=== PATIENT | male | born 1950 | race Caucasian/White ===

== ENCOUNTER → 2017-06-09 | Outpatient (CLI) | payer OTHER ==
[~2017-06-09] MED LIST: AMT50 PO; ASCA500 PO; ASPI-232 PO; DICL1GEL12 TOP; MINO100C22 PO; TYLOTC500 PO; WARF3TAB PO
--- NOTE | 2017-06-16 10:26 | CODING QUERY MEDICAL NECESSITY ---
CQSUPPORTING DIAGNOSIS NEEDED A supporting diagnosis is required for the test/procedure performed on this patient in order for us to be reimbursed by the patient's insurance. Please provide a supporting diagnosis for the following test/procedure listed below next to the test name along with your signature. *If there is no additional diagnosis for this patient that would support the following test/procedure please document that below next to the test/procedure. Test(s)/Procedure(s) that require a supporting diagnosis: DOS 06/09/17 PROSTATE SPECIFIC TEST Provider Signature: Date: Thank you Camille Castaneda [employer] Once completed, please kindly fax back to [phone] For questions please call [phone]
== END | disposition home or self-care (01) ==
LOC: C.LAB 10:05
PROVIDERS: ATTEND Urology
DX: C67.9 Malignant neoplasm of bladder, unspecified (principal); N40.1 Benign prostatic hyperplasia with lower urinary tract symptoms

== ENCOUNTER → 2017-12-16 | Outpatient (CLI) | payer OTHER ==
[2017-12-01 14:47] LABS: BLOOD UREA NITROGEN 21 mg/dl (7-18); CREATININE 1.08 mg/dl (0.60-1.40)
[~2017-12-16] MED LIST changes: -DICL1GEL12 TOP; +GADAVIST IV PRN; -MINO100C22 PO; +NALT1TAB14
--- NOTE | 2017-12-16 12:37 | DIAGNOSTIC IMAGING REPORT ---
MRI OF THE PELVIS COMBO CLINICAL HISTORY: Bladder cancer. COMPARISON STUDY: Pelvic MRI dated 10/07/2016. TECHNIQUE: MRI of the pelvis is performed utilizing various T1 and T2-weighted sequences in the axial, sagittal, coronal planes. Contrast-enhanced sequences are acquired following the IV administration of 14 cc of Gadavist. FINDINGS: The prostate gland is mildly enlarged and heterogeneous, measuring up to 4.9 cm in transverse outer. A central defect the prostate gland is consistent with previous TURP. The bladder is largely decompressed. The bladder wall is thickened and trabeculated consistent with chronic outlet obstruction. A small diverticulum is noted posteriorly to the right. No focal mass lesion is identified. There is no evidence of pericystic disease. The seminal vesicles are normal as visualized. The distal ureters are normal as visualized. There is no pelvic sidewall or inguinal lymphadenopathy. No free fluid is identified in the pelvis. The regional bowel is grossly unremarkable noting rectosigmoid fecal retention. The bony pelvis appears intact. No destructive bony lesion is identified. A fat and bowel containing ventral hernia is incidentally noted. IMPRESSION: 1. Prostatomegaly with evidence of previous TURP. 2. The bladder wall is thickened and trabeculated, and a small bladder diverticulum is identified. The appearance is consistent with the sequelae of chronic bladder outlet obstruction. 3. There is no clear MRI evidence of mucosal lesion involving the bladder or extracapsular extension. 4. There is no evidence of metastatic disease in the pelvis. Electronically signed by: Philip Malhotra M.D. 12/16/2017 12:36 PM Dictated Date/Time: 12/16/2017 12:29 PM
== END | disposition home or self-care (01) ==
LOC: C.MRIBC 10:39
PROVIDERS: ATTEND Urology
DX: C67.9 Malignant neoplasm of bladder, unspecified (principal)

== ENCOUNTER → 2018-01-27 | Outpatient (CLI) | payer OTHER ==
[~2018-01-27] MED LIST changes: -GADAVIST IV PRN
--- NOTE | 2018-01-27 14:55 | DIAGNOSTIC IMAGING REPORT ---
RIGHT ANKLE 3 VIEWS CLINICAL HISTORY: Right ankle pain. FINDINGS: 3 views of the right ankle are obtained. No prior studies are available for comparison at the time of dictation. The skeletal structures appear osteopenic. No fracture is seen. The ankle mortise is intact. Soft tissue swelling is present around the ankle. A small joint effusion is identified. IMPRESSION: Soft tissue swelling and joint effusion. No right ankle fracture is seen. Electronically signed by: Philip Malhotra M.D. 01/27/2018 2:54 PM Dictated Date/Time: 01/27/2018 2:52 PM
== END | disposition home or self-care (01) ==
LOC: C.RAD1850 14:45
PROVIDERS: ATTEND Family Medicine
DX: S91.001A Unspecified open wound, right ankle, initial encounter (principal); X58.XXXA Exposure to other specified factors, initial encounter; M25.471 Effusion, right ankle

== ENCOUNTER → 2018-07-05 | Outpatient (CLI) | payer OTHER ==
[~2018-07-05] MED LIST changes: +CHOL2000 PO; +GABA-113 PO
== END | disposition home or self-care (01) ==
LOC: C.LAB 13:14
PROVIDERS: ATTEND Urology
DX: N40.1 Benign prostatic hyperplasia with lower urinary tract symptoms (principal); C67.9 Malignant neoplasm of bladder, unspecified

== ENCOUNTER → 2018-07-11 | Outpatient (CLI) | payer OTHER | END | disposition home or self-care (01) | LOC: C.PATHSPEC 17:12 | PROVIDERS: ATTEND Urology | DX: C67.9 Malignant neoplasm of bladder, unspecified (principal) ==

== ENCOUNTER 2019-06-20 08:34 | Inpatient (IN) ==
[2019-06-20] MEDS ORDERED: ACETAMINOPHEN 1,000 MG/100 ML VIAL IV STA (09:39)
[2019-06-20] MEDS ORDERED: DEXAMETHASONE **PF** INJ 10 MG/ML VIAL IV ONE (09:39)
[2019-06-20] MEDS ORDERED: MoRPHine SULFATE 10 MG/ML CARP/VIAL IV STA ×2 (09:39→11:04)
[2019-06-20] MEDS ORDERED: SODIUM CHLORIDE 0.9% 500 ML IV SCH (09:45)
[2019-06-20 10:08] LABS: Basophils # (auto) 0.02 K/uL (0-0.2); Basophils % (auto) 0.2 %; Eosinophils # (auto) 0.04 K/uL (0-0.5); Eosinophils % (auto) 0.4 %; Hematocrit (blood only) 43.1 % (42-52); Hemoglobin 15.5 g/dL (14.0-18.0); Immature Granulocytes # (auto) 0.02 K/uL (0.00-0.02); Immature Granulocytes % (auto) 0.2 %; Lymphocytes # (auto) 0.92 K/uL (1.2-3.4); Lymphocytes % (auto) 9.3 %; Mean Corpuscular Volume 91.9 fL (80-100); Mean Platelet Volume 9.6 fL (7.4-10.4); Monocytes # (auto) 0.67 K/uL (0.11-0.59); Monocytes % (auto) 6.7 %; Neutrophils # (auto) 8.27 K/uL (1.4-6.5); Neutrophils % (auto) 83.2 %; Platelet Count 188 K/uL (130-400); RDW Coefficient of Variation 13.9 % (11.5-14.5); RDW Standard Deviation 46.8 fL (36.4-46.3); Red Blood Count 4.69 M/uL (4.7-6.1); White Blood Count 9.94 K/uL (4.8-10.8)
[2019-06-20 10:15] LABS: iSTAT Creatinine 0.9 mg/dl (0.6-1.3); iSTAT Hemoglobin 15.6 g/dl (14.0-18.0); iSTAT Ionized Calcium 1.21 mmol/l (1.12-1.32)
[2019-06-20 10:19] LABS: INR 2.8 (0.9-1.1); Prothrombin Time 26.7 Seconds (9.0-12.0)
[2019-06-20 10:27] LABS: Albumin Level 4.1 gm/dl (3.4-5.0); BUN Creatinine Ratio 15.2 (10-20); Calcium 9.4 mg/dl (8.5-10.1); Creatinine Clr Calc Pharmacy 105.9 ml/min; Est GFR (African American) 92.6; Est GFR (Non-African American) 79.9; Magnesium 1.8 mg/dl (1.8-2.4); Potassium 3.9 mmol/L (3.5-5.1)
[2019-06-20 10:30] LABS: Albumin Globulin Ratio 1.1 (0.9-2); Bilirubin Direct 0.3 mg/dl (0-0.2); Globulin 3.6 gm/dl (2.5-4.0); Phosphorus 2.1 mg/dl (2.5-4.9); Total Protein 7.7 gm/dl (6.4-8.2)
[2019-06-20] MEDS ORDERED: MAGNESIUM SULFATE / D5W 1 GM/100 ML BAG IV STA (11:33)
[2019-06-20] MEDS ORDERED: POT PHOSPHATE MONOBASIC W/ SOD TAB PO STA (11:34)
[2019-06-20] MEDS ORDERED: IOVERSOL 100ml IV PRN (13:18)
[2019-06-20] MEDS ORDERED: HYDROmorphone INJ 1 MG/ML SYRINGE IV STA ×2 (14:05→16:12)
--- NOTE | 2019-06-20 15:38 | History & Physical Report ---
Date of Service June 20, 2019 Assessment & Plan (1) Lumbar radiculopathy: Radiating to left leg. Administer IV steroids. Parenteral narcotics as needed for pain control measures. Obtain lumbar CT or MRI scan when he improves and is able to lie flat Present on Admission?: Yes (2) Intractable back pain: Parenteral narcotics as needed for pain control Present on Admission?: Yes (3) Warfarin anticoagulation: Chronic warfarin anticoagulation due to history of DVT and saddle pulmonary embolism. Daily INR Present on Admission?: Yes (4) Hepatitis C: Necessary precautions Present on Admission?: Yes (5) Hypertension: Treated with lisinopril Present on Admission?: Yes History of Present Illness Chief Complaint: Low back pain radiating to the left leg, inability to ambulate Primary Care Provider: Andre Patel MD 68-year-old male with lumbar radiculopathy symptoms on the left side for weeks with worsening over the past several weeks. He has been getting outpatient physical therapy and recently took a course of prednisone which did not help and cause peripheral edema. His symptoms have progressed where he is unable to ambulate and cannot lie flat for any radiological evaluation at this time. He will be placed on observation with IV steroid therapy and lumbar CT scan or MRI can be obtained when he improves. We will hold off on orthopedic spine consultation until imaging has been completed. He does take Coumadin chronically due to a history of DVT and previous saddle pulmonary embolus. INR is 2.8. This will be watched to daily while on IV steroids. Allergies Allergy/AdvReac Type Severity Reaction Status Date / Time gabapentin AdvReac Intermediate body Verified 06/20/19 09:19 aches, feels like he's in a fog propoxyphene AdvReac Intermediate Nausea Verified 06/20/19 09:19 amoxicillin AdvReac Mild n&v Verified 06/20/19 09:19 clavulanic acid AdvReac Mild N/V Verified 06/20/19 09:19 Home Medications Home Medications Medication Instructions Recorded Confirmed Type acetaminophen [Tylenol Extra 1,000 - 1,500 mg PO HS 08/15/18 06/20/19 History Strength] amitriptyline 50 mg PO HS 08/15/18 06/20/19 History warfarin 3 mg tablet 3 mg PO QAM 08/16/18 06/20/19 History lisinopril 5 mg tablet 5 mg PO QAM 10/17/18 06/20/19 History lorazepam 1 mg PO TID PRN 03/08/19 06/20/19 History hydrocodone 7.5 mg-acetaminophen 1 tab PO TID PRN tab 05/16/19 06/20/19 History 325 mg tablet ranitidine 150 mg tablet 150 mg PO BID 05/16/19 06/20/19 History prednisone 10 mg PO DIRECTED 06/20/19 06/20/19 History Past Med/Surg History Medical History Bladder cancer 2011--chemo/radiation Deep vein thrombosis Fibromyalgia Hemorrhoids Hepatitis C tx no longer has Hypertension Liver lesion Medical marijuana use On anticoagulant therapy warfarin daily Peripheral neuropathy bilt arms, legs and feet Saddle embolus 11/2015 Sleep apnea cpap Surgical History History of bilateral cataract extraction x2 History of biopsy of bladder multiple--malignant History of bowel resection 3-4 inches History of cardiac cath 2008--no stents History of colonoscopy History of cystoscopy multiple History of esophagogastroduodenoscopy (EGD) History of prostate biopsy benign History of repair of hiatal hernia History of right knee surgery acl repair History of tonsillectomy and adenoidectomy History of tooth extraction History of total right knee replacement (TKR) x2 History of umbilical hernia repair x3 S/P IVC filter x2--removed currently no longer has Status post uvulopalatopharyngoplasty Family History Grandmother (Paternal) Family history of diabetes mellitus Mother Family hx of colon cancer Other No family history of adverse response to anesthesia Social History Preferred Language: Chinese Communication Ability: Effective Beliefs That Will Affect Care: None Current Living Situation: Spouse Feels Safe at Home: Yes Smoking Status: Former smoker Second Hand Exposure: Yes Hx Alcohol Use: Yes Alcohol type: beer, wine and hard liquor Hx Substance Use: Yes (medical marijuana) substance use type: marijuana Review of Systems Review of Systems: Constitutional-no fever or chills ENT-no blurred vision, no double vision, no epistaxis, no sore throat Respiratory-no cough, no wheezing, no shortness of breath Cardiac-no palpitations, no chest pain, no syncope GI-no nausea, vomiting, diarrhea, melena, hematochezia -no urinary retention, no urinary incontinence, no dysuria, no hematuria Musculoskeletal-lumbar pain radiating down the left leg Skin-no bruising, no rashes, no pruritus Neuro-left leg weakness Psych-no depression, no anxiety Physical Exam Physical Exam: General-alert and oriented x3, no fevers, no chills. Morbidly obese HEENT-head atraumatic and normocephalic, TMs intact bilaterally, pupils equal and reactive to light, extraocular muscles intact Neck-no lymphadenopathy or thyromegaly, trachea midline Chest-clear to auscultation percussion. No rales wheezing or rhonchi Cardiac-regular rate and rhythm, normal S1 and S2, no murmurs Abdomen-normal bowel sounds, nontender, no hepatosplenomegaly Extremities-no cyanosis, clubbing. Chronic venous stasis changes bilateral lower extremities with edema Neuro-cranial nerves II through XII intact. No focal deficits. Back pain is exacerbated by weightbearing Psych-normal affect, normal mood Results & Data Vital Signs (Past 12 Hours) Vital Signs Temp Pulse Pulse Resp BP BP Pulse Ox 06/20/19 13:28 93 H 20 141/115 H 95 06/20/19 11:13 86 22 150/96 H 93 06/20/19 08:40 36.6 C 98 H 20 166/109 H 93 Laboratory Results 06/20/19 09:55 06/20/19 09:55 PG Care Time/CCT Total # of Minutes Spent Total Time Spent with Patient: Total time spent is greater than 50% in coordination of care (as documented) at patient's floor/unit and/or counseling patient:
--- NOTE | 2019-06-20 15:48 | Emergency Department Note ---
Entered by Martine Ferreira acting as a scribe for History of Present Illness General Chief complaint: Leg Injury/Pain Stated complaint: SCIATICA, BACK LEFT LEG PAIN Time Seen by Provider: 06/20/19 08:49 Source: patient History of Present Illness Location: lower extremity (left leg) Radiation: back (lower back) Pain Consistency: + other (persistent) Maximum Pain Intensity: 10 Quality: + other (sciatic-like pain) Relieved By: not by medication (Prednisone, muscle relaxants) Exacerbated By: + movement and + other (sitting, lying flat, standing, walking) Associated symptoms: + denies other symptoms (fever, chills, cough, congestion, nausea, vomiting, abdominal pain) and + other (diarrhea) The patient is a 68 year old male with a history of sciatica and blood clots that is presenting to the Emergency Room with complaints of persistent left- sided sciatic-like leg and back pain that started 2 months ago and worsened yesterday. The patient reports that the pain worsens with any movement and states that he is unable to walk, sit, or lay flat without significant pain. He states that he has not slept in several days secondary to the pain. The patient reports that he was seen by his PCP 2 months ago for the same pain and was started on a course of Prednisone and muscle relaxants. The patient notes that he fell down 12-13 steps shortly after his symptoms began 2 months ago, which worsened his symptoms at that time. He reports that he completed a 6 day course of physical therapy 2 days ago and was scheduled for a final evaluation and x- ray today. He states that the pain had started to improve with the medication and therapy, but he reports that it worsened acutely last night. He denies any fever, chills, cough, congestion, nausea, vomiting, or abdominal pain. He states that he has had some associated diarrhea that started around the same time as his symptoms. The patient notes that he has a history of sciatica intermittently over the past 20 years but denies any chronic symptoms. He states that he has a history of blood clots and takes Coumadin chronically. He notes that he was taken off Coumadin for a few days 3 months ago for a colonoscopy, and he states that he is still working to bring his INR levels back into a therapeutic range. He notes that his last INR was 3.2 2 weeks ago. The patient notes that his legs are swollen at baseline. Home Medications Home Medications Medication Instructions Recorded Confirmed Type acetaminophen [Tylenol Extra 1,000 - 1,500 mg PO HS 08/15/18 06/20/19 History Strength] amitriptyline 50 mg PO HS 08/15/18 06/20/19 History warfarin 3 mg tablet 3 mg PO QAM 08/16/18 06/20/19 History lisinopril 5 mg tablet 5 mg PO QAM 10/17/18 06/20/19 History lorazepam 1 mg PO TID PRN 03/08/19 06/20/19 History hydrocodone 7.5 mg-acetaminophen 1 tab PO TID PRN tab 05/16/19 06/20/19 History 325 mg tablet ranitidine 150 mg tablet 150 mg PO BID 05/16/19 06/20/19 History prednisone 10 mg PO DIRECTED 06/20/19 06/20/19 History Allergies Allergy/AdvReac Type Severity Reaction Status Date / Time gabapentin AdvReac Intermediate body Verified 06/20/19 09:19 aches, feels like he's in a fog propoxyphene AdvReac Intermediate Nausea Verified 06/20/19 09:19 amoxicillin AdvReac Mild n&v Verified 06/20/19 09:19 clavulanic acid AdvReac Mild N/V Verified 06/20/19 09:19 Past Med/Surg History Medical History Hypertension (Chronic) Hepatitis C (Chronic) Warfarin anticoagulation (Chronic) Lumbar radiculopathy (Acute) Intractable back pain (Acute) Bladder cancer 2011--chemo/radiation Deep vein thrombosis Fibromyalgia Hemorrhoids Hepatitis C tx no longer has Hypertension Liver lesion Medical marijuana use On anticoagulant therapy warfarin daily Peripheral neuropathy bilt arms, legs and feet Saddle embolus 11/2015 Sleep apnea cpap Surgical History History of bilateral cataract extraction x2 History of biopsy of bladder multiple--malignant History of bowel resection 3-4 inches History of cardiac cath 2008--no stents History of colonoscopy History of cystoscopy multiple History of esophagogastroduodenoscopy (EGD) History of prostate biopsy benign History of repair of hiatal hernia History of right knee surgery acl repair History of tonsillectomy and adenoidectomy History of tooth extraction History of total right knee replacement (TKR) x2 History of umbilical hernia repair x3 S/P IVC filter x2--removed currently no longer has Status post uvulopalatopharyngoplasty Family History Grandmother (Paternal) Family history of diabetes mellitus Mother Family hx of colon cancer Other No family history of adverse response to anesthesia Social History Preferred Language: [place] Communication Ability: Effective Ui Ux Web Developer Required: No Beliefs That Will Affect Care: None Current Living Situation: Spouse Other Information That Helps Us Care for You: No Feels Safe at Home: Yes Safety Concerns: Feels Safe At This Time Smoking Status: Former smoker Tobacco Type: pipe Do You Dip or Chew Tobacco: No Smoking End Date: 10 years ago Second Hand Exposure: No Tobacco Cessation Education Requested by Patient: No Hx Alcohol Use: Yes Alcohol type: beer Hx Substance Use: No Review of Systems See HPI for pertinent positives & negatives. and A total of 10 systems reviewed and were otherwise negative Physical Exam Vital Signs Vital Signs - 24 hr 06/20/19 08:40 06/20/19 11:13 06/20/19 13:28 Temperature 36.6 C Temperature Source Oral Sepsis Recent Fever Within 48 Hours No Sepsis New/Unexplained Change in Mental Status No Sepsis Action Taken by Nursing No Action Required Pulse Rate 98 H 84 Pulse Rate [Right Finger] 86 93 H Pulse Rate from SpO2 Sensor 83 Respiratory Rate 20 22 17 Respiratory Effort / Characteristics Non-Labored Spontaneous Non-Labored Spontaneous Non-Labored Spontaneous Respiratory Depth Normal Respiratory Pattern Regular Regular Blood Pressure 166/109 H 141/115 H Blood Pressure [Right Arm] 150/96 H 141/115 H Blood Pressure Mean 128 123 Blood Pressure Mean [Right Arm] 114 123 Blood Pressure Position Sitting Blood Pressure Position [Right Arm] Sitting Pulse Oximetry 93 93 95 Oxygen Delivery Method Room Air Room Air Room Air 06/20/19 15:50 06/20/19 15:51 06/20/19 16:00 Temperature Temperature Source Sepsis Recent Fever Within 48 Hours Sepsis New/Unexplained Change in Mental Status Sepsis Action Taken by Nursing Pulse Rate 85 85 86 Pulse Rate [Right Finger] Pulse Rate from SpO2 Sensor 87 86 85 Respiratory Rate 9 L 13 13 Respiratory Effort / Characteristics Respiratory Depth Respiratory Pattern Blood Pressure 159/94 H Blood Pressure [Right Arm] Blood Pressure Mean 115 Blood Pressure Mean [Right Arm] Blood Pressure Position Blood Pressure Position [Right Arm] Pulse Oximetry 94 92 89 L Oxygen Delivery Method 06/20/19 16:02 Temperature Temperature Source Sepsis Recent Fever Within 48 Hours Sepsis New/Unexplained Change in Mental Status Sepsis Action Taken by Nursing Pulse Rate 99 H Pulse Rate [Right Finger] Pulse Rate from SpO2 Sensor 97 H Respiratory Rate 15 Respiratory Effort / Characteristics Respiratory Depth Respiratory Pattern Blood Pressure 136/108 H Blood Pressure [Right Arm] Blood Pressure Mean 117 Blood Pressure Mean [Right Arm] Blood Pressure Position Blood Pressure Position [Right Arm] Pulse Oximetry 97 Oxygen Delivery Method GENERAL: Awake, alert, uncomfortable-appearing, in no distress. BMI 35.8 kg/m2 HENT: Normocephalic, atraumatic. Oropharynx with dry mucous membranes and otherwise unremarkable. EYES: Normal conjunctiva. Sclera non-icteric. NECK: Supple. No nuchal rigidity. FROM. No JVD. RESPIRATORY: Clear to auscultation bilaterally. CARDIAC: Regular rate, normal rhythm. Extremities warm and well perfused. Pulses equal. ABDOMEN: Soft, non-distended. No tenderness to palpation. No rebound or guarding. No masses. RECTAL: Deferred. MUSCULOSKELETAL: Chest examination reveals no tenderness. The back is symmetrical on inspection without obvious abnormality. There is no CVA tenderness to palpation. No joint edema. Mild tenderness of the left lower lumbar region extending distally in the sciatic distribution. LOWER EXTREMITIES: Calves are equal size bilaterally and non-tender. No d iscoloration. 1+ bilateral lower extremity edema.. NEURO: Normal sensorium. No sensory or motor deficits noted. DTR within normal limits. 5/5 strength and SILT x4 extremities. L5 intact bilaterally. SKIN: No rash or jaundice noted. Course 0928:The patient was evaluated in room A03. A complete history and physical examination was performed. 1100: The patient was unable to lie down for his CT scan at this time. Additional pain medication was ordered. 1334: I reevaluated the patient at this time. He stated that his pain decreased to a 3/10 after the second dose of Morphine, but he reports that he was still unable to lie down for a CT scan. 1405: Upon reevaluation, the patient is resting comfortably. I discussed laboratory and radiographic results with the patient. He verbalized agreement of the treatment plan. The patient will be evaluated for further management and care. 1441: I discussed the patient's case with DOMINGO Zhou, who will evaluate the patient for further management and care. Consultations Consultation #1: I discussed the patient's case with DOMINGO Zhou, who will evaluate the patient for further management and care. Time: 14:41 Administered Medications Amitriptyline HCl (Elavil) 50 mg PO HS [facility] Stop: 07/20/19 20:59 Last Admin: 06/20/19 21:01 Dose: 50 mg Documented by: [id number] Methylprednisolone 40 mg/ (Syringe) 0.64 mls @ 1.5 mls/min IV Q8H [facility] Stop: 07/20/19 17:59 Last Admin: 06/20/19 17:56 Dose: 1.5 mls/min Documented by: [id number] Lisinopril (Zestril) 5 mg PO QAM [facility] Stop: 07/21/19 08:59 Last Admin: 06/20/19 17:54 Dose: 5 mg Documented by: [id number] Morphine Sulfate (Morphine Sulfate) 4 mg IV Q3H PRN PRN Reason: Pain Stop: 07/04/19 17:03 Last Admin: 06/20/19 19:58 Dose: 4 mg Documented by: [id number] Ranitidine HCl (Zantac) 150 mg PO BID [facility] Stop: 07/20/19 20:59 Last Admin: 06/20/19 21:01 Dose: 150 mg Documented by: [id number] Warfarin Sodium (Coumadin) 3 mg PO DAILY@1600 [facility] Stop: 07/20/19 15:59 Last Admin: 06/20/19 17:54 Dose: 3 mg Documented by: [id number] Discontinued Medications Dexamethasone Sodium Phosphate (Decadron Pf) 10 mg IV NOW ONE Stop: 06/20/19 09:40 Last Admin: 06/20/19 09:56 Dose: 10 mg Documented by: [id number] Hydromorphone HCl (Dilaudid) 1 mg IV NOW STA Stop: 06/20/19 14:06 Last Admin: 06/20/19 14:16 Dose: 1 mg Documented by: [id number] Hydromorphone HCl (Dilaudid) 1 mg IV NOW STA Stop: 06/20/19 16:13 Last Admin: 06/20/19 16:18 Dose: 1 mg Documented by: [id number] Acetaminophen (Ofirmev) 1,000 mg in 100 mls @ 400 mls/hr IV NOW STA Stop: 06/20/19 09:53 Last Infusion: 06/20/19 10:11 Dose: 0 mls/hr Documented by: [id number] Admin: 06/20/19 09:56 Dose: 400 mls/hr Documented by: [id number] Sodium Chloride (Nss) 500 mls @ 999 mls/hr IV .Q31M HENRRY Stop: 06/20/19 10:15 Last Infusion: 06/20/19 10:27 Dose: 0 mls/hr Documented by: [id number] Admin: 06/20/19 09:55 Dose: 999 mls/hr Documented by: [id number] Magnesium Sulfate/Dextrose (Magnesium Sulfate / D5w) 1 gm in 100 mls @ 100 mls/hr IV NOW STA Stop: 06/20/19 12:32 Last Infusion: 06/20/19 12:44 Dose: 0 mls/hr Documented by: [id number] Admin: 06/20/19 11:43 Dose: 100 mls/hr Documented by: [id number] Morphine Sulfate (Morphine Sulfate) 8 mg IV NOW STA Stop: 06/20/19 09:40 Last Admin: 06/20/19 09:55 Dose: 8 mg Documented by: [id number] Morphine Sulfate (Morphine Sulfate) 10 mg IV NOW STA Stop: 06/20/19 11:05 Last Admin: 06/20/19 11:07 Dose: 10 mg Documented by: [id number] Potassium Phosphate (Phospha 250 Neutral 155-852-130 Mg) 2 tab PO NOW STA Stop: 06/20/19 11:35 Last Admin: 06/20/19 11:56 Dose: 2 tab Documented by: [id number] Medical Decision Making Differential Diagnosis Differential diagnosis: Etiologies such as musculoskeletal, disc herniation, fracture, aortic disease, metastatic disease, cord compression, discitis, infection, renal colic, gastrointestinal, acute exacerbation of chronic back pain, sciatica, cauda equina, as well as others were entertained. Medical Records Attestation: I reviewed the patient's medical records. Home Medications Current Medication List: was personally reviewed by me Laboratory Data Attestation: I reviewed the patient's lab results. Result diagrams: 06/20/19 09:55 06/20/19 09:55 Lab Results 06/20/19 06/20/19 06/20/19 Range/Units 09:55 09:55 09:55 WBC 9.94 (4.8-10.8) K/uL RBC 4.69 L (4.7-6.1) M/uL Hgb 15.5 (14.0-18.0) g/dL POC Hgb (14.0-18.0) g/dl Hct 43.1 (42-52) % POC Hct (42-52) % MCV 91.9 (80-100) fL MCH 33.0 (25-34) pg MCHC 36.0 (32-36) g/dL RDW Std Deviation 46.8 H (36.4-46.3) fL RDW Coeff of Jazz 13.9 (11.5-14.5) % Plt Count 188 (130-400) K/uL MPV 9.6 (7.4-10.4) fL Immature Gran % (Auto) 0.2 % Neut % (Auto) 83.2 % Lymph % (Auto) 9.3 % [place] % (Auto) 6.7 % Eos % (Auto) 0.4 % Baso % (Auto) 0.2 % Immature Gran # (Auto) 0.02 (0.00-0.02) K/uL Neut # (Auto) 8.27 H (1.4-6.5) K/uL Lymph # (Auto) 0.92 L (1.2-3.4) K/uL [place] # (Auto) 0.67 H (0.11-0.59) K/uL Eos # (Auto) 0.04 (0-0.5) K/uL Baso # (Auto) 0.02 (0-0.2) K/uL PT 26.7 H (9.0-12.0) Seconds INR 2.8 H (0.9-1.1) POC Sodium (135-144) mEq/L Sodium 136 (136-145) mmol/L POC Potassium (3.3-5.0) mEq/L Potassium 3.9 (3.5-5.1) mmol/L POC Chloride (101-112) mEq/L Chloride 106 (98-107) mmol/L Carbon Dioxide 22 (21-32) mmol/L POC Total CO2 (24-31) mEq/l Anion Gap 8.0 (3-11) POC Anion Gap (16-25) mmol/L POC BUN (7-18) mg/dl BUN 15 (7-18) mg/dl Creatinine 0.97 (0.6-1.4) mg/dl POC Creatinine (0.6-1.3) mg/dl Est Cr Clr Drug Dosing 105.9 ml/min Est GFR ( Amer) 92.6 Est GFR (Non-Af Amer) 79.9 BUN/Creatinine Ratio 15.2 (10-20) Glucose 110 H (70-99) mg/dl POC Glucose (other) (70-99) mg/dl Calcium 9.4 (8.5-10.1) mg/dl POC Ioniz Calcium Stephanie (1.12-1.32) mmol/l Phosphorus 2.1 L (2.5-4.9) mg/dl Magnesium 1.8 (1.8-2.4) mg/dl Total Bilirubin 1.0 (0.2-1) mg/dl Direct Bilirubin 0.3 H (0-0.2) mg/dl AST 15 (15-37) U/L ALT 17 (12-78) U/L Alkaline Phosphatase 57 (45-117) U/L Total Protein 7.7 (6.4-8.2) gm/dl Albumin 4.1 (3.4-5.0) gm/dl Globulin 3.6 (2.5-4.0) gm/dl Albumin/Globulin Ratio 1.1 (0.9-2) Lipase 51 L (73-393) U/L Urine Color Urine Appearance (Clear) Urine pH (4.5-7.5) Ur Specific Enterprise (1.000-1.030) Urine Protein (Negative) Urine Glucose (UA) (Negative) Urine Ketones (Negative) Urine Blood (Negative) Urine Nitrite (Negative) Urine Bilirubin (Negative) Urine Urobilinogen (Negative) Ur Leukocyte Esterase (Negative) Urine WBC (Auto) (0-5) /hpf Urine RBC (Auto) (0-4) /hpf U Hyaline Cast (Auto) (0-5) /lpf U Epithel Cells (Auto) (0-5) /lpf Urine Bacteria (Auto) (Negative) 06/20/19 06/20/19 Range/Units 10:03 15:50 WBC (4.8-10.8) K/uL RBC (4.7-6.1) M/uL Hgb (14.0-18.0) g/dL POC Hgb 15.6 (14.0-18.0) g/dl Hct (42-52) % POC Hct 46 (42-52) % MCV (80-100) fL MCH (25-34) pg MCHC (32-36) g/dL RDW Std Deviation (36.4-46.3) fL RDW Coeff of Jazz (11.5-14.5) % Plt Count (130-400) K/uL MPV (7.4-10.4) fL Immature Gran % (Auto) % Neut % (Auto) % Lymph % (Auto) % [place] % (Auto) % Eos % (Auto) % Baso % (Auto) % Immature Gran # (Auto) (0.00-0.02) K/uL Neut # (Auto) (1.4-6.5) K/uL Lymph # (Auto) (1.2-3.4) K/uL [place] # (Auto) (0.11-0.59) K/uL Eos # (Auto) (0-0.5) K/uL Baso # (Auto) (0-0.2) K/uL PT (9.0-12.0) Seconds INR (0.9-1.1) POC Sodium 137 (135-144) mEq/L Sodium (136-145) mmol/L POC Potassium 4.0 (3.3-5.0) mEq/L Potassium (3.5-5.1) mmol/L POC Chloride 103 (101-112) mEq/L Chloride (98-107) mmol/L Carbon Dioxide (21-32) mmol/L POC Total CO2 20 L (24-31) mEq/l Anion Gap (3-11) POC Anion Gap 19.0 (16-25) mmol/L POC BUN 15 (7-18) mg/dl BUN (7-18) mg/dl Creatinine (0.6-1.4) mg/dl POC Creatinine 0.9 (0.6-1.3) mg/dl Est Cr Clr Drug Dosing ml/min Est GFR ( Amer) Est GFR (Non-Af Amer) BUN/Creatinine Ratio (10-20) Glucose (70-99) mg/dl POC Glucose (other) 117 H (70-99) mg/dl Calcium (8.5-10.1) mg/dl POC Ioniz Calcium Stephanie 1.21 (1.12-1.32) mmol/l Phosphorus (2.5-4.9) mg/dl Magnesium (1.8-2.4) mg/dl Total Bilirubin (0.2-1) mg/dl Direct Bilirubin (0-0.2) mg/dl AST (15-37) U/L ALT (12-78) U/L Alkaline Phosphatase (45-117) U/L Total Protein (6.4-8.2) gm/dl Albumin (3.4-5.0) gm/dl Globulin (2.5-4.0) gm/dl Albumin/Globulin Ratio (0.9-2) Lipase (73-393) U/L Urine Color Dark Yellow Urine Appearance Clear (Clear) Urine pH 5.0 (4.5-7.5) Ur Specific [place] 1.025 (1.000-1.030) Urine Protein 1+ H (Negative) Urine Glucose (UA) Negative (Negative) Urine Ketones 1+ H (Negative) Urine Blood Negative (Negative) Urine Nitrite Negative (Negative) Urine Bilirubin Negative (Negative) Urine Urobilinogen Negative (Negative) Ur Leukocyte Esterase Negative (Negative) Urine WBC (Auto) 1-5 (0-5) /hpf Urine RBC (Auto) 0-4 (0-4) /hpf U Hyaline Cast (Auto) 1-5 (0-5) /lpf U Epithel Cells (Auto) 0-5 (0-5) /lpf Urine Bacteria (Auto) Negative (Negative) Blood Pressure Blood Pressure Findings: Elevated blood pressure Blood Pressure Disposition: elevated BP felt to be situational MDM Narrative The patient is a pleasant 68-year-old gentleman with a past medical history of DVT and PE status post IVC filter on Coumadin who presents to emergency department with worsening of left lower back/radicular symptoms that is been ongoing for the past 2 months being managed by his PCP with recent physical therapy per hpi. Patient reports he had initial onset of his symptoms 2 months ago and after the onset of his symptoms he did have a fall down steps but was able to improve over the course of his outpatient treatment but 2 days ago began to experience worsening without any clear provocation. The patient denies any urinary retention or bowel incontinence. He does however report diarrhea which seems to have began around the same time his back pain started. On arrival the patient is uncomfortable but no acute distress, afebrile stable vital signs. Patient has mild tenderness of the left lower lumbar region without bony crepi tus and extension distally in the sciatic distribution. 5/5 strength and SILT x 4 extremities. DTRs normal. No clonus. L5 intact bilaterally. Given the patient's medical history and additional GI symptoms CT of abdomen pelvis was appropriate to exclude any alternate causes to his pain, though certainly consistent with radiculopathy. WBC, H/H, platelets wnl. Chemistry without acidosis. LFTs and electrolytes unremarkable. Phosphorus 2.1 and magnesium 1.8 with repletion provided. Patient was treated with initial 8 mg of IV morphine with improvement in his symptoms however when he went to CT he was unable to lay flat secondary to pain. A second attempt was done with another 10 mg of IV mor phine however was still unable to lie flat secondary to pain. Thus, given the patient's intractable pain and need for further clarification with higher level imaging reasonable to admit the patient for further management. Case was discussed with Dr. Kurtz, [facility] hospitalist, who will evaluate the patient for admission. Impression & Plan Intractable back pain, Hypomagnesemia, Hypophosphatemia, Lumbosacral radiculopathy Discharge Plan Visit Data *Final* Discharge Date/Time: 06/20/19 16:49 Chief Complaint: Leg Injury/Pain Stated Complaint: SCIATICA, BACK LEFT LEG PAIN ED Provider: Devon Howard Discharge Problem: Intractable back pain, Hypomagnesemia, Hypophosphatemia, Lumbosacral radiculopathy Patient Disposition: Admitted As Inpatient Discharge Instructions Interventions: ED Discharge Assessment Last Done: 06/20/19 16:49 The scribe's documentation has been prepared under my direction and personally reviewed by me in its entirety. I confirm that the note above accurately reflects all work, treatment, procedures, and medical decision making performed by me.
[2019-06-20 16:04] LABS: Appearance Urine Clear (Clear); Bacteria Urine Automated Negative (Negative); Bilirubin Urine Negative (Negative); Blood Urine Negative (Negative); Color Urine Dark Yellow; Epithelial Cell Urine Auto 0-5 /lpf (0-5); Glucose Urine UA Negative (Negative); Ketones Urine 1+ (Negative); Leukocyte Esterase Urine Negative (Negative); Nitrite Urine Negative (Negative); Protein Urine 1+ (Negative); RBC Urine Automated 0-4 /hpf (0-4); Specific Gravity Urine 1.025 (1.000-1.030); Urobilinogen Urine Negative (Negative)
[2019-06-20] MEDS ORDERED: ALUMINUM/MAGNESIUM SUSP 30 ML UDC PO PRN (17:04)
[2019-06-20] MEDS ORDERED: ONDANSETRON INJ 2 MG/ML 2 ML VIAL IV PRN (17:04)
[2019-06-20] MEDS: WARFARIN SOD 3 MG TAB PO SCH (17:54)
[2019-06-20] MEDS: LISINOPRIL 5 MG TAB PO SCH (17:54)
[2019-06-20] MEDS: methylPREDNISolone 40 MG in SYRINGE 0 ML IV SCH (17:56)
[2019-06-20] MEDS: MoRPHine SULFATE 4 MG/ML 1 ML CARP\\VIAL IV PRN ×2 (19:58→22:46)
[2019-06-20] MEDS: AMITRIPTYLINE HCL 50 MG TAB PO SCH (21:01)
[2019-06-21] MEDS: MoRPHine SULFATE 4 MG/ML 1 ML CARP\\VIAL IV PRN ×4 (02:08→13:20)
[2019-06-21] MEDS: methylPREDNISolone 40 MG in SYRINGE 0 ML IV SCH ×3 (02:08→18:11)
[2019-06-21] MEDS ORDERED: HYDROmorphone INJ 0.5 MG/0.5 ML SYR IV STA (06:59)
[2019-06-21] MEDS ORDERED: ACETAMINOPHEN 1,000 MG/100 ML VIAL IV STA (06:59)
[2019-06-21] MEDS: LIDOCAINE 5% 1 PATCH TD SCH (07:35)
[2019-06-21 07:57] LABS: INR 3.2 (0.9-1.1); Prothrombin Time 29.8 Seconds (9.0-12.0)
[2019-06-21] MEDS: LORazepam 1 MG TAB PO PRN ×2 (09:05→15:11)
[2019-06-21] MEDS: LISINOPRIL 5 MG TAB PO SCH (09:44)
[2019-06-21] MEDS: WARFARIN SOD 3 MG TAB PO SCH (16:09)
[2019-06-21] MEDS ORDERED: HYDROmorphone INJ 1 MG/ML SYRINGE IV ONE (16:38)
[2019-06-21] MEDS: MoRPHine SULFATE PCA 50 MG/50ML IV PRN ×2 (17:16→23:13)
[2019-06-21] MEDS: SODIUM CHLORIDE 0.9% 1000ML 1,000 ML IV SCH (17:27)
[2019-06-21] MEDS: AMITRIPTYLINE HCL 50 MG TAB PO SCH (20:28)
--- NOTE | 2019-06-21 23:14 | Hospitalist Progress Note ---
Date of Service June 21, 2019 Assessment & Plan (1) Lumbar radiculopathy: Lumbar back pain vs possible SI joint pain. His radicular symptoms point towards more of a lumbar issue. Would benefit from an MRI however unable to tolerate lying in bed for more than 3 seconds. Will at least try to obtain a CT scan. Will continue to monitor. Will place on [employer] drip of morphine and will order dilaudid 30minutes before CT scan. (2) Intractable back pain: Parenteral narcotics as needed for pain control (3) Warfarin anticoagulation: Chronic warfarin anticoagulation due to history of DVT and saddle pulmonary embolism. Daily INR (4) Hepatitis C: Necessary precautions (5) Hypertension: Treated with lisinopril Spent 35 minutes in management of patient. Subjective Patient is still having significant pain in his back. He is unable to lie down in a bed. He states he cannot tolerate being in a cat scan machine. Pain is severe radiates from the lumbar back to his left anterior thigh. Review of Systems Review of Systems: Constitutional-no fever or chills ENT-no blurred vision, no double vision, no epistaxis, no sore throat Respiratory-no cough, no wheezing, no shortness of breath Cardiac-no palpitations, no chest pain, no syncope GI-no nausea, vomiting, diarrhea, melena, hematochezia -no urinary retention, no urinary incontinence, no dysuria, no hematuria Musculoskeletal-lumbar pain radiating down the left leg Skin-no bruising, no rashes, no pruritus Neuro-left leg weakness Psych-no depression, no anxiety Physical Exam Physical Exam: General-alert and oriented x3, no fevers, no chills. Morbidly obese HEENT-head atraumatic and normocephalic, TMs intact bilaterally, pupils equal and reactive to light, extraocular muscles intact Neck-no lymphadenopathy or thyromegaly, trachea midline Chest-clear to auscultation percussion. No rales wheezing or rhonchi Cardiac-regular rate and rhythm, normal S1 and S2, no murmurs Abdomen-normal bowel sounds, nontender, no hepatosplenomegaly Extremities-no cyanosis, clubbing. Chronic venous stasis changes bilateral lower extremities with edema Neuro-cranial nerves II through XII intact. No focal deficits. Back pain is exacerbated by weightbearing, TTP lumbar spine and SI joint. Unable to assess ROM due to severe pain. Psych-normal affect, normal mood Results & Data Vital Signs (Past 12 Hours) Vital Signs Temp Pulse Resp BP Pulse Ox 06/21/19 22:24 37 C 95 H 20 133/88 91 06/21/19 21:30 36.9 C 97 H 20 147/91 H 91 06/21/19 20:26 37 C 89 19 129/86 90 06/21/19 19:23 36.7 C 98 H 20 129/82 92 06/21/19 18:22 36.7 C 94 H 20 145/107 H 92 06/21/19 15:15 36.4 C L 83 16 133/86 92 PG Care Time/CCT Total # of Minutes Spent Total Time Spent with Patient: Total time spent is greater than 50% in coordination of care (as documented) at patient's floor/unit and/or counseling patient:
[2019-06-22] MEDS: methylPREDNISolone 40 MG in SYRINGE 0 ML IV SCH ×3 (02:32→17:33)
[2019-06-22 07:44] LABS: Prothrombin Time 33.3 Seconds (9.0-12.0)
[2019-06-22 07:45] LABS: INR 3.6 (0.9-1.1)
[2019-06-22] MEDS: LISINOPRIL 5 MG TAB PO SCH (09:15)
[2019-06-22] MEDS: LIDOCAINE 5% 1 PATCH TD SCH (09:15)
[2019-06-22] MEDS: MoRPHine SULFATE PCA 50 MG/50ML IV PRN ×3 (09:39→23:03)
--- NOTE | 2019-06-22 12:55 | Orthopedic Consultation ---
Date of Consultation June 22, 2019 Assessment & Plan (1) Lumbosacral radiculopathy: Discussion with this patient regarding his clinical presentation. I strongly suspect in L4-L5 radiculopathy on the left. He understands we very much need further imaging. He struggled lying supine for his studies. We will reattempt once his pain is better controlled. Ideally we would have an MRI of the lumbar spine. This would be preferable over a CAT scan for for accurate diagnosis. Present on Admission?: Yes History of Present Illness Reason for Consultation: Back and left leg pain Attending Physician: Stewart Briseno History of Present Illness This is a 68-year-old male that states he has had left leg symptoms progressed over the past several months. He denies any specific trauma fall or event. Is not involved right lower extremity. He states he essentially awoke with significant pain involving left buttock posterior thigh down below the knee. Is markedly limiting in nature. He is unable to ambulate. Lying supine is very uncomfortable. 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 Allergies Allergy/AdvReac Type Severity Reaction Status Date / Time gabapentin AdvReac Intermediate body Verified 06/20/19 09:19 aches, feels like he's in a fog propoxyphene AdvReac Intermediate Nausea Verified 06/20/19 09:19 amoxicillin AdvReac Mild n&v Verified 06/20/19 09:19 clavulanic acid AdvReac Mild N/V Verified 06/20/19 09:19 Home Medications Home Medications Medication Instructions Recorded Confirmed Type acetaminophen [Tylenol Extra 1,000 - 1,500 mg PO HS 08/15/18 06/20/19 History Strength] amitriptyline 50 mg PO HS 08/15/18 06/20/19 History warfarin 3 mg tablet 3 mg PO QAM 08/16/18 06/20/19 History lisinopril 5 mg tablet 5 mg PO QAM 10/17/18 06/20/19 History lorazepam 1 mg PO TID PRN 03/08/19 06/20/19 History hydrocodone 7.5 mg-acetaminophen 1 tab PO TID PRN tab 05/16/19 06/20/19 History 325 mg tablet ranitidine 150 mg tablet 150 mg PO BID 05/16/19 06/20/19 History prednisone 10 mg PO DIRECTED 06/20/19 06/20/19 History Patient History Medical History Hypertension (Chronic) Hepatitis C (Chronic) Warfarin anticoagulation (Chronic) Lumbar radiculopathy (Acute) Intractable back pain (Acute) Bladder cancer 2011--chemo/radiation Deep vein thrombosis Fibromyalgia Hemorrhoids Hepatitis C tx no longer has Hypertension Liver lesion Medical marijuana use On anticoagulant therapy warfarin daily Peripheral neuropathy bilt arms, legs and feet Saddle embolus 11/2015 Sleep apnea cpap Surgical History History of bilateral cataract extraction x2 History of biopsy of bladder multiple--malignant History of bowel resection 3-4 inches History of cardiac cath 2008--no stents History of colonoscopy History of cystoscopy multiple History of esophagogastroduodenoscopy (EGD) History of prostate biopsy benign History of repair of hiatal hernia History of right knee surgery acl repair History of tonsillectomy and adenoidectomy History of tooth extraction History of total right knee replacement (TKR) x2 History of umbilical hernia repair x3 S/P IVC filter x2--removed currently no longer has Status post uvulopalatopharyngoplasty Family History Grandmother (Paternal) Family history of diabetes mellitus Mother Family hx of colon cancer Other No family history of adverse response to anesthesia Social History Preferred Language: Egyptian Communication Ability: Effective Linoleum Tile Floor Layer Required: No Beliefs That Will Affect Care: None marital status: Current Living Situation: Spouse Other Information That Helps Us Care for You: No Feels Safe at Home: Yes Safety Concerns: Feels Safe At This Time Smoking Status: Former smoker Tobacco Type: pipe ; Do You Dip or Chew Tobacco: No ; Smoking End Date: 10 years ago ; Second Hand Exposure: No ; Tobacco Cessation Education Requested by Patient: No Hx Alcohol Use: Yes Alcohol type: beer Hx Substance Use: No Physical Exam Physical Exam: Patient is in the chair at the bedside. He has reasonable plantar flexion dorsiflexion quadriceps bilaterally. Sensory symmetric and intact to light touch and cold sensation. Results & Data Vital Signs (Past 12 Hours) Vital Signs Temp Pulse Pulse Resp BP BP Pulse Ox 06/22/19 07:52 36.9 C 94 H 15 160/94 H 92 06/22/19 06:01 36.3 C L 101 H 17 156/104 H 92 06/22/19 02:11 36.7 C 89 20 147/90 H 94
[2019-06-22] MEDS ORDERED: HYDROmorphone INJ 1 MG/ML SYRINGE IV STA (16:14)
--- NOTE | 2019-06-22 17:15 | CT Scan Report ---
LUMBAR SPINE CT CT DOSE: 1034.66 mGy.cm HISTORY: lumbar back pain/ radiation to anterior thigh TECHNIQUE: Multiaxial CT images of the lumbar spine were performed and reformatted in the sagittal an d coronal plane without the use of contrast. A dose lowering technique was utilized adhering to the principles of ALARA. COMPARISON: Abdomen and pelvis CT 07/18/2018. FINDINGS: No fracture or subluxation within the lumbar spine. The visualized sacrum appears intact. B ilateral renal hypodense lesions are partially visualized. These are incompletely characterized on th is noncontrast study but favor cysts. Severe facet osteoarthritis from L3 through S1. Mild facet oste oarthritis within the upper lumbar spine. Mild disc space narrowing throughout the lumbar spine with small endplate osteophytes. Alignment is intact. Mild levoscoliosis of the lower lumbar spine. L1-L2: Small broad-based posterior disc bulge with ligamentum and facet hypertrophy resulting in mild central canal and mild bilateral neural foraminal narrowing. L2-L3: Small broad-based posterior disc bulge with ligamentum and facet hypertrophy resulting in mild central canal and mild bilateral neural foraminal narrowing. L3-L4: Broad-based posterior disc bulge asymmetric to the left. There is suggestion of a left foramin al disc protrusion. This results in severe left-sided neural foraminal narrowing with likely compress ion of the exiting left L3 nerve root at this level. There is also moderate to severe central canal a nd right neural foraminal narrowing. L4-L5: Broad-based posterior disc bulge with ligamentum and facet hypertrophy resulting in severe helio tral canal narrowing. There is moderate to severe right and mild left neural foraminal narrowing. L5-S1: Small broad-based posterior disc bulge with ligamentum and facet hypertrophy resulting in mild central canal and mild to moderate bilateral neural foraminal narrowing. IMPRESSION: 1. No fracture or subluxation within the lumbar spine. 2. Multilevel lumbar spondylosis as described above. This is most pronounced at the L3-L4 level where there appears to be a left foraminal disc protrusion resulting in severe left-sided neural foraminal narrowing. This likely compresses the exiting left L3 nerve root. 3. Severe central canal narrowing at L4-L5 and moderate to severe central canal narrowing at L3-L4. Electronically signed by: Frankie Cantrell M.D. 06/22/2019 5:13 PM
[2019-06-22] MEDS: AMITRIPTYLINE HCL 50 MG TAB PO SCH (20:48)
--- NOTE | 2019-06-22 20:51 | Hospitalist Progress Note ---
Date of Service June 22, 2019 Assessment & Plan (1) Lumbar radiculopathy: Lumbar back pain vs possible SI joint pain. CT scan shows evidence of dietary server joint space narrowing of L4-L5. His radicular symptoms point towards more of a lumbar issue. Will discuss case with Dr. Austin in AM to see how will proceed likely with the procedure. Patient may be transferred to Dr. Newby's service. Patient is aware. continue NURSE DISCHARGE morphine and added dilaudid as a PRN if needed q8h. (2) Intractable back pain: Parenteral narcotics as needed for pain control (3) Warfarin anticoagulation: Chronic warfarin anticoagulation due to history of DVT and saddle pulmonary embolism. Daily INR; will hold warfarin over weekend. (4) Hepatitis C: Necessary precautions (5) Hypertension: Treated with lisinopril Spent 45 minutes in management of patient. Subjective Had extensive conversation with patient. He reports pain is controlled with NURSE DISCHARGE morphine, and reaches a 3-4 out of 10. Patient states the additional dialudid helped control his pain for him to lie down for his ct scan. Review of Systems Review of Systems: Constitutional-no fever or chills ENT-no blurred vision, no double vision, no epistaxis, no sore throat Respiratory-no cough, no wheezing, no shortness of breath Cardiac-no palpitations, no chest pain, no syncope GI-no nausea, vomiting, diarrhea, melena, hematochezia -no urinary retention, no urinary incontinence, no dysuria, no hematuria Musculoskeletal-lumbar pain radiating down the left leg Skin-no bruising, no rashes, no pruritus Neuro-left leg weakness Psych-no depression, no anxiety Physical Exam Physical Exam: General-alert and oriented x3, no fevers, no chills. Morbidly obese HEENT-head atraumatic and normocephalic, TMs intact bilaterally, pupils equal and reactive to light, extraocular muscles intact Neck-no lymphadenopathy or thyromegaly, trachea midline Chest-clear to auscultation percussion. No rales wheezing or rhonchi Cardiac-regular rate and rhythm, normal S1 and S2, no murmurs Abdomen-normal bowel sounds, nontender, no hepatosplenomegaly Extremities-no cyanosis, clubbing. Chronic venous stasis changes bilateral lower extremities with edema Neuro-cranial nerves II through XII intact. No focal deficits. Back pain is exacerbated by weightbearing, TTP lumbar spine and SI joint. Unable to assess ROM due to severe pain. Psych-normal affect, normal mood Results & Data Vital Signs (Past 12 Hours) Vital Signs Temp Pulse Resp BP Pulse Ox 06/22/19 19:58 89 143/94 H 06/22/19 19:45 36.3 C L 94 H 18 161/106 H 92 06/22/19 14:51 36.8 C 86 19 144/89 H 90 PG Care Time/CCT Total # of Minutes Spent Total Time Spent with Patient: Total time spent is greater than 50% in coordination of care (as documented) at patient's floor/unit and/or counseling patient:
[2019-06-22] MEDS ORDERED: HYDROmorphone INJ 1 MG/ML SYRINGE ONE (20:59)
[2019-06-22] MEDS: SODIUM CHLORIDE 0.9% 1000ML 1,000 ML IV SCH (23:12)
[2019-06-23] MEDS: HYDROmorphone INJ 1 MG/ML SYRINGE IV PRN (02:11)
[2019-06-23] MEDS: methylPREDNISolone 40 MG in SYRINGE 0 ML IV SCH ×3 (02:11→18:07)
[2019-06-23 06:59] LABS: INR 3.2 (0.9-1.1)
[2019-06-23] MEDS: LISINOPRIL 5 MG TAB PO SCH (08:35)
--- NOTE | 2019-06-23 10:18 | Orthopedic Progress Note ---
Date of Service June 23, 2019 Assessment & Plan (1) Lumbosacral radiculopathy: Had a lengthy discussion with the patient this morning reviewing his CAT scan findings. I am convinced he has an L3 radiculopathy secondary to severe L3-4 neuroforaminal stenosis with possible far lateral disc herniation. This is in conjunction with severe spinal stenosis at the 3 4 L4-5 level. I doubt he be able to tolerate an MRI secondary to the severe radiculopathy. We discussed possible diagnostic therapeutic nerve root block involving the left L3 nerve. The most likely not occur to Tuesday or Tuesday of next week once instructed interventional pain management has an opportunity to assess the patient. If he fails to respond for any length of time we may need to consider significant surgery requiring a lumbar decompression fusion at the L3-4 L4-5 level. Present on Admission?: Yes Subjective Patient still has significant left leg pain involving anterior thigh to just below the knee. The right lower extremity symptomatic. Is unremitting in nature. He was able to undergo a CAT scan of the lumbar spine yesterday. He still does not believe he would be able to tolerate an MRI. Physical Exam Physical Exam: Patient is in the chair at the bedside. Is in obvious distress. Results & Data Vital Signs (Past 12 Hours) Vital Signs Temp Pulse Resp BP Pulse Ox 06/23/19 07:51 36.4 C L 76 17 166/93 H 92 06/23/19 03:10 36.9 C 98 H 18 138/90 92 06/22/19 22:55 36.9 C 89 18 169/99 H 92
[2019-06-23] MEDS: LIDOCAINE 5% 1 PATCH TD SCH (10:31)
[2019-06-23] MEDS ORDERED: HYDROmorphone INJ 1 MG/ML SYRINGE IV STA (12:14)
[2019-06-23] MEDS: HYDROmorphone HCL 0.5MG/ML 50 ML CASSETTE IV PRN ×2 (13:46→18:47)
--- NOTE | 2019-06-23 16:19 | Hospitalist Progress Note ---
Date of Service June 23, 2019 Assessment & Plan (1) Lumbar radiculopathy: CT lumbar spine shows multilevel lumbar spondylosis as described above. This is most pronounced at the L3-L4 level where there appears to be a left foraminal disc protrusion resulting in severe left-sided neural foraminal narrowing. This likely compresses the exiting left L3 nerve root. Severe central canal narrowing at L4-L5 and moderate to severe central canal narrowing at L3-L4. discussed with Dr. Austin, plan for diagnostic and therapeutic L3 nerve nerve injection with pain management this won't occur until Tuesday or Tuesday continue with Solu Medrol change FAMILY SERVICE ASSISTANT to Dilaudid 0.5mg/hr continuous and 0.3mg every 15 minutes likely will need decompression of L3-L5 could try to get MRI after nerve block for better imaging (2) Intractable back pain: see above, using Dilaudid FAMILY SERVICE ASSISTANT (3) Warfarin anticoagulation: Chronic warfarin anticoagulation due to history of DVT and saddle pulmonary embolism. INR is 3.2 may need to reverse prior to procedure could consider heparin drip which could be stopped and started as needed has history of getting IVC filters but have been removed (4) Hepatitis C: Necessary precautions (5) Hypertension: Treated with lisinopril 5mg daily Subjective patient sitting in chair, in obvious discomfort, moving around a lot, cannot find position of comfort reports that he is pushing FAMILY SERVICE ASSISTANT every 15 minutes says he gets significant relief with the Dilaudid every 8 hours, works better than anything else says that his pain is 8 out of 10 during my visit discussed using Dilaudid FAMILY SERVICE ASSISTANT instead, he was in agreement with this plan discussed case with Dr. Austin, he would like to attempt diagnostic / therapeutic injection at L3 nerve level with pain management this would not occur until Tuesday/Tuesday in all likelihood the patient will need decompression in planning for this, will need to discuss anticoagulation INR is 3.2 patient with history of two separate DVT and PE had IVC filters in the past, both were removed will plan for heparin drip once INR < 2.0 that could be stopped prior to procedures may consider IVC filter but can discuss with vascular surgery on Tuesday Review of Systems Review of Systems: All systems reviewed & are unremarkable except as noted in HPI & below Musculoskeletal: + back pain (severe) and + radicular pain (severe, left leg) Physical Exam Constitutional: WD/WN, vitals as above + in distress (uncomfortable) Eyes: PERRL, conjunctivae normal, anicteric sclerae ENMT: external ear and nose normal, oropharynx normal Neck: trachea midline, no thyromegaly Respiratory: normal respiratory effort, lungs clear to auscultation Cardiovascular: RRR, no murmur, no edema Gastrointestinal (Abdomen): normal bowel sounds, soft, nontender, no hepatosplenomegaly Musculoskeletal: no cyanosis or clubbing, extremities motor strength 5/5 Spine: + limited thoraco-lumbar ROM, + pain with thoraco-lumbar ROM and + buttock tenderness Skin: no rashes, warm and dry Neurologic: patellar DTR's 2+ bilat, sensation intact and PERRL, EOMI, accommodation nl, no face palsy, no dysarthria Psychiatric: A+Ox3, euthymic affect Lymphatic: no cervical or axillary lymphadenopathy Results & Data Vital Signs (Past 12 Hours) Vital Signs Temp Pulse Pulse Resp BP Pulse Ox 06/23/19 15:11 36.9 C 99 H 18 139/93 90 06/23/19 07:51 36.4 C L 76 17 166/93 H 92 Laboratory Results Laboratory Results - last 24 hr 06/23/19 06:20 PT 30.0 H INR 3.2 H Medications Administered Current Inpatient Medications Acetaminophen (Tylenol) 650 mg PO Q4H PRN PRN Reason: pain/fever Stop: 07/20/19 17:03 Al Hydrox/Mg Hydrox/Simethicone (Maalox) 30 ml PO Q6H PRN PRN Reason: Dyspepsia Stop: 07/20/19 17:03 Amitriptyline HCl (Elavil) 50 mg PO HS HENRRY Stop: 07/20/19 20:59 Last Admin: 06/22/19 20:48 Dose: 50 mg Documented by: Hydromorphone HCl (Dilaudid) 1 mg IV Q8H PRN PRN Reason: severe breakthrough pain Stop: 07/07/19 02:00 Last Admin: 06/23/19 02:11 Dose: 1 mg Documented by: Hydromorphone HCl (Dilaudid Foundry Metallurgist) 25 mg IV PRN PRN; Protocol PRN Reason: Pain Stop: 07/07/19 12:13 Last Admin: 06/23/19 13:46 Dose: 25 mg Documented by: Methylprednisolone 40 mg/ (Syringe) 0.64 mls @ 1.5 mls/min IV Q8H [facility] Stop: 07/20/19 17:59 Last Admin: 06/23/19 09:44 Dose: 1.5 mls/min Documented by: Sodium Chloride (Nss 1000ml) 1,000 mls @ 15 mls/hr IV .Q24H [facility] Stop: 07/21/19 17:29 Last Admin: 06/22/19 23:12 Dose: Not Given Documented by: Ioversol (Optiray 320 100ml) 94 ml IV ONCE PRN PRN Reason: Interaction Checking Stop: 06/24/19 13:17 Lidocaine (Lidoderm 5%) 2 patch TD QAM [facility] Stop: 07/23/19 08:59 Last Admin: 06/23/19 10:31 Dose: 2 patch Documented by: Lisinopril (Zestril) 5 mg PO QAM [facility] Stop: 07/21/19 08:59 Last Admin: 06/23/19 08:35 Dose: 5 mg Documented by: Lorazepam (Ativan) 1 mg PO TID PRN PRN Reason: Anxiety Stop: 07/20/19 17:03 Last Admin: 06/21/19 15:11 Dose: 1 mg Documented by: Miscellaneous (Remove Lidoderm Patch) 2 ea N/A DAILY@2100 [facility] Stop: 07/23/19 20:59 Ondansetron HCl (Zofran) 4 mg IV Q6H PRN PRN Reason: Nausea Stop: 07/20/19 17:03 Ranitidine HCl (Zantac) 150 mg PO BID [facility] Stop: 07/20/19 20:59 Last Admin: 06/23/19 08:35 Dose: 150 mg Documented by: Warfarin Sodium (Coumadin) 3 mg PO DAILY@1600 [facility] Stop: 07/20/19 15:59 Last Admin: 06/21/19 16:09 Dose: 3 mg Documented by: PG Care Time/CCT Total # of Minutes Spent Total Time Spent with Patient: Total time spent is greater than 50% in coordination of care (as documented) at patient's floor/unit and/or counseling patient:
[2019-06-23] MEDS: AMITRIPTYLINE HCL 50 MG TAB PO SCH (20:37)
[2019-06-23] MEDS: SODIUM CHLORIDE 0.9% 1000ML 1,000 ML IV SCH (23:22)
[2019-06-24] MEDS: methylPREDNISolone 40 MG in SYRINGE 0 ML IV SCH ×3 (02:15→18:42)
[2019-06-24 06:55] LABS: INR 3.1 (0.9-1.1); Prothrombin Time 29.3 Seconds (9.0-12.0)
[2019-06-24] MEDS ORDERED: HydrALAZINE HCL 20 MG/ML VIAL IV PRN ×2 (08:43→09:53)
[2019-06-24] MEDS: LISINOPRIL 5 MG TAB PO SCH (08:47)
[2019-06-24] MEDS: SODIUM CHLORIDE 0.9% 1000ML 1,000 ML IV SCH (10:46)
[2019-06-24] MEDS: LIDOCAINE 5% 1 PATCH TD SCH (10:57)
[2019-06-24] MEDS: HYDROmorphone HCL 0.5MG/ML 50 ML CASSETTE IV PRN (11:28)
[2019-06-24] MEDS: PHYTONADIONE 5 MG TAB PO STA ×2 (11:56→12:16)
--- NOTE | 2019-06-24 12:19 | Hospitalist Progress Note ---
Date of Service June 24, 2019 Assessment & Plan (1) Lumbar radiculopathy: CT lumbar spine shows multilevel lumbar spondylosis as described above. This is most pronounced at the L3-L4 level where there appears to be a left foraminal disc protrusion resulting in severe left-sided neural foraminal narrowing. This likely compresses the exiting left L3 nerve root. Severe central canal narrowing at L4-L5 and moderate to severe central canal narrowing at L3-L4. discussed with Dr. Austin, will ask pain management to eval for diagnostic and therapeutic L3 nerve nerve injection this won't occur until Tuesday or Tuesday continue with Solu Medrol continue RETOUCHER to Dilaudid 0.5mg/hr continuous and 0.3mg every 15 minutes explained to the patient that we want pain control but not sedation he is comfortable with dosing right now will start on Gabapentin 100mg BID for neuropathic component of pain likely will need decompression of L3-L5 tentatively plan for later in the week, perhaps patient is agreeable to surgery (2) Intractable back pain: see above, using Dilaudid RETOUCHER continue Solu medrol and add Gabapentin today (3) Warfarin anticoagulation: Chronic warfarin anticoagulation due to history of DVT and saddle pulmonary embolism. INR is 3.1 will reverse today with Vitamin K start heparin drip this evening, low dose no bolus ask vascular to evaluate for opinion on IVC filter of note, the patient said that the last time he had one placed there was some difficulty in retrieval, had to go to [place] (4) Hepatitis C: Necessary precautions (5) Hypertension: Treated with lisinopril 5mg daily Hydralazine PRN BP up due to pain Subjective overall the pain is better controlled today some issues this morning with maybe not getting the bolus every 15 minutes he did sleep better last night, slept about 50% of the time discussed plans with Dr. Austin today, he feels the patient will likely require surgery later this week we discussed anticoagulation given the patient's history of DVT and PE twice Dr. Austin unsure of how soon he would be comfortable with resuming anticoagulation after surgery he would like opinion from vascular surgery about IVC filter discussed with patient, he is hesitant about the idea because the last filter that was placed was difficult to remove, had to go to [place] INR is 3.1, will reverse with Vitamin K and start on heparin drip this evening if INR is below 2.0 discussed with patient that pain management will see tomorrow, unsure if they will be able to do injection here in hospital modest expectations would be that it would not occur until Tuesday if done at all updated patient's significant other in the room Review of Systems Review of Systems: All systems reviewed & are unremarkable except as noted in HPI & below Musculoskeletal: + back pain, + radicular pain (left side) and + limited range of motion Physical Exam Constitutional: WD/WN, vitals as above + in distress (uncomfortable) Eyes: PERRL, conjunctivae normal, anicteric sclerae ENMT: external ear and nose normal, oropharynx normal Neck: trachea midline, no thyromegaly Respiratory: normal respiratory effort, lungs clear to auscultation Cardiovascular: RRR, no murmur, no edema Gastrointestinal (Abdomen): normal bowel sounds, soft, nontender, no hepatosplenomegaly Musculoskeletal: no cyanosis or clubbing, extremities motor strength 5/5 Spine: + limited thoraco-lumbar ROM, + pain with thoraco-lumbar ROM and + buttock tenderness Skin: no rashes, warm and dry Neurologic: patellar DTR's 2+ bilat, sensation intact and PERRL, EOMI, accommodation nl, no face palsy, no dysarthria Psychiatric: A+Ox3, euthymic affect Lymphatic: no cervical or axillary lymphadenopathy Results & Data Vital Signs (Past 12 Hours) Vital Signs Temp Pulse Resp BP BP Pulse Ox 06/24/19 09:38 100 H 178/126 H 06/24/19 07:33 36.8 C 92 H 18 174/110 H 95 06/24/19 03:46 37.2 C 98 H 18 167/111 H 90 Laboratory Results Laboratory Results - last 24 hr 06/24/19 06:14 PT 29.3 H INR 3.1 H Medications Administered Current Inpatient Medications Acetaminophen (Tylenol) 650 mg PO Q4H PRN PRN Reason: pain/fever Stop: 07/20/19 17:03 Al Hydrox/Mg Hydrox/Simethicone (Maalox) 30 ml PO Q6H PRN PRN Reason: Dyspepsia Stop: 07/20/19 17:03 Amitriptyline HCl (Elavil) 50 mg PO HS HENRRY Stop: 07/20/19 20:59 Last Admin: 06/23/19 20:37 Dose: 50 mg Documented by: Gabapentin (Neurontin) 100 mg PO BID [facility] Stop: 07/24/19 12:29 Hydralazine HCl (Hydralazine Hcl) 10 mg IV Q6 PRN PRN Reason: Blood Pressure - High Stop: 07/24/19 08:42 Last Admin: 06/24/19 10:22 Dose: 10 mg Documented by: Hydromorphone HCl (Dilaudid) 1 mg IV Q8H PRN PRN Reason: severe breakthrough pain Stop: 07/07/19 02:00 Last Admin: 06/23/19 02:11 Dose: 1 mg Documented by: Hydromorphone HCl (Dilaudid Equipment Operator/Laborer) 25 mg IV PRN PRN; Protocol PRN Reason: Pain Stop: 07/07/19 12:13 Last Admin: 06/24/19 11:28 Dose: 25 mg Documented by: Methylprednisolone 40 mg/ (Syringe) 0.64 mls @ 1.5 mls/min IV Q8H [facility] Stop: 07/20/19 17:59 Last Admin: 06/24/19 10:51 Dose: 1.5 mls/min Documented by: Sodium Chloride (Nss 1000ml) 1,000 mls @ 15 mls/hr IV .Q24H [facility] Stop: 07/21/19 17:29 Last Admin: 06/24/19 10:46 Dose: 15 mls/hr Documented by: Ioversol (Optiray 320 100ml) 94 ml IV ONCE PRN PRN Reason: Interaction Checking Stop: 06/24/19 13:17 Lidocaine (Lidoderm 5%) 2 patch TD QAM [facility] Stop: 07/23/19 08:59 Last Admin: 06/24/19 10:57 Dose: Not Given Documented by: Lisinopril (Zestril) 5 mg PO QAM [facility] Stop: 07/21/19 08:59 Last Admin: 06/24/19 08:47 Dose: 5 mg Documented by: Lorazepam (Ativan) 1 mg PO TID PRN PRN Reason: Anxiety Stop: 07/20/19 17:03 Last Admin: 06/21/19 15:11 Dose: 1 mg Documented by: Miscellaneous (Remove Lidoderm Patch) 2 ea N/A DAILY@2100 [facility] Stop: 07/23/19 20:59 Last Admin: 06/23/19 20:38 Dose: 2 ea Documented by: Ondansetron HCl (Zofran) 4 mg IV Q6H PRN PRN Reason: Nausea Stop: 07/20/19 17:03 Ranitidine HCl (Zantac) 150 mg PO BID HENRRY Stop: 07/20/19 20:59 Last Admin: 06/24/19 08:47 Dose: 150 mg Documented by: PG Care Time/CCT Total # of Minutes Spent Total Time Spent: 40 Total Time Spent with Patient: Total time spent is greater than 50% in coordination of care (as documented) at patient's floor/unit and/or counseling patient: Critical Care Time: No
[2019-06-24] MEDS: GABAPENTIN 100 MG CAP PO SCH ×2 (12:40→19:53)
[2019-06-24] MEDS: HYDROmorphone INJ 1 MG/ML SYRINGE IV PRN (19:45)
[2019-06-24] MEDS: AMITRIPTYLINE HCL 50 MG TAB PO SCH (19:53)
[2019-06-24 22:51] LABS: Prothrombin Time 19.2 Seconds (9.0-12.0)
[2019-06-25] MEDS: methylPREDNISolone 40 MG in SYRINGE 0 ML IV SCH ×3 (01:57→17:50)
[2019-06-25 06:27] LABS: INR 1.5 (0.9-1.1); Prothrombin Time 15.4 Seconds (9.0-12.0)
[2019-06-25] MEDS: HYDROmorphone INJ 1 MG/ML SYRINGE IV PRN ×4 (06:43→23:44)
[2019-06-25] MEDS ORDERED: Heparin IV Low Dose *NO* Bolus IV SCH (07:31)
[2019-06-25] MEDS: LIDOCAINE 5% 1 PATCH TD SCH (07:36)
[2019-06-25] MEDS ORDERED: HEPARIN SODIUM/DEXTROSE 25,000 UNITS/500 ML BAG IV SCH (07:45)
[2019-06-25] MEDS: LISINOPRIL 5 MG TAB PO SCH (08:40)
[2019-06-25] MEDS: GABAPENTIN 100 MG CAP PO SCH ×2 (08:40→20:49)
[2019-06-25] MEDS: HYDROmorphone HCL 0.5MG/ML 50 ML CASSETTE IV PRN (09:08)
[2019-06-25 09:51] LABS: Hematocrit (blood only) 49.1 % (42-52); Hemoglobin 17.6 g/dL (14.0-18.0); Mean Corpuscular Volume 94.1 fL (80-100); Mean Platelet Volume 9.6 fL (7.4-10.4); Platelet Count 211 K/uL (130-400); RDW Coefficient of Variation 14.2 % (11.5-14.5); RDW Standard Deviation 48.6 fL (36.4-46.3); Red Blood Count 5.22 M/uL (4.7-6.1); White Blood Count 23.03 K/uL (4.8-10.8)
[2019-06-25 09:57] LABS: Mean Corpuscular Hgb Conc 35.8 g/dL (32-36)
[2019-06-25 10:04] LABS: INR 1.4 (0.9-1.1); Partial Thromboplastin Ratio 1.2; Partial Thromboplastin Time 32.7 Seconds (21.0-31.0); Prothrombin Time 14.3 Seconds (9.0-12.0)
[2019-06-25 10:24] LABS: Basophils # (auto) 0.01 K/uL (0-0.2); Immature Granulocytes # (auto) 0.09 K/uL (0.00-0.02); Immature Granulocytes % (auto) 0.4 %; Lymphocytes # (auto) 1.69 K/uL (1.2-3.4); Lymphocytes % (auto) 7.3 %; Monocytes # (auto) 0.61 K/uL (0.11-0.59); Monocytes % (auto) 2.6 %; Neutrophils # (auto) 20.63 K/uL (1.4-6.5); Neutrophils % (auto) 89.7 %
--- NOTE | 2019-06-25 10:36 | Consultation ---
Date of Consultation June 25, 2019 Assessment & Plan (1) History of pulmonary embolism: Pt with significant DVT/PE hx, including large saddle embolus in 2016. Pt tested positive for lupus anticoagulant in 2016, after testing negative for same test in 2013. Pt will not require IVC filter for lumbar spine injection tomorrow as long as AC can be restarted the same day. If pt requires lumbar spine surgery and will need to interrupt his AC for longer period of time, recommend pt undergo IVC filter insertion d/t elevated risk of DVT/PE. Discussed with pt, he is agreeable to IVC filter if needed. Please call if needed. Patient was seen, examined, and chart reviewed. Agree with exam and treatment plan of the Vascular PA. Present on Admission?: Yes (2) History of deep venous thrombosis: See above Present on Admission?: Yes History of Present Illness Reason for Consultation: possible need for IVC filter insertion perioperatively Attending Physician: Pedro Campbell, DO History of Present Illness 68 yo m with multiple medical problems, including lupus anticoagulant positive, hx bladder ca, HTN, Hep C, hx multiple DVT/PE, admitted with intractable back pain and lumbosacral radiculopathy, seen in consultation today for possible IVC filter insertion prior to spinal surgery. Per pt, he has had 2 IVC filters placed in past, but cannot articulate exactly why. One he believes was prior to a bowel surgery in 2013. Has had at least 2 DVT/PE events in past, one in 2013 and most recently in 2016 which involved a large saddle embolus as well as scattered PE's. Both IVC filters have been removed, although, according to pt, one was very difficult to remove and took a second attempt by Dr Geo Espinosa at [facility] to remove it. Pt is hesitant to undergo another IVC filter insertion, but states he will do it if he needs to. Pt was found to be positive for lupus anticoagulant in 2016, but was negative in 2013. In 2016, pt was transferred to tertiary center for tx of his large saddle embolus. Pt has remained on AC with Coumadin since 2016. Currently, pt's low back pain is controlled with medications, but is scheduled for lumbar spine injection in OR tomorrow by Pain Management. Pt wishes to attempt this prior to undergoing any spinal surgery. Pt denies AQUINO, fever, chills, chest pain, SOB, abd pain, N/V, rest pain, claudication, new edema or leg pain, other complaints. No recent venous imaging noted. Allergies Allergy/AdvReac Type Severity Reaction Status Date / Time gabapentin AdvReac Intermediate body Verified 06/26/19 12:43 aches, feels like he's in a fog propoxyphene AdvReac Intermediate Nausea Verified 06/26/19 12:43 amoxicillin AdvReac Mild n&v Verified 06/26/19 12:43 clavulanic acid AdvReac Mild N/V Verified 06/26/19 12:43 Home Medications Home Medications Medication Instructions Recorded Confirmed Type acetaminophen [Tylenol Extra 1,000 - 1,500 mg PO HS 08/15/18 06/20/19 History Strength] amitriptyline 50 mg PO HS 08/15/18 06/20/19 History warfarin 3 mg tablet 3 mg PO QAM 08/16/18 06/20/19 History lisinopril 5 mg tablet 5 mg PO QAM 10/17/18 06/20/19 History lorazepam 1 mg PO TID PRN 03/08/19 06/20/19 History hydrocodone 7.5 mg-acetaminophen 1 tab PO TID PRN tab 05/16/19 06/20/19 History 325 mg tablet ranitidine 150 mg tablet 150 mg PO BID 05/16/19 06/20/19 History prednisone 10 mg PO DIRECTED 06/20/19 06/20/19 History Patient History Medical History Hypertension (Chronic) Hepatitis C (Chronic) Warfarin anticoagulation (Chronic) Intractable back pain (Acute) Bladder cancer 2011--chemo/radiation Deep vein thrombosis Fibromyalgia Hemorrhoids Hepatitis C tx no longer has Hypertension Liver lesion Medical marijuana use On anticoagulant therapy warfarin daily Peripheral neuropathy bilt arms, legs and feet Saddle embolus 11/2015 Sleep apnea cpap Surgical History History of bilateral cataract extraction x2 History of biopsy of bladder multiple--malignant History of bowel resection 3-4 inches History of cardiac cath 2008--no stents History of colonoscopy History of cystoscopy multiple History of esophagogastroduodenoscopy (EGD) History of prostate biopsy benign History of repair of hiatal hernia History of right knee surgery acl repair History of tonsillectomy and adenoidectomy History of tooth extraction History of total right knee replacement (TKR) x2 History of umbilical hernia repair x3 S/P IVC filter x2--removed currently no longer has Status post uvulopalatopharyngoplasty Family History Grandmother (Paternal) Family history of diabetes mellitus Mother Family hx of colon cancer Other No family history of adverse response to anesthesia Social History Preferred Language: Portuguese Communication Ability: Effective 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: No Beliefs That Will Affect Care: None marital status: Current Living Situation: Spouse Feels Safe at Home: Yes Smoking Status: Former smoker Tobacco Type: pipe ; Second Hand Exposure: No ; Hx Alcohol Use: Yes Alcohol type: beer Hx Substance Use: No Review of Systems Review of Systems: All systems reviewed & are unremarkable except as noted in HPI & below (low back pain with radiation) Physical Exam Constitutional: WD/WN, vitals as above well developed, well nourished, + obese, healthy appearing, well groomed, cooperative and comfortable; not in distress and not combative Eyes: PERRL, conjunctivae normal, anicteric sclerae EOM intact bilaterally ENMT: external ear and nose normal, oropharynx normal Ears: no hearing impairment Nose: no nasal discharge Throat: no posterior oropharynx abnormality Neck: trachea midline, no thyromegaly no tracheal deviation, no neck crepitus and neck nontender Respiratory: normal respiratory effort, lungs clear to auscultation able to speak in complete sentences; does not use accessory muscles and no cough Auscultation: lungs clear to auscultation bilaterally and + diminished lung sounds; no rhonchi and no wheezes Cardiovascular: Rate/Rhythm: regular rate and regular rhythm Heart Sounds: no gallop and no murmur Vessels: femoral pulses present, posterior tibial pulses present, dorsalis pedis pulses present, brachial pulses present and radial pulses present; no carotid bruit, no femoral bruit and + abnormal peripheral pulses Extremities: normal capillary refill and + edema (+1 BLE) Gastrointestinal (Abdomen): normal bowel sounds, soft, nontender, no hepatosplenomegaly Inspection/Auscultation: abdomen normal to inspection and normal bowel sounds; abdomen not distended Percussion/Palpation: abdomen soft; abdomen nontender, no guarding and abdomen not rigid Musculoskeletal: no cyanosis or clubbing, extremities motor strength 5/5 Head/Neck/Chest: normocephalic, head atraumatic and neck supple Extremities: extremities normal to inspection and + chronic stasis changes; full ROM of extremities and + abnormal strength Skin: no rashes, warm and dry no rashes, no lesions, no ulcers, no induration, no erythema, no eschar, no mottling and no pallor Trauma: no hematoma and no puncture Neurologic: moves all extremities and awake; no focal motor deficits and not confused Speech / Cognition: no expressive aphasia and no receptive aphasia Motor/Sensory: no tremor and no sensory deficit Cranial Nerves: EOM intact bilaterally and normal facial strength Psychiatric: Orientation: alert, oriented x 3 and cooperative Apperance: appropriately dressed, appropriately groomed and appeared stated age Affect: + anxious affect Thought Process: goal directed thought process, linear/logical thought process and clear/coherent thought process Cognition: recent memory grossly intact, remote memory grossly intact, attention grossly intact and language grossly intact Estimated Intelligence: average estimated intelligence Results & Data Vital Signs (Past 12 Hours) Vital Signs Temp Pulse Resp BP BP Pulse Ox 06/25/19 07:48 37.3 C 112 H 18 149/97 H 91 06/25/19 04:03 36.8 C 116 H 20 166/94 H 92 06/24/19 22:55 36.5 C 103 H 20 160/113 H 91
--- NOTE | 2019-06-25 11:08 | Hospitalist Progress Note ---
Date of Service June 25, 2019 Assessment & Plan (1) Lumbar radiculopathy: CT lumbar spine shows multilevel lumbar spondylosis as described above. This is most pronounced at the L3-L4 level where there appears to be a left foraminal disc protrusion resulting in severe left-sided neural foraminal narrowing. This likely compresses the exiting left L3 nerve root. Severe central canal narrowing at L4-L5 and moderate to severe central canal narrowing at L3-L4. plan for L3 left foraminal injection tomorrow at 1130am, Dr. Morfin to perform will stop heparin drip tonight at midnight check coags in the morning continue with Solu Medrol continue COMMUNITY LEADER to Dilaudid 0.5mg/hr continuous and 0.3mg every 15 minutes explained to the patient that we want pain control but not sedation he is comfortable with dosing right now will increase Gabapentin to 200mg BID for neuropathic component of pain likely will need decompression of L3-L5 tentatively plan for later in the week, perhaps if nerve block works well then may delay surgery until next week (2) Intractable back pain: see above, using Dilaudid COMMUNITY LEADER continue Solu medrol and Gabapentin plan for nerve block with Pain Management tomorrow (3) Warfarin anticoagulation: Chronic warfarin anticoagulation due to history of DVT and saddle pulmonary embolism. h/o two separate DVT in 2012 and 2015 h/o Lupus anticoagulant INR is 1.4 this morning after reversing with vitamin K heparin drip low dose no bolus this morning plan to stop midnight for injection tomorrow d/w Dr. Lima, can likely resume a few hours after injection ask vascular to evaluate for opinion on IVC filter he is high risk in perioperative period likely needs filter prior to spine surgery (4) Hepatitis C: Necessary precautions (5) Hypertension: Treated with lisinopril 5mg daily Hydralazine PRN BP up due to pain Subjective patient sitting up in chair, slept okay last night some issues with his IV but it was corrected and COMMUNITY LEADER working better discussed plan with Dr. Lima, they can perform L3 foraminal injection on the left tomorrow at 1130am will stop heparin drip at midnight, check coags in the morning patient on board with that plan discussed case with vascular surgery, he is high risk for perioperative DVT and PE and would need a filter still determining whether he will have surgery this week, depends on how effective the nerve block is patient is eating okay reviewed labs, WBC up to 23k, likely from Solu Medrol long discussion with patient about the heparin drip, plans to stop for injection, can resume after injection still not sure if he will have surgery this week he asked about getting MRI lumbar spine, I told him I would check with Dr. Austin Review of Systems Review of Systems: All systems reviewed & are unremarkable except as noted in HPI & below Constitutional: no fever Respiratory: no cough and no dyspnea Cardiovascular: no chest pain and no edema Gastrointestinal: no abdominal pain, no nausea, no vomiting, no constipation and no diarrhea/loose stools Musculoskeletal: + back pain and + radicular pain (left) Physical Exam Constitutional: WD/WN, vitals as above Eyes: PERRL, conjunctivae normal, anicteric sclerae ENMT: external ear and nose normal, oropharynx normal Neck: trachea midline, no thyromegaly Respiratory: normal respiratory effort, lungs clear to auscultation Cardiovascular: RRR, no murmur, no edema Gastrointestinal (Abdomen): normal bowel sounds, soft, nontender, no hepatosplenomegaly Musculoskeletal: no cyanosis or clubbing, extremities motor strength 5/5 Spine: + limited thoraco-lumbar ROM, + pain with thoraco-lumbar ROM and + buttock tenderness Skin: no rashes, warm and dry Neurologic: patellar DTR's 2+ bilat, sensation intact and PERRL, EOMI, accommodation nl, no face palsy, no dysarthria Psychiatric: A+Ox3, euthymic affect Lymphatic: no cervical or axillary lymphadenopathy Results & Data Vital Signs (Past 12 Hours) Vital Signs Temp Pulse Resp BP BP Pulse Ox 06/25/19 07:48 37.3 C 112 H 18 149/97 H 91 06/25/19 04:03 36.8 C 116 H 20 166/94 H 92 Laboratory Results Laboratory Results - last 24 hr 06/24/19 06/25/19 06/25/19 22:25 05:58 09:42 WBC 23.03 H RBC 5.22 Hgb 17.6 Hct 49.1 MCV 94.1 MCH 33.7 MCHC 35.8 RDW Std Deviation 48.6 H RDW Coeff of Jazz 14.2 Plt Count 211 MPV 9.6 Immature Gran % (Auto) 0.4 Neut % (Auto) 89.7 Lymph % (Auto) 7.3 [place] % (Auto) 2.6 Eos % (Auto) 0.0 Baso % (Auto) 0.0 Immature Gran # (Auto) 0.09 H Neut # (Auto) 20.63 H Lymph # (Auto) 1.69 [place] # (Auto) 0.61 H Eos # (Auto) 0.00 Baso # (Auto) 0.01 Hypersegmented Neuts 1+ PT 19.2 H 15.4 H INR 2.0 H 1.5 H APTT PTT Ratio 06/25/19 09:42 WBC RBC Hgb Hct MCV MCH MCHC RDW Std Deviation RDW Coeff of Jazz Plt Count MPV Immature Gran % (Auto) Neut % (Auto) Lymph % (Auto) [place] % (Auto) Eos % (Auto) Baso % (Auto) Immature Gran # (Auto) Neut # (Auto) Lymph # (Auto) [place] # (Auto) Eos # (Auto) Baso # (Auto) Hypersegmented Neuts PT 14.3 H INR 1.4 H APTT 32.7 H PTT Ratio 1.2 Medications Administered Current Inpatient Medications Acetaminophen (Tylenol) 650 mg PO Q4H PRN PRN Reason: pain/fever Stop: 07/20/19 17:03 Al Hydrox/Mg Hydrox/Simethicone (Maalox) 30 ml PO Q6H PRN PRN Reason: Dyspepsia Stop: 07/20/19 17:03 Amitriptyline HCl (Elavil) 50 mg PO HS [facility] Stop: 07/20/19 20:59 Last Admin: 06/24/19 19:53 Dose: 50 mg Documented by: Gabapentin (Neurontin) 200 mg PO BID [facility] Stop: 07/25/19 08:59 Last Admin: 06/25/19 08:40 Dose: Not Given Documented by: Hydralazine HCl (Hydralazine Hcl) 10 mg IV Q6 PRN PRN Reason: Blood Pressure - High Stop: 07/24/19 08:42 Last Admin: 06/24/19 10:22 Dose: 10 mg Documented by: Hydromorphone HCl (Dilaudid) 1 mg IV Q8H PRN PRN Reason: severe breakthrough pain Stop: 07/07/19 02:00 Last Admin: 06/25/19 06:43 Dose: 1 mg Documented by: Hydromorphone HCl (Dilaudid Palliative Medicine Physician) 25 mg IV PRN PRN; Protocol PRN Reason: Pain Stop: 07/07/19 12:13 Last Admin: 06/25/19 09:08 Dose: 25 mg Documented by: Methylprednisolone 40 mg/ (Syringe) 0.64 mls @ 1.5 mls/min IV Q8H [facility] Stop: 07/20/19 17:59 Last Admin: 06/25/19 10:24 Dose: 1.5 mls/min Documented by: Sodium Chloride (Nss 1000ml) 1,000 mls @ 15 mls/hr IV .Q24H [facility] Stop: 07/21/19 17:29 Last Admin: 06/24/19 10:46 Dose: 15 mls/hr Documented by: Heparin Sodium/Dextrose (Heparin Sodium/Dextrose) 25,000 units in 500 mls @ 20 mls/hr IV .Q24H [facility]; Protocol Stop: 06/25/19 23:59 Last Admin: 06/25/19 10:29 Dose: 1,000 units/hr, 20 mls/hr Documented by: Lidocaine (Lidoderm 5%) 2 patch TD QAM [facility] Stop: 07/23/19 08:59 Last Admin: 06/25/19 07:36 Dose: Not Given Documented by: Lisinopril (Zestril) 5 mg PO QAM [facility] Stop: 07/21/19 08:59 Last Admin: 06/25/19 08:40 Dose: 5 mg Documented by: Lorazepam (Ativan) 1 mg PO TID PRN PRN Reason: Anxiety Stop: 07/20/19 17:03 Last Admin: 06/21/19 15:11 Dose: 1 mg Documented by: Miscellaneous (Remove Lidoderm Patch) 2 ea N/A DAILY@2100 [facility] Stop: 07/23/19 20:59 Last Admin: 06/24/19 23:55 Dose: Not Given Documented by: Ondansetron HCl (Zofran) 4 mg IV Q6H PRN PRN Reason: Nausea Stop: 07/20/19 17:03 Ranitidine HCl (Zantac) 150 mg PO BID [facility] Stop: 07/20/19 20:59 Last Admin: 06/25/19 08:40 Dose: 150 mg Documented by: PG Care Time/CCT Total # of Minutes Spent Total Time Spent: 40 Total Time Spent with Patient: Total time spent is greater than 50% in coordination of care (as documented) at patient's floor/unit and/or counseling patient:
--- NOTE | 2019-06-25 11:25 | Pain Management Consultation ---
Date of Consultation June 25, 2019 Assessment & Plan (1) Lumbosacral radiculopathy: * Diagnostic/therapeutic L3/L4 transforaminal epidural steroid injection discussed the patient detail. Potential risks, benefits, alternatives discussed. His questions answered. * Patient tentative scheduled for 11:30 AM in the operating room under IV sedation by anesthesia department staff. * Patient n.p.o. after midnight. * Coumadin has been reversed with vitamin K and current INR is 1.5. Patient was started on heparin infusion intravenously which will be stopped at midnight tonight. Repeat correlation studies ordered for the morning. * Patient can resume IV heparin 4 to 6 hours after the procedure. * Consent obtained. * [place] PDMP reviewed. Patient has been suffering hydrocodone 4 to 6 tablets/month from PCP since April 23, 2019 for his current symptoms. Present on Admission?: Yes (2) Warfarin anticoagulation: (3) History of pulmonary embolism: (4) History of deep venous thrombosis: (5) Hepatitis C: (6) Hypertension: History of Present Illness Reason for Consultation: Consider left L3/L4 transforaminal epidural steroid injection. Requesting Physician: Pedro Campbell Attending Physician: Pedro Campbell, DO History of Present Illness Peggy Beauchamp is a 68-year-old male admitted to [facility] with acute onset of left lower extremity radicular pain. Patient reports pain started past 2 months ago without any injury or trauma and has been persistent since then. Pain is predominantly in the left low back pain that radiates into the quadriceps and intermittently in the hamstring regions up to suprapatellar area. Pain is rated as 8/10 when severe and 5/10 when minimal. Pain interferes ability to perform activities required for limb including able to stand up and ambulate or even roll in bed. Symptoms occur spontaneously and are exacerbated by any minimal movement. Patient has pre-existing peripheral neuropathy due to previous chemotherapy for bladder cancer but does not recall any additional numbness, weakness, bowel or bladder incontinence or saddle anesthesia as result of the pain. Previous treatments included use of OTC analgesics with minimal efficacy. Hydrocodone also has been used with minimal efficacy. He has also been tried on oral prednisone prior to the admission. He is currently receiving gabapentin and IV hydromorphone for analgesia. He is also receiving intravenous methy lprednisolone. He has been seen by orthospine surgery and surgery has been considered but prior to proceeding, he would require a vena cava filter which patient is reluctant to undergo as he has had previous complications from it. A diagnostic/therapeutic L3/L4 left-sided transforaminal epidural steroid injection was recommended prior to considering surgery. He has also undergone a CT scan of the lumbar spine. Patient has significant comorbid conditions including history of previous DVT and pulmonary emboli for which she is currently anticoagulated with warfarin. Warfarin has been discontinued and anticoagulation reversed with vitamin K with a current INR of 1.5. Intravenous heparin drip has been ordered. Other comorbid conditions include hypertension, hepatitis C, history of bladder cancer for which he has undergone chemotherapy and is currently in remission. Pain Assessment Full Body Front + Back: 1. 2. 3. [facility] Combined Pain Scale: 5-Moderate - Cannot perform normal tasks without increase in pain Pain scale - at its best (0-10): 5 Pain scale - at its worst (0-10): 8 Allergies Allergy/AdvReac Type Severity Reaction Status Date / Time gabapentin AdvReac Intermediate body Verified 06/20/19 09:19 aches, feels like he's in a fog propoxyphene AdvReac Intermediate Nausea Verified 06/20/19 09:19 amoxicillin AdvReac Mild n&v Verified 06/20/19 09:19 clavulanic acid AdvReac Mild N/V Verified 06/20/19 09:19 Home Medications Home Medications Medication Instructions Recorded Confirmed Type acetaminophen [Tylenol Extra 1,000 - 1,500 mg PO HS 08/15/18 06/20/19 History Strength] amitriptyline 50 mg PO HS 08/15/18 06/20/19 History warfarin 3 mg tablet 3 mg PO QAM 08/16/18 06/20/19 History lisinopril 5 mg tablet 5 mg PO QAM 10/17/18 06/20/19 History lorazepam 1 mg PO TID PRN 03/08/19 06/20/19 History hydrocodone 7.5 mg-acetaminophen 1 tab PO TID PRN tab 05/16/19 06/20/19 History 325 mg tablet ranitidine 150 mg tablet 150 mg PO BID 05/16/19 06/20/19 History prednisone 10 mg PO DIRECTED 06/20/19 06/20/19 History Pain History Pain Intensity Pain scale - at its best (0-10): 5 Pain scale - at its worst (0-10): 8 Patient History Medical History Hypertension (Chronic) Hepatitis C (Chronic) Warfarin anticoagulation (Chronic) Intractable back pain (Acute) Bladder cancer 2011--chemo/radiation Deep vein thrombosis Fibromyalgia Hemorrhoids Hepatitis C tx no longer has Hypertension Liver lesion Medical marijuana use On anticoagulant therapy warfarin daily Peripheral neuropathy bilt arms, legs and feet Saddle embolus 11/2015 Sleep apnea cpap Surgical History History of bilateral cataract extraction x2 History of biopsy of bladder multiple--malignant History of bowel resection 3-4 inches History of cardiac cath 2008--no stents History of colonoscopy History of cystoscopy multiple History of esophagogastroduodenoscopy (EGD) History of prostate biopsy benign History of repair of hiatal hernia History of right knee surgery acl repair History of tonsillectomy and adenoidectomy History of tooth extraction History of total right knee replacement (TKR) x2 History of umbilical hernia repair x3 S/P IVC filter x2--removed currently no longer has Status post uvulopalatopharyngoplasty Family History Grandmother (Paternal) Family history of diabetes mellitus Mother Family hx of colon cancer Other No family history of adverse response to anesthesia Social History Preferred Language: Bruneian Communication Ability: Effective Autism Tutor Required: No Beliefs That Will Affect Care: None marital status: Current Living Situation: Spouse Other Information That Helps Us Care for You: No Feels Safe at Home: Yes Safety Concerns: Feels Safe At This Time Smoking Status: Former smoker Tobacco Type: pipe ; Do You Dip or Chew Tobacco: No ; Smoking End Date: 10 years ago ; Second Hand Exposure: No ; Tobacco Cessation Education Requested by Patient: No Hx Alcohol Use: Yes Alcohol type: beer Hx Substance Use: No Physical Exam Constitutional: well developed, well nourished, + acute distress and cooperative Musculoskeletal: Spine: + limited thoraco-lumbar ROM, thoracic spine normal to inspection, lumbar spine normal to inspection, + pain with thoraco-lumbar ROM, + paraspinal tenderness (Left distal lumbar spine) and + straight leg raise positive (Left-sided 35 degrees.); no step off deformity, no lumbar spinal tenderness, no sciatic notch tenderness and no sacral tenderness Extremities: strength 5/5 throughout (Significant guarding on the left side due to quadriceps pain and back pain); no cyanosis Ankle: + ecchymosis Skin: + ecchymosis (Multiple ecchymotic areas in the upper and lower extremities) Neurologic: normal touch/pain/proprioception, deep tendon reflexes 2+ bilaterally and plantar reflexes intact bilaterally Psychiatric: A+Ox3, euthymic affect Results Diagnostic Review CT: non enhanced and reports reviewed CT Findings: [place], [place] [phone] CT Scan Report Patient: PEGGY BEAUCHAMP Date: 06/22/19 MR#: [id number] [address] Acct ID:[id number]: Date: 1950[facility] Zip: [place] [address] Age: 68Location: 3W Sex: M Room/Bed: [address] Phy: Stewart Briseno M.D.Diagnosis: LEFT LUMBAR RADICULOPATHY INABILITY TO AMBULATE Malia Phy: Andre Patel MDService Date: 06/21/19 Fam Phy: Andre Patel MDInterpreting Phy: Frankie Cantrell MD Admit Phy: Lalo Kurtz MD Ordering Phy: Stewart Briseno M.D. cc: ~ LUMBAR SPINE CT CT DOSE: 1034.66 mGy.cm HISTORY: lumbar back pain/ radiation to anterior thigh TECHNIQUE: Multiaxial CT images of the lumbar spine were performed and reformatted in the sagittal and coronal plane without the use of contrast. A dose lowering technique was utilized adhering to the principles of ALARA. COMPARISON: Abdomen and pelvis CT 07/18/2018. FINDINGS: No fracture or subluxation within the lumbar spine. The visualized sacrum appears intact. Bilateral renal hypodense lesions are partially visualized. These are incompletely characterized on this noncontrast study but favor cysts. Severe facet osteoarthritis from L3 through S1. Mild facet osteoarthritis within the upper lumbar spine. Mild disc space narrowing throughout the lumbar spine with small endplate osteophytes. Alignment is intact. Mild levoscoliosis of the lower lumbar spine. L1-L2: Small broad-based posterior disc bulge with ligamentum and facet hypertrophy resulting in mild central canal and mild bilateral neural foraminal narrowing. L2-L3: Small broad-based posterior disc bulge with ligamentum and facet hypertrophy resulting in mild central canal and mild bilateral neural foraminal narrowing. L3-L4: Broad-based posterior disc bulge asymmetric to the left. There is suggestion of a left foraminal disc protrusion. This results in severe left- sided neural foraminal narrowing with likely compression of the exiting left L3 nerve root at this level. There is also moderate to severe central canal and right neural foraminal narrowing. L4-L5: Broad-based posterior disc bulge with ligamentum and facet hypertrophy resulting in severe central canal narrowing. There is moderate to severe right and mild left neural foraminal narrowing. L5-S1: Small broad-based posterior disc bulge with ligamentum and facet hypertrophy resulting in mild central canal and mild to moderate bilateral neural foraminal narrowing. IMPRESSION: 1. No fracture or subluxation within the lumbar spine. 2. Multilevel lumbar spondylosis as described above. This is most pronounced at the L3-L4 level where there appears to be a left foraminal disc protrusion resulting in severe left-sided neural foraminal narrowing. This likely compresses the exiting left L3 nerve root. 3. Severe central canal narrowing at L4-L5 and moderate to severe central canal narrowing at L3-L4. Electronically signed by: Frankie Cantrell M.D. 06/22/2019 5:13 PM Dictated: 06/22/19 1706 Transcribed: 06/22/19 1706 PG Care Time/CCT Total # of Minutes Spent Total Time Spent with Patient: Total time spent is greater than 50% in coordination of care (as documented) at patient's floor/unit and/or counseling patient:
--- NOTE | 2019-06-25 11:42 | Anesthesiology Consultation ---
Date of Service June 25, 2019 Assessment & Plan (1) Encounter for pre-operative examination: Chart Review Chart Review: Acceptable Risk for Surgery and Patient NOT seen in Pre Admission Testing Consults Requested none Proposed Anesthesia Risk / Benefits Reviewed With: PT / POA / Parent / Guardian, Accepts Plan and Informed Consent Obtained History Surgery Operation Date: 06/26/19 11:30 Proposed Procedures p L3 Epidural Steroid Injection - Janiya Morfin, Height/Weight Height: 6 ft 3 in Weight: 130 kg Allergies Allergy/AdvReac Type Severity Reaction Status Date / Time gabapentin AdvReac Intermediate body Verified 06/20/19 09:19 aches, feels like he's in a fog propoxyphene AdvReac Intermediate Nausea Verified 06/20/19 09:19 amoxicillin AdvReac Mild n&v Verified 06/20/19 09:19 clavulanic acid AdvReac Mild N/V Verified 06/20/19 09:19 Medications Home Medications Medication Instructions Recorded Confirmed Last Taken acetaminophen [Tylenol Extra 1,000 - 1,500 mg PO HS 08/15/18 06/20/19 03/20/19 20:30 Strength] amitriptyline 50 mg PO HS 08/15/18 06/20/19 03/20/19 warfarin 3 mg tablet 3 mg PO QAM 08/16/18 06/20/19 03/15/19 09:00 lisinopril 5 mg tablet 5 mg PO QAM 10/17/18 06/20/19 03/21/19 07:30 lorazepam 1 mg PO TID PRN 03/08/19 06/20/19 Unknown hydrocodone 7.5 mg-acetaminophen 1 tab PO TID PRN tab 05/16/19 06/20/19 Unknown 325 mg tablet ranitidine 150 mg tablet 150 mg PO BID 05/16/19 06/20/19 Unknown prednisone 10 mg PO DIRECTED 06/20/19 06/20/19 Unknown Active Medications Generic Name Dose Route Start Last Admin Trade Name Freq PRN Reason Stop Dose Admin Amitriptyline HCl 50 mg 06/20/19 21:00 06/24/19 19:53 Elavil PO 07/20/19 20:59 50 mg HS HENRRY Administration Gabapentin 200 mg 06/25/19 09:00 06/25/19 08:40 Neurontin PO 07/25/19 08:59 Not Given BID HENRRY Hydralazine HCl 10 mg 06/24/19 09:53 06/24/19 10:22 Hydralazine Hcl IV 07/24/19 08:42 10 mg Q6 PRN Administration Blood Pressure - High Hydromorphone HCl 1 mg 06/23/19 02:01 06/25/19 06:43 Dilaudid IV 07/07/19 02:00 1 mg Q8H PRN Administration severe breakthrough pain Hydromorphone HCl 25 mg 06/23/19 12:14 06/25/19 09:08 Dilaudid Ophthalmic Dispenser IV 07/07/19 12:13 25 mg PRN PRN Administration Pain Protocol Methylprednisolone 40 mg/ 0.64 mls @ 1.5 mls/min 06/20/19 18:00 06/25/19 10:24 Syringe IV 07/20/19 17:59 1.5 mls/min Q8H HENRRY Administration Sodium Chloride 1,000 mls @ 15 mls/hr 06/21/19 17:30 06/24/19 10:46 Nss 1000ml IV 07/21/19 17:29 15 mls/hr .Q24H HENRRY Administration Heparin Sodium/Dextrose 25,000 units in 500 mls @ 20 mls/hr 06/25/19 07:45 06/25/19 10:29 Heparin Sodium/Dextrose IV 06/25/19 23:59 1,000 units/hr .Q24H HENRRY 20 mls/hr Administration Protocol 1,000 UNITS/HR Lidocaine 2 patch 06/23/19 09:00 06/25/19 07:36 Lidoderm 5% TD 07/23/19 08:59 Not Given QAM HENRRY Lisinopril 5 mg 06/21/19 09:00 06/25/19 08:40 Zestril PO 07/21/19 08:59 5 mg QAM HENRRY Administration Lorazepam 1 mg 06/20/19 17:04 06/21/19 15:11 Ativan PO 07/20/19 17:03 1 mg TID PRN Administration Anxiety Miscellaneous 2 ea 06/23/19 21:00 06/24/19 23:55 Remove Lidoderm Patch N/A 07/23/19 20:59 Not Given DAILY@2100 [facility] Ranitidine HCl 150 mg 06/20/19 21:00 06/25/19 08:40 Zantac PO 07/20/19 20:59 150 mg BID HENRRY Administration Past Medical History Medical History Hypertension (Chronic) Hepatitis C (Chronic) Warfarin anticoagulation (Chronic) Intractable back pain (Acute) Bladder cancer 2011--chemo/radiation Deep vein thrombosis Fibromyalgia Hemorrhoids Hepatitis C tx no longer has Hypertension Liver lesion Medical marijuana use On anticoagulant therapy warfarin daily Peripheral neuropathy bilt arms, legs and feet Saddle embolus 11/2015 Sleep apnea cpap Exercise / Class Metabolic Activity III < 4 Walking/Shop/Light housework Negative for chest pain or shortness of breath. Past Family History Family History Grandmother (Paternal) Family history of diabetes mellitus Mother Family hx of colon cancer Other No family history of adverse response to anesthesia Past Surgical History Surgical History History of bilateral cataract extraction x2 History of biopsy of bladder multiple--malignant History of bowel resection 3-4 inches History of cardiac cath 2008--no stents History of colonoscopy History of cystoscopy multiple History of esophagogastroduodenoscopy (EGD) History of prostate biopsy benign History of repair of hiatal hernia History of right knee surgery acl repair History of tonsillectomy and adenoidectomy History of tooth extraction History of total right knee replacement (TKR) x2 History of umbilical hernia repair x3 S/P IVC filter x2--removed currently no longer has Status post uvulopalatopharyngoplasty Past Anesthesia History Other (Slow to wake after hernia sx, rigors) History of PONV No Hx of PONV and No Hx of Motion Sickness Social History Smoking Status: Former smoker tobacco type: pipe Do You Dip or Chew Tobacco: No Smoking End Date: 10 years ago Hx Alcohol Use: Yes Alcohol type: beer alcohol intake frequency: a few times a month Alcohol Intake Frequency Comment: 1 beer or glass of wine a week. Hx Substance Use: No substance use type: marijuana Review of Systems left spine and left leg pain down to knee cap left leg weakness Patient denies active symptoms of GERD Physical Exam Vital Signs Last Vital Signs Temp 37.3 C 06/25/19 07:48 Pulse 101 H 06/25/19 12:00 Resp 20 06/25/19 12:00 BP 130/77 06/25/19 12:00 Pulse Ox 91 06/25/19 12:00 Constitutional + obese ENMT Mouth: no TMJ abnormality and oral opening not small Thyromental Distance: > or= 3.5 Finger Breadths Mallampati Class: II Mouth / Teeth: 1. Chipped Neck normal visual inspection and + facial hair; neck extension not limited Respiratory normal respiratory effort Auscultation: lungs clear to auscultation bilaterally Cardiovascular Rate/Rhythm: regular rate and regular rhythm Heart Sounds: no murmur Neurologic moves all extremities Psychiatric Orientation: alert and oriented x 3 Testing Laboratory Results 06/25/19 09:42 06/20/19 09:55 PT 14.3 Seconds (9.0-12.0) H 06/25/19 09:42 INR 1.4 (0.9-1.1) H 06/25/19 09:42 APTT 32.7 Seconds (21.0-31.0) H 06/25/19 09:42 Urine Color Dark Yellow 06/20/19 15:50 Urine Appearance Clear (Clear) 06/20/19 15:50 Urine pH 5.0 (4.5-7.5) 06/20/19 15:50 Ur Specific [place] 1.025 (1.000-1.030) 06/20/19 15:50 Urine Protein 1+ (Negative) H 06/20/19 15:50 Urine Glucose (UA) Negative (Negative) 06/20/19 15:50 Urine Ketones 1+ (Negative) H 06/20/19 15:50 Urine Nitrite Negative (Negative) 06/20/19 15:50 Ur Leukocyte Esterase Negative (Negative) 06/20/19 15:50 Urine WBC (Auto) 1-5 /hpf (0-5) 06/20/19 15:50 Urine RBC (Auto) 0-4 /hpf (0-4) 06/20/19 15:50 U Hyaline Cast (Auto) 1-5 /lpf (0-5) 06/20/19 15:50 U Epithel Cells (Auto) 0-5 /lpf (0-5) 06/20/19 15:50 Urine Bacteria (Auto) Negative (Negative) 06/20/19 15:50
[2019-06-25 17:18] LABS: Partial Thromboplastin Ratio 1.4; Partial Thromboplastin Time 38.9 Seconds (21.0-31.0)
[2019-06-25] MEDS ORDERED: HEPARIN SOD (PORCINE) 1000 UNIT/ML 10 ML VIAL IV STA (17:21)
[2019-06-25] MEDS ORDERED: HEPARIN IV BOLUS 4,500 UNITS in SYRINGE 0 ML IV ONE (17:45)
[2019-06-25] MEDS: SODIUM CHLORIDE 0.9% 1000ML 1,000 ML IV SCH (17:50)
[2019-06-25] MEDS: AMITRIPTYLINE HCL 50 MG TAB PO SCH (20:47)
[2019-06-25] MEDS: ACETAMINOPHEN 325 MG TAB PO PRN (20:53)
[2019-06-26 00:32] LABS: Partial Thromboplastin Ratio 1.6; Partial Thromboplastin Time 42.7 Seconds (21.0-31.0)
[2019-06-26] MEDS: methylPREDNISolone 40 MG in SYRINGE 0 ML IV SCH ×3 (01:40→18:12)
[2019-06-26 06:20] LABS: INR 1.2 (0.9-1.1); Partial Thromboplastin Ratio 1.1; Partial Thromboplastin Time 30.6 Seconds (21.0-31.0); Prothrombin Time 12.2 Seconds (9.0-12.0)
[2019-06-26] MEDS: GABAPENTIN 100 MG CAP PO SCH (09:00)
[2019-06-26] MEDS: LIDOCAINE 5% 1 PATCH TD SCH (09:01)
[2019-06-26] MEDS: LISINOPRIL 5 MG TAB PO SCH (09:01)
[2019-06-26] MEDS: HYDROmorphone HCL 0.5MG/ML 50 ML CASSETTE IV PRN ×3 (09:38→23:13)
[2019-06-26] MEDS ORDERED: methylPREDNISolone acetate 40 MG/ML VIAL INJ ONE (10:00)
[2019-06-26] MEDS ORDERED: IOPAMIDOL INJ 61% 15 ML VIAL ONE (12:15)
[2019-06-26] MEDS ORDERED: EPINEPHrine INJ 1 MG/ML AMP ONE (12:16)
[2019-06-26] MEDS ORDERED: LIDOCAINE HCL 1% 20 ML VIAL ONE (12:16)
[2019-06-26] MEDS ORDERED: TRIAMCINOLONE ACET 40 MG/ML VIAL ONE (12:16)
[2019-06-26] MEDS ORDERED: DEXAMETHASONE **PF** INJ 10 MG/ML VIAL ONE (12:16)
[2019-06-26] MEDS ORDERED: methylPREDNISolone acetate 80 MG/ML VIAL ONE (12:17)
[2019-06-26] MEDS ORDERED: fentaNYL citrate 100 MCG/2 ML VIAL ONE ×2 (12:35→13:09)
[2019-06-26] MEDS ORDERED: MIDAZOLAM HCL 1 MG/ML 2ML VIAL ONE ×2 (12:35)
--- NOTE | 2019-06-26 12:37 | History & Physical Bridge Note ---
Date of Service June 26, 2019 History & Physical Bridge Note I have examined the patient, reviewed the History & Physical and in the interval since the performance of the History & Physical I have noted the following changes of clinical significance: no changes noted Potential risks including infection, bleeding, nerve injury, reaction to any one of the medications used for the procedure, persistent pain at the injection site and persistent symptoms discussed with the patient. Diagnostic nature of the p rocedure also discussed with the patient. Alternatives to the specific procedure was also discussed with the patient. Patient's questions were answered. Patient gives informed consent to proceed.
[2019-06-26] MEDS ORDERED: LIDOCAINE HCL 2% (LOCAL) INJ 50 ML VIAL ONE (12:42)
[2019-06-26] MEDS ORDERED: ONDANSETRON INJ 2 MG/ML 2 ML VIAL IV PRN (12:44)
[2019-06-26] MEDS ORDERED: ATROPINE SULFATE 0.1 MG/ML 10ML SYR IV PRN (12:44)
[2019-06-26] MEDS ORDERED: fentaNYL citrate 100 MCG/2 ML VIAL IV PRN (12:44)
[2019-06-26] MEDS ORDERED: ePHEDrine sulfate 50 MG/ML AMP IV PRN (12:44)
--- NOTE | 2019-06-26 12:44 | Anesthesiology Consultation ---
Date of Service June 26, 2019 Assessment & Plan (1) Encounter for pre-operative examination: Chart Review Chart Review: Acceptable Risk for Surgery and Patient NOT seen in Pre Admission Testing Consults Requested none ASA ASA3 Proposed Anesthesia Anesthesia Type: MAC Risk / Benefits Reviewed With: PT / POA / Parent / Guardian, Accepts Plan and Informed Consent Obtained History Surgery Operation Date: 06/26/19 11:30 Proposed Procedures p L3 Epidural Steroid Injection - Janiya Morfin, Height/Weight Height: 6 ft 3 in Weight: 130 kg Allergies Allergy/AdvReac Type Severity Reaction Status Date / Time gabapentin AdvReac Intermediate body Verified 06/26/19 12:43 aches, feels like he's in a fog propoxyphene AdvReac Intermediate Nausea Verified 06/26/19 12:43 amoxicillin AdvReac Mild n&v Verified 06/26/19 12:43 clavulanic acid AdvReac Mild N/V Verified 06/26/19 12:43 Medications Home Medications Medication Instructions Recorded Confirmed Last Taken acetaminophen [Tylenol Extra 1,000 - 1,500 mg PO HS 08/15/18 06/20/19 03/20/19 20:30 Strength] amitriptyline 50 mg PO HS 08/15/18 06/20/19 03/20/19 warfarin 3 mg tablet 3 mg PO QAM 08/16/18 06/20/19 03/15/19 09:00 lisinopril 5 mg tablet 5 mg PO QAM 10/17/18 06/20/19 03/21/19 07:30 lorazepam 1 mg PO TID PRN 03/08/19 06/20/19 Unknown hydrocodone 7.5 mg-acetaminophen 1 tab PO TID PRN tab 05/16/19 06/20/19 Unknown 325 mg tablet ranitidine 150 mg tablet 150 mg PO BID 05/16/19 06/20/19 Unknown prednisone 10 mg PO DIRECTED 06/20/19 06/20/19 Unknown Active Medications Generic Name Dose Route Start Last Admin Trade Name Freq PRN Reason Stop Dose Admin Acetaminophen 650 mg 06/20/19 17:04 06/25/19 20:53 Tylenol PO 07/20/19 17:03 650 mg Q4H PRN Administration pain/fever Amitriptyline HCl 50 mg 06/20/19 21:00 06/25/19 20:47 Elavil PO 07/20/19 20:59 50 mg HS HENRRY Administration Gabapentin 200 mg 06/25/19 09:00 06/26/19 09:00 Neurontin PO 07/25/19 08:59 Not Given BID HENRRY Hydralazine HCl 10 mg 06/24/19 09:53 06/24/19 10:22 Hydralazine Hcl IV 07/24/19 08:42 10 mg Q6 PRN Administration Blood Pressure - High Hydromorphone HCl 1 mg 06/23/19 02:01 06/25/19 23:44 Dilaudid IV 07/07/19 02:00 1 mg Q8H PRN Administration severe breakthrough pain Hydromorphone HCl 25 mg 06/23/19 12:14 06/26/19 09:38 Dilaudid Technical Testing Engineer IV 07/07/19 12:13 25 mg PRN PRN Administration Pain Protocol Methylprednisolone 40 mg/ 0.64 mls @ 1.5 mls/min 06/20/19 18:00 06/26/19 09:01 Syringe IV 07/20/19 17:59 1.5 mls/min Q8H HENRRY Administration Sodium Chloride 1,000 mls @ 15 mls/hr 06/21/19 17:30 06/25/19 17:50 Nss 1000ml IV 07/21/19 17:29 15 mls/hr .Q24H HENRRY Administration Lidocaine 2 patch 06/23/19 09:00 06/26/19 09:01 Lidoderm 5% TD 07/23/19 08:59 Not Given QAM HENRRY Lisinopril 5 mg 06/21/19 09:00 06/26/19 09:01 Zestril PO 07/21/19 08:59 5 mg QAM HENRRY Administration Lorazepam 1 mg 06/20/19 17:04 06/21/19 15:11 Ativan PO 07/20/19 17:03 1 mg TID PRN Administration Anxiety Miscellaneous 2 ea 06/23/19 21:00 06/25/19 20:48 Remove Lidoderm Patch N/A 07/23/19 20:59 Not Given DAILY@2100 HENRRY Ranitidine HCl 150 mg 06/20/19 21:00 06/26/19 09:01 Zantac PO 07/20/19 20:59 150 mg BID HENRRY Administration NPO Date Last Intake of Fluids: 06/26/19 Time Last Intake of Fluids: 07:00 Date Last Intake of Solids: 06/25/19 Time Last Intake of Solids: 20:00 Past Medical History Medical History Hypertension (Chronic) Hepatitis C (Chronic) Warfarin anticoagulation (Chronic) Intractable back pain (Acute) Bladder cancer 2011--chemo/radiation Deep vein thrombosis Fibromyalgia Hemorrhoids Hepatitis C tx no longer has Hypertension Liver lesion Medical marijuana use On anticoagulant therapy warfarin daily Peripheral neuropathy bilt arms, legs and feet Saddle embolus 11/2015 Sleep apnea cpap Exercise / Class Metabolic Activity II 4-5 Yardwork/Stairs/Walk up hill Past Family History Family History Grandmother (Paternal) Family history of diabetes mellitus Mother Family hx of colon cancer Other No family history of adverse response to anesthesia Past Surgical History Surgical History History of bilateral cataract extraction x2 History of biopsy of bladder multiple--malignant History of bowel resection 3-4 inches History of cardiac cath 2008--no stents History of colonoscopy History of cystoscopy multiple History of esophagogastroduodenoscopy (EGD) History of prostate biopsy benign History of repair of hiatal hernia History of right knee surgery acl repair History of tonsillectomy and adenoidectomy History of tooth extraction History of total right knee replacement (TKR) x2 History of umbilical hernia repair x3 S/P IVC filter x2--removed currently no longer has Status post uvulopalatopharyngoplasty Past Anesthesia History No Hx of Anesthesia Complications and No Family Hx of Anesthesia Complications History of PONV No Hx of PONV and No Hx of Motion Sickness Social History Smoking Status: Former smoker tobacco type: pipe Do You Dip or Chew Tobacco: No Smoking End Date: 10 years ago Hx Alcohol Use: Yes Alcohol type: beer alcohol intake frequency: a few times a month Alcohol Intake Frequency Comment: 1 beer or glass of wine a week. Hx Substance Use: No substance use type: marijuana Physical Exam Vital Signs Last Vital Signs Temp 37.1 C 06/26/19 12:40 Pulse 105 H 06/26/19 12:40 Resp 18 06/26/19 12:40 BP 173/111 H 06/26/19 12:40 Pulse Ox 92 06/26/19 12:40 ENMT Mouth: no dentition abnormality Thyromental Distance: > or= 3.5 Finger Breadths Mallampati Class: II Neck normal visual inspection Respiratory normal respiratory effort Auscultation: lungs clear to auscultation bilaterally Cardiovascular Rate/Rhythm: regular rate and regular rhythm Psychiatric Orientation: alert Testing Laboratory Results 06/25/19 09:42 06/20/19 09:55 PT 12.2 Seconds (9.0-12.0) H 06/26/19 05:56 INR 1.2 (0.9-1.1) H 06/26/19 05:56 APTT 30.6 Seconds (21.0-31.0) 06/26/19 05:56 Urine Color Dark Yellow 06/20/19 15:50 Urine Appearance Clear (Clear) 06/20/19 15:50 Urine pH 5.0 (4.5-7.5) 06/20/19 15:50 Ur Specific Webb 1.025 (1.000-1.030) 06/20/19 15:50 Urine Protein 1+ (Negative) H 06/20/19 15:50 Urine Glucose (UA) Negative (Negative) 06/20/19 15:50 Urine Ketones 1+ (Negative) H 06/20/19 15:50 Urine Nitrite Negative (Negative) 06/20/19 15:50 Ur Leukocyte Esterase Negative (Negative) 06/20/19 15:50 Urine WBC (Auto) 1-5 /hpf (0-5) 06/20/19 15:50 Urine RBC (Auto) 0-4 /hpf (0-4) 06/20/19 15:50 U Hyaline Cast (Auto) 1-5 /lpf (0-5) 06/20/19 15:50 U Epithel Cells (Auto) 0-5 /lpf (0-5) 06/20/19 15:50 Urine Bacteria (Auto) Negative (Negative) 06/20/19 15:50
[2019-06-26] MEDS ORDERED: LIDOCAINE HCL 2% MPF (LOCAL) 5 ML VIAL INFIL ONE (12:47)
[2019-06-26] MEDS: LIDOCAINE HCL 2% MPF (LOCAL) 5 ML VIAL INFIL ONE ×2 (13:20→14:22)
--- NOTE | 2019-06-26 13:37 | Operative Report ---
Post Operative Report Pre & Post Diagnosis Operation Date: 06/26/19 11:30 <No data on this case meets the specified criteria> Procedure TRANSFORAMINAL EPIDURAL STEROID INJECTION (DIAGNOSTIC) Diagnosis: Lumbar Radiculitis and Herniated Disc Level injected: Left L3-4 Surgeon: Dr. Janiya Morfin Anesthesia: local Material forwarded to lab: none Prior to starting, the Patients diagnosis and the procedure were reviewed with the patient in detail. Possible risks, complications and alternative therapies were also reviewed. Patients questions were answered. Informed consent was obtained. Allergies and medication list was reviewed. The patient was brought to the fluoroscopy room and placed in prone position on the table. Immediately prior to starting the procedure, a ``time out was conducted with the staff and the patient where the patient was identified, proposed procedure was verified, consent was reviewed and the proper site for the planned procedure was identified. Fluoroscopy was utilized in performing the procedure to assist the placement of the needle, to evaluate the final position of the needle prior to injection and to avoid intravascular injection. Monitors used included intermittent blood pressure with automated device, continuous pulse oximetry and level of consciousness. Patient was not given any intravenous sedation and constant verbal contact was maintained throughout the procedure. Lumbar-sacral area was prepped with duraprep and betadine solution. Sterile drapes were applied. The appropriate interspace and disk was identified in a true AP view. The fluoroscope was then rotated to obtain a decubitus view in such a manner so that the superior articular process of the inferior vertebra was bisecting the pars inter-articularis of the vertebra above in two or in the 6 oclock position. Next, 4 mL of 2% lidocaine preservative-free was injected for local skin anesthesia. Then, a 22 Gauge 3.5 inch curved (15 degrees) spinal needle was inserted through the skin and subcutaneous tissues and advanced in a co-axial technique. Needle tip was first placed on the infero-lateral margin of the pars inter-articularis. Once the bony margin was contacted, the C-arm was rotated to obtain a lateral view. The needle was slowly ``walked off the bone and advanced toward the anterior and superior aspect of the foramen. Patient did not experience any pain or paresthesia. A six inch micro bore tubing was attached to the needle and aspiration did not demonstrate CSF or blood. Isovue 300 contrast 1ml was injected via the needle under live fluoroscopy. Spread of the contrast along the nerve root. AP view was checked to ensure the needle tip was in the close proximity to the nerve root an in the proximal neural foramen lateral to the inferior articular process and in the 6 oclock position. Addit ional 1ml of the contrast was injected under live fluoroscopy. 2 attempts of placement were required for epidural positioning secondary to patient movement. Neither subdural or subarachnoid spread nor intravascular uptake was noted on plain fluoroscopy. Approximately 10 to 15 second digital subtraction angiogram at 3 f/s rate was done in an AP view with additional contrast. No vascular uptake was noted. Next 40mg depomedrol was injected at each site followed by 2% lidocaine-MPF 1ml to flush the needle. The patient did not experience pain during the injection. Adequate hemostasis was noted. A sterile Band-Aid was applied to the injection site. Patient was monitored for 30 minutes and discharged with an accompanying adult. Discharge instructions were reviewed with the patient/caregiver. Any specific questions were answered. Patient/caregiver voiced understanding of the instructions. Follow-up appointment has been scheduled. Operation Date: 06/26/19 11:30 <No data on this case meets the specified criteria> Surgeon Janiya Morfin, Senior Licensing Manager none Estimated Blood Loss 0 Findings Consistent with Post-Op Diagnosis Specimens none Drains none Anesthesia Type MAC Complications none Disposition Accompanied Patient To Recovery: No Disposition: Recovery Room Description of Procedure As above I attest to the content of the Intraoperative Record and any orders documented therein. Any exceptions are noted below.
--- NOTE | 2019-06-26 14:04 | Anesthesiology Progress Note ---
Date of Service June 26, 2019 Anesthesia Post Procedure Vital Signs Vital Signs: Temp Pulse Pulse Resp BP BP Pulse Ox 06/26/19 13:55 104 H 20 139/86 94 06/26/19 13:45 102 H 20 122/94 93 06/26/19 13:35 37.2 C 101 H 16 161/117 H 93 06/26/19 12:40 37.1 C 105 H 18 173/111 H 92 06/26/19 07:27 36.6 C 105 H 22 147/97 H 92 06/26/19 03:20 36.9 C 102 H 18 133/88 91 06/25/19 22:55 36.9 C 90 18 138/102 H 91 06/25/19 19:42 37.2 C 108 H 20 130/84 93 06/25/19 15:12 36.8 C 110 H 20 123/78 92 Pain Intensity Left Lower Back: Pain Intensity: 4 Transfer of Care Handoff Completed per policy Notes Mental Status: alert / awake / arousable Patient Amnestic to Procedure: Yes Nausea / Vomiting: adequately controlled Pain: adequately controlled Airway Patency, RR, SpO2: stable & adequate BP & HR: stable & adequate Hydration State: stable & adequate Anesthetic Complications: no major complications apparent
[2019-06-26] MEDS ORDERED: predniSONE 10 MG TABLET PO SCH (14:16)
--- NOTE | 2019-06-26 14:16 | Fluoroscopy Report ---
FL lumbar spine 2-3V CLINICAL HISTORY: 68 years-old Male presenting with L3 EPIDURAL INJECTION. TECHNIQUE: 34 fluoroscopic image(s) recorded as part of an intraoperative procedure. COMPARISON: None. FINDINGS/IMPRESSION: A needle projects over the left aspect of the lumbar spine for injection. Contrast was injected in th is region. Please see surgical report for further details. Fluoroscopy dosage (mGy): 55.75. Fluoroscopy time: 34.8 seconds. Number or time of high level fluoroscopy (HLF), digital spot, or digital subtraction images: 20.9 sec onds. Electronically signed by: Herbert Quinonez M.D. 06/26/2019 2:15 PM
[2019-06-26] MEDS ORDERED: HEPARIN SODIUM/DEXTROSE 25,000 UNITS/500 ML BAG IV SCH (14:30)
--- NOTE | 2019-06-26 14:32 | Hospitalist Progress Note ---
Date of Service June 26, 2019 Assessment & Plan (1) Lumbar radiculopathy: CT lumbar spine shows multilevel lumbar spondylosis as described above. This is most pronounced at the L3-L4 level where there appears to be a left foraminal disc protrusion resulting in severe left-sided neural foraminal narrowing. This likely compresses the exiting left L3 nerve root. Severe central canal narrowing at L4-L5 and moderate to severe central canal narrowing at L3-L4. successful L3 nerve root epidural injection on 06/26 pain about 50% improved, patient pleased with results continue with Solu Medrol continue BISTRO SERVER to Dilaudid 0.5mg/hr continuous and 0.3mg every 15 minutes explained to the patient that we want pain control but not sedation he is comfortable with dosing right now if he wants to try to go home will need to try Oxycodone tomorrow will continue Gabapentin 200mg BID for neuropathic component of pain may increase to TID tomorrow if still in a lot of pain likely will need decompression of L3-L5 tentatively plan for later in the week, perhaps if nerve block works well then may delay surgery until next week (2) Intractable back pain: see above, using Dilaudid BISTRO SERVER continue Solu medrol and Gabapentin nerve block performed on 06/26 (3) Warfarin anticoagulation: Chronic warfarin anticoagulation due to history of DVT and saddle pulmonary embolism. h/o two separate DVT in 2012 and 2015 h/o Lupus anticoagulant INR 1.2 this morning after reversing with vitamin K heparin drip low dose no bolus yesterday but stopped at midnight for injection d/w Dr. Morfin, can resume at 2am on 06/27, low dose, no bolus will place SCD in the meantime ask vascular to evaluate for opinion on IVC filter he is high risk in perioperative period needs filter prior to spine surgery, patient agrees to this plan timing of filter will need to be determined will discuss with vascular surgery tomorrow (4) Hepatitis C: Necessary precautions (5) Hypertension: Treated with lisinopril 5mg daily Hydralazine PRN BP up due to pain Subjective patient seen after L3 nerve block, said that his pain was 50% better will continue with BISTRO SERVER for now for pain control patient is still leaning toward getting surgery discussed with Dr. Janiya Morfin, she is okay with resuming heparin drip, no bolus, at 2am spoke with the RN about this plan, order placed for 2am instructed SCD to be placed in the meantime discussed with patient and his significant other at the bedside unsure about timing of surgery, depends on how he feels after nerve block and Dr. Austin's schedule chance that he could go home and come back for scheduled procedure would need to make sure pain controlled with oral narcotics prior to that if surgery planned for this week then will d/w vascular surgery and get IVC filter patient breathing well, no chest pain, no fever/chills eating well sleeping better with pain control Review of Systems Review of Systems: All systems reviewed & are unremarkable except as noted in HPI & below Musculoskeletal: + back pain and + radicular pain Physical Exam Constitutional: WD/WN, vitals as above Eyes: PERRL, conjunctivae normal, anicteric sclerae ENMT: external ear and nose normal, oropharynx normal Neck: trachea midline, no thyromegaly Respiratory: normal respiratory effort, lungs clear to auscultation Cardiovascular: RRR, no murmur, no edema Gastrointestinal (Abdomen): normal bowel sounds, soft, nontender, no hepatosplenomegaly Musculoskeletal: no cyanosis or clubbing, extremities motor strength 5/5 Spine: + limited thoraco-lumbar ROM, + pain with thoraco-lumbar ROM and + buttock tenderness Skin: no rashes, warm and dry Neurologic: patellar DTR's 2+ bilat, sensation intact and PERRL, EOMI, accommodation nl, no face palsy, no dysarthria Psychiatric: A+Ox3, euthymic affect Lymphatic: no cervical or axillary lymphadenopathy Results & Data Vital Signs (Past 12 Hours) Vital Signs Temp Pulse Pulse Resp BP Pulse Ox 06/26/19 14:20 36.9 C 109 H 20 133/97 91 06/26/19 13:55 104 H 20 139/86 94 06/26/19 13:45 102 H 20 122/94 93 06/26/19 13:35 37.2 C 101 H 16 161/117 H 93 06/26/19 12:40 37.1 C 105 H 18 173/111 H 92 06/26/19 07:27 36.6 C 105 H 22 147/97 H 92 06/26/19 03:20 36.9 C 102 H 18 133/88 91 Laboratory Results Laboratory Results - last 24 hr 06/25/19 06/25/19 06/26/19 16:39 23:49 05:56 PT 12.2 H INR 1.2 H APTT 38.9 H 42.7 H 30.6 PTT Ratio 1.4 1.6 1.1 Medications Administered Current Inpatient Medications Acetaminophen (Tylenol) 650 mg PO Q4H PRN PRN Reason: pain/fever Stop: 07/20/19 17:03 Last Admin: 06/25/19 20:53 Dose: 650 mg Documented by: Acetaminophen (Tylenol) 1,000 - 1,500 mg PO HS [facility] Stop: 07/26/19 20:59 Hydrocodone Bitart/Acetaminophen (Magness 7.5/325mg) 1 tab PO TID PRN PRN Reason: pain Stop: 07/10/19 14:15 Al Hydrox/Mg Hydrox/Simethicone (Maalox) 30 ml PO Q6H PRN PRN Reason: Dyspepsia Stop: 07/20/19 17:03 Amitriptyline HCl (Elavil) 50 mg PO [facility] Stop: 07/20/19 20:59 Last Admin: 06/25/19 20:47 Dose: 50 mg Documented by: Heparin Sodium/Dextrose () 1 ea IV ONE ONE; Protocol Stop: 06/27/19 02:01 Hydralazine HCl (Hydralazine Hcl) 10 mg IV Q6 PRN PRN Reason: Blood Pressure - High Stop: 07/24/19 08:42 Last Admin: 06/24/19 10:22 Dose: 10 mg Documented by: Hydromorphone HCl (Dilaudid) 1 mg IV Q8H PRN PRN Reason: severe breakthrough pain Stop: 07/07/19 02:00 Last Admin: 06/25/19 23:44 Dose: 1 mg Documented by: Hydromorphone HCl (Dilaudid Payroll Bookkeeper) 25 mg IV PRN PRN; Protocol PRN Reason: Pain Stop: 07/07/19 12:13 Last Admin: 06/26/19 09:38 Dose: 25 mg Documented by: Methylprednisolone 40 mg/ (Syringe) 0.64 mls @ 1.5 mls/min IV Q8H HENRRY Stop: 07/20/19 17:59 Last Admin: 06/26/19 09:01 Dose: 1.5 mls/min Documented by: Sodium Chloride (Nss 1000ml) 1,000 mls @ 15 mls/hr IV .Q24H [facility] Stop: 07/21/19 17:29 Last Admin: 06/25/19 17:50 Dose: 15 mls/hr Documented by: Heparin Sodium/Dextrose (Heparin Sodium/Dextrose) 25,000 units in 500 mls @ 0.0 2 mls/hr IV .Q24H [facility]; Protocol Stop: 07/26/19 14:29 Lidocaine (Lidoderm 5%) 2 patch TD QAM [facility] Stop: 07/23/19 08:59 Last Admin: 06/26/19 09:01 Dose: Not Given Documented by: Lisinopril (Zestril) 5 mg PO QAM [facility] Stop: 07/21/19 08:59 Last Admin: 06/26/19 09:01 Dose: 5 mg Documented by: Lorazepam (Ativan) 1 mg PO TID PRN PRN Reason: Anxiety Stop: 07/20/19 17:03 Last Admin: 06/21/19 15:11 Dose: 1 mg Documented by: Miscellaneous (Remove Lidoderm Patch) 2 ea N/A DAILY@2100 [facility] Stop: 07/23/19 20:59 Last Admin: 06/25/19 20:48 Dose: Not Given Documented by: Ondansetron HCl (Zofran) 4 mg IV Q6H PRN PRN Reason: Nausea Stop: 07/20/19 17:03 Prednisone (Prednisone) 10 mg PO DIRECTED [facility] Stop: 07/26/19 14:15 Ranitidine HCl (Zantac) 150 mg PO BID [facility] Stop: 07/20/19 20:59 Last Admin: 06/26/19 09:01 Dose: 150 mg Documented by: PG Care Time/CCT Total # of Minutes Spent Total Time Spent: 45 Total Time Spent with Patient: Total time spent is greater than 50% in coordination of care (as documented) at patient's floor/unit and/or counseling patient:
[2019-06-26] MEDS: ACETAMINOPHEN 500 MG TAB PO SCH (20:58)
[2019-06-26] MEDS: AMITRIPTYLINE HCL 50 MG TAB PO SCH (20:58)
[2019-06-26] MEDS: HYDROmorphone INJ 1 MG/ML SYRINGE IV PRN (21:02)
[2019-06-27] MEDS ORDERED: Heparin Adult LOW DOSE Wt-Based Dextrose 5% 25,000 units/500 mL IV SCH (02:00)
[2019-06-27] MEDS ORDERED: Heparin IV Low Dose *NO* Bolus IV SCH (02:00)
[2019-06-27] MEDS: methylPREDNISolone 40 MG in SYRINGE 0 ML IV SCH ×2 (02:20→08:46)
[2019-06-27 02:57] LABS: INR 1.1 (0.9-1.1); Partial Thromboplastin Time 27.9 Seconds (21.0-31.0); Prothrombin Time 11.6 Seconds (9.0-12.0)
[2019-06-27 03:48] LABS: Hematocrit (blood only) 46.6 % (42-52); Immature Granulocytes # (auto) 0.11 K/uL (0.00-0.02); Immature Granulocytes % (auto) 0.6 %; Lymphocytes # (auto) 0.53 K/uL (1.2-3.4); Lymphocytes % (auto) 3.1 %; Mean Corpuscular Volume 92.8 fL (80-100); Mean Platelet Volume 9.8 fL (7.4-10.4); Monocytes # (auto) 1.28 K/uL (0.11-0.59); Monocytes % (auto) 7.4 %; Neutrophils # (auto) 15.32 K/uL (1.4-6.5); Neutrophils % (auto) 88.9 %; Platelet Count 187 K/uL (130-400); RDW Coefficient of Variation 14.1 % (11.5-14.5); RDW Standard Deviation 48.4 fL (36.4-46.3); Red Blood Count 5.02 M/uL (4.7-6.1); White Blood Count 17.24 K/uL (4.8-10.8)
[2019-06-27 03:49] LABS: Mean Corpuscular Hgb Conc 34.3 g/dL (32-36)
[2019-06-27] MEDS: HYDROmorphone HCL 0.5MG/ML 50 ML CASSETTE IV PRN (06:59)
[2019-06-27] MEDS: LISINOPRIL 5 MG TAB PO SCH (08:41)
[2019-06-27 08:51] LABS: Partial Thromboplastin Ratio 1.4; Partial Thromboplastin Time 39.1 Seconds (21.0-31.0)
--- NOTE | 2019-06-27 08:55 | Pain Management Progress Note ---
Date of Service June 27, 2019 Assessment & Plan (1) Lumbosacral radiculopathy: Patient reports significant improvement from the left L3 epidural steroid injection that was performed yesterday. He is very pleased with the results. The Dilaudid MOVIE MACHINE OPERATOR will be discontinued. IV Hydromorphone 0.5mg IV x 2 hours PRN for breakthrough pain that is not controlled with Hydrocodone 7.5/325mg. Subjective Mr. Jones is a 68 year old white male that received a left L3 epidural steroid injection yesterday for intractable back pain. Patient reports 95% pain relief from the procedure. He states that there is some residual aching along the left leg. The low back pain has resolved since the injection. He is able to ambulate better around his room. Patient rates his pain 2/10 currently. He denies any constipation, confusion, dizziness, leg weakness, foot drop. Case discussed with Dr. Janiya Morfin Pain Assessment Pain Assessment Full Body Front + Back: 1. [facility] Combined Pain Scale: 2-Minimal - Able to engage in pleasures of life with some interference Physical Exam Physical Exam: GENERAL: Speech and cognition is intact. Mood and affect is appropriate. Does not appear in acute distress. BACK: There is no midline, SI joint, or facet joint tenderness. No lumbosacral tenderness. There is no paraspinal, quadratus lumborum, piriformis, or gluteal tenderness or spasm. NEURO: Awake, alert, and oriented x 3. SKIN: No erythema, edema, or drainage of the injection site.
[2019-06-27] MEDS: LIDOCAINE 5% 1 PATCH TD SCH (09:06)
[2019-06-27] MEDS ORDERED: HEPARIN IV BOLUS 4,500 UNITS in SYRINGE 0 ML IV STA (09:20)
--- NOTE | 2019-06-27 10:31 | Anesthesiology Progress Note ---
Date of Service June 27, 2019 Anesthesia Post Procedure Vital Signs Vital Signs: Temp Pulse Pulse Resp BP Pulse Ox 06/27/19 07:52 36.9 C 80 22 142/84 H 95 06/27/19 02:56 36.5 C 91 H 16 133/83 93 06/26/19 23:07 36.5 C 86 18 118/84 90 06/26/19 20:14 93 06/26/19 19:17 36.5 C 102 H 18 114/77 91 06/26/19 18:05 36.5 C 111 H 20 124/75 93 06/26/19 17:03 36.9 C 105 H 20 121/75 94 06/26/19 15:57 36.4 C L 106 H 20 119/86 95 06/26/19 15:00 36.6 C 107 H 20 132/83 94 06/26/19 14:20 36.9 C 109 H 20 133/97 91 06/26/19 13:55 104 H 20 139/86 94 06/26/19 13:45 102 H 20 122/94 93 06/26/19 13:35 37.2 C 101 H 16 161/117 H 93 06/26/19 12:40 37.1 C 105 H 18 173/111 H 92 Pain Intensity Left Groin: Pain Intensity: 4 Notes Mental Status: alert / awake / arousable and participated in evaluation Nausea / Vomiting: adequately controlled Pain: improving with treatment and see Notes below Airway Patency, RR, SpO2: stable & adequate BP & HR: stable & adequate Hydration State: stable & adequate Notes: complaints of left groin (inguinal crease) dull aching pain that is constant in nature. I discussed with the patient the need to describe the pain to Dr Morfin.
[2019-06-27] MEDS: HYDROCODONE/ACETAMINOPHEN 7.5/325MG TAB PO PRN ×2 (10:38→16:09)
[2019-06-27] MEDS ORDERED: WARFARIN SOD 5 MG TAB PO ONE (11:00)
--- NOTE | 2019-06-27 12:05 | Orthopedic Progress Note ---
Date of Service June 27, 2019 Assessment & Plan (1) Lumbosacral radiculopathy: Long discussion with this patient today regarding his situation. He has had significant results from his injection yesterday. Hopefully this will continue to be the case. If however he declines and symptoms return we may need to consider surgical intervention. He does understand it would require an IVC filter placed preoperatively. If he does discharge home in the next few days I would like to see him in the office next 1 to 2 weeks to assess his progress. He understands agrees. Present on Admission?: Yes Subjective Patient says noting marked improvement of his left leg pain after his block. Is much more comfortable. Physical Exam Physical Exam: He is in the chair at the bedside he does appear more comfortable strength somewhat improved with examination left lower extremity. Results & Data Vital Signs (Past 12 Hours) Vital Signs Temp Pulse Pulse Resp BP Pulse Ox 06/27/19 07:52 36.9 C 80 22 142/84 H 95 06/27/19 02:56 36.5 C 91 H 16 133/83 93
[2019-06-27] MEDS: HYDROmorphone INJ 0.5 MG/0.5 ML SYR IV PRN ×2 (12:26→20:21)
--- NOTE | 2019-06-27 14:42 | Hospitalist Progress Note ---
Date of Service June 27, 2019 Assessment & Plan (1) Lumbar radiculopathy: CT lumbar spine shows multilevel lumbar spondylosis as described above. This is most pronounced at the L3-L4 level where there appears to be a left foraminal disc protrusion resulting in severe left-sided neural foraminal narrowing. This likely compresses the exiting left L3 nerve root. Severe central canal narrowing at L4-L5 and moderate to severe central canal narrowing at L3-L4. 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 h/o two separate DVT in 2012 and 2015 h/o Lupus anticoagulant INR 1.1 continue heparin drip today, start on Lovenox q12 this evening Coumadin 5mg given today plan to d/c on Lovenox q12 until INR therapeutic ask vascular to evaluate for opinion on IVC filter he is high risk in perioperative period will definitely require filter prior to surgery (4) Hepatitis C: Necessary precautions (5) Hypertension: Treated with lisinopril 5mg daily Hydralazine PRN BP up due to pain Subjective patient doing much better after L3 injection yesterday pain down to 5 out of 10 utilizing Hydrocodone 7.5/325mg as needed, Dilaudid REFRIGERATION MANAGER stopped discussed with Dr. Austin today he is okay with patient going home with adequate pain control he will see him in the office in 1-2 weeks certainly if pain becomes severe again then will have decompression earlier patient on board with this plan for anticoagulation, will resume Coumadin and change to Lovenox labs today show WBC 17k from steroids Review of Systems Review of Systems: All systems reviewed & are unremarkable except as noted in HPI & below Musculoskeletal: + back pain Physical Exam Constitutional: WD/WN, vitals as above + in distress (uncomfortable) Eyes: PERRL, conjunctivae normal, anicteric sclerae ENMT: external ear and nose normal, oropharynx normal Neck: trachea midline, no thyromegaly Respiratory: normal respiratory effort, lungs clear to auscultation Cardiovascular: RRR, no murmur, no edema Gastrointestinal (Abdomen): normal bowel sounds, soft, nontender, no hepatosplenomegaly Musculoskeletal: no cyanosis or clubbing, extremities motor strength 5/5 Spine: + limited thoraco-lumbar ROM, + pain with thoraco-lumbar ROM and + buttock tenderness Skin: no rashes, warm and dry Neurologic: patellar DTR's 2+ bilat, sensation intact and PERRL, EOMI, accommodation nl, no face palsy, no dysarthria Psychiatric: A+Ox3, euthymic affect Lymphatic: no cervical or axillary lymphadenopathy Results & Data Vital Signs (Past 12 Hours) Vital Signs Temp Pulse Pulse Resp BP Pulse Ox 06/27/19 12:16 36.4 C L 86 20 148/84 H 93 06/27/19 07:52 36.9 C 80 22 142/84 H 95 06/27/19 02:56 36.5 C 91 H 16 133/83 93 Laboratory Results Laboratory Results - last 24 hr 06/27/19 06/27/19 06/27/19 01:30 01:30 08:17 WBC 17.24 H RBC 5.02 Hgb 16.0 Hct 46.6 MCV 92.8 MCH 31.9 MCHC 34.3 RDW Std Deviation 48.4 H RDW Coeff of Jazz 14.1 Plt Count 187 MPV 9.8 Immature Gran % (Auto) 0.6 Neut % (Auto) 88.9 Lymph % (Auto) 3.1 [place] % (Auto) 7.4 Eos % (Auto) 0.0 Baso % (Auto) 0.0 Immature Gran # (Auto) 0.11 H Neut # (Auto) 15.32 H Lymph # (Auto) 0.53 L [place] # (Auto) 1.28 H Eos # (Auto) 0.00 Baso # (Auto) 0.00 PT 11.6 INR 1.1 APTT 27.9 39.1 H PTT Ratio 1.0 1.4 Medications Administered Current Inpatient Medications Acetaminophen (Tylenol) 650 mg PO Q4H PRN PRN Reason: pain/fever Stop: 07/20/19 17:03 Last Admin: 06/25/19 20:53 Dose: 650 mg Documented by: Acetaminophen (Tylenol) 1,000 - 1,500 mg PO HS [facility] Stop: 07/26/19 20:59 Last Admin: 06/26/19 20:58 Dose: Not Given Documented by: Hydrocodone Bitart/Acetaminophen ([place] 7.5/325mg) 1 tab PO TID PRN PRN Reason: pain Stop: 07/10/19 14:15 Last Admin: 06/27/19 10:38 Dose: 1 tab Documented by: Al Hydrox/Mg Hydrox/Simethicone (Maalox) 30 ml PO Q6H PRN PRN Reason: Dyspepsia Stop: 07/20/19 17:03 Amitriptyline HCl (Elavil) 50 mg PO [facility] Stop: 07/20/19 20:59 Last Admin: 06/26/19 20:58 Dose: 50 mg Documented by: Enoxaparin Sodium (Lovenox) 129 mg SQ BID [facility] Stop: 07/27/19 20:59 Hydralazine HCl (Hydralazine Hcl) 10 mg IV Q6 PRN PRN Reason: Blood Pressure - High Stop: 07/24/19 08:42 Last Admin: 06/24/19 10:22 Dose: 10 mg Documented by: Hydromorphone HCl (Dilaudid) 0.5 mg IV Q2HWA PRN PRN Reason: Pain Stop: 07/11/19 08:48 Last Admin: 06/27/19 12:26 Dose: 0.5 mg Documented by: Heparin Sodium/Dextrose (Heparin Sodium/Dextrose) 25,000 units in 500 mls @ 24 mls/hr IV .[id number] [facility]; Protocol Stop: 06/27/19 21:00 Last Titration: 06/27/19 09:34 Dose: 1,200 units/hr, 24 mls/hr Documented by: Methylprednisolone 40 mg/ (Syringe) 0.64 mls @ 1.5 mls/min IV DAILY [facility] Stop: 07/28/19 08:59 Lidoc[facility] ([facility]oderm 5%) [facility] Stop: 07/23/19 08:59 Last Admin: 06/27/19 09:06 Dose: Not Given Documented by: Lisinopril (Zestril) 5 mg PO QAM [facility] Stop: 07/21/19 08:59 Last Admin: 06/27/19 08:41 Dose: 5 mg Documented by: Lorazepam (Ativan) 1 mg PO TID PRN PRN Reason: Anxiety Stop: 07/20/19 17:03 Last Admin: 06/21/19 15:11 Dose: 1 mg Documented by: Miscellaneous (Remove Lidoderm Patch) 2 ea N/A DAILY@2100 [facility] Stop: 07/23/19 20:59 Last Admin: 06/26/19 20:59 Dose: Not Given Documented by: Merrill (Stop Order) 1 ea N/A TODAY@2100 ONE Stop: 06/27/19 21:01 Ondansetron HCl (Zofran) 4 mg IV Q6H PRN PRN Reason: Nausea Stop: 07/20/19 17:03 Ranitidine HCl (Zantac) 150 mg PO BID [facility] Stop: 07/20/19 20:59 Last Admin: 06/27/19 08:40 Dose: 150 mg Documented by: PG Care Time/CCT Total # of Minutes Spent Total Time Spent with Patient: Total time spent is greater than 50% in coordination of care (as documented) at patient's floor/unit and/or counseling patient:
[2019-06-27 16:54] LABS: Partial Thromboplastin Time 54.3 Seconds (21.0-31.0)
[2019-06-27] MEDS: AMITRIPTYLINE HCL 50 MG TAB PO SCH (20:22)
[2019-06-27] MEDS: ENOXAPARIN 150 MG/ML SYR SQ SCH (20:23)
[2019-06-27] MEDS: ACETAMINOPHEN 500 MG TAB PO SCH (20:26)
[2019-06-27] MEDS: SODIUM CHLORIDE 0.9% 1000ML 1,000 ML IV SCH (21:17)
[2019-06-27] MEDS: ACETAMINOPHEN 325 MG TAB PO PRN (23:07)
[2019-06-28 06:58] LABS: INR 1.4 (0.9-1.1); Partial Thromboplastin Ratio 1.3; Partial Thromboplastin Time 36.1 Seconds (21.0-31.0)
[2019-06-28] MEDS: HYDROCODONE/ACETAMINOPHEN 7.5/325MG TAB PO PRN ×2 (08:17→13:30)
[2019-06-28] MEDS: ENOXAPARIN 150 MG/ML SYR SQ SCH (08:18)
[2019-06-28] MEDS: LIDOCAINE 5% 1 PATCH TD SCH (08:18)
[2019-06-28] MEDS: LISINOPRIL 5 MG TAB PO SCH (08:20)
[2019-06-28] MEDS ORDERED: methylPREDNISolone 40 MG in SYRINGE 0 ML IV SCH (09:00)
--- NOTE | 2019-06-28 13:18 | Discharge Summary ---
Date of Service June 28, 2019 Admission HPI Per Admitting Provider 68-year-old male with lumbar radiculopathy symptoms on the left side for weeks with worsening over the past several weeks. He has been getting outpatient physical therapy and recently took a course of prednisone which did not help and cause peripheral edema. His symptoms have progressed where he is unable to ambulate and cannot lie flat for any radiological evaluation at this time. He will be placed on observation with IV steroid therapy and lumbar CT scan or MRI can be obtained when he improves. We will hold off on orthopedic spine consultation until imaging has been completed. He does take Coumadin chroni fer due to a history of DVT and previous saddle pulmonary embolus. INR is 2.8. This will be watched to daily while on IV steroids. Admission Exam Per Admitting Provider General-alert and oriented x3, no fevers, no chills. Morbidly obese HEENT-head atraumatic and normocephalic, TMs intact bilaterally, pupils equal and reactive to light, extraocular muscles intact Neck-no lymphadenopathy or thyromegaly, trachea midline Chest-clear to auscultation percussion. No rales wheezing or rhonchi Cardiac-regular rate and rhythm, normal S1 and S2, no murmurs Abdomen-normal bowel sounds, nontender, no hepatosplenomegaly Extremities-no cyanosis, clubbing. Chronic venous stasis changes bilateral lower extremities with edema Neuro-cranial nerves II through XII intact. No focal deficits. Back pain is exacerbated by weightbearing Psych-normal affect, normal mood Principal Diagnosis L3 nerve root compression, disc herniation causing severe pain Discharge Exam Constitutional WD/WN, vitals as above + in distress (uncomfortable) Eyes PERRL, conjunctivae normal, anicteric sclerae ENMT external ear and nose normal, oropharynx normal Neck trachea midline, no thyromegaly Respiratory normal respiratory effort, lungs clear to auscultation Cardiovascular RRR, no murmur, no edema Gastrointestinal (Abdomen) normal bowel sounds, soft, nontender, no hepatosplenomegaly Musculoskeletal no cyanosis or clubbing, extremities motor strength 5/5 Spine: + limited thoraco-lumbar ROM (increased ROM at this time) and + pain with thoraco-lumbar ROM (much improved) Skin no rashes, warm and dry Neurologic patellar DTR's 2+ bilat, sensation intact and PERRL, EOMI, accommodation nl, no face palsy, no dysarthria Psychiatric A+Ox3, euthymic affect Lymphatic no cervical or axillary lymphadenopathy Discharge Data Allergies Allergy/AdvReac Type Severity Reaction Status Date / Time gabapentin AdvReac Intermediate body Verified 06/26/19 12:43 aches, feels like he's in a fog propoxyphene AdvReac Intermediate Nausea Verified 06/26/19 12:43 amoxicillin AdvReac Mild n&v Verified 06/26/19 12:43 clavulanic acid AdvReac Mild N/V Verified 06/26/19 12:43 Consultations 06/20/19 14:06 ED Decision to Admit Stat 06/21/19 15:24 Consult Orthopedic Surgery Routine 06/24/19 11:45 Consult Vascular Surgery Routine 06/24/19 12:19 Consult Pain Management Routine 06/25/19 10:48 Consult Anesthesiology Routine Procedures Performed Operation Date: 06/26/19 11:30 Actual Procedures p L3 Epidural Steroid Injection(Left) - Janiya Morfin DO Ordered Studies 06/21/19 15:56 CT lumbar spine wo con Routine 06/26/19 11:30 FL fluoroscopy <1hr Routine FL lumbar spine 2-3V Routine Hospital Course (1) Lumbar radiculopathy: CT lumbar spine shows multilevel lumbar spondylosis as described above. This is most pronounced at the L3-L4 level where there appears to be a left foraminal disc protrusion resulting in severe left-sided neural foraminal narrowing. This likely compresses the exiting left L3 nerve root. Severe central canal narrowing at L4-L5 and moderate to severe central canal narrowing at L3-L4. successful L3 nerve root epidural injection on 06/26 pain about 50% improved, patient pleased with results stopped Solu Medrol, stopped Gabapentin stopped Dilaudid MAT WORKER [place] 7.5/325mg TID PRN, adequately controlling pain likely will need decompression of L3-L5 eventually plan to follow up closely with Dr. Austin in 1-2 weeks to reassess how he is doing (2) Intractable back pain: see above, pain better after injection stop Solu Medrol and Gabapentin nerve block performed on 06/26 d/c home on [place] 7.5/325mg TID PRN (3) Warfarin anticoagulation: Chronic warfarin anticoagulation due to history of DVT and saddle pulmonary embolism. h/o two separate DVT in 2012 and 2015 h/o Lupus anticoagulant treated with heparin drip after INR reversed for spinal injection was off for 24 hours total, used SCD during that time heparin drip resumed, changed to Lovenox when it was determined that he would not get spine surgery this visit plan to d/c on Lovenox q12 for 5 days Coumadin 3mg daily, INR is 1.[address] Carvajal in coagulation clinic, she saw in hospital today she will help determine plan for anticoagulation at the time of surgery ask vascular to evaluate for opinion on IVC filter he is high risk in perioperative period will definitely require filter prior to surgery Dr Savage will assist with placing retrievable filter at that time (4) Hepatitis C: Necessary precautions (5) Hypertension: Treated with lisinopril 5mg daily Hydralazine PRN BP up due to pain Total Time Total Time Spent Total Time Spent (In Minutes): 35 minutes Total Time Includes: Examination of the Patient, Discharge Planning, Medication Reconciliation and Communication With Other Providers Discharge Plan Discharge Items Patient Disposition: Home - Self-Care Reason For Visit: LEFT LUMBAR RADICULOPATHY INABILITY TO AMBULATE Discharge Diagnosis: L3 Nerve root compression, disc herniation h/o DVT and PE on Coumadin Condition: Good Discharge Goals: Improve function and Increase independence Activity: Per 'Additional Instructions' section Lifting: No more than 5 pounds Bathing: No limitations Sexual Activity: Wait until after follow-up appointment Exercise/Sports: Gradually increase as tolerated Driving/Machine Use Comment: no driving while on [place] Non-emergency contact: Primary Care Provider and Surgeon Call non-emergency contact if: you have any medication questions, your symptoms worsen, your pain is not controlled, your pain is worsening and you have a fever Follow-up/Referrals: [facility] [place] [facility] [Provider Group] - 07/03/19 11:30 am (Please, follow up at [facility] on TuesdayJuly 03 at 11:30 am. *If you need to change this appointment, call the clinic at [phone].) Andre Patel MD [Primary Care Provider] - 07/05/19 9:10 am (Please, follow up at Dr. Patel's office on July 05 at 9:10 am. *If you need to change this appointment, call the office at [phone].) Diet: Regular Addtl Provider Instructions: Medications: - LOVENOX: 130 mg every 12 hours (morning and night) for the next 5 days to fully anticoagulate while Coumadin becomes therapeutic - NORCO: 7.5/325mg three times a day as needed for pain Severe low back pain, L3 nerve compression on the left diagnosed on CT lumbar spine diagnostic and therapeutic injection by Dr. Morfin, improved pain control will continue to control pain with [place] 7.5/325mg three times a day as needed you can take Tylenol as well, make sure total dose of Tylenol in 24 hours is less than 3000mg (there is 325mg in each [place]) you can use heat but only use three times a day, 20 minutes at a time, NEVER sleep with heating pad continue to stay active using cane for assistance follow up closely with Dr. Austin in 1-2 weeks, call his office to schedule appt [phone] As we discussed, if your pain suddenly becomes intense again or if the pain regimen is not working, if you fall and injure yourself and aggravate pain, return to the ED for admission. Hoping that your pain will remain controlled but not sure how long it will last H/o DVT and PE on Coumadin your INR is 1.4 today, received 5mg yesterday continue with 3mg daily, next dose this afternoon/evening will cover with Lovenox every 12 hours for the next 5 days please follow up with Dr. Carvajal early next week, she will coordinate anticoagulation plan when you need surgery as we discussed, Dr. Savage with vascular surgery is aware of your case, he will place retrievable IVC filter prior to surgery Possible constipation using narcotics regularly can slow down bowels, recommend that you stay well hydrated, get plenty of fiber FOLLOW UP - Dr. Austin in 1-2 weeks, [phone] - Dr. Rigo Patel, call for appt in one week - Dr. Carvajal in coagulation clinic, see next week Prescriptions: New warfarin [Coumadin] 3 mg Tablet 3 mg PO DAILY@1600 30 Days Qty: 30 RF: 0 enoxaparin 30 mg/0.3 mL syringe 30 mg SQ Q12H 10 Days Qty: 6 RF: 0 enoxaparin 100 mg/mL syringe 100 mg SQ Q12H 10 Days Qty: 20 RF: 0 Continued amitriptyline 50 mg Tablet 50 mg PO HS RF: 0 acetaminophen [Tylenol Extra Strength] 500 mg Tablet 1,000 - 1,500 mg PO HS RF: 0 warfarin 3 mg tablet 3 mg PO QAM RF: 0 lisinopril 5 mg tablet 5 mg PO QAM RF: 0 ranitidine HCl [Zantac] 150 mg tablet 150 mg PO BID RF: 0 lorazepam 1 mg Tablet 1 mg PO TID PRN (Reason: Anxiety) RF: 0 hydrocodone-acetaminophen 7.5-325 mg tablet 1 tab PO TID PRN (Reason: pain) 21 Days Qty: 63 RF: 0 Stand-Alone Forms: [employer] [facility]Other Patient Handouts: Enoxaparin Sodium Porcine Solution for injection, Coumadin Discharge Orders: Discharge Order (Routine); Ordered 06/28/19 Ordered By: Pedro Campbell Admission Data Admit Date/Time: 06/22/19 14:11 Attending Provider: Pedro Campbell Admit Provider: Lalo Kurtz Primary Care Provider: Andre Patel Other Providers: Lalo Kurtz ; Lalo Austin ; Jamel Savage ; Nico Lima ; Kalpesh Uriostegui Service: Medical
[2019-06-28] MEDS ORDERED: WARFARIN SOD 3 MG TAB PO SCH (16:00)
== END 2019-06-28 14:02 | disposition home or self-care (01) | DRG 552 ==
LOC: ED 08:34 → 3W 08:34 → SUATTDRO 16:03 → 3W 16:49 → SUATTDRO 06-22 14:11

== ENCOUNTER 2019-08-06 06:22 | Inpatient (IN) ==
--- NOTE | 2019-07-26 16:20 | PAT Medication Instructions ---
Medication Instructions Date of Service July 26, 2019 Home Medications acetaminophen [Tylenol Extra Strength] 2,000 mg PO BID PRN amitriptyline 50 mg PO HS lisinopril 5 mg tablet 5 mg PO QAM lorazepam 1 mg PO TID PRN ranitidine 150 mg tablet 150 mg PO BID Medical Marijuana 1 dose INHALATION UD PRN aspirin 81 mg PO DAILY calcium carbonate [Calcium 500] 500 mg PO DAILY cyclobenzaprine 5 mg PO BID enoxaparin 100 mg/mL subcutaneous syringe 40 mg SQ Q12H hydrocodone-acetaminophen 1 tab PO Q8H PRN warfarin [Coumadin] 3 mg PO UD Continue as directed Medical Marijuana 1 dose INHALATION UD PRN (if needed) ASK your prescriber and surgeon aspirin 81 mg PO DAILY enoxaparin 100 mg/mL subcutaneous syringe 40 mg SQ Q12H warfarin [Coumadin] 3 mg PO UD DO NOT take the morning of surgery lisinopril 5 mg tablet 5 mg PO QAM calcium carbonate [Calcium 500] 500 mg PO DAILY cyclobenzaprine 5 mg PO BID Take morning of surgery With a small sip of water, OTHERWISE NOTHING TO EAT OR DRINK AFTER MIDNIGHT: acetaminophen [Tylenol Extra Strength] 2,000 mg PO BID PRN (okay to take up to 4 hours prior to surgery if needed) lorazepam 1 mg PO TID PRN (if needed) ranitidine 150 mg tablet 150 mg PO BID hydrocodone-acetaminophen 1 tab PO Q8H PRN (okay to take up to 4 hours prior to surgery if needed) Take evening before surgery acetaminophen [Tylenol Extra Strength] 2,000 mg PO BID PRN (if needed) amitriptyline 50 mg PO HS lorazepam 1 mg PO TID PRN (if needed) ranitidine 150 mg tablet 150 mg PO BID cyclobenzaprine 5 mg PO BID hydrocodone-acetaminophen 1 tab PO Q8H PRN (if needed) Other Notes If you have any questions please call us at [phone] or [phone] or [phone] or [phone]
--- NOTE | 2019-07-27 08:48 | Anesthesiology Consultation ---
Date of Service July 27, 2019 Assessment & Plan (1) Encounter for pre-operative examination: - Hx IVC filter: Hx LLE DVT (2014) and saddle embolus (2016). Has had 2 IVC's filters (since removed)- per patient, these were removed as he was told they " should not be in for too long." Per patient, Dr. Austin would like IVC filter placed again prior to lumbar decompression/fusion. This is coordinated with Dr. Savage to be done AM DOS prior to lumbar surgery. - PCP: 07/25/19: Aware of venous stasis ulcer right ankle (patient following with wound clinic/surgeon aware). "He is cleared for surgery." - ASA/warfarin instructions per surgeon/prescriber (patient bridging with lovenox while coumadin on hold per anticoagulation clinic instructions) - Check coags AM DOS Chart Review Chart Review: Pending: Refer to Additional Notes / Consult section (pending preop testing (labs, EKG, CXR)) and Patient seen in Pre Admission Testing Teaching & Discussion Pre-Anesthesia Teaching/Discussion Notes: Instructed NPO after midnight before surgery,except medications with 15 cc of water. Medication instructions provided according to the PAT guidelines. History Surgery Operation Date: 08/06/19 08:00 Proposed Procedures p Inferior Vena Cava Filter Insertion - Jamel Savage MD Operation Date: 08/06/19 12:45 Proposed Procedures p L3-L5 Decompression and Fusion - Lalo Austin DO Height/Weight Height: 6 ft 3 in Weight: 131.6 kg Allergies Allergy/AdvReac Type Severity Reaction Status Date / Time gabapentin AdvReac Intermediate body Verified 07/27/19 08:45 aches, "foggy" feeling amoxicillin AdvReac Mild N/V Verified 07/27/19 08:45 clavulanic acid AdvReac Mild N/V Verified 07/26/19 12:06 propoxyphene AdvReac Mild Nausea Verified 07/26/19 12:06 Medications Home Medications Medication Instructions Recorded Confirmed Last Taken acetaminophen [Tylenol Extra 2,000 mg PO BID PRN 08/15/18 07/26/19 03/20/19 20:30 Strength] amitriptyline 50 mg PO HS 08/15/18 07/26/19 03/20/19 lisinopril 5 mg tablet 5 mg PO QAM 10/17/18 07/26/1903/21/19 07:30 lorazepam 1 mg PO TID PRN 03/08/19 07/26/19 Unknown ranitidine 150 mg tablet 150 mg PO BID 05/16/19 07/26/19 Unknown Medical Marijuana 1 dose INHALATION UD PRN 07/26/19 07/26/19 Unknown aspirin 81 mg PO DAILY 07/26/19 07/26/19 Unknown calcium carbonate [Calcium 500] 500 mg PO DAILY 07/26/19 07/26/19 Unknown cyclobenzaprine 5 mg PO BID 07/26/19 07/26/19 Unknown enoxaparin 100 mg/mL subcutaneous 40 mg SQ Q12H 07/26/19 07/26/19 Unknown syringe hydrocodone-acetaminophen 1 tab PO Q8H PRN 07/26/19 07/26/19 Unknown warfarin [Coumadin] 3 mg PO UD 07/26/19 07/26/19 Unknown Past Medical History Medical History Hypertension Intractable back pain LLE radiculopathy Bladder cancer 2011-- S/P chemo/radiation Chronic venous insufficiency Deep vein thrombosis LLE DVT (2013) Fibromyalgia Hemorrhoids Hepatitis C "resolved" s/p treatment Liver lesion Peripheral neuropathy B/L arms, legs and feet Saddle embolus 2015 Sleep apnea CPAP Venous stasis ulcer "improving" right ankle s/p abx/debridement (following with wound clinic (aware of upcoming surgery)/surgeon aware) Exercise / Class Metabolic Activity III < 4 Walking/Shop/Light housework (uses cane PRN) Past Family History Family History Grandmother (Paternal) Family history of diabetes mellitus Mother Family hx of colon cancer Other No family history of adverse response to anesthesia Past Surgical History Surgical History History of bilateral cataract extraction x2 History of biopsy of bladder multiple History of bowel resection History of cardiac cath 2008= no stents History of colonoscopy History of cystoscopy multiple History of esophagogastroduodenoscopy (EGD) History of prostate biopsy benign History of repair of hiatal hernia History of right knee surgery ACL repair History of tonsillectomy and adenoidectomy History of tooth extraction History of total right knee replacement (TKR) x2 History of umbilical hernia repair x3 S/P IVC filter x2-- removed (no longer has) Status post uvulopalatopharyngoplasty Past Anesthesia History No Hx of Anesthesia Complications and No Family Hx of Anesthesia Complications History of PONV No Hx of PONV and No Hx of Motion Sickness Social History Smoking Status: Former smoker tobacco type: pipe Do You Dip or Chew Tobacco: No Smoking End Date: Quit 2007 Hx Alcohol Use: Yes Alcohol type: beer and wine alcohol intake frequency: a few times a month Hx Substance Use: No substance use type: marijuana Substance Use Type Other:: Medical marijuana (advised [facility] protocol) Review of Systems Occasional reflux resolved with OTC antacid. Patient denies chest pain, shortness of breath, cough, wheezing, palpitations. Physical Exam Vital Signs VITALS BP 124/81 P 80 TEMP 97.9 SP02 93%RA RESP 18 PHYSICAL Full neck and c-spine range of motion. Full TMJ range of motion. TMD 4 finger breaths Mallampati Score 1 Dentition: several chipped, lower right side missing Lungs: clear throughout to auscultation Cardiac: regular rate and rhythm, no murmurs noted Spine: normal Carotid arteries: negative bruit Extremities: no edema Trimmed bhatt Short neck
--- NOTE | 2019-07-27 09:50 | XRay Report ---
XR chest Pre-admission PA/Lat HISTORY: 68 years-old Male PAT preoperative exam. No acute chest complaints COMPARISON: Chest radiograph 11/25/2015 TECHNIQUE: PA and lateral views of the chest FINDINGS: Cardiomediastinal and hilar silhouettes are unchanged. Chronic left hemidiaphragmatic elevation with subsegmental left basilar atelectasis/scarring. No pneumothorax, pleural effusion, overt pulmonary ed ham or new focal airspace consolidation. Degenerative changes of the shoulders and spine. IMPRESSION: No acute process. The above report was generated using voice recognition software. It may contain grammatical, syntax o r spelling errors. Electronically signed by: Kahlil Waller M.D. 07/27/2019 9:49 AM
[2019-07-27 11:05] LABS: Basophils # (auto) 0.02 K/uL (0-0.2); Basophils % (auto) 0.4 %; Eosinophils # (auto) 0.04 K/uL (0-0.5); Eosinophils % (auto) 0.7 %; Hematocrit (blood only) 40.5 % (42-52); Hemoglobin 13.8 g/dL (14.0-18.0); Immature Granulocytes # (auto) 0.01 K/uL (0.00-0.02); Immature Granulocytes % (auto) 0.2 %; Lymphocytes # (auto) 0.71 K/uL (1.2-3.4); Lymphocytes % (auto) 12.8 %; Mean Corpuscular Hemoglobin 32.4 pg (25-34); Mean Corpuscular Hgb Conc 34.1 g/dL (32-36); Mean Corpuscular Volume 95.1 fL (80-100); Mean Platelet Volume 9.7 fL (7.4-10.4); Monocytes # (auto) 0.55 K/uL (0.11-0.59); Monocytes % (auto) 9.9 %; Neutrophils # (auto) 4.22 K/uL (1.4-6.5); Platelet Count 173 K/uL (130-400); RDW Standard Deviation 51.5 fL (36.4-46.3); Red Blood Count 4.26 M/uL (4.7-6.1); White Blood Count 5.55 K/uL (4.8-10.8)
[2019-07-27 11:08] LABS: Appearance Urine Clear (Clear); Bilirubin Urine Negative (Negative); Blood Urine Negative (Negative); Color Urine Yellow; Glucose Urine UA Negative (Negative); Ketones Urine Negative (Negative); Leukocyte Esterase Urine Negative (Negative); Nitrite Urine Negative (Negative); Protein Urine Negative (Negative); Specific Gravity Urine 1.016 (1.000-1.030); Urobilinogen Urine Negative (Negative)
[2019-07-27 11:18] LABS: INR 2.6 (0.9-1.1); Partial Thromboplastin Ratio 1.6; Partial Thromboplastin Time 44.2 Seconds (21.0-31.0); Prothrombin Time 25.1 Seconds (9.0-12.0)
[2019-07-27 11:48] LABS: BUN Creatinine Ratio 15.9 (10-20); Calcium 8.8 mg/dl (8.5-10.1); Creatinine Clr Calc Pharmacy 91.5 ml/min; Est GFR (Non-African American) 66.4; Potassium 4.1 mmol/L (3.5-5.1)
[~2019-08-06 06:22] MED LIST changes: +ACETAMINOPHEN 500 MG TAB PO SCH; -AMT50 PO; -ASCA500 PO; -ASPI-232 PO; +CEFAZOLIN 3000MG 72.5 ML IV SCH; -CHOL2000 PO; +CLINDAMYCIN 600 MG/54 ML BAG IV SCH; +CeleBREX 200 MG CAP PO SCH; -GABA-113 PO; +GABAPENTIN 300 MG CAP PO SCH; +LR 15ML/HR IV SCH; -NALT1TAB14; +SODIUM CHLORIDE 0.9% 1000ML IV SCH; -TYLOTC500 PO; -WARF3TAB PO
[2019-08-06 07:06] LABS: INR 1.2 (0.9-1.1); Partial Thromboplastin Ratio 1.4; Partial Thromboplastin Time 38.3 Seconds (21.0-31.0); Prothrombin Time 12.1 Seconds (9.0-12.0)
--- NOTE | 2019-08-06 07:46 | Consultation ---
Date of Consultation August 06, 2019 Assessment & Plan (1) Lumbosacral radiculopathy: Patient for his back surgery today. He will have a filter placed prior to his surgery. I have discussed the risks options and benefits of the procedure with the patient. The patient understands the risks options and benefits and agrees to the procedure. History of Present Illness Attending Physician: Lalo Austin DO History of Present Illness 68 yo m with multiple medical problems, including lupus anticoagulant positive, hx bladder ca, HTN, Hep C, hx multiple DVT/PE, admitted with intractable back pain and lumbosacral radiculopathy, seen in the past for possible IVC filter insertion prior to spinal surgery. Per pt, he has had 2 IVC filters placed in past, but cannot articulate exactly why. One he believes was prior to a bowel surgery in 2013. Has had at least 2 DVT/PE events in past, one in 2013 and most recently in 2015 which involved a large saddle embolus as well as scattered PE's. Both IVC filters have been removed, although, according to pt, one was very difficult to remove and took a second attempt by Dr Geo Espinosa at [facility] to remove it. Pt is hesitant to undergo another IVC filter insertion, but states he will do it if he needs to. Pt was found to be positive for lupus anticoagulant in 2016, but was negative in 2013. In 2016, pt was transferred to tertiary center for tx of his large saddle embolus. Pt has remained on AC with Coumadin since 2016. Patient here for his surgery today for his back and will have his filter placed prior. Allergies Allergy/AdvReac Type Severity Reaction Status Date / Time gabapentin AdvReac Intermediate body Verified 08/06/19 06:43 aches, "foggy" feeling amoxicillin AdvReac Mild N/V Verified 08/06/19 06:43 clavulanic acid AdvReac Mild N/V Verified 08/06/19 06:43 propoxyphene AdvReac Mild Nausea Verified 08/06/19 06:43 Home Medications Home Medications Medication Instructions Recorded Confirmed Type acetaminophen [Tylenol Extra 1,500 mg PO BID PRN 08/15/18 08/06/19 History Strength] amitriptyline 50 mg PO HS 08/15/18 08/06/19 History lisinopril 5 mg tablet 5 mg PO QAM 10/17/18 08/06/19 History lorazepam 1 mg PO TID PRN 03/08/19 08/06/19 History ranitidine 150 mg tablet 150 mg PO BID 05/16/19 08/06/19 History Medical Marijuana 1 dose INHALATION UD PRN 07/26/19 08/06/19 History aspirin 81 mg PO DAILY 07/26/19 08/06/19 History calcium carbonate [Calcium 500] 500 mg PO DAILY 07/26/19 08/06/19 History cyclobenzaprine 5 mg PO BID 07/26/19 08/06/19 History enoxaparin 100 mg/mL subcutaneous 40 mg SQ Q12H 07/26/19 08/06/19 History syringe hydrocodone-acetaminophen 1 tab PO Q8H PRN 07/26/19 08/06/19 History warfarin [Coumadin] 3 mg PO UD 07/26/19 08/06/19 History Patient History Medical History Hypertension Intractable back pain LLE radiculopathy Bladder cancer 2011-- S/P chemo/radiation Chronic venous insufficiency Deep vein thrombosis LLE DVT (2013) Fibromyalgia Hemorrhoids Hepatitis C "resolved" s/p treatment Liver lesion Peripheral neuropathy B/L arms, legs and feet Saddle embolus 2016 Sleep apnea CPAP Venous stasis ulcer "improving" right ankle s/p abx/debridement (following with wound clinic (aware of upcoming surgery)/surgeon aware) Surgical History History of bilateral cataract extraction x2 History of biopsy of bladder multiple History of bowel resection History of cardiac cath 2008= no stents History of colonoscopy History of cystoscopy multiple History of esophagogastroduodenoscopy (EGD) History of prostate biopsy benign History of repair of hiatal hernia History of right knee surgery ACL repair History of tonsillectomy and adenoidectomy History of tooth extraction History of total right knee replacement (TKR) x2 History of umbilical hernia repair x3 S/P IVC filter x2-- removed (no longer has) Status post uvulopalatopharyngoplasty Family History Grandmother (Paternal) Family history of diabetes mellitus Mother Family hx of colon cancer Other No family history of adverse response to anesthesia Social History Preferred Language: Greek Communication Ability: Effective 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 Beliefs That Will Affect Care: None marital status: Current Living Situation: Spouse Other Information That Helps Us Care for You: No Feels Safe at Home: Yes Safety Concerns: Feels Safe At This Time Smoking Status: Former smoker Tobacco Type: pipe ; Do You Dip or Chew Tobacco: No ; Smoking End Date: Quit 2007 ; Second Hand Exposure: No ; Tobacco Cessation Education Requested by Patient: No Hx Alcohol Use: Yes Alcohol type: beer and wine Hx Substance Use: No Review of Systems Review of Systems: All systems reviewed & are unremarkable except as noted in HPI & below Physical Exam Physical Exam: Constitutional: WD/WN, vitals as above well developed, well nourished, + obese, healthy appearing, well groomed, cooperative and comfortable; not in distress and not combative Eyes: PERRL, conjunctivae normal, anicteric sclerae EOM intact bilaterally ENMT: external ear and nose normal, oropharynx normal Ears: no hearing impairment Nose: no nasal discharge Throat: no posterior oropharynx abnormality Neck: trachea midline, no thyromegaly no tracheal deviation, no neck crepitus and neck nontender Respiratory: normal respiratory effort, lungs clear to auscultation able to speak in complete sentences; does not use accessory muscles and no cough Auscultation: lungs clear to auscultation bilaterally and + diminished lung sounds; no rhonchi and no wheezes Cardiovascular: Rate/Rhythm: regular rate and regular rhythm Heart Sounds: no gallop and no murmur Vessels: femoral pulses present, posterior tibial pulses present, dorsalis pedis pulses present, brachial pulses present and radial pulses present; no carotid bruit, no femoral bruit and + abnormal peripheral pulses Extremities: normal capillary refill and + edema (+1 BLE) Gastrointestinal (Abdomen): normal bowel sounds, soft, nontender, no hepatosplenomegaly Inspection/Auscultation: abdomen normal to inspection and normal bowel sounds; abdomen not distended Percussion/Palpation: abdomen soft; abdomen nontender, no guarding and abdomen not rigid Musculoskeletal: no cyanosis or clubbing, extremities motor strength 5/5 Head/Neck/Chest: normocephalic, head atraumatic and neck supple Extremities: extremities normal to inspection and + chronic stasis changes; full ROM of extremities and + abnormal strength Skin: no rashes, warm and dry no rashes, no lesions, no ulcers, no induration, no erythema, no eschar, no mottling and no pallor Trauma: no hematoma and no puncture Neurologic: moves all extremities and awake; no focal motor deficits and not confused Speech / Cognition: no expressive aphasia and no receptive aphasia Motor/Sensory: no tremor and no sensory deficit Cranial Nerves: EOM intact bilaterally and normal facial strength Psychiatric: Orientation: alert, oriented x 3 and cooperative Apperance: appropriately dressed, appropriately groomed and appeared stated age Affect: + anxious affect Thought Process: goal directed thought process, linear/logical thought process and clear/coherent thought process Cognition: recent memory grossly intact, remote memory grossly intact, attention grossly intact and language grossly intact Estimated Intelligence: average estimated intelligence Results & Data Vital Signs (Past 12 Hours) Vital Signs Temp Pulse Resp BP Pulse Ox 08/06/19 06:48 36.6 C 92 H 20 135/90 93
--- NOTE | 2019-08-06 07:49 | History & Physical Bridge Note ---
Date of Service August 06, 2019 History & Physical Bridge Note I have examined the patient, reviewed the History & Physical and in the interval since the performance of the History & Physical I have noted the following changes of clinical significance: no changes noted Patient complaining of abdominal discomfort today with bloating. Has not had regular bowel movements. Abd distended. Patient for a KUB prior to surgery. May need to cancel surgery and filter if patient with ileus from impaction.
[2019-08-06] MEDS ORDERED: LIDOCAINE HCL 1% 20 ML VIAL ONE (07:53)
--- NOTE | 2019-08-06 08:22 | XRay Report ---
KUB HISTORY: Constipation, abd pain x 3 weeks COMPARISON: KUB 10/25/2018. FINDINGS: Mildly dilated gas-filled transverse colon. There is also distended loop of bowel within th e midabdomen which appears to represent colon. This measures up to 19 cm in diameter could represent a cecal or sigmoid volvulus. No renal calculi. No ureteral calculi. No pneumoperitoneum or pneumatos is. IMPRESSION: A significantly distended gas-filled loop of bowel within the mid to upper abdomen which appears to r epresent the colon. This measures 19 cm in diameter could represent cecal or sigmoid volvulus. CT sca nning is recommended for further evaluation. This finding was discussed with at 8:30 AM on . Electronically signed by: Frankie Cantrell M.D. 08/06/2019 8:22 AM
[2019-08-06] MEDS ORDERED: HYDROmorphone INJ 0.5 MG/0.5 ML SYR IV STA (09:18)
[2019-08-06] MEDS ORDERED: IOVERSOL 100ml IV PRN (09:29)
[2019-08-06] MEDS ORDERED: ACETAMINOPHEN 500 MG TAB PO PRN (10:07)
[2019-08-06] MEDS ORDERED: LORazepam 1 MG TAB PO PRN (10:07)
[2019-08-06] MEDS ORDERED: CYCLOBENZAPRINE HCL 5 MG TAB PO PRN (10:07)
[2019-08-06] MEDS ORDERED: ONDANSETRON INJ 2 MG/ML 2 ML VIAL IV PRN (10:07)
--- NOTE | 2019-08-06 10:11 | CT Scan Report ---
CT abd pelvis IV con only CLINICAL HISTORY: 68 years-old Male presenting with generalized abdominal pain and distention, possib le volvulus. TECHNIQUE: Multidetector CT of the abdomen and pelvis was performed after the administration of intra venous contrast. IV contrast: 94 mL of Optiray 320. One or more dose lowering techniques were used co nsistent with the principles of ALARA (as low as reasonably achievable), including automatic exposure control, mA or kV adjustment to individual patient size, and/or use of iterative reconstruction. COMPARISON: 07/18/2018 and plain radiograph performed earlier today. CT DOSE (mGy.cm): The estimated cumulative dose is 1087.78 mGycm. FINDINGS: Quality Control Lab Tech topogram: Diffuse gaseous distention of bowel, likely large bowel. Lung bases: Normal heart size. Coronary artery calcification. No pericardial or pleural effusion. Min imal dependent changes likely atelectasis or scarring. Focal groundglass opacity in the lateral basal right lower lobe (series 3 image 12), possibly related to atelectasis. Emphysema. Liver: Congenital hypoplasia of the medial segments of the left hepatic lobe. Multiple well-defined h ypodense lesions likely hepatic cysts or hamartomas. Patent hepatic vasculature. Biliary: No intrahepatic or extrahepatic biliary ductal dilatation. Gallbladder mildly distended like ly on a physiologic basis. No gross gallbladder wall thickening or pericholecystic fluid. Pancreas: Severe parenchymal atrophy. Spleen: Normal. Adrenal glands: Normal. Kidneys and ureters: Multiple cysts noted bilaterally. No hydronephrosis or nephrolithiasis. Ureters nondistended. Bladder: Normal. Pelvic organs: Evidence of a TURP defect. Bowel: The rectum is mildly distended with fluid. There is a focal narrowing of the distal sigmoid ne ar the rectosigmoid junction with a mild twisting of the mesentery approximately 180 degrees. There i s no other site of narrowing more upstream in the sigmoid colon. There is marked colonic distention o f the sigmoid with trace pericolonic edema in the proximal sigmoid colon. The left and transverse col on are also distended. Moderate stool burden in the mildly distended right colon and cecum. Small bow el unremarkable and nondilated. Moderate hiatal hernia with postsurgical changes of the gastroesophag eal region suggesting possible Jax procedure. Peritoneal cavity: Trace free fluid in the left lower quadrant. No free intraperitoneal gas. No pneum atosis. Lymph nodes: No enlarged lymph nodes in the abdomen or pelvis. Vasculature: Atherosclerosis of the normal caliber abdominal aorta. IVC patent. Abdominal wall: Periumbilical hernia containing some unobstructed small bowel. Trace fluid in the her juan sac. A minimal portion of the mid sigmoid colon is also contained within the hernia along the ant imesenteric wall. Infraumbilical incision noted. There is also a suprapubic hernia containing a short segment of unobstructed small bowel. Musculoskeletal: Degenerative changes of the spine. IMPRESSION: 1. Abnormal twisting of the distal sigmoid mesentery approximately 180 degrees with a focal site of stenosis at the distal sigmoid. No upstream transition point in the proximal sigmoid colon to suggest a closed loop obstruction or classic appearance of volvulus. However, this current appearance is abn ormal and is concerning for early volvulus or the presence of an underlying internal hernia. Close fo llow-up is warranted with possible decompression. 2. Marked distention of the colon to the level of the transverse colon. The right colon is only mild ly distended with stool. 3. No small bowel obstruction. 4. Multiple abdominal wall hernias in the periumbilical and suprapubic regions likely incisional her nias. No resulting bowel obstruction. 5. Emphysema. The report will be called/faxed according to standard departmental protocol. Electronically signed by: Herbert Quinonez M.D. 08/06/2019 10:09 AM
[2019-08-06] MEDS ORDERED: SOD PHOSPHATE/SOD BIPHOSPHATE ENEMA 132 ML BTL PR ONE (10:30)
[2019-08-06] MEDS ORDERED: POLYETHYLENE (MIRALAX) 17 GM PACK PO SCH (10:30)
[2019-08-06] MEDS ORDERED: ENOXAPARIN INJ 40 MG/0.4 ML SYR SQ SCH ×2 (10:45)
[2019-08-06] MEDS ORDERED: ENOXAPARIN 100 MG/1ML SYR SQ SCH (10:45)
--- NOTE | 2019-08-06 11:04 | Surgery Consultation ---
Date of Consultation August 06, 2019 Assessment & Plan (1) Colon distention: This is a 68y M who presents to [facility] on 08/06 for a scheduled IVC filter placement and lumbar fusion who pre-op voiced complaints of abdominal discomfort and distention. A KUB and CT a/p were obtained revealing a markedly dilated colon with concerns for early volvulus vs internal hernia. The patient has multiple medical problems which complicates the picture. GI has been consulted for consideration of colonic decompression. Will discuss case with Dr. Mccrary in regards to keeping patient here vs. transfer to a tertiary center for potential surgical intervention. Dr Mccrary-patient has what appears to be sigmoid volvulus. 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 He has been on narcotics for intractable back pain was to have back surgery with IVC filter placement He has a history of lupus anticoagulant and is chronically on Coumadin. He has had prior major pulmonary emboli I have discussed the case with colorectal surgery at [place] and we are trying to plan decompression here at [facility] and then Transfer to [place] for continued care. History of Present Illness Attending Physician: Joe Lozano MD History of Present Illness This is a 68y M with a PMH of lupus anticoagulant positive with multiple pulmonary emboli and DVT's on coumadin, bladder ca, HTN, hepatitis C, and severe back pain requiring an epidural steroid injection 3 wks ago who presents to [facility] on 08/06/19 for a planned IVC filter placement with Dr. Savage and lumbar fusion with Dr. Austin. Upon pre-operative examination the patient was was found to have profound abdominal distention and he was complaining of discomfort. He underwent a KUB that revealed distended gas filled loop of bowel, likely colon measuring 19mm in diameter, with concern for cecal or sigmoid volvulus. A CT abd/pelvis was obtained thereafter for further evaluation that showed abnormal twisting of the distal sigmoid mesentery approximately 180 degrees with a focal site of stenosis at the distal sigmoid. Per report the appearance is abnormal and is concerning for early volvulus or the presence of an underlying internal hernia. General surgery was consulted after abdominal imaging for further evaluation. When taking history from the patient he states that his abdominal discomfort started on Chaz 9/13, generalized to the whole abdomen, but sligh tly worse on the left side. He describes it as a pressure feeling, pain ranking 4-5/10 in severity. He endorses nausea, but no vomiting. He has been tolerating a diet, but only eating small amounts. He states that his last normal bowel movement was 1 wk ago and since has only been passing small particulates with water. He denies passing flatus for the past 2 weeks. His past abdominal surgeries include a lap sigmoid resection after developing a stricture from radiation, hiatal hernia repair, and multiple abdominal hernia repairs. Patient last took his coumadin on 08/01 and last lovenox in the AM of 08/05 in prep for lumbar fusion. Allergies Allergy/AdvReac Type Severity Reaction Status Date / Time gabapentin AdvReac Intermediate body Verified 08/06/19 06:43 aches, "foggy" feeling amoxicillin AdvReac Mild N/V Verified 08/06/19 06:43 clavulanic acid AdvReac Mild N/V Verified 08/06/19 06:43 propoxyphene AdvReac Mild Nausea Verified 08/06/19 06:43 Home Medications Home Medications Medication Instructions Recorded Confirmed Type acetaminophen [Tylenol Extra 1,500 mg PO BID PRN 08/15/18 08/06/19 History Strength] amitriptyline 50 mg PO HS 08/15/18 08/06/19 History lisinopril 5 mg tablet 5 mg PO QAM 10/17/18 08/06/19 History lorazepam 1 mg PO TID PRN 03/08/19 08/06/19 History ranitidine 150 mg tablet 150 mg PO BID 05/16/19 08/06/19 History Medical Marijuana 1 dose INHALATION UD PRN 07/26/19 08/06/19 History aspirin 81 mg PO DAILY 07/26/19 08/06/19 History calcium carbonate [Calcium 500] 500 mg PO DAILY 07/26/19 08/06/19 History cyclobenzaprine 5 mg PO BID 07/26/19 08/06/19 History enoxaparin 100 mg/mL subcutaneous 40 mg SQ Q12H 07/26/19 08/06/19 History syringe hydrocodone-acetaminophen 1 tab PO Q8H PRN 07/26/19 08/06/19 History warfarin [Coumadin] 3 mg PO UD 07/26/19 08/06/19 History Patient History Medical History Hypertension Intractable back pain LLE radiculopathy Bladder cancer 2011-- S/P chemo/radiation Chronic venous insufficiency Deep vein thrombosis LLE DVT (2013) Fibromyalgia Hemorrhoids Hepatitis C "resolved" s/p treatment Liver lesion Peripheral neuropathy B/L arms, legs and feet Saddle embolus 2016 Sleep apnea CPAP Venous stasis ulcer "improving" right ankle s/p abx/debridement (following with wound clinic (aware of upcoming surgery)/surgeon aware) Surgical History History of bilateral cataract extraction x2 History of biopsy of bladder multiple History of bowel resection History of cardiac cath 2008= no stents History of colonoscopy History of cystoscopy multiple History of esophagogastroduodenoscopy (EGD) History of prostate biopsy benign History of repair of hiatal hernia History of right knee surgery ACL repair History of tonsillectomy and adenoidectomy History of tooth extraction History of total right knee replacement (TKR) x2 History of umbilical hernia repair x3 S/P IVC filter x2-- removed (no longer has) Status post uvulopalatopharyngoplasty Family History Grandmother (Paternal) Family history of diabetes mellitus Mother Family hx of colon cancer Other No family history of adverse response to anesthesia Social History Preferred Language: [place] Communication Ability: Effective 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 Beliefs That Will Affect Care: None marital status: Current Living Situation: Spouse Other Information That Helps Us Care for You: No Feels Safe at Home: Yes Safety Concerns: Feels Safe At This Time Smoking Status: Former smoker Tobacco Type: pipe ; Do You Dip or Chew Tobacco: No ; Smoking End Date: Quit 2007 ; Second Hand Exposure: No ; Tobacco Cessation Education Requested by Patient: No Hx Alcohol Use: Yes Alcohol type: beer and wine Hx Substance Use: No Review of Systems Constitutional: no fever and no chills Respiratory: no shortness of breath Cardiovascular: no chest pain Gastrointestinal: + abdominal pain (diffuse abdominal pain, worse on left side), + belching (some), + bloating, + nausea and + constipation; no vomiting Physical Exam Physical Exam: awake/alert/sitting up in bed Constitutional: + morbidly obese and cooperative; no acute distress Respiratory: normal respiratory effort; no respiratory distress Cardiovascular: Rate/Rhythm: + tachycardic Gastrointestinal (Abdomen): Inspection/Auscultation: + abdomen distended Percussion/Palpation: + abdomen tender (to deep palpation of left side) and + abdomen firm Results & Data Vital Signs (Past 12 Hours) Vital Signs Temp Pulse Pulse Resp BP BP Pulse Ox 08/06/19 10:14 95 08/06/19 10:12 36.7 C 113 H 18 148/87 H 83 L 08/06/19 06:48 36.6 C 92 H 20 135/90 93 ADDENDUM Findings were discussed with Dr. Savage at 8:30 AM on 08/06/2019. Electronically signed by: Frankie Cantrell M.D. 08/06/2019 8:33 AM ADDENDUM END KUB HISTORY: Constipation, abd pain x 3 weeks COMPARISON: KUB 10/25/2018. FINDINGS: Mildly dilated gas-filled transverse colon. There is also distended loop of bowel within the midabdomen which appears to represent colon. This measures up to 19 cm in diameter could represent a cecal or sigmoid volvulus. No renal calculi. No ureteral calculi. No pneumoperitoneum or pneumatosis. IMPRESSION: A significantly distended gas-filled loop of bowel within the mid to upper abdomen which appears to represent the colon. This measures 19 cm in diameter could represent cecal or sigmoid volvulus. CT scanning is recommended for further evaluation. This finding was discussed with at 8:30 AM on 08/06/2019. Electronically signed by: Frankie Cantrell M.D. 08/06/2019 8:[address] abd pelvis IV con only CLINICAL HISTORY: 68 years-old Male presenting with generalized abdominal pain and distention, possible volvulus. TECHNIQUE: Multidetector CT of the abdomen and pelvis was performed after the administration of intravenous contrast. IV contrast: 94 mL of Optiray 320. One or more dose lowering techniques were used consistent with the principles of ALARA (as low as reasonably achievable), including automatic exposure control, mA or kV adjustment to individual patient size, and/or use of iterative reconstruction. COMPARISON: 07/18/2018 and plain radiograph performed earlier today. CT DOSE (mGy.cm): The estimated cumulative dose is 1087.78 mGycm. FINDINGS: Box Spinner topogram: Diffuse gaseous distention of bowel, likely large bowel. Lung bases: Normal heart size. Coronary artery calcification. No pericardial or pleural effusion. Minimal dependent changes likely atelectasis or scarring. Focal groundglass opacity in the lateral basal right lower lobe (series 3 image 12), possibly related to atelectasis. Emphysema. Liver: Congenital hypoplasia of the medial segments of the left hepatic lobe. Multiple well-defined hypodense lesions likely hepatic cysts or hamartomas. Patent hepatic vasculature. Biliary: No intrahepatic or extrahepatic biliary ductal dilatation. Gallbladder mildly distended likely on a physiologic basis. No gross gallbladder wall thickening or pericholecystic fluid. Pancreas: Severe parenchymal atrophy. Spleen: Normal. Adrenal glands: Normal. Kidneys and ureters: Multiple cysts noted bilaterally. No hydronephrosis or nephrolithiasis. Ureters nondistended. Bladder: Normal. Pelvic organs: Evidence of a TURP defect. Bowel: The rectum is mildly distended with fluid. There is a focal narrowing of the distal sigmoid near the rectosigmoid junction with a mild twisting of the mesentery approximately 180 degrees. There is no other site of narrowing more upstream in the sigmoid colon. There is marked colonic distention of the sigmoid with trace pericolonic edema in the proximal sigmoid colon. The left and transverse colon are also distended. Moderate stool burden in the mildly distended right colon and cecum. Small bowel unremarkable and nondilated. Moderate hiatal hernia with postsurgical changes of the gastroesophageal region suggesting possible Jax procedure. Peritoneal cavity: Trace free fluid in the left lower quadrant. No free intraperitoneal gas. No pneumatosis. Lymph nodes: No enlarged lymph nodes in the abdomen or pelvis. Vasculature: Atherosclerosis of the normal caliber abdominal aorta. IVC patent. Abdominal wall: Periumbilical hernia containing some unobstructed small bowel. Trace fluid in the hernia sac. A minimal portion of the mid sigmoid colon is also contained within the hernia along the antimesenteric wall. Infraumbilical incision noted. There is also a suprapubic hernia containing a short segment of unobstructed small bowel. Musculoskeletal: Degenerative changes of the spine. IMPRESSION: 1. Abnormal twisting of the distal sigmoid mesentery approximately 180 degrees with a focal site of stenosis at the distal sigmoid. No upstream transition point in the proximal sigmoid colon to suggest a closed loop obstruction or classic appearance of volvulus. However, this current appearance is abnormal and is concerning for early volvulus or the presence of an underlying internal hernia. Close follow-up is warranted with possible decompression. 2. Marked distention of the colon to the level of the transverse colon. The right colon is only mildly distended with stool. 3. No small bowel obstruction. 4. Multiple abdominal wall hernias in the periumbilical and suprapubic regions likely incisional hernias. No resulting bowel obstruction. 5. Emphysema. The report will be called/faxed according to standard departmental protocol. Electronically signed by: Herbert Quinonez M.D. 08/06/2019 10:09 AM PG Care Time/CCT Total # of Minutes Spent Total Time Spent with Patient: Total time spent is greater than 50% in coordination of care (as documented) at patient's floor/unit and/or counseling patient:
--- NOTE | 2019-08-06 11:22 | Gastrointestinal Consultation ---
Date of Consultation August 06, 2019 History of Present Illness Attending Physician: Joe Lozano MD History of Present Illness Patient is a 68 yo male with a PMH of bladder cancer, chest pain, PE, SOB, hepatitis C, DVT, venous stasis ulcers, HTN, DVT, & back pain. Allergies Allergy/AdvReac Type Severity Reaction Status Date / Time gabapentin AdvReac Intermediate body Verified 08/06/19 06:43 aches, "foggy" feeling amoxicillin AdvReac Mild N/V Verified 08/06/19 06:43 clavulanic acid AdvReac Mild N/V Verified 08/06/19 06:43 propoxyphene AdvReac Mild Nausea Verified 08/06/19 06:43 Home Medications Home Medications Medication Instructions Recorded Confirmed Type acetaminophen [Tylenol Extra 1,500 mg PO BID PRN 08/15/18 08/06/19 History Strength] amitriptyline 50 mg PO HS 08/15/18 08/06/19 History lisinopril 5 mg tablet 5 mg PO QAM 10/17/18 08/06/19 History lorazepam 1 mg PO TID PRN 03/08/19 08/06/19 History ranitidine 150 mg tablet 150 mg PO BID 05/16/19 08/06/19 History Medical Marijuana 1 dose INHALATION UD PRN 07/26/19 08/06/19 History aspirin 81 mg PO DAILY 07/26/19 08/06/19 History calcium carbonate [Calcium 500] 500 mg PO DAILY 07/26/19 08/06/19 History cyclobenzaprine 5 mg PO BID 07/26/19 08/06/19 History enoxaparin 100 mg/mL subcutaneous 40 mg SQ Q12H 07/26/19 08/06/19 History syringe hydrocodone-acetaminophen 1 tab PO Q8H PRN 07/26/19 08/06/19 History warfarin [Coumadin] 3 mg PO UD 07/26/19 08/06/19 History Patient History Medical History Hypertension Intractable back pain LLE radiculopathy Bladder cancer 2011-- S/P chemo/radiation Chronic venous insufficiency Deep vein thrombosis LLE DVT (2013) Fibromyalgia Hemorrhoids Hepatitis C "resolved" s/p treatment Liver lesion Peripheral neuropathy B/L arms, legs and feet Saddle embolus 2016 Sleep apnea CPAP Venous stasis ulcer "improving" right ankle s/p abx/debridement (following with wound clinic (aware of upcoming surgery)/surgeon aware) Surgical History History of bilateral cataract extraction x2 History of biopsy of bladder multiple History of bowel resection History of cardiac cath 2009= no stents History of colonoscopy History of cystoscopy multiple History of esophagogastroduodenoscopy (EGD) History of prostate biopsy benign History of repair of hiatal hernia History of right knee surgery ACL repair History of tonsillectomy and adenoidectomy History of tooth extraction History of total right knee replacement (TKR) x2 History of umbilical hernia repair x3 S/P IVC filter x2-- removed (no longer has) Status post uvulopalatopharyngoplasty Family History Grandmother (Paternal) Family history of diabetes mellitus Mother Family hx of colon cancer Other No family history of adverse response to anesthesia Social History Preferred Language: Bulgarian Communication Ability: Effective 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 Beliefs That Will Affect Care: None marital status: Current Living Situation: Spouse Other Information That Helps Us Care for You: No Feels Safe at Home: Yes Safety Concerns: Feels Safe At This Time Smoking Status: Former smoker Tobacco Type: pipe ; Do You Dip or Chew Tobacco: No ; Smoking End Date: Quit 2007 ; Second Hand Exposure: No ; Tobacco Cessation Education Requested by Patient: No Hx Alcohol Use: Yes Alcohol type: beer and wine Hx Substance Use: No Results & Data Vital Signs (Past 12 Hours) Vital Signs Temp Pulse Pulse Resp BP BP Pulse Ox 08/06/19 10:14 95 08/06/19 10:12 36.7 C 113 H 18 148/87 H 83 L 08/06/19 06:48 36.6 C 92 H 20 135/90 93 PG Care Time/CCT Total # of Minutes Spent Total Time Spent with Patient: Total time spent is greater than 50% in coordination of care (as documented) at patient's floor/unit and/or counseling patient:
[2019-08-06] MEDS: MoRPHine SULFATE 4 MG/ML 1 ML CARP\\VIAL IV PRN ×3 (12:29→23:55)
[2019-08-06] MEDS ORDERED: SODIUM CHLORIDE 0.9% 1000ML 1,000 ML IV SCH (14:15)
--- NOTE | 2019-08-06 14:17 | History & Physical Report ---
Date of Service August 06, 2019 History of Present Illness Chief Complaint: sigmoid volvulus Primary Care Provider: NO PCP For flex sig decompression Allergies Allergy/AdvReac Type Severity Reaction Status Date / Time gabapentin AdvReac Intermediate body Verified 08/06/19 06:43 aches, "foggy" feeling amoxicillin AdvReac Mild N/V Verified 08/06/19 06:43 clavulanic acid AdvReac Mild N/V Verified 08/06/19 06:43 propoxyphene AdvReac Mild Nausea Verified 08/06/19 06:43 Home Medications Home Medications Medication Instructions Recorded Confirmed Type acetaminophen [Tylenol Extra 1,500 mg PO BID PRN 08/15/18 08/06/19 History Strength] amitriptyline 50 mg PO HS 08/15/18 08/06/19 History lisinopril 5 mg tablet 5 mg PO QAM 10/17/18 08/06/19 History lorazepam 1 mg PO TID PRN 03/08/19 08/06/19 History ranitidine 150 mg tablet 150 mg PO BID 05/16/19 08/06/19 History Medical Marijuana 1 dose INHALATION UD PRN 07/26/19 08/06/19 History aspirin 81 mg PO DAILY 07/26/19 08/06/19 History calcium carbonate [Calcium 500] 500 mg PO DAILY 07/26/19 08/06/19 History cyclobenzaprine 5 mg PO BID 07/26/19 08/06/19 History enoxaparin 100 mg/mL subcutaneous 40 mg SQ Q12H 07/26/19 08/06/19 History syringe hydrocodone-acetaminophen 1 tab PO Q8H PRN 07/26/19 08/06/19 History warfarin [Coumadin] 3 mg PO UD 07/26/19 08/06/19 History Past Med/Surg History Medical History Hypertension Intractable back pain LLE radiculopathy Bladder cancer 2011-- S/P chemo/radiation Chronic venous insufficiency Deep vein thrombosis LLE DVT (2013) Fibromyalgia Hemorrhoids Hepatitis C "resolved" s/p treatment Liver lesion Peripheral neuropathy B/L arms, legs and feet Saddle embolus 2016 Sleep apnea CPAP Venous stasis ulcer "improving" right ankle s/p abx/debridement (following with wound clinic (aware of upcoming surgery)/surgeon aware) Surgical History History of bilateral cataract extraction x2 History of biopsy of bladder multiple History of bowel resection History of cardiac cath 2009= no stents History of colonoscopy History of cystoscopy multiple History of esophagogastroduodenoscopy (EGD) History of prostate biopsy benign History of repair of hiatal hernia History of right knee surgery ACL repair History of tonsillectomy and adenoidectomy History of tooth extraction History of total right knee replacement (TKR) x2 History of umbilical hernia repair x3 S/P IVC filter x2-- removed (no longer has) Status post uvulopalatopharyngoplasty Family History Grandmother (Paternal) Family history of diabetes mellitus Mother Family hx of colon cancer Other No family history of adverse response to anesthesia Social History Preferred Language: Kazakh Communication Ability: Effective 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 Beliefs That Will Affect Care: None marital status: Current Living Situation: Spouse Other Information That Helps Us Care for You: No Feels Safe at Home: Yes Safety Concerns: Feels Safe At This Time Smoking Status: Former smoker Tobacco Type: pipe ; Do You Dip or Chew Tobacco: No ; Smoking End Date: Quit 2007 ; Second Hand Exposure: No ; Tobacco Cessation Education Requested by Patient: No Hx Alcohol Use: Yes Alcohol type: beer and wine Hx Substance Use: No Physical Exam Constitutional: well developed and well nourished Respiratory: normal respiratory effort Cardiovascular: Rate/Rhythm: regular rate and regular rhythm Gastrointestinal (Abdomen): Percussion/Palpation: + tympanic to percussion Results & Data Vital Signs (Past 12 Hours) Vital Signs Temp Pulse Pulse Resp BP BP Pulse Ox 08/06/19 13:55 36.7 C 90 16 152/107 H 96 08/06/19 13:37 93 08/06/19 10:14 95 08/06/19 10:12 36.7 C 113 H 18 148/87 H 83 L 08/06/19 06:48 36.6 C 92 H 20 135/90 93 Code Status & VTE Plan VTE Prophylaxis Plan VTE Prophylaxis will be ordered: Yes
--- NOTE | 2019-08-06 14:36 | History & Physical Report ---
Date of Service August 06, 2019 Assessment & Plan (1) Colonic volvulus: CT a/p on showed "Abnormal twisting of the distal sigmoid mesentery approximately 180 degrees with a focal site of stenosis at the distal sigmoid. No upstream transition point in the proximal sigmoid colon to suggest a closed loop obstruction or classic appearance of volvulus. However, this current appearance is abnormal and is concerning for early volvulus or the presence of an underlying internal hernia." - Seen by surgery; likely need for operative repair though ideally after decompression; likely need to be done at [place] - Being seen by GI today; Dr. Arndt will attempt decompression - Pain meds PRN - NPO (2) History of pulmonary embolism: Significant history of VTE: Saddle PE (11/21/15); RLE DVT and L art thromb (11/21/15) and LLE DVT (2013). Sees [facility]. Plan was to hold warfarin and use Lovenox 40mg SC BID until the day prior to surgery, then after surgery restart Lovenox and warfarin until he was therapeutic. Last L ovenox dose was on 08/05. - Plan for IVC filter with Dr. Jamel Savage when able - Holding all DVT prophylaxis at present for likely imminent surgery (3) Lumbosacral radiculopathy: Was admitted in 06/2019 for intractible back pain. Found to have lumbar spondylosis. This is most pronounced at the L3-L4 level where there appears to be a left foraminal disc protrusion resulting in severe left-sided neural foraminal narrowing. This likely compresses the exiting left L3 nerve root. Severe central canal narrowing at L4-L5 and moderate to severe central canal narrowing at L3-L4. - Plan had been to have lumbar decompression on 08/06/2019, but abdominal issues interrupted the procedure. - Follow up with Dr. Austin as able. (4) Hypertension: Only on lisinopril. BP mildly elevated here in the setting of acute illness. - Hold all oral meds - Hydralazine PRN (5) Venous stasis ulcer of right ankle: Follows with Wound Clinic. Initially due to SCDs causing wound during last admission. - Inpatient wound RN consult placed History of Present Illness Primary Care Provider: NO PCP 68yo M w/ hx of spinal stenosis, bladder cancer status post radiation, colon resection, hypertension who presents with abdominal distention, abdominal pain, and diarrhea. Patient was admitted proximally 1 month ago for back pain. He was started on opiate pain medications, and reports that since that time he has had only a few bowel movements, and approximate 3 weeks of watery diarrhea. Patient reports he will have a watery BM with feculent specks a few times per day. He has noted increasing abdominal distention in the last few weeks. However he has had relatively minimal abdominal pain. He reports constant back pain which is been ongoing since his prior admission. The plan had been to admit him today for spinal decompression as well as IVC placement; however, due to the abdominal pain above procedures were canceled, and he was admitted. On admission he had a CT abdomen pelvis which showed possible colonic volvulus. Surgery has been involved from the [facility], and is recommending a GI decompression of the volvulus. He will then likely be transferred to [place] tomorrow for more definitive operative course. Allergies Allergy/AdvReac Type Severity Reaction Status Date / Time gabapentin AdvReac Intermediate body Verified 08/06/19 06:43 aches, "foggy" feeling amoxicillin AdvReac Mild N/V Verified 08/06/19 06:43 clavulanic acid AdvReac Mild N/V Verified 08/06/19 06:43 propoxyphene AdvReac Mild Nausea Verified 08/06/19 06:43 Home Medications Home Medications Medication Instructions Recorded Confirmed Type acetaminophen [Tylenol Extra 1,500 mg PO BID PRN 08/15/18 08/06/19 History Strength] amitriptyline 50 mg PO HS 08/15/18 08/06/19 History lisinopril 5 mg tablet 5 mg PO QAM 10/17/18 08/06/19 History lorazepam 1 mg PO TID PRN 03/08/19 08/06/19 History ranitidine 150 mg tablet 150 mg PO BID 05/16/19 08/06/19 History Medical Marijuana 1 dose INHALATION UD PRN 07/26/19 08/06/19 History aspirin 81 mg PO DAILY 07/26/19 08/06/19 History calcium carbonate [Calcium 500] 500 mg PO DAILY 07/26/19 08/06/19 History cyclobenzaprine 5 mg PO BID 07/26/19 08/06/19 History enoxaparin 100 mg/mL subcutaneous 40 mg SQ Q12H 07/26/19 08/06/19 History syringe hydrocodone-acetaminophen 1 tab PO Q8H PRN 07/26/19 08/06/19 History warfarin [Coumadin] 3 mg PO UD 07/26/19 08/06/19 History Past Med/Surg History Medical History Hypertension Intractable back pain LLE radiculopathy Bladder cancer 2011-- S/P chemo/radiation Chronic venous insufficiency Deep vein thrombosis LLE DVT (2013) Fibromyalgia Hemorrhoids Hepatitis C "resolved" s/p treatment Liver lesion Peripheral neuropathy B/L arms, legs and feet Saddle embolus 2015 Sleep apnea CPAP Venous stasis ulcer "improving" right ankle s/p abx/debridement (following with wound clinic (aware of upcoming surgery)/surgeon aware) Surgical History History of bilateral cataract extraction x2 History of biopsy of bladder multiple History of bowel resection History of cardiac cath 2008= no stents History of colonoscopy History of cystoscopy multiple History of esophagogastroduodenoscopy (EGD) History of prostate biopsy benign History of repair of hiatal hernia History of right knee surgery ACL repair History of tonsillectomy and adenoidectomy History of tooth extraction History of total right knee replacement (TKR) x2 History of umbilical hernia repair x3 S/P IVC filter x2-- removed (no longer has) Status post uvulopalatopharyngoplasty Family History Grandmother (Paternal) Family history of diabetes mellitus Mother Family hx of colon cancer Other No family history of adverse response to anesthesia Social History Preferred Language: Malian Communication Ability: Effective Market Manager Required: No Beliefs That Will Affect Care: None marital status: Current Living Situation: Spouse Other Information That Helps Us Care for You: No Feels Safe at Home: Yes Safety Concerns: Feels Safe At This Time Smoking Status: Former smoker Tobacco Type: pipe ; Do You Dip or Chew Tobacco: No ; Smoking End Date: Quit 2007 ; Second Hand Exposure: No ; Tobacco Cessation Education Requested by Patient: No Hx Alcohol Use: Yes Alcohol type: beer and wine Hx Substance Use: No Review of Systems Review of Systems: All systems reviewed & are unremarkable except as noted in HPI & below Physical Exam Constitutional: WD/WN, vitals as above Eyes: EOM intact bilaterally; no conjunctival abnormality ENMT: external ear and nose normal, oropharynx normal Neck: trachea midline, no thyromegaly normal visual inspection Respiratory: normal respiratory effort, lungs clear to auscultation no respiratory distress Cardiovascular: RRR, no murmur, no edema Gastrointestinal (Abdomen): Inspection/Auscultation: abdomen normal to inspection and + hypoactive bowel sounds; abdomen not distended Percu ssion/Palpation: abdomen soft; abdomen nontender, no guarding and abdomen not rigid Musculoskeletal: no cyanosis or clubbing, extremities motor strength 5/5 Skin: no rashes, warm and dry Neurologic: moves all extremities and awake Psychiatric: Orientation: alert, oriented to person and cooperative Results & Data Vital Signs (Past 12 Hours) Vital Signs Temp Pulse Pulse Resp BP BP Pulse Ox 08/06/19 13:55 36.7 C 90 16 152/107 H 96 08/06/19 13:37 93 08/06/19 10:14 95 08/06/19 10:12 36.7 C 113 H 18 148/87 H 83 L 08/06/19 06:48 36.6 C 92 H 20 135/90 93 Code Status & VTE Plan VTE Prophylaxis Plan VTE Prophylaxis will be ordered: Yes PG Care Time/CCT Total # of Minutes Spent Total Time Spent with Patient: Total time spent is greater than 50% in coordination of care (as documented) at patient's floor/unit and/or counseling patient: (1) Venous stasis ulcer of right ankle Varicose vein presence: without varicose veins Non-pressure ulcer stage: limited to breakdown of skin Qualified Code(s): I87.2 - Venous insufficiency (chronic) (peripheral); L97.311 - Non-pressure chronic ulcer of right ankle limited to breakdown of skin
[2019-08-06] MEDS ORDERED: LIDOCAINE HCL 2% 2 ML VIAL/AMP(20MG/ML) INFIL ONE (14:48)
[2019-08-06] MEDS ORDERED: PROPOFOL IV EMULSION 10 MG/ML 20 ML VIAL IV ONE (14:48)
--- NOTE | 2019-08-06 14:55 | GI REPORT ---
Patient Name: Shailesh Jones Procedure Date: 08/06/2019 2:22 PM Date of : 1950 Admit Type: Inpatient Age: 68 Gender: Male Attending MD: Umberto Arndt MD Procedure: Colonoscopy Providers: Umberto Arndt MD Referring MD: Joe Lozano Md Indications: Suspected volvulus Medicines: Propofol total dose 170 mg IV, Lidocaine 40 mg IV Complications: No immediate complications. Estimated Blood Loss: Estimated blood loss: none. Procedure: Pre-Anesthesia Assessment: - Prior to the procedure, a History and Physical was performed, and patient medications, allergies and sensitivities were reviewed. The patient's tolerance of previous anesthesia was reviewed. - The risks and benefits of the procedure and the sedation options and risks were discussed with the patient. All questions were answered and informed consent was obtained. After I obtained informed consent, the scope was passed under direct vision. Throughout the procedure, the patient's blood pressure, pulse, and oxygen saturations were monitored continuously. The scope was introduced through the anus and advanced to the splenic flexure. The colonoscopy was performed without difficulty. The patient tolerated the procedure well. The quality of the bowel preparation was fair. Findings: There was evidence of a prior end-to-end colo-colonic anastomosis at 40 cm proximal to the anus. This was patent and was characterized by visible sutures. The anastomosis was traversed. The lumen of the descending colon was significantly dilated. A volvulus with viable appearing mucosa was found at 30 cm in the sigmoid colon distal to the prior anastomosis. Decompression of the volvulus was attempted, and partial decompression was achieved. Impression: - Preparation of the colon was fair. - Patent end-to-end colo-colonic anastomosis, characterized by visible sutures. - Dilated in the descending colon. - Volvulus. Partial decompression achieved. - No specimens collected. Recommendation: - Return patient to [facility] for ongoing care. Umberto Arndt M.D. Umberto Arndt MD 08/06/2019 2:54:57 PM This report has been signed electronically. Note Initiated On: 08/06/2019 2:22 PM Number of Addenda: 0 I attest to the content of the Intraoperative Record and orders documented therein, exceptions below {[id number]}
--- NOTE | 2019-08-06 15:16 | Consultation Report ---
DATE OF CONSULTATION: 08/06/2019 GASTROINTESTINAL CONSULTATION REASON FOR EVALUATION: Sigmoid volvulus. HISTORY OF PRESENT ILLNESS: The patient is a 68-year-old with multiple medical problems who had a prior sigmoid resection for sigmoid stricture from radiation in 2013. The patient was admitted for removal of an IVC filter. He has had 2 DVTs and pulmonary emboli in the past including a saddle embolus most recently in 2016. Both IVC filters were removed. He has had a history of bladder cancer as well and has intractable back pain and he is here for possible replacement of the IVC filter prior to spinal surgery. During hospitalization, patient was noted to have markedly distended bowel with a probable sigmoid volvulus and GI consultation has been requested. MEDICATIONS: Include acetaminophen, amitriptyline, lisinopril, lorazepam, ranitidine, medical marijuana, aspirin, calcium, cyclobenzaprine, enoxaparin, hydrocodone/acetaminophen, warfarin. ALLERGIES: AMOXICILLIN, GABAPENTIN, CLAVULANIC ACID AND PROPOXYPHENE. FAMILY HISTORY: Positive for diabetes, colon cancer. SOCIAL HISTORY: The patient is , former smoker. He consumes alcohol. REVIEW OF SYSTEMS: Positive for back pain and abdominal distention. PHYSICAL EXAMINATION: GENERAL: The patient has a markedly distended abdomen, which is tympanitic. LUNGS: Clear. HEART: Showed a normal S1 and S2. Regular rate and rhythm. The patient was brought to the endoscopy unit where he underwent sedation and sigmoidoscopy for probable sigmoid volvulus. The patient was found to have what appeared to be a volvulus at 30 cm, which I was able to pass the pediatric colonoscope through, at 40 cm was a surgical anastomosis, which was widely patent, and above this, the colon was markedly distended and the bowel prep deteriorated significantly above the anastomosis. I was able to decompress the bowel significantly at this point and advance the scope up to the splenic flexure where the stool prevented further insertion. Excess air was removed as the scope was withdrawn. The patient appears to have a sigmoid volvulus below his previous surgical resection in the sigmoid. The colon was decompressed as well as possible on the left side and his abdomen was markedly less distended at the end of the procedure. IMPRESSION: The patient has what appears to be a sigmoid volvulus distal to his surgical anastomosis at 40 cm, which I was able to advance through and decompress. Further care will be per surgery.
--- NOTE | 2019-08-06 15:20 | Anesthesiology Progress Note ---
Date of Service August 06, 2019 Anesthesia Post Procedure Vital Signs Vital Signs: Temp Pulse Pulse Resp BP BP Pulse Ox 08/06/19 15:17 80 20 158/99 H 95 08/06/19 15:02 85 18 156/99 H 95 08/06/19 14:47 36.7 C 94 H 16 158/85 H 95 08/06/19 13:55 36.7 C 90 16 152/107 H 96 08/06/19 13:37 93 08/06/19 10:14 95 08/06/19 10:12 36.7 C 113 H 18 148/87 H 83 L 08/06/19 06:48 36.6 C 92 H 20 135/90 93 Transfer of Care Handoff Completed per policy Notes Mental Status: alert / awake / arousable Patient Amnestic to Procedure: Yes Nausea / Vomiting: adequately controlled Pain: adequately controlled Airway Patency, RR, SpO2: stable & adequate BP & HR: stable & adequate Hydration State: stable & adequate Anesthetic Complications: no major complications apparent
--- NOTE | 2019-08-06 16:53 | Surgery Progress Note ---
Date of Service August 06, 2019 Assessment & Plan (1) Colonic volvulus: See prior note today Dr. Arndt was able to partially decompress the colon noting completely viable mucosa We discussed the case with doctors at [place] including colorectal surgery, gastroenterology, and medicine They feel we do not need to transfer the patient acutely and that we should try conservative management We will treat him for recurrence and then possibly decompression with colonic tube placement We will give him some clear liquids Results & Data Vital Signs (Past 12 Hours) Vital Signs Temp Pulse Pulse Resp BP BP Pulse Ox 08/06/19 15:40 36.9 C 81 20 165/100 H 99 08/06/19 15:17 80 20 158/99 H 95 08/06/19 15:02 85 18 156/99 H 95 08/06/19 14:47 36.7 C 94 H 16 158/85 H 95 08/06/19 13:55 36.7 C 90 16 152/107 H 96 08/06/19 13:37 93 08/06/19 10:14 95 08/06/19 10:12 36.7 C 113 H 18 148/87 H 83 L 08/06/19 06:48 36.6 C 92 H 20 135/90 93 PG Care Time/CCT Total # of Minutes Spent Total Time Spent with Patient: Total time spent is greater than 50% in coordination of care (as documented) at patient's floor/unit and/or counseling patient:
[2019-08-06] MEDS: AMITRIPTYLINE HCL 50 MG TAB PO SCH (19:54)
[2019-08-06] MEDS ORDERED: SOD PHOSPHATE/SOD BIPHOSPHATE ENEMA 132 ML BTL PR SCH (21:00)
[2019-08-06] MEDS: ENOXAPARIN INJ 40 MG/0.4 ML SYR SQ SCH (21:06)
[2019-08-06] MEDS ORDERED: HYDROmorphone INJ 1 MG/ML SYRINGE IV STA (21:11)
[2019-08-07] MEDS: MoRPHine SULFATE 4 MG/ML 1 ML CARP\\VIAL IV PRN ×3 (03:50→16:31)
[2019-08-07] MEDS ORDERED: ONDANSETRON INJ 2 MG/ML 2 ML VIAL IV PRN (05:06)
[2019-08-07 06:08] LABS: Hematocrit (blood only) 37.8 % (42-52); Hemoglobin 13.1 g/dL (14.0-18.0); Mean Corpuscular Hgb Conc 34.7 g/dL (32-36); Mean Corpuscular Volume 92.4 fL (80-100); Mean Platelet Volume 9.4 fL (7.4-10.4); Platelet Count 140 K/uL (130-400); RDW Coefficient of Variation 14.6 % (11.5-14.5); RDW Standard Deviation 49.3 fL (36.4-46.3); Red Blood Count 4.09 M/uL (4.7-6.1); White Blood Count 5.39 K/uL (4.8-10.8)
[2019-08-07 06:18] LABS: BUN Creatinine Ratio 8.9 (10-20); Calcium 8.4 mg/dl (8.5-10.1); Creatinine Clr Calc Pharmacy 116.4 ml/min; Est GFR (African American) 102.3; Est GFR (Non-African American) 88.3; Magnesium 1.7 mg/dl (1.8-2.4); Potassium 3.2 mmol/L (3.5-5.1)
[2019-08-07 06:19] LABS: Phosphorus 3.3 mg/dl (2.5-4.9)
--- NOTE | 2019-08-07 07:30 | Anesthesiology Progress Note ---
Date of Service August 07, 2019 Anesthesia Post Procedure Vital Signs Vital Signs: Temp Pulse Resp BP BP Pulse Ox 08/07/19 06:57 36.7 C 78 16 125/85 95 08/06/19 23:12 36.6 C 84 16 120/78 96 08/06/19 15:40 36.9 C 81 20 165/100 H 99 08/06/19 15:17 80 20 158/99 H 95 08/06/19 15:02 85 18 156/99 H 95 08/06/19 14:47 36.7 C 94 H 16 158/85 H 95 08/06/19 13:55 36.7 C 90 16 152/107 H 96 08/06/19 13:37 93 08/06/19 10:14 95 08/06/19 10:12 36.7 C 113 H 18 148/87 H 83 L Pain Intensity Left Leg: Pain Intensity: 3 Notes Mental Status: alert / awake / arousable and participated in evaluation Nausea / Vomiting: adequately controlled Pain: adequately controlled Airway Patency, RR, SpO2: stable & adequate BP & HR: stable & adequate Hydration State: stable & adequate
--- NOTE | 2019-08-07 07:55 | XRay Report ---
XR KUB/Abdomen 1 view CLINICAL HISTORY: 68 years-old Male presenting with colonic distention. TECHNIQUE: Single upright view of the abdomen was obtained. COMPARISON: CT and plain radiograph performed on 08/06/2019. FINDINGS: Moderate stool burden throughout the colon. There is decreased gaseous distention of the colon. No gr oss pneumoperitoneum. No pneumatosis. Limited evaluation for calcifications given portable technique and the degree of stool burden. Brianna us pelvic phleboliths. Degenerative changes of the spine. Lung bases clear. IMPRESSION: 1. Decreased gaseous distention of the colon. 2. Significant stool burden consistent with constipation. Electronically signed by: Herbert Quinonez M.D. 08/07/2019 7:54 AM
[2019-08-07] MEDS: ENOXAPARIN INJ 40 MG/0.4 ML SYR SQ SCH ×2 (08:07→21:09)
--- NOTE | 2019-08-07 08:13 | XRay Report ---
XR chest 1V portable CLINICAL HISTORY: COLONIC DISTENTION COMPARISON STUDY: Chest radiograph July 27, 2019. FINDINGS: Lung volumes are normal. Lungs are clear. There is no pneumothorax or pleural effusion. Car diac size is normal. Mediastinal contours are normal. There is no evidence for pulmonary edema. IMPRESSION: No acute cardiopulmonary findings. Electronically signed by: Franki Nelson M.D. 08/07/2019 8:12 AM
--- NOTE | 2019-08-07 08:21 | Surgery Progress Note ---
Date of Service August 07, 2019 Assessment & Plan (1) Colonic volvulus: no significant abd pain- mild distention KUB- less colonic distention - some present see prior note- monitor for recurrence, possible colonic tube decompression, consider transfer to [place] at that time. No plan for colon surgery here encourage ambulation, decrease narcotics Results & Data Vital Signs (Past 12 Hours) Vital Signs Temp Pulse Resp BP Pulse Ox 08/07/19 06:57 36.7 C 78 16 125/85 95 08/06/19 23:12 36.6 C 84 16 120/78 96 PG Care Time/CCT Total # of Minutes Spent Total Time Spent with Patient: Total time spent is greater than 50% in coordination of care (as documented) at patient's floor/unit and/or counseling patient:
[2019-08-07] MEDS ORDERED: lisinopriL 5 MG TAB PO SCH (09:00)
[2019-08-07] MEDS ORDERED: ACETAMINOPHEN 1000 MG/100 ML IV IV PRN (13:06)
--- NOTE | 2019-08-07 13:25 | Hospitalist Progress Note ---
Date of Service August 07, 2019 Assessment & Plan (1) Colonic volvulus: CT a/p on showed "Abnormal twisting of the distal sigmoid mesentery approximately 180 degrees with a focal site of stenosis at the distal sigmoid. No upstream transition point in the proximal sigmoid colon to suggest a closed loop obstruction or classic appearance of volvulus. However, this current appearance is abnormal and is concerning for early volvulus or the presence of an underlying internal hernia." - Seen by surgery & GI - Decompression done on 08/06 with improvement in symptoms; discussed transfer to [place] on 08/06, but the physicians there determined plan of care would be similar there and declined transfer. - Pain meds PRN - Clear liquid diet - Will discuss with Dr. Mccrary today. Is now having BMs, so possibly improved. (2) History of pulmonary embolism: Significant history of VTE: Saddle PE (11/21/15); RLE DVT and L art thromb (11/21/15) and LLE DVT (2013). Sees [facility]. Plan was to hold warfarin and use Lovenox 40mg SC BID until the day prior to surgery, then after surgery restart Lovenox and warfarin until he was therapeutic. Last Lovenox dose was on 08/05. - Plan for IVC filter with Dr. Jamel Savage when able - Continuing DVT prophylaxis with Lovenox 40mg SC BID - No plan for imminent surgery at this time and given his VTE history, I believe that benefits outweigh risks at this time. (3) Lumbosacral radiculopathy: Was admitted in 06/2019 for intractible back pain. Found to have lumbar spondylosis. This is most pronounced at the L3-L4 level where there appears to be a left foraminal disc protrusion resulting in severe left-sided neural foraminal narrowing. This likely compresses the exiting left L3 nerve root. Severe central canal narrowing at L4-L5 and moderate to severe central canal narrowing at L3-L4. - Plan had been to have lumbar decompression on 08/06/2019, but abdominal issues interrupted the procedure. - Follow up with Dr. Austin as able. (4) Hypertension: Only on lisinopril. BP mildly elevated here in the setting of acute illness. - Hold all oral meds - Hydralazine PRN (5) Venous stasis ulcer of right ankle: Follows with Wound Clinic. Initially due to SCDs causing wound during last admission. - Inpatient wound RN consult placed - Per notes, it is looking good. Subjective Feeling better today, though still with discomfort. Did have a BM. Review of Systems Review of Systems: All systems reviewed & are unremarkable except as noted in HPI & below Physical Exam Constitutional: WD/WN, vitals as above Eyes: EOM intact bilaterally; no conjunctival abnormality ENMT: external ear and nose normal, oropharynx normal Neck: trachea midline, no thyromegaly normal visual inspection Respiratory: normal respiratory effort, lungs clear to auscultation no respiratory distress Cardiovascular: RRR, no murmur, no edema Gastrointestinal (Abdomen): Inspection/Auscultation: abdomen normal to inspection and + hypoactive bowel sounds; abdomen not distended Percussion/Palpation: abdomen soft; abdomen nontender, no guarding and abdomen not rigid Musculoskeletal: no cyanosis or clubbing, extremities motor strength 5/5 Skin: no rashes, warm and dry Neurologic: moves all extremities and awake Psychiatric: Orientation: alert, oriented to person and cooperative Results & Data Vital Signs (Past 12 Hours) Vital Signs Temp Pulse Resp BP Pulse Ox 08/07/19 06:57 36.7 C 78 16 125/85 95 PG Care Time/CCT Total # of Minutes Spent Total Time Spent with Patient: Total time spent is greater than 50% in coordination of care (as documented) at patient's floor/unit and/or counseling patient: (1) Venous stasis ulcer of right ankle Varicose vein presence: without varicose veins Non-pressure ulcer stage: limited to breakdown of skin Qualified Code(s): I87.2 - Venous insufficiency (chronic) (peripheral); L97.311 - Non-pressure chronic ulcer of right ankle limited to breakdown of skin
[2019-08-07] MEDS: MAGNESIUM SULFATE / D5W 1 GM/100 ML BAG IV SCH ×2 (13:59→15:00)
[2019-08-07] MEDS: POTASSIUM CHLORIDE PWD 20 MEQ PACK PO SCH (14:03)
--- NOTE | 2019-08-07 16:09 | Progress Note ---
DATE: 08/07/2019 SUBJECTIVE: The patient had 2 bowel movements today. The second one about half an hour ago that was quite large in volume and he feels much better. His abdomen is less distended and his abdominal film today shows significant decompression of air in his colon. There was significant stool burden, but he has been ambulating and moving his bowels and it is much better. He is tolerating liquids today without any difficulty. He has decided not to intervene surgically at this point in time and Dr. Austin apparently has decided to postpone his back operation until at least next week. PHYSICAL EXAMINATION: GENERAL: The patient appears in no acute distress. VITAL SIGNS: Blood pressure is 120/76, pulse 75, temperature is 36.7. Room air saturation 93%. Electrolytes show sodium of 142, potassium of 3.2. CBC shows white count of 5.39, hemoglobin 13.1, platelets are 140,000. Abdomen is markedly less distended than it was previous to decompression yesterday. IMPRESSION: The patient's sigmoid volvulus has resolved and he is moving his bowels. I plan on advancing him to a low fiber diet and if he continues to do well, he hopefully can be discharged tomorrow. I advised him that if his symptoms recur, to immediately come to the Emergency Room to be evaluated and not try to treat it at home.
[2019-08-07] MEDS: POLYETHYLENE (MIRALAX) 17 GM PACK PO SCH ×2 (16:33→21:09)
[2019-08-07] MEDS: AMITRIPTYLINE HCL 50 MG TAB PO SCH (21:08)
[2019-08-07] MEDS: HYDROCODONE/ACETAMINOPHEN 7.5/325MG TAB PO PRN (22:21)
[2019-08-08] MEDS: HYDROCODONE/ACETAMINOPHEN 7.5/325MG TAB PO PRN ×2 (06:02→13:00)
[2019-08-08 06:38] LABS: Hematocrit (blood only) 38.1 % (42-52); Hemoglobin 13.2 g/dL (14.0-18.0); Mean Corpuscular Hemoglobin 31.8 pg (25-34); Mean Corpuscular Hgb Conc 34.6 g/dL (32-36); Mean Corpuscular Volume 91.8 fL (80-100); Mean Platelet Volume 9.3 fL (7.4-10.4); Platelet Count 141 K/uL (130-400); RDW Coefficient of Variation 14.4 % (11.5-14.5); RDW Standard Deviation 48.9 fL (36.4-46.3); Red Blood Count 4.15 M/uL (4.7-6.1); White Blood Count 6.17 K/uL (4.8-10.8)
--- NOTE | 2019-08-08 06:46 | Surgery Progress Note ---
Date of Service August 08, 2019 Assessment & Plan (1) Colon distention: see Dr Hope note diet advanced pt will need f/u- [facility]- w/n 1-2 weeks if possible Back surgery will likely make this problem worse will need to discuss options does not need urgent surgery Results & Data Vital Signs (Past 12 Hours) Vital Signs Temp Pulse Resp BP BP Pulse Ox 08/07/19 23:01 36.6 C 76 18 159/97 H 146/96 H 93 PG Care Time/CCT Total # of Minutes Spent Total Time Spent with Patient: Total time spent is greater than 50% in coordination of care (as documented) at patient's floor/unit and/or counseling patient:
[2019-08-08 07:13] LABS: BUN Creatinine Ratio 8.2 (10-20); Calcium 8.5 mg/dl (8.5-10.1); Creatinine Clr Calc Pharmacy 124.9 ml/min; Est GFR (African American) 105.3; Est GFR (Non-African American) 90.9; Magnesium 1.9 mg/dl (1.8-2.4); Potassium 3.1 mmol/L (3.5-5.1)
[2019-08-08] MEDS: POLYETHYLENE (MIRALAX) 17 GM PACK PO SCH ×2 (08:32→10:12)
[2019-08-08] MEDS: ENOXAPARIN INJ 40 MG/0.4 ML SYR SQ SCH (08:32)
[2019-08-08] MEDS: POTASSIUM CHLORIDE PWD 20 MEQ PACK PO SCH (08:32)
--- NOTE | 2019-08-08 08:45 | XRay Report ---
KUB HISTORY: Volvulus COMPARISON: KUB 08/07/2019. FINDINGS: Persistent gaseous distention of the sigmoid colon which is looped within the upper abdomen . This measures up to 11 cm in diameter. This is similar to the prior study. Gas-filled nondistended loops of large and small bowel are also seen throughout the abdomen. This is also similar to the prio r study. Moderate well-formed stool within the colon. Bibasilar linear densities favor subsegmental a telectasis. No renal calculi. No ureteral calculi. No pneumoperitoneum or pneumatosis. IMPRESSION: Persistent gaseous distention of the sigmoid colon which is looped within the upper abdomen. This is similar to the prior study and could represent a sigmoid volvulus. Electronically signed by: Frankie Cantrell M.D. 08/08/2019 8:44 AM
--- NOTE | 2019-08-08 14:23 | Gastroenterology Progress Note ---
Date of Service August 08, 2019 Assessment & Plan (1) Colonic volvulus: Clinically no longer has a volvulus as he is moving his bowels and tolerating po. Pt thinks his abd distension has improved versus admit. No abd pain. Recommend he be sent for colorectal surgery consult with Nicole Valdes who come to [place]. Discussed miralax daily and may increase dose as neeeded to keep bowels soft and also low fiber diet. Told him he is at risk for recurence so to be aware if he has recurrent symptoms. Subjective cc f/u sigmoid volvulus HPI Pt denies abd pain. Tolerating diet. Moved his bowels today. KUB today distended sigmoid r/o volvulus Physical Exam Constitutional: WD/WN, vitals as above Cardiovascular: RRR, no murmur, no edema Gastrointestinal (Abdomen): positive bs, soft, moderately distended and tympanitic. No guarding nor rebound Results & Data Vital Signs (Past 12 Hours) Vital Signs Temp Pulse Resp BP Pulse Ox 08/08/19 07:46 36.2 C L 75 16 141/95 H 92
--- NOTE | 2019-08-08 18:13 | Discharge Summary ---
Date of Service August 08, 2019 Admission HPI Per Admitting Provider 68yo M w/ hx of spinal stenosis, bladder cancer status post radiation, colon resection, hypertension who presents with abdominal distention, abdominal pain, and diarrhea. Patient was admitted proximally 1 month ago for back pain. He was started on opiate pain medications, and reports that since that time he has had only a few bowel movements, and approximate 3 weeks of watery diarrhea. Patient reports he will have a watery BM with feculent specks a few times per day. He has noted increasing abdominal distention in the last few weeks. However he has had relatively minimal abdominal pain. He reports constant back pain which is been ongoing since his prior admission. The plan had been to admit him today for spinal decompression as well as IVC placement; however, due to the abdominal pain above procedures were canceled, and he was admitted. On admission he had a CT abdomen pelvis which showed possible colonic volvulus. Surgery has been involved from the [facility], and is recommending a GI decompression of the volvulus. He will then likely be transferred to [place] tomorrow for more definitive operative course. Principal Diagnosis Colonic volvulus Discharge Exam Constitutional WD/WN, vitals as above Eyes EOM intact bilaterally; no conjunctival abnormality ENMT external ear and nose normal, oropharynx normal Neck trachea midline, no thyromegaly normal visual inspection Respiratory normal respiratory effort, lungs clear to auscultation no respiratory distress Cardiovascular RRR, no murmur, no edema Gastrointestinal (Abdomen) Inspection/Auscultation: abdomen normal to inspection and + hypoactive bowel sounds; abdomen not distended Percussion/Palpation: abdomen soft; abdomen nontender, no guarding and abdomen not rigid Musculoskeletal no cyanosis or clubbing, extremities motor strength 5/5 Skin no rashes, warm and dry Neurologic moves all extremities and awake Psychiatric Orientation: alert, oriented to person and cooperative Discharge Data Allergies Allergy/AdvReac Type Severity Reaction Status Date / Time gabapentin AdvReac Intermediate body Verified 08/06/19 06:43 aches, "foggy" feeling amoxicillin AdvReac Mild N/V Verified 08/06/19 06:43 clavulanic acid AdvReac Mild N/V Verified 08/06/19 06:43 propoxyphene AdvReac Mild Nausea Verified 08/06/19 06:43 Consultations 08/06/19 08:17 Consult Hospitalist Routine 08/06/19 10:38 Consult General Surgery Stat 08/06/19 10:45 Consult Gastroenterology Stat Procedures Performed Operation Date: 08/06/19 08:00 <No data on this case meets the specified criteria> Operation Date: 08/06/19 10:40 Actual Procedures p Flexible Sigmoidoscopy - Umberto Arndt Operation Date: 08/06/19 12:45 <No data on this case meets the specified criteria> Ordered Studies 08/06/19 07:25 EV IVC filter placement Routine US guide vascular access Routine 08/06/19 08:26 CT abd pelvis IV con only Stat Hospital Course (1) Colonic volvulus: CT a/p on showed "Abnormal twisting of the distal sigmoid mesentery approximately 180 degrees with a focal site of stenosis at the distal sigmoid. No upstream transition point in the proximal sigmoid colon to suggest a closed loop obstruction or classic appearance of volvulus. However, this current appearance is abnormal and is concerning for early volvulus or the presence of an underlying internal hernia." - Seen by surgery & GI - Decompression done on 08/06 with improvement in symptoms; discussed transfer to [place] on 08/06, but the physicians there determined plan of care would be [place] home there and declined transfer. - Throughout 08/07 & 08/08, he was having BMs with significant amounts of stool. He will trial Miralax for at least 2-3 BMs/day. He will minimize opiates as able. - Follow up with [place] colorectal surgery as soon as able. - Instructed to return to the hospital with any further pain, distension, or constipation. (2) History of pulmonary embolism: Significant history of VTE: Saddle PE (11/21/15); RLE DVT and L art thromb (11/21/15) and LLE DVT (2013). Sees [facility]. Plan was to hold warfarin and use Lovenox 40mg SC BID until the day prior to surgery, then after surgery restart Lovenox and warfarin until he was therapeutic. Last Lovenox dose was on 08/05. - Plan for IVC filter with Dr. Jamel Savage when able - Continuing DVT prophylaxis with Lovenox 40mg SC BID - No plan for imminent surgery at this time and given his VTE history, I believe that benefits outweigh risks at this time. - On discharge, we discussed that he will continue the Lovenox for now. If we don't have a surgical plan in place by the end of the week, he will go back on warfarin and follow up with the anticoagulation clinic for INR checks. (3) Lumbosacral radiculopathy: Was admitted in 06/2019 for intractible back pain. Found to have lumbar spondylosis. This is most pronounced at the L3-L4 level where there appears to be a left foraminal disc protrusion resulting in severe left-sided neural foraminal narrowing. This likely compresses the exiting left L3 nerve root. Severe central canal narrowing at L4-L5 and moderate to severe central canal narrowing at L3-L4. - Plan had been to have lumbar decompression on 08/06/2019, but abdominal issues interrupted the procedure. - Follow up with Dr. Austin -> Attempted to contact him via text and multiple phone calls, but was unable to reach him by the day of discharge. Will have our nurse navigator follow up with his office. (4) Hypertension: Only on lisinopril. BP mildly elevated here in the setting of acute illness. - Continue on discharge. - Hydralazine PRN (5) Venous stasis ulcer of right ankle: Follows with Wound Clinic. Initially due to SCDs causing wound during last admission. - Inpatient wound RN consult placed - Per notes, it is looking good. Total Time Total Time Spent Total Time Spent (In Minutes): 35 Discharge Plan Discharge Items Patient Disposition: Home - Self-Care Reason For Visit: SPINAL STENOSIS, DEEP VENOUS THROMBOSIS AND PULMON Discharge Diagnosis: Colonic volvulus Activity: Resume your previous activity Non-emergency contact: Primary Care Provider and Surgeon Call non-emergency contact if: your symptoms worsen and your pain is not controlled Follow-up/Referrals: [facility] [Other] (Please, follow up at [facility]. *Your records are being sent to their office. When they have reviewed your records, they will schedule an appointment for you with the appropriate surgeon, and call you with the details (date, time, location - [place] vs [place]). If you have any questions, you can call their office at [phone] option # 4. ) Lalo Austin DO [Surgeon] - 08/10/19 10:00 am (Please, follow up at Dr. Austin's office on TuesdayAugust 10 at 10:00 am If you have any questions, call the office at [phone].) Andre Patel MD [Primary Care Provider] - 08/15/19 1:50 pm (Please, follow up at Dr. Rigo Patel's office on TuesdayAugust 15 at 1:50 pm. *If you need to change this appointment, call the office at [phone].) Diet: Regular Addtl Attending Provider Instructions: You were admitted for abdominal pain that was caused by a twist in the bowel called a volvulus that was probably worsened by the constipation from the opioid medications for your back pain. Please continue to take Miralax 2 times per day to have 2-3 soft BMs per day. If you have more pain, more abdominal tightness, or any nausea, vomiting, or other concerning symptoms, please return to the hospital. Pending Studies at Discharge: No Stand-Alone Forms: [facility] Medications and DC Order Prescriptions: Continued amitriptyline 50 mg Tablet 50 mg PO HS RF: 0 acetaminophen [Tylenol Extra Strength] 500 mg Tablet 1,500 mg PO BID PRN (Reason: Pain) RF: 0 lisinopril 5 mg tablet 5 mg PO QAM RF: 0 ranitidine HCl [Zantac] 150 mg tablet 150 mg PO BID RF: 0 enoxaparin 100 mg/mL syringe 40 mg SQ Q12H RF: 0 lorazepam 1 mg Tablet 1 mg PO TID PRN (Reason: Anxiety) RF: 0 hydrocodone-acetaminophen 7.5-325 mg Tablet 1 tab PO Q8H PRN (Reason: Pain) RF: 0 warfarin [Coumadin] 3 mg tablet 3 mg PO UD RF: 0 aspirin 81 mg Tablet,Delayed Release (Dr/Ec) 81 mg PO DAILY RF: 0 calcium carbonate [Calcium 500] 500 mg calcium (1,250 mg) Tablet 500 mg PO DAILY RF: 0 cyclobenzaprine 5 mg Tablet 5 mg PO BID RF: 0 Medical Marijuana 1 dose inhalation UD PRN (Reason: Pain) RF: 0 Discharge Orders: Discharge Order (Routine); Ordered 08/08/19 Ordered By: Joe Jaffe/Other Patient Handouts: Diet Low Residue Admission Data Admit Date/Time: 08/06/19 09:15 Attending Provider: Joe Lozano Admit Provider: Joe Lozano Primary Care Provider: Andre Patel Other Providers: Mac Hoffmann ; Radha Portillo ; Mercy Byrnes ; Miguel A Lenz ; Lalo Kurtz ; Roseann Jett ; Adrian Moise ; Colin Ruiz ; Pedro Campbell ; Nicolasa Bonilla ; Betty Montague ; Sabrina Cedillo ; Juan Antonio Williamson ; Rochelle Lei ; Joe Lozano ; Joel Hood ; Radha De La Cruz ; Waylon Thomas ; Coral Daniels ; Lauren Chaves ; Beltran Lowe ; Miguel A Hernández ; Bassam Vela ; Jolly Mcfadden ; Stewart Briseno ; Braulio Almeida ; Uriel Johnson ; Lalo Mccrary ; Umberto Arndt Other Interventions: Discharge Summary Assessment (RN) Last Done: 08/08/19 16:54 DC Date/Time DO NOT enter until pt leaves facility: 08/08/19 17:20
== END 2019-08-08 17:20 | disposition home or self-care (01) | DRG 389 ==
LOC: ASU 06:22 → 3E 09:15

== ENCOUNTER 2019-10-12 06:27 | Inpatient (IN) ==
--- NOTE | 2019-09-27 19:33 | PAT Medication Instructions ---
Medication Instructions Date of Service September 27, 2019 Home Medications amitriptyline 50 mg PO HS 08/15/18 [History Confirmed 09/27/19] lorazepam 1 mg PO TID PRN 03/08/19 [History Confirmed 09/27/19] Medical Marijuana 1 dose INHALATION UD PRN 07/26/19 [History Confirmed 09/27/19] hydrocodone-acetaminophen 1 tab PO Q8H PRN 07/26/19 [History Confirmed 09/27/19] acetaminophen 500 mg tablet 1,000 mg PO Q8H PRN tab 09/13/19 [History Confirmed 09/27/19] warfarin 3 mg tablet See Rx Instructions PO UD tab 09/13/19 [History Confirmed 09/27/19] docusate sodium [Stool Softener] 100 mg PO DAILY PRN 09/27/19 [History Confirmed 09/27/19] furosemide 20 mg tablet 20 mg PO QAM 09/27/19 [History Confirmed 09/27/19] polyethylene glycol 3350 [Miralax] 17 g PO DAILY PRN 09/27/19 [History Confirmed 09/27/19] Continue as directed Medical Marijuana 1 dose INHALATION UD PRN 07/26/19 [History Confirmed 09/27/19] (if needed) ASK your prescriber and surgeon warfarin 3 mg tablet See Rx Instructions PO UD tab 09/13/19 [History Confirmed 09/27/19] DO NOT take the morning of surgery docusate sodium [Stool Softener] 100 mg PO DAILY PRN 09/27/19 [History Confirmed 09/27/19] furosemide 20 mg tablet 20 mg PO QAM 09/27/19 [History Confirmed 09/27/19] polyethylene glycol 3350 [Miralax] 17 g PO DAILY PRN 09/27/19 [History Confirmed 09/27/19] Take morning of surgery With a small sip of water, OTHERWISE NOTHING TO EAT OR DRINK AFTER MIDNIGHT: lorazepam 1 mg PO TID PRN 03/08/19 [History Confirmed 09/27/19] (if needed) hydrocodone-acetaminophen 1 tab PO Q8H PRN 07/26/19 [History Confirmed 09/27/19] (okay to take up to 4 hours prior to surgery if needed) acetaminophen 500 mg tablet 1,000 mg PO Q8H PRN tab 09/13/19 [History Confirmed 11/07/19] (okay to take up to 4 hours prior to surgery if needed) Other Notes If you have any questions please call us at [phone] or [phone] or [phone] or [phone]
--- NOTE | 2019-09-28 13:46 | Anesthesiology Consultation ---
Date of Service September 28, 2019 Assessment & Plan (1) Encounter for pre-operative examination: - Awaiting review preop testing (labs). - Awaiting most recent PCP office visit note. Per patient, he was recently seen by Dr. Patel ([place] [facility] [place] - Hx IVC filter: Hx LLE DVT (2013) and saddle embolus (2015). Has had 2 IVC's filters (since removed)- per patient, these were removed as he was told they "should not be in for too long." Per patient, Dr. Austin would like IVC filter placed again prior to lumbar decompression/fusion. This is coordinated with Dr. Savage to be done AM DOS prior to lumbar surgery. - Surgery rescheduled: IVC filter/lumbar fusion was originally scheduled for 07/2019 but patient presented to [facility] DOS noting to have increasing abdominal pain/bloating/decreased appetite. Patient found to have volvulus and had [place] [facility] Patient feeling well since bowel resection surgery and has had followup with PCP since discharge. - Warfarin instructions per surgeon/prescriber (patient bridging with lovenox while coumadin on hold per anticoagulation clinic instructions) - Check coags AM DOS Chart Review Chart Review: Patient seen in Pre Admission Testing Teaching & Discussion Pre-Anesthesia Teaching/Discussion Notes: Instructed NPO after midnight before surgery,except medications with 15 cc of water. Medication instructions provided according to the PAT guidelines. History Surgery Operation Date: 10/12/19 08:00 Proposed Procedures p IVC Filter Insertion - Jamel Savage MD Operation Date: 10/12/19 13:10 Proposed Procedures p L3-L5 Decompression Fusion, Spinal Cord Monitoring - Lalo Austin DO Height/Weight Height: 6 ft 3 in Weight: 128.4 kg Allergies Allergy/AdvReac Type Severity Reaction Status Date / Time gabapentin AdvReac Intermediate body Verified 09/27/19 16:12 aches, "foggy" feeling amoxicillin AdvReac Mild N/V Verified 09/27/19 16:12 clavulanic acid AdvReac Mild N/V Verified 09/27/19 16:12 propoxyphene AdvReac Mild Nausea Verified 09/27/19 16:12 Medications Home Medications Medication Instructions Recorded Confirmed Last Taken amitriptyline 50 mg PO HS 08/15/18 09/27/19 08/05/19 21:00 lorazepam 1 mg PO TID PRN 03/08/19 09/27/19 Unknown Medical Marijuana 1 dose INHALATION UD PRN 07/26/19 09/27/19 07/30/19 09:00 hydrocodone-acetaminophen 1 tab PO Q8H PRN 07/26/19 09/27/19 08/06/19 03:45 acetaminophen 500 mg tablet 1,000 mg PO Q8H PRN tab 09/13/19 09/27/19 Unknown warfarin 3 mg tablet See Rx Instructions PO UD tab 09/13/19 09/27/19 Unknown docusate sodium [Stool Softener] 100 mg PO DAILY PRN 09/27/19 09/27/19 Unknown furosemide 20 mg tablet 20 mg PO QAM 09/27/19 09/27/19 Unknown polyethylene glycol 3350 [Miralax] 17 g PO DAILY PRN 09/27/19 09/27/19 Unknown Past Medical History Medical History Hypertension Chronic back pain Chronic venous insufficiency hx venous ulcer Fibromyalgia Hemorrhoids 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 History of embolism vandana (2016) Hx of bladder cancer s/p XRT/chemo (8 years ago) Hx of deep venous thrombosis Hx of hepatitis C "25 years ago" Liver lesion Peripheral neuropathy B/L arms, legs and feet Sleep apnea CPAP Exercise / Class Metabolic Activity III < 4 Walking/Shop/Light housework (able to walk short distances without chest pain or sob) Past Family History Family History Grandmother (Paternal) Family history of diabetes mellitus Mother Family hx of colon cancer Other No family history of adverse response to anesthesia Past Surgical History Surgical History History of bilateral cataract extraction History of biopsy of bladder multiple History of bowel resection X2 History of cardiac cath 2008= no stents History of colonoscopy History of cystoscopy multiple History of esophagogastroduodenoscopy (EGD) History of prostate biopsy "benign" History of repair of hiatal hernia History of right knee surgery ACL repair History of tonsillectomy and adenoidectomy History of tooth extraction History of total right knee replacement (TKR) x2 History of umbilical hernia repair x3 History of uvulopalatopharyngoplasty S/P IVC filter x2-- subsequently removed (no longer has) Past Anesthesia History No Family Hx of Anesthesia Complications and Other Patient reports post-op combative. History of PONV No Hx of PONV and No Hx of Motion Sickness Social History Smoking Status: Former smoker tobacco type: pipe Do You Dip or Chew Tobacco: No Smoking End Date: Quit 11 YR AGO Hx Alcohol Use: Yes Alcohol type: beer and wine alcohol intake frequency: a few times a week Alcohol Intake Frequency Comment: LAST DRINK 5 MONTHS AGO Hx Substance Use: Yes substance use type: marijuana Substance Use Type Other:: Medical marijuana (advised [facility] protocol) Last Used Substance Other:: PRN Review of Systems Patient denies chest pain, shortness of breath, cough, wheezing, palpitations. Physical Exam Vital Signs VITALS BP 119/81 P 73 TEMP 97.7 SP02 98%RA RESP 16 PHYSICAL Full neck and c-spine range of motion. Full TMJ range of motion. TMD 4 finger breaths Mallampati Score 1 Dentition: several chipped, lower right side missing Lungs: clear throughout to auscultation Cardiac: regular rate and rhythm, no murmurs noted Spine: normal Carotid arteries: negative bruit Extremities: no edema Trimmed bhatt Testing Electrocardiogram Date: 07/27/19 NSR at 73bpm. Low voltage QRS. Chest X-Ray Date: 08/07/19 Findings: + NAD
[2019-09-28 14:53] LABS: Basophils # (auto) 0.01 K/uL (0-0.2); Basophils % (auto) 0.2 %; Eosinophils # (auto) 0.15 K/uL (0-0.5); Eosinophils % (auto) 2.6 %; Hematocrit (blood only) 39.9 % (42-52); Hemoglobin 13.5 g/dL (14.0-18.0); Immature Granulocytes # (auto) 0.01 K/uL (0.00-0.02); Immature Granulocytes % (auto) 0.2 %; Lymphocytes # (auto) 1.51 K/uL (1.2-3.4); Lymphocytes % (auto) 25.7 %; Mean Corpuscular Hemoglobin 32.1 pg (25-34); Mean Corpuscular Hgb Conc 33.8 g/dL (32-36); Mean Corpuscular Volume 94.8 fL (80-100); Mean Platelet Volume 10.2 fL (7.4-10.4); Monocytes # (auto) 0.43 K/uL (0.11-0.59); Monocytes % (auto) 7.3 %; Neutrophils # (auto) 3.76 K/uL (1.4-6.5); Platelet Count 167 K/uL (130-400); RDW Coefficient of Variation 14.1 % (11.5-14.5); Red Blood Count 4.21 M/uL (4.7-6.1); White Blood Count 5.87 K/uL (4.8-10.8)
[2019-09-28 15:02] LABS: Appearance Urine Clear (Clear); Bilirubin Urine Negative (Negative); Blood Urine Negative (Negative); Color Urine Yellow; Glucose Urine UA Negative (Negative); Ketones Urine Negative (Negative); Leukocyte Esterase Urine Negative (Negative); Nitrite Urine Negative (Negative); Protein Urine Negative (Negative); Specific Gravity Urine 1.009 (1.000-1.030); Urobilinogen Urine Negative (Negative); pH Urine 5.5 (4.5-7.5)
[2019-09-28 15:05] LABS: BUN Creatinine Ratio 17.2 (10-20); Calcium 9.4 mg/dl (8.5-10.1); Creatinine Clr Calc Pharmacy 103.1 ml/min; Est GFR (African American) 90.3; Est GFR (Non-African American) 77.9; Potassium 4.2 mmol/L (3.5-5.1)
[2019-09-28 15:09] LABS: INR 1.8 (0.9-1.1); Partial Thromboplastin Ratio 1.4; Partial Thromboplastin Time 38.7 Seconds (21.0-31.0); Prothrombin Time 18.1 Seconds (9.0-12.0)
[~2019-10-12 06:27] MED LIST changes: +ACETAMINOPHEN 500 MG TAB ONE; +CEFAZOLIN 2,000 MG/15 ML IV PUSH IV ONE; +CeleBREX 200 MG CAP ONE; +FAMOTIDINE 20 MG TAB ONE; +GABAPENTIN 300 MG CAP ONE; +METOCLOPRAMIDE HCL 10 MG TABLET ONE; +SODIUM CHLORIDE 0.9% 1,000 ML IV SCH; -SODIUM CHLORIDE 0.9% 1000ML IV SCH; +dexAMETHasone 4 MG TAB PO ONE
--- NOTE | 2019-10-12 06:41 | Consultation ---
Date of Consultation October 12, 2019 History of Present Illness Attending Physician: Lalo Austin DO History of Present Illness Assessment & Plan (1) Lumbosacral radiculopathy: Patient for his back surgery today. He will have a filter placed prior to his surgery. I have discussed the risks options and benefits of the procedure with the patient. The patient understands the risks options and benefits and agrees to the procedure. History of Present Illness Attending Physician: Lalo Austin DO History of Present Illness 68 yo m with multiple medical problems, including lupus anticoagulant positive, hx bladder ca, HTN, Hep C, hx multiple DVT/PE, admitted with intractable back pain and lumbosacral radiculopathy, seen in the past for possible IVC filter insertion prior to spinal surgery. Per pt, he has had 2 IVC filters placed in past, but cannot articulate exactly why. One he believes was prior to a bowel surgery in 2013. Has had at least 2 DVT/PE events in past, one in 2013 and most recently in 2015 which involved a large saddle embolus as well as scattered PE's. Both IVC filters have been removed, although, according to pt, one was very difficult to remove and took a second attempt by Dr Geo Espinosa [place] [facility] [place]. Pt is hesitant to undergo another IVC filter insertion, but states he will do it if he needs to. Pt was found to be positive for lupus anticoagulant in 2016, but was negative in 2013. In 2016, pt was transferred to tertiary center for tx of his large saddle embolus. Pt has remained on AC with Coumadin since 2016. Patient here for his surgery today for his back and will have his filter placed prior. Allergies Allergy/AdvReac Type Severity Reaction Status Date / Time gabapentin AdvReac Intermediate body Verified 08/06/19 06:43 aches, "foggy" feeling amoxicillin AdvReac Mild N/V Verified 08/06/19 06:43 clavulanic acid AdvReac Mild N/V Verified 08/06/19 06:43 propoxyphene AdvReac Mild Nausea Verified 08/06/19 06:43 Home Medications Home Medications Medication Instructions Recorded Confirmed Type acetaminophen [Tylenol Extra 1,500 mg PO BID PRN 08/15/18 08/06/19 History Strength] amitriptyline 50 mg PO HS 08/15/18 08/06/19 History lisinopril 5 mg tablet 5 mg PO QAM 10/17/18 08/06/19 History lorazepam 1 mg PO TID PRN 03/08/19 08/06/19 History ranitidine 150 mg tablet 150 mg PO BID 05/16/19 08/06/19 History Medical Marijuana 1 dose INHALATION UD PRN 07/26/19 08/06/19 History aspirin 81 mg PO DAILY 07/26/19 08/06/19 History calcium carbonate [Calcium 500] 500 mg PO DAILY 07/26/19 08/06/19 History cyclobenzaprine 5 mg PO BID 07/26/19 08/06/19 History enoxaparin 100 mg/mL subcutaneous 40 mg SQ Q12H 07/26/19 08/06/19 History syringe hydrocodone-acetaminophen 1 tab PO Q8H PRN 07/26/19 08/06/19 History warfarin [Coumadin] 3 mg PO UD 07/26/19 08/06/19 History Patient History Medical History Hypertension Intractable back pain LLE radiculopathy Bladder cancer 2011-- S/P chemo/radiation Chronic venous insufficiency Deep vein thrombosis LLE DVT (2013) Fibromyalgia Hemorrhoids Hepatitis C "resolved" s/p treatment Liver lesion Peripheral neuropathy B/L arms, legs and feet Saddle embolus 2015 Sleep apnea CPAP Venous stasis ulcer "improving" right ankle s/p abx/debridement (following with wound clinic (aware of upcoming surgery)/surgeon aware) Surgical History History of bilateral cataract extraction x2 History of biopsy of bladder multiple History of bowel resection History of cardiac cath 2008= no stents History of colonoscopy History of cystoscopy multiple History of esophagogastroduodenoscopy (EGD) History of prostate biopsy benign History of repair of hiatal hernia History of right knee surgery ACL repair History of tonsillectomy and adenoidectomy History of tooth extraction History of total right knee replacement (TKR) x2 History of umbilical hernia repair x3 S/P IVC filter x2-- removed (no longer has) Status post uvulopalatopharyngoplasty Family History Grandmother (Paternal) Family history of diabetes mellitus Mother Family hx of colon cancer Other No family history of adverse response to anesthesia Social History Preferred Language: Central African Communication 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: 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 Beliefs That Will Affect Care: None marital status: Current Living Situation: Spouse Other Information That Helps Us Care for You: No Feels Safe at Home: Yes Safety Concerns: Feels Safe At This Time Smoking Status: Former smoker Tobacco Type: pipe ; Do You Dip or Chew Tobacco: No ; Smoking End Date: Quit 2007 ; Second Hand Exposure: No ; Tobacco Cessation Education Requested by Patient: No Hx Alcohol Use: Yes Alcohol type: beer and wine Hx Substance Use: No Review of Systems Review of Systems: All systems reviewed & are unremarkable except as noted in HPI & below Physical Exam Physical Exam: Constitutional: WD/WN, vitals as above well developed, well nourished, + obese, healthy appearing, well groomed, cooperative and comfortable; not in distress and not combative Eyes: PERRL, conjunctivae normal, anicteric sclerae EOM intact bilaterally ENMT: external ear and nose normal, oropharynx normal Ears: no hearing impairment Nose: no nasal discharge Throat: no posterior oropharynx abnormality Neck: trachea midline, no thyromegaly no tracheal deviation, no neck crepitus and neck nontender Respiratory: normal respiratory effort, lungs clear to auscultation able to speak in complete sentences; does not use accessory muscles and no cough Auscultation: lungs clear to auscultation bilaterally and + diminished lung sounds; no rhonchi and no wheezes Cardiovascular: Rate/Rhythm: regular rate and regular rhythm Heart Sounds: no gallop and no murmur Vessels: femoral pulses present, posterior tibial pulses present, dorsalis pedis pulses present, brachial pulses present and radial pulses present; no carotid bruit, no femoral bruit and + abnormal peripheral pulses Extremities: normal capillary refill and + edema (+1 BLE) Gastrointestinal (Abdomen): normal bowel sounds, soft, nontender, no hepatosplenomegaly Inspection/Auscultation: abdomen normal to inspection and normal bowel sounds; abdomen not distended Percussion/Palpation: abdomen soft; abdomen nontender, no guarding and abdomen not rigid Musculoskeletal: no cyanosis or clubbing, extremities motor strength 5/5 Head/Neck/Chest: normocephalic, head atraumatic and neck supple Extremities: extremities normal to inspection and + chronic stasis changes; full ROM of extremities and + abnormal strength Skin: no rashes, warm and dry no rashes, no lesions, no ulcers, no induration, no erythema, no eschar, no mottling and no pallor Trauma: no hematoma and no puncture Neurologic: moves all extremities and awake; no focal motor deficits and not confused Speech / Cognition: no expressive aphasia and no receptive aphasia Motor/Se nsory: no tremor and no sensory deficit Cranial Nerves: EOM intact bilaterally and normal facial strength Psychiatric: Orientation: alert, oriented x 3 and cooperative Apperance: appropriately dr john, appropriately groomed and appeared stated age Affect: + anxious affect Thought Process: goal directed thought process, linear/logical thought process and clear/coherent thought process Cognition: recent memory grossly intact, remote memory grossly intact, attention grossly intact and language grossly intact Estimated Intelligence: average estimated intelligence Allergies Allergy/AdvReac Type Severity Reaction Status Date / Time gabapentin AdvReac Intermediate body Verified 09/27/19 16:12 aches, "foggy" feeling amoxicillin AdvReac Mild N/V Verified 09/27/19 16:12 clavulanic acid AdvReac Mild N/V Verified 09/27/19 16:12 propoxyphene AdvReac Mild Nausea Verified 09/27/19 16:12 Home Medications Home Medications Medication Instructions Recorded Confirmed Type amitriptyline 50 mg PO HS 08/15/18 10/11/19 History lorazepam 1 mg PO TID PRN 03/08/19 10/11/19 History Medical Marijuana 1 dose INHALATION UD PRN 07/26/19 10/11/19 History hydrocodone-acetaminophen 1 tab PO Q8H PRN 07/26/19 10/11/19 History acetaminophen 500 mg tablet 1,000 mg PO Q8H PRN tab 09/13/19 10/11/19 History warfarin 3 mg tablet See Rx Instructions PO UD tab 09/13/19 10/11/19 History docusate sodium [Stool Softener] 100 mg PO DAILY PRN 09/27/19 10/11/19 History furosemide 20 mg tablet 20 mg PO QAM 09/27/19 10/11/19 History polyethylene glycol 3350 [Miralax] 17 g PO DAILY PRN 09/27/19 10/11/19 History Patient History Medical History Hypertension Chronic back pain Chronic venous insufficiency hx venous ulcer Fibromyalgia Hemorrhoids 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 History of embolism vandana (2016) Hx of bladder cancer s/p XRT/chemo (8 years ago) Hx of deep venous thrombosis Hx of hepatitis C "25 years ago" Liver lesion Peripheral neuropathy B/L arms, legs and feet Sleep apnea CPAP Surgical History History of bilateral cataract extraction History of biopsy of bladder multiple History of bowel resection X2 History of cardiac cath 2008= no stents History of colonoscopy History of cystoscopy multiple History of esophagogastroduodenoscopy (EGD) History of prostate biopsy "benign" History of repair of hiatal hernia History of right knee surgery ACL repair History of tonsillectomy and adenoidectomy History of tooth extraction History of total right knee replacement (TKR) x2 History of umbilical hernia repair x3 History of uvulopalatopharyngoplasty S/P IVC filter x2-- subsequently removed (no longer has) Family History Grandmother (Paternal) Family history of diabetes mellitus Mother Family hx of colon cancer Other No family history of adverse response to anesthesia Social History Preferred Language: Central African Communication Ability: 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
[2019-10-12] MEDS ORDERED: LIDOCAINE HCL 1% 20 ML VIAL ONE (07:32)
--- NOTE | 2019-10-12 07:35 | History & Physical Bridge Note ---
Date of Service October 12, 2019 History & Physical Bridge Note I have examined the patient, reviewed the History & Physical and in the interval since the performance of the History & Physical I have noted the following changes of clinical significance: no changes noted
--- NOTE | 2019-10-12 07:36 | History & Physical Report ---
Date of Service October 12, 2019 Assessment & Plan (1) Neurogenic claudication due to lumbar spinal stenosis: L3-L5 decompression and fusion Present on Admission?: Yes History of Present Illness Chief Complaint: Back and leg pain Primary Care Provider: Andre Patel MD This is a 60-year-old male presents with chronic persistent back and leg pain after failing course of nonoperative care is here for surgical intervention. Allergies Allergy/AdvReac Type Severity Reaction Status Date / Time gabapentin AdvReac Intermediate body Verified 09/27/19 16:12 aches, "foggy" feeling amoxicillin AdvReac Mild N/V Verified 09/27/19 16:12 clavulanic acid AdvReac Mild N/V Verified 09/27/19 16:12 propoxyphene AdvReac Mild Nausea Verified 09/27/19 16:12 Home Medications Home Medications Medication Instructions Recorded Confirmed Type amitriptyline 50 mg PO HS 08/15/18 10/11/19 History lorazepam 1 mg PO TID PRN 03/08/19 10/11/19 History Medical Marijuana 1 dose INHALATION UD PRN 07/26/19 10/11/19 History hydrocodone-acetaminophen 1 tab PO Q8H PRN 07/26/19 10/11/19 History acetaminophen 500 mg tablet 1,000 mg PO Q8H PRN tab 09/13/19 10/11/19 History warfarin 3 mg tablet See Rx Instructions PO UD tab 09/13/19 10/11/19 History docusate sodium [Stool Softener] 100 mg PO DAILY PRN 09/27/19 10/11/19 History furosemide 20 mg tablet 20 mg PO QAM 09/27/19 10/11/19 History polyethylene glycol 3350 [Miralax] 17 g PO DAILY PRN 09/27/19 10/11/19 History Past Med/Surg History Medical History Hypertension Chronic back pain Chronic venous insufficiency hx venous ulcer Fibromyalgia Hemorrhoids 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 History of embolism vandana (2016) Hx of bladder cancer s/p XRT/chemo (8 years ago) Hx of deep venous thrombosis Hx of hepatitis C "25 years ago" Liver lesion Peripheral neuropathy B/L arms, legs and feet Sleep apnea CPAP Surgical History History of bilateral cataract extraction History of biopsy of bladder multiple History of bowel resection X2 History of cardiac cath 2009= no stents History of colonoscopy History of cystoscopy multiple History of esophagogastroduodenoscopy (EGD) History of prostate biopsy "benign" History of repair of hiatal hernia History of right knee surgery ACL repair History of tonsillectomy and adenoidectomy History of tooth extraction History of total right knee replacement (TKR) x2 History of umbilical hernia repair x3 History of uvulopalatopharyngoplasty S/P IVC filter x2-- subsequently removed (no longer has) Family History Grandmother (Paternal) Family history of diabetes mellitus Mother Family hx of colon cancer Other No family history of adverse response to anesthesia Social History Preferred Language: Burkinan Communication Ability: Effective Radarman Required: No Beliefs That Will Affect Care: None marital status: Current Living Situation: Spouse Feels Safe at Home: Yes Smoking Status: Former smoker Tobacco Type: pipe ; Do You Dip or Chew Tobacco: No ; Smoking End Date: Quit 11 YR AGO ; Second Hand Exposure: No ; Hx Alcohol Use: Yes Alcohol type: beer and wine Hx Substance Use: No Physical Exam Physical Exam: Patient is alert and oriented neurologically intact. Results & Data Vital Signs (Past 12 Hours) Vital Signs Temp Pulse Resp BP Pulse Ox 10/12/19 07:16 36.7 C 74 20 132/72 79 L
--- NOTE | 2019-10-12 07:48 | History & Physical Bridge Note ---
Date of Service October 12, 2019 History & Physical Bridge Note Patient for filter insertion today prior to back surgery. I have discussed the risks options and benefits of the procedure with the patient. The patient understands the risks options and benefits and agrees to the procedure. I have examined the patient, reviewed the History & Physical and in the interval since the performance of the History & Physical I have noted the following changes of clinical significance: no changes noted
[2019-10-12 07:58] LABS: INR 1.1 (0.9-1.1); Partial Thromboplastin Ratio 1.2; Partial Thromboplastin Time 31.9 Seconds (21.0-31.0); Prothrombin Time 11.1 Seconds (9.0-12.0)
--- NOTE | 2019-10-12 07:58 | Pre Anesthesia Assessment ---
Date of Service October 12, 2019 Pre Sedation Assessment Vital Signs Temp Pulse Resp BP Pulse Ox 10/12/19 07:16 36.7 C 74 20 132/72 79 L Cardiovascular RRR, no murmur, no edema Respiratory normal respiratory effort, lungs clear to auscultation Pre-Sedation Airway Assessment Smoking Status: Former smoker Hx Sleep Apnea: Yes (cpap at night) Short, Thick Neck: No Thyromental Distance: > or= 3.5 Finger Breadths Oral Cavity: + WNL Mallampati Class: I ASA: ASA3 NPO Status Date of Last Intake of Fluids: 10/12/19 Time of Last Intake of Fluids: 06:00 Date of Last Intake of Solid Food: 10/11/19 Time of Last Intake of Solid Foods: 21:00 Procedure Planning Contraindications for Sedation: none Current Medications Reviewed: Yes Notes The planned sedation has been discussed with the patient. Informed Consent was obtained. I have identified the patient, determined the appropriateness of sedation and have assessed the patient immediately prior to the procedure. All medicine(s) and interventions are by my order.
[2019-10-12] MEDS ORDERED: fentaNYL citrate 100 MCG/2 ML VIAL ONE ×10 (08:25→14:02)
[2019-10-12] MEDS ORDERED: MIDAZOLAM HCL 1 MG/ML 2ML VIAL ONE (08:25)
--- NOTE | 2019-10-12 08:58 | Operative Report ---
Post Operative Report Pre & Post Diagnosis Operation Date: 10/12/19 08:00 Pre-Op Diagnosis: contraindication to anticoagulation for surgery Post-Op Diagnosis: contraindication to anticoagulation for surgery Operation Date: 10/12/19 10:25 <No data on this case meets the specified criteria> I identified the patient and participated in the time-out.: Yes Procedure Operation Date: 10/12/19 08:00 Actual Procedures p Insertion Of Inferior Vena Cava Filter, Right Jugular Approach, Ultrasound Localization Of Right Internal Jugular Vein, Fluoroscopy For Positioning, Moderate Concious Sedation 0841 to 0857(Right) - Jamel Savage MD Operation Date: 10/12/19 10:25 <No data on this case meets the specified criteria> Surgeon Jamel Savage MD Emr Trainer Betty Noriega MD Estimated Blood Loss 0 Findings Consistent with Post-Op Diagnosis Specimens none Anesthesia Type RN Sedation Complications none Disposition Accompanied Patient To Recovery: No Disposition: Recovery Room Indications 68 yo m with multiple medical problems, including lupus anticoagulant positive, hx bladder ca, HTN, Hep C, hx multiple DVT/PE, admitted with intractable back pain and lumbosacral radiculopathy, seen in the past for possible IVC filter insertion prior to spinal surgery. Per pt, he has had 2 IVC filters placed in past. Both have been removed and pt has been on Coumadin. He will undergo spinal surgery and therefore must be off his anticoagulation. IVC filter was recommended. I have discussed the risks options and benefits of the procedure with the patient. The patient understands the risks options and benefits and agrees to the procedure. Description of Procedure The patient was brought to the angio suite and placed in the supine position. The right side of the neck was prepped and draped in the usual fashion. The patient was identified and a timeout was performed. The right internal jugular vein was located with ultrasound. It was patent, compressed easily, and had no filling defects. The vein was then punctured under ultrasound visualization. A guidewire was then passed centrally into the inferior vena cava under fluoroscopic guidance. The puncture site was then dilated and the filter sheath inserted. It was passed to the infra renal vena cava. A venacavagram was done which showed no cava clot and an acceptable size. The renal veins were identified. The filter was then passed through the sheath and deployed in the infra renal vena cava in an upright position. Satisfied with the positioning of the filter, the sheath was removed. Pressure was applied to the puncture site. Adequate hemostasis was obtained and a sterile dressing was applied. The patient left the angio suite in good condition and tolerated the procedure well. 2.9 min fluoro and 255 mGy, Dr. Savage was present and scrubbed for the entire procedure. I attest to the content of the Intraoperative Record and any orders documented therein. Any exceptions are noted below.
[2019-10-12] MEDS ORDERED: VISIPAQUE IV PRN (09:00)
--- NOTE | 2019-10-12 09:01 | Post Anesthesia Assessment ---
Date of Service October 12, 2019 Post Sedation Assessment Vital Signs Temp Pulse Pulse Resp BP Pulse Ox 10/12/19 08:57 99 H 20 197/114 H 95 10/12/19 08:52 99 H 20 165/121 H 96 10/12/19 08:51 99 H 20 165/121 H 100 10/12/19 08:46 97 H 20 196/116 H 100 10/12/19 08:41 99 H 20 203/135 H 100 10/12/19 08:37 94 H 20 188/122 H 100 10/12/19 07:16 36.7 C 74 20 132/72 79 L Recovery Score Activity: Moves 4 extremities Respiration: Deep Breath/Cough Circulation: +/-20% PreAnes Value Consciousness: Fully Awake Oxygen Saturation: > 92% On Room Air Post Anesthesia Score: 10 Discharge Sedation Level of Care: Fast Track Phase II Post Sedation Plan On clinical assessment, the patient appears to have tolerated the sedation without complications. Patient is recovering as anticipated. Patient will continue to be monitored by nursing and may be discharged when sedation discharge criteria are met per below protocol. Upon Completions of procedure up to 15 minutes continue every 5 minute vital signs and the P.A.R. score; then discharge to a Phase I or Fast Track to Phase II per the following guidelines: * Discharge Patient to appropriate Phase II area if PAR is 8 or greater or return to pre- procedure baseline. The post - procedure orders will be as directed. * If PAR score is less than 8 or not return to pre-procedure baseline then pa tient will follow Phase I monitoring till PAR is reached for Phase II. The Phase I may be done in procedure room or may call to secure a Phase I area. * If naloxone or flumazenil are used for reversal, hold in Phase I for continued monitoring from when last reversal dose was given for a minimum of 60 minutes or longer pending the nurse and/or physician discretion of patient condition before discharge to Phase II. Please call the Sedation Physician to re-evaluate and complete post-note for discharge to Phase II area. Do NOT discharge from procedure sedation or Phase 1 until post- sedation evaluation note is complete by procedure /sedation MD Sedation Discharge Instructions to be given to the patient at discharge to home.
[2019-10-12] MEDS ORDERED: HYDROmorphone INJ 2 MG/ML SYR/VIAL ONE ×3 (09:13→13:29)
[2019-10-12] MEDS ORDERED: BACITRACIN INJ 50,000 UNIT VIAL ONE (10:44)
[2019-10-12] MEDS ORDERED: BUPIVACAINE 0.5 % 5 MG/1 ML MPF 30ML VIAL ONE (10:44)
[2019-10-12] MEDS ORDERED: EPINEPHrine INJ 1 MG/ML AMP ONE (10:44)
[2019-10-12] MEDS ORDERED: THROMBIN FOR SOLN 20000 UNIT KIT ONE (11:16)
[2019-10-12] MEDS ORDERED: GENTAMICIN SULFATE 40 MG/ML 2 ML VIAL ONE (11:33)
[2019-10-12] MEDS ORDERED: VANCOMYCIN HCL 1000MG/20ML VIAL ONE (11:33)
[2019-10-12] MEDS ORDERED: FLOSEAL HEMOSTATIC MATRIX 10ML TOP ONE (11:39)
[2019-10-12] MEDS ORDERED: ePHEDrine sulfate 50 MG/ML AMP IV PRN (11:39)
[2019-10-12] MEDS ORDERED: ONDANSETRON INJ 2 MG/ML 2 ML VIAL IV PRN ×2 (11:39→16:39)
[2019-10-12] MEDS ORDERED: ATROPINE SULFATE 0.1 MG/ML 10ML SYR IV PRN (11:39)
[2019-10-12] MEDS ORDERED: LARYING-O-JET KIT (LTA) ONE (12:29)
[2019-10-12] MEDS ORDERED: CLINDAMYCIN PHOS 300 MG/2 ML VIAL ONE (12:29)
[2019-10-12] MEDS ORDERED: raNITIdine HCl 25 MG/ML VIAL IV ONE (12:45)
[2019-10-12] MEDS ORDERED: SURGICEL ABSORB HEMOSTAT 2IN X 14IN TOP ONE (13:35)
[2019-10-12] MEDS ORDERED: ALBUMIN HUMAN 5% 12.5 GM/250 ML VIAL IV ONE (13:44)
[2019-10-12] MEDS ORDERED: GLYCOPYRROLATE 0.2 MG/ML VIAL ONE (14:00)
[2019-10-12] MEDS ORDERED: LIDOCAINE HCL 2% 2 ML VIAL/AMP(20MG/ML) INFIL ONE (14:00)
[2019-10-12] MEDS ORDERED: DEXAMETHASONE SOD INJ 4 MG/ML VIAL ONE (14:00)
[2019-10-12] MEDS ORDERED: NEOSTIGMINE METHYLSULFATE 1 MG/ML 10ML VIAL ONE (14:00)
[2019-10-12] MEDS ORDERED: KETOROLAC 30 MG/ML VIAL ONE (14:00)
[2019-10-12] MEDS ORDERED: ROCURONIUM BROMIDE 10 MG/ML 5 ML VIAL ONE (14:00)
[2019-10-12] MEDS ORDERED: ONDANSETRON INJ 2 MG/ML 2 ML VIAL ONE (14:00)
[2019-10-12] MEDS ORDERED: PROPOFOL IV EMULSION 10 MG/ML 20 ML VIAL IV ONE (14:00)
[2019-10-12 14:03] LABS: Hematocrit (blood only) 33.3 % (42-52); Hemoglobin 11.5 g/dL (14.0-18.0)
--- NOTE | 2019-10-12 14:04 | Operative Report ---
Post Operative Report Pre & Post Diagnosis Operation Date: 10/12/19 08:00 Pre-Op Diagnosis: contraindication to anticoagulation for surgery Post-Op Diagnosis: contraindication to anticoagulation for surgery Operation Date: 10/12/19 10:25 Pre-Op Diagnosis: LUMBAR SPINAL STENOSIS W/NEUROGENIC CLAUDICATION Post-Op Diagnosis: LUMBAR SPINAL STENOSIS W/NEUROGENIC CLAUDICATION I identified the patient and participated in the time-out.: Yes Procedure Operation Date: 10/12/19 08:00 Actual Procedures p Insertion Of Inferior Vena Cava Filter, Right Jugular Approach, Ultrasound Localization Of Right Internal Jugular Vein, Fluoroscopy For Positioning, Moderate Concious Sedation 0841 to 0857(Right) - Jamel Savage MD Operation Date: 10/12/19 10:25 Actual Procedures #1 lumbar decompression with bilateral medial facetectomies foraminotomies L2-3 L3-4 L4-5. #2 posterior spinal fusion L3-4 L4-5 per #3 placed posterior instrumentation L3-4 L4-5. #4 interbody fusion L3-4 L4-5. #5 placement of titanium 11 x 26 mm cage at L3-4 and 14 x 26 mm at L4-5 per #6 placement of locally harvested morselized autograft in the posterior lateral gutters. #7 placement infuse collagen sponge, mass graft in the posterior lateral gutters and ostial amp and interbody space. Surgeon Lalo Austin, DO Web Marketing Manager Lamont Panchal Estimated Blood Loss 1,200 Findings See Below The patient is 6 foot 3 inches tall weighing over 127 kg with a BMI in excess of 35. The patient's body habitus combined with a blood loss of over 1200 cc created significant technical difficulty. He did require her deepest retractors and longest instruments in order to perform the procedure. This added at least 50% increase in operative time. Specimens None Indications This is a 60-year-old male well-known to me that presents with above-mentioned diagnosis after failing extensive course of nonoperative care elected to go the above-mentioned procedure. Description of Procedure Patient was met with identified and informed consent obtained. Patient was then taken to the operative suite underwent intubation placed in a prone position the Alejandro table on top of the Matthias frame. All bony prominences well-padded eyes inspected to ensure no external pressure placed upon. This point the lumbar spine was prepped and draped in a normal sterile fashion. Sharp dissection with the assistance of Bovie cautery was performed down to and exposing the lamina and transverse processes of L3-L4-L5 bilaterally. From a caudal cephalad fashion complete laminectomy of L4 L3 and partial laminectomy of L2 was performed including bilateral medial facetectomies and foraminotomies addressing severe stenosis. Pedicle screws were then place in L3-L4-L5 bilaterally with assistance of fluoroscopy and the appropriately sized cindy placed. By way of a transforaminal approach and left complete discectomy of L4-5 was performed endplates curetted to subcortical bleeding bone and a 14 x 26 mm titanium cage filled with osteo-amp bone graft tapped in position. And then proceeded to L3-[address] of a transforaminal approach and left complete discectomy performed endplates curetted to subcortical bleeding bone and a 11 x 26 mm titanium cage filled with osteo-amp bone graft tapped in position. The rods were then locked into final position bilaterally. Transverse processes of L3 and L4 and L5 bur to subcortical bleeding bone. Infuse collagen sponge master graft and local autograft placed in the posterior lateral gutters. 15 round LAUREN drain inserted. The incision was then closed with 1 Vicryl in the fascia 2-0 Vicryl subcutaneous and 4 Monocryl for final skin closure. Steri-Strip sterile dressings placed. Patient will continue to PACU stable condition. Please note spinal cord monitoring was utilized that the procedure no changes noted. Lastly Lamont Panchal was present at the entire procedure involved in patient positioning complex portions of the surgery and final skin closure. I attest to the content of the Intraoperative Record and any orders documented therein. Any exceptions are noted below.
--- NOTE | 2019-10-12 14:19 | Fluoroscopy Report ---
LUMBAR SPINE, INTRAOPERATIVE FLUOROSCOPY HISTORY: L3-L5 posterior fusion. FLUOROSCOPY TIME: 22 seconds. FINDINGS: Intraoperative fluoroscopy was provided for the lumbar spine. 2 fluoroscopic spot images we re obtained. Posterior decompression fusion from L3 through L5 with pedicle screws and rods. There ar e also disc spacers at these levels. The hardware appears intact. An IVC filter is noted. IMPRESSION: Fluoroscopy provided for a L3-L5 posterior decompression and fusion. Electronically signed by: Frankie Cantrell M.D. 10/12/2019 2:18 PM
[2019-10-12] MEDS ORDERED: LABETALOL HCL IV 5 MG/ML 20ML IV ONE (14:30)
[2019-10-12] MEDS: fentaNYL citrate 100 MCG/2 ML VIAL IV PRN ×3 (14:43→15:25)
[2019-10-12] MEDS: HYDROmorphone INJ 2 MG/ML SYR/VIAL IV PRN ×2 (15:19→15:24)
--- NOTE | 2019-10-12 15:56 | Anesthesiology Progress Note ---
Date of Service October 12, 2019 Anesthesia Post Procedure Vital Signs Vital Signs: Temp Pulse Pulse Pulse Resp BP Pulse Ox 10/12/19 15:40 36.8 C 72 14 132/76 93 10/12/19 15:35 82 14 120/81 93 10/12/19 15:25 87 14 161/98 H 94 10/12/19 15:15 73 16 148/101 H 98 10/12/19 15:05 61 16 144/89 H 98 10/12/19 14:55 62 14 145/87 H 98 10/12/19 14:45 71 14 162/100 H 98 10/12/19 14:35 68 16 168/103 H 100 10/12/19 14:28 36.6 C 76 20 167/101 H 100 10/12/19 10:40 78 18 131/86 95 10/12/19 10:10 37 C 82 18 110/65 93 10/12/19 09:55 82 18 134/69 95 10/12/19 09:40 75 18 149/92 H 99 10/12/19 09:25 76 18 137/83 97 10/12/19 09:07 36.9 C 83 18 143/78 H 97 10/12/19 08:57 99 H 20 197/114 H 95 10/12/19 08:52 99 H 20 165/121 H 96 10/12/19 08:51 99 H 20 165/121 H 100 10/12/19 08:46 97 H 20 196/116 H 100 10/12/19 08:41 99 H 20 203/135 H 100 10/12/19 08:37 94 H 20 188/122 H 100 10/12/19 07:16 36.7 C 74 20 132/72 79 L Pain Intensity Back: Pain Intensity: 3 Transfer of Care Handoff Completed per policy Notes Mental Status: alert / awake / arousable and participated in evaluation Patient Amnestic to Procedure: Yes Nausea / Vomiting: adequately controlled Pain: adequately controlled Airway Patency, RR, SpO2: stable & adequate BP & HR: stable & adequate Hydration State: stable & adequate Anesthetic Complications: no major complications apparent and Pt Satisfied with anesthetic care
[2019-10-12] MEDS ORDERED: LORazepam 0.5 MG/1 ML VIAL IV PRN (16:39)
[2019-10-12] MEDS ORDERED: MAGNESIUM HYDROXIDE SUSP 30 ML UDC PO PRN (16:39)
[2019-10-12] MEDS ORDERED: HYDROmorphone INJ 0.5 MG/0.5 ML SYR IV PRN (16:39)
[2019-10-12] MEDS ORDERED: FAMOTIDINE 20 MG TAB PO PRN (16:39)
[2019-10-12] MEDS ORDERED: METOCLOPRAMIDE HCL INJ 5 MG/ML 2 ML VIAL IV PRN (16:39)
[2019-10-12] MEDS ORDERED: ACETAMINOPHEN 1,000 MG/100 ML VIAL IV PRN (16:39)
[2019-10-12] MEDS ORDERED: DO NOT ADMINISTER FLU VACCINE PRN (16:39)
[2019-10-12] MEDS ORDERED: NON-FORMULARY MEDICATION (Medical Marijuana 1 EA) INH PRN (16:39)
[2019-10-12] MEDS ORDERED: PROMETHAZINE HCL 12.5 MG in SODIUM CHLORIDE 0.9% 50 ML IV PRN (16:39)
[2019-10-12] MEDS ORDERED: DOCUSATE SODIUM 100 MG CAP PO PRN (16:39)
[2019-10-12] MEDS ORDERED: DO NOT ADMINISTER PNEUMOCOCCAL VACCINE PRN (16:39)
[2019-10-12] MEDS ORDERED: ONDANSETRON 4 MG OD TAB PO PRN (16:39)
[2019-10-12] MEDS ORDERED: SOD PHOSPHATE/SOD BIPHOSPHATE ENEMA 132 ML BTL PR PRN (16:39)
[2019-10-12] MEDS ORDERED: ALUMINUM/MAGNESIUM SUSP 30 ML UDC PO PRN (16:39)
[2019-10-12] MEDS ORDERED: BISACODYL 10 MG SUPP PR PRN (16:39)
[2019-10-12] MEDS ORDERED: NALOXONE HCL 0.4 MG/1 ML VIAL/CARP IV PRN (16:39)
[2019-10-12] MEDS ORDERED: MEDICAL MARIJUANA PO PRN (17:21)
[2019-10-12] MEDS ORDERED: MEDICAL MARIJUANA INH PRN (17:30)
--- NOTE | 2019-10-12 18:24 | Hospitalist Consultation ---
Date of Consultation October 12, 2019 Assessment & Plan (1) Neurogenic claudication due to lumbar spinal stenosis: - S/p lumbar decompression this afternoon by Dr. Austin. - Pain management per primary team -- currently has Tylenol, Tramadol, Oxycodone, Dilaudid ordered but is requesting EMPLOYEE COMMUNICATIONS COORDINATOR if necessary. - PT/OT for discharge planning. - Monitor CBC to evaluate for acute blood loss anemia. - DVT ppx -- will need to resume Coumadin (see below). (2) Presence of IVC filter: - S/p IVC filter placement by Dr. Savage today. - Has required 2 IVC filter placements in the past due to h/o PE/DVT. (3) History of pulmonary embolism: - H/o saddle PE in 2015 and DVT in 2013. - S/p IVC filter placement this morning. - Received Lovenox pre-op, last dose on 10/11 in the AM. - Dr. Carvajal recommends restarting Coumadin at 5 mg daily on 10/13 and 10/14 then resume home dosing. - Restart anticoagulation per Dr. Austin. (4) Bladder cancer: - H/o, ~8 years ago -- required radiation therapy and chemotherapy. (5) Chronic venous insufficiency of lower extremity: - Has required intermittent doses of Lasix -- will monitor. (6) Hypertension: - Not currently on BP meds. - Will monitor. (7) Sleep apnea: - Has CPAP machine from home -- placed order to use. (8) Peripheral neuropathy: - From previous chemotherapy. (9) Depression: - Depression and anxiety. - Continue Elavil 50 mg qhs. - Ativan prn anxiety. (10) DVT prophylaxis: - Restart home Coumadin per Dr. Austin. Currently has SCDs. Dispo: Med/surg; will continue to follow, please call with questions. History of Present Illness Reason for Consultation: medical management Attending Physician: Lalo Austin DO History of Present Illness Mr. Jones is a 68 year old with past medical history of bladder cancer, HTN, DVT/PE, Hepatitis C, obstructive sleep apnea, peripheral neuropathy, chronic venous insufficiency who presented for a planned lumbar procedure. Pt. required an IVC filter placement prior to procedure due to h/o DVT in 2013 and saddle PE in 2015. He tolerated IVC filter placement. He is doing well s/p lumbar procedure -- c/o pain at incision site with movement. Pain is rated as a 6/10, improves to 2/10 with movement. He is passing gas, no BM yet. Has a shah catheter in place, no urinary retention present. Denies chest pain, SOB. Pt. is very concerned about pain medication administration overnight -- discussed pain medication options. He inquired about a "pain pump" -- explained that we do not order a pain pump unless he uses multiple dose of IV pain meds. Allergies Allergy/AdvReac Type Severity Reaction Status Date / Time gabapentin AdvReac Intermediate body Verified 09/27/19 16:12 aches, "foggy" feeling amoxicillin AdvReac Mild N/V Verified 09/27/19 16:12 clavulanic acid AdvReac Mild N/V Verified 09/27/19 16:12 propoxyphene AdvReac Mild Nausea Verified 09/27/19 16:12 Home Medications Home Medications Medication Instructions Recorded Confirmed Type amitriptyline 50 mg PO HS 08/15/18 10/12/19 History lorazepam 1 mg PO TID PRN 03/08/19 10/12/19 History Medical Marijuana 1 dose INHALATION UD PRN 07/26/19 10/12/19 History hydrocodone-acetaminophen 1 tab PO Q8H PRN 07/26/19 10/12/19 History acetaminophen 500 mg tablet 1,000 mg PO Q8H PRN tab 09/13/19 10/12/19 History warfarin 3 mg tablet See Rx Instructions PO UD tab 09/13/19 10/12/19 History docusate sodium [Stool Softener] 100 mg PO DAILY PRN 09/27/19 10/12/19 History furosemide 20 mg tablet 20 mg PO QAM 09/27/19 10/12/19 History polyethylene glycol 3350 [Miralax] 17 g PO DAILY PRN 09/27/19 10/12/19 History enoxaparin [Lovenox] 40 mg SUBCUT DAILY 10/12/19 10/12/19 History Patient History Medical History Chronic back pain Chronic venous insufficiency hx venous ulcer Fibromyalgia Hemorrhoids 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 History of embolism vandana (2016) Hx of bladder cancer s/p XRT/chemo (8 years ago) Hx of deep venous thrombosis Hx of hepatitis C "25 years ago" Hypertension Liver lesion Peripheral neuropathy B/L arms, legs and feet Sleep apnea CPAP Surgical History History of bilateral cataract extraction History of biopsy of bladder multiple History of bowel resection X2 History of cardiac cath 2009= no stents History of colonoscopy History of cystoscopy multiple History of esophagogastroduodenoscopy (EGD) History of prostate biopsy "benign" History of repair of hiatal hernia History of right knee surgery ACL repair History of tonsillectomy and adenoidectomy History of tooth extraction History of total right knee replacement (TKR) x2 History of umbilical hernia repair x3 History of uvulopalatopharyngoplasty S/P IVC filter x2-- subsequently removed (no longer has) Family History Grandmother (Paternal) Family history of diabetes mellitus Mother Family hx of colon cancer Other No family history of adverse response to anesthesia Social History Preferred Language: Citizen Of [place] Communication Ability: Effective Document Specialist Required: No Beliefs That Will Affect Care: None marital status: Current Living Situation: Spouse Feels Safe at Home: Yes Smoking Status: Former smoker Tobacco Type: pipe ; Do You Dip or Chew Tobacco: No ; Smoking End Date: Quit 11 YR AGO ; Second Hand Exposure: No ; Hx Alcohol Use: Yes Alcohol type: beer and wine Hx Substance Use: No Review of Systems Review of Systems: All systems reviewed & are unremarkable except as noted in HPI & below Constitutional: no fever, no chills, no fatigue, no weakness and no anorexia Respiratory: no cough, no dyspnea, no dyspnea on exertion and no wheezing Cardiovascular: no chest pain, no palpitations and no edema Gastrointestinal: no abdominal pain, no nausea, no vomiting, no constipation and no diarrhea/loose stools Genitourinary: no difficulty urinating Musculoskeletal: + back pain; no joint pain Integumentary: no non-healing lesions Physical Exam Physical Exam: General: Resting comfortably, no acute distress. present at bedside. HEENT: NC/AT; PERRLA with EOMI; Hendrix conjunctiva, MMM. No erythema of posterior pharynx Neck: Supple and nontender Cardiac: RRR Lungs: Left lobe CTA, did not auscultate right lung due to back pain/inability to move. Abdomen: Bowel normoactive X 4; Nontender to palpation Extremities: Warm. +1 bilat feet edema, pitting. Neuro: No focal weakness Skin: no rash Results & Data Vital Signs (Past 12 Hours) Vital Signs Temp Pulse Pulse Pulse Resp BP Pulse Ox 10/12/19 17:31 64 17 129/76 98 10/12/19 16:05 68 14 127/72 97 10/12/19 15:50 36.6 C 71 16 114/67 96 10/12/19 15:40 36.8 C 72 14 132/76 93 10/12/19 15:35 82 14 120/81 93 10/12/19 15:25 87 14 161/98 H 94 10/12/19 15:15 73 16 148/101 H 98 10/12/19 15:05 61 16 144/89 H 98 10/12/19 14:55 62 14 145/87 H 98 10/12/19 14:45 71 14 162/100 H 98 10/12/19 14:35 68 16 168/103 H 100 10/12/19 14:28 36.6 C 76 20 167/101 H 100 10/12/19 10:40 78 18 131/86 95 10/12/19 10:10 37 C 82 18 110/65 93 10/12/19 09:55 82 18 134/69 95 10/12/19 09:40 75 18 149/92 H 99 10/12/19 09:25 76 18 137/83 97 10/12/19 09:07 36.9 C 83 18 143/78 H 97 10/12/19 08:57 99 H 20 197/114 H 95 10/12/19 08:52 99 H 20 165/121 H 96 10/12/19 08:51 99 H 20 165/121 H 100 10/12/19 08:46 97 H 20 196/116 H 100 10/12/19 08:41 99 H 20 203/135 H 100 10/12/19 08:37 94 H 20 188/122 H 100 10/12/19 07:16 36.7 C 74 20 132/72 79 L Laboratory Results 10/12/19 10/12/19 10/12/19 Range/Units 13:51 07:29 07:29 Hgb 11.5 L (14.0-18.0) g/dL Hct 33.3 L (42-52) % PT 11.1 (9.0-12.0) Seconds INR 1.1 (0.9-1.1) APTT 31.9 H (21.0-31.0) Seconds PTT Ratio 1.2 Blood Type A Positive Antibody Screen NEGATIVE Crossmatch See Detail PG Care Time/CCT Total # of Minutes Spent Total Time Spent with Patient: Total time spent is greater than 50% in coordination of care (as documented) at patient's floor/unit and/or counseling patient:
[2019-10-12] MEDS: OXYCODONE HCL IR 5 MG TAB (IMMEDIATE RELEASE) PO PRN ×2 (18:31→22:27)
[2019-10-12] MEDS: LACTATED RINGER'S 1,000 ML IV SCH ×2 (18:32→22:28)
[2019-10-12] MEDS: CLINDAMYCIN 600 MG in DEXTROSE 5% 50 ML IV SCH (18:32)
[2019-10-12] MEDS: DOCUSATE SODIUM/SENNA 50/8.6MG TAB PO SCH (20:47)
[2019-10-12] MEDS: AMITRIPTYLINE HCL 50 MG TAB PO SCH (20:47)
[2019-10-13] MEDS: CLINDAMYCIN 600 MG in DEXTROSE 5% 50 ML IV SCH (01:35)
[2019-10-13] MEDS: ACETAMINOPHEN 500 MG TAB PO PRN ×3 (01:38→19:29)
[2019-10-13] MEDS: OXYCODONE HCL IR 5 MG TAB (IMMEDIATE RELEASE) PO PRN ×4 (03:05→19:25)
[2019-10-13] MEDS ORDERED: Nursing to Pharmacy Communication ONE (05:15)
[2019-10-13] MEDS: POLYETHYLENE (MIRALAX) 17 GM PACK PO SCH ×4 (05:17→23:22)
[2019-10-13 05:53] LABS: Hematocrit (blood only) 27.2 % (42-52); Hemoglobin 9.4 g/dL (14.0-18.0); Mean Corpuscular Hemoglobin 32.3 pg (25-34); Mean Corpuscular Volume 93.5 fL (80-100); Red Blood Count 2.91 M/uL (4.7-6.1); White Blood Count 9.86 K/uL (4.8-10.8)
[2019-10-13 05:54] LABS: Basophils # (auto) 0.01 K/uL (0-0.2); Basophils % (auto) 0.1 %; Eosinophils # (auto) 0.01 K/uL (0-0.5); Eosinophils % (auto) 0.1 %; Immature Granulocytes # (auto) 0.02 K/uL (0.00-0.02); Immature Granulocytes % (auto) 0.2 %; Lymphocytes # (auto) 0.98 K/uL (1.2-3.4); Lymphocytes % (auto) 9.9 %; Mean Corpuscular Hgb Conc 34.6 g/dL (32-36); Mean Platelet Volume 9.7 fL (7.4-10.4); Monocytes # (auto) 0.91 K/uL (0.11-0.59); Monocytes % (auto) 9.2 %; Neutrophils # (auto) 7.93 K/uL (1.4-6.5); Neutrophils % (auto) 80.5 %; Platelet Count 123 K/uL (130-400); RDW Standard Deviation 47.8 fL (36.4-46.3)
[2019-10-13] MEDS ORDERED: CLINDAMYCIN 600 MG/54 ML BAG IV SCH (06:00)
[2019-10-13 06:20] LABS: BUN Creatinine Ratio 13.8 (10-20); Calcium 8.5 mg/dl (8.5-10.1); Creatinine Clr Calc Pharmacy 115.4 ml/min; Est GFR (African American) 102.3; Est GFR (Non-African American) 88.3; Potassium 4.8 mmol/L (3.5-5.1)
[2019-10-13] MEDS: LORazepam 0.5 MG TAB PO PRN ×2 (07:38→15:32)
--- NOTE | 2019-10-13 08:51 | Orthopedic Progress Note ---
Date of Service October 13, 2019 Assessment & Plan (1) Neurogenic claudication due to lumbar spinal stenosis: Overall doing well postoperative day 1 lumbar decompression fusion. We will start physical therapy today. Maintain LAUREN drain. DVT prophylaxis in the form of teds and SCDs. Coumadin is on hold for a minimum of 48 hours. Patient has had recent bowel surgery so we will keep close attention for early signs of ileus Supervising Physician Co-Signing Physician Notes Dr. Lalo Austin Subjective Patient is postoperative day 1 lumbar decompression fusion. He is doing well. Left lower extremity pain is greatly improved. No new complaints. LAUREN drain output last shift was 50 cc. H&H are 9.4 and 27.2 respectively. No new complaints. Patient also had IVC filter placement by Dr. Savage same day of surgery with Dr. Austin yesterday Review of Systems Review of Systems: All systems reviewed & are unremarkable except as noted in HPI & below Physical Exam Physical Exam: Lying in bed. No obvious distress. Alert and oriented x3. Lumbar dressing is clean dry and intact. Calves are soft nontender bilaterally strength is intact bilateral lower extremities.. Constitutional: WD/WN, vitals as above well developed Eyes: normal visual curry by confrontation ENMT: external ear and nose normal, oropharynx normal Neck: normal visual inspection Respiratory: normal respiratory effort Cardiovascular: Extremities: normal capillary refill Gastrointestinal (Abdomen): Inspection/Auscultation: abdomen normal to inspection Musculoskeletal: no cyanosis or clubbing, extremities motor strength 5/5 Extremities: extremities normal to inspection Skin: no rashes, warm and dry Neurologic: patellar DTR's 2+ bilat, sensation intact moves all extremities Psychiatric: Speech: normal rate/rhythm/volume of speech Results & Data Vital Signs (Past 12 Hours) Vital Signs Temp Pulse Resp BP Pulse Ox 10/13/19 07:25 36.7 C 80 20 121/78 97 10/13/19 03:07 36.8 C 70 16 119/75 97 10/12/19 23:13 36.6 C 81 16 128/81 95
[2019-10-13] MEDS ORDERED: FUROSEMIDE 20 MG TAB PO SCH (09:00)
--- NOTE | 2019-10-13 11:56 | Hospitalist Progress Note ---
Date of Service October 13, 2019 Assessment & Plan (1) Neurogenic claudication due to lumbar spinal stenosis: - S/p lumbar decompression on 10/12, POD#1. - Pain management per primary team. - PT/OT for discharge planning. - Monitor CBC - trending down as expected. Will require transfusion support if hgb <8. - DVT ppx -- resume Coumadin per ortho (see below). (2) Presence of IVC filter: - S/p IVC filter placement by Dr. Savage on 10/12. - Has required 2 IVC filter placements in the past due to h/o PE/DVT. (3) History of pulmonary embolism: - H/o saddle PE in 2015 and DVT in 2013. - S/p IVC filter placemen on 10/12. - Received Lovenox pre-op, last dose on 10/11 in the AM. - Dr. Carvajal recommends restarting Coumadin at 5 mg daily for 2 days then resume home dosing. - Restart anticoagulation per Dr. Austin - will hold x48 hours per ortho note from this morning. (4) Colonic volvulus: - H/o volvulus, diagnosed in July. Discharged home on 08/08, followed up with [facility] at [facility] and had a bowel resection. - Currently with constipation & hypoactive BS -- monitor closely. - Will need KUB on 10/14 if no improvement in bowel function. - Senokot S qhs, Miralax q6hr scheduled. (5) Bladder cancer: - H/o, ~8 years ago -- required radiation therapy and chemotherapy. (6) Chronic venous insufficiency of lower extremity: - Has required intermittent doses of Lasix -- does not currently have LE edema. (7) Hypertension: - Not currently on BP meds. - BP has been well controlled. (8) Sleep apnea: - Has CPAP machine from home. (9) Peripheral neuropathy: - From previous chemotherapy. (10) Depression: - Depression and anxiety. - Continue Elavil 50 mg qhs. - Ativan prn anxiety. (11) DVT prophylaxis: - Restart home Coumadin per Dr. Austin; SCDs & TEDs. Dispo: Med/surg; will continue to follow, please call with questions. Supervising Physician Co-Signing Physician Notes Patient was interviewed and examined at bedside. I reviewed above note and agree with it. I answered all of the patient's questions. My exam did not differ from the exam noted on this document. In regards to his hypertension,BP is stable, will recommend to continue with home BP meds. Subjective Pt. is doing well overall. Back pain is controlled with current meds. Has shah in place, would like to remove catheter today if possible. He is passing gas, no BM yet. Will need to monitor BMs closely due to h/o volvulus leading to colon resection ~6 weeks ago. Review of Systems Review of Systems: All systems reviewed & are unremarkable except as noted in HPI & below Constitutional: no fever, no chills, no fatigue and no weakness Respiratory: no cough, no dyspnea, no dyspnea on exertion and no wheezing Cardiovascular: no chest pain, no palpitations and no edema Gastrointestinal: + constipation; no abdominal pain, no nausea and no vomiting Genitourinary: no difficulty urinating Musculoskeletal: + back pain; no joint pain Integumentary: no non-healing lesions Physical Exam Physical Exam: General: Resting comfortably. HEENT: NC/AT; PERRLA with EOMI; [place] conjunctiva, MMM. No erythema of posterior pharynx Neck: Supple and nontender Cardiac: RRR Lungs: CTA Abdomen: Bowel hypoactive X 4; Nontender to palpation Extremities: Warm. No edema noted. Neuro: No focal weakness Skin: no rash Results & Data Vital Signs (Past 12 Hours) Vital Signs Temp Pulse Resp BP Pulse Ox 10/13/19 07:25 36.7 C 80 20 121/78 97 10/13/19 03:07 36.8 C 70 16 119/75 97 Laboratory Results 10/13/19 10/13/19 10/12/19 Range/Units 05:00 05:00 13:51 WBC 9.86 (4.8-10.8) K/uL RBC 2.91 L (4.7-6.1) M/uL Hgb 9.4 L 11.5 L (14.0-18.0) g/dL Hct 27.2 L 33.3 L (42-52) % MCV 93.5 (80-100) fL MCH 32.3 (25-34) pg MCHC 34.6 (32-36) g/dL RDW Std Deviation 47.8 H (36.4-46.3) fL RDW Coeff of Jazz 14.0 (11.5-14.5) % Plt Count 123 L (130-400) K/uL MPV 9.7 (7.4-10.4) fL Immature Gran % (Auto) 0.2 % Neut % (Auto) 80.5 % Lymph % (Auto) 9.9 % [place] % (Auto) 9.2 % Eos % (Auto) 0.1 % Baso % (Auto) 0.1 % Immature Gran # (Auto) 0.02 (0.00-0.02) K/uL Neut # (Auto) 7.93 H (1.4-6.5) K/uL Lymph # (Auto) 0.98 L (1.2-3.4) K/uL [place] # (Auto) 0.91 H (0.11-0.59) K/uL Eos # (Auto) 0.01 (0-0.5) K/uL Baso # (Auto) 0.01 (0-0.2) K/uL Sodium 140 (136-145) mmol/L Potassium 4.8 (3.5-5.1) mmol/L Chloride 107 (98-107) mmol/L Carbon Dioxide 26 (21-32) mmol/L Anion Gap 7.0 (3-11) BUN 12 (7-18) mg/dl Creatinine 0.88 (0.6-1.4) mg/dl Est Cr Clr Drug Dosing 115.4 ml/min Est GFR ( Amer) 102.3 Est GFR (Non-Af Amer) 88.3 BUN/Creatinine Ratio 13.8 (10-20) Glucose 121 H (70-99) mg/dl Calcium 8.5 (8.5-10.1) mg/dl PG Care Time/CCT Total # of Minutes Spent Total Time Spent with Patient: Total time spent is greater than 50% in coordination of care (as documented) at patient's floor/unit and/or counseling patient:
[2019-10-13] MEDS: HYDROmorphone INJ 1 MG/ML SYRINGE IV PRN ×2 (12:40→16:02)
[2019-10-13] MEDS: TRAMADOL HCL 50 MG TABLET PO PRN ×3 (13:57→23:22)
--- NOTE | 2019-10-13 14:38 | Anesthesiology Progress Note ---
Date of Service October 13, 2019 Anesthesia Post Procedure Vital Signs Vital Signs: Temp Pulse Pulse Resp BP Pulse Ox 10/13/19 12:00 36.8 C 85 18 156/88 H 94 10/13/19 07:25 36.7 C 80 20 121/78 97 10/13/19 03:07 36.8 C 70 16 119/75 97 10/12/19 23:13 36.6 C 81 16 128/81 95 10/12/19 19:32 36.3 C L 80 17 111/65 96 10/12/19 18:33 36.4 C L 72 18 119/75 94 10/12/19 17:31 64 17 129/76 98 10/12/19 16:05 68 14 127/72 97 10/12/19 15:50 36.6 C 71 16 114/67 96 10/12/19 15:40 36.8 C 72 14 132/76 93 10/12/19 15:35 82 14 120/81 93 10/12/19 15:25 87 14 161/98 H 94 10/12/19 15:15 73 16 148/101 H 98 10/12/19 15:05 61 16 144/89 H 98 10/12/19 14:55 62 14 145/87 H 98 10/12/19 14:45 71 14 162/100 H 98 Pain Intensity Back: Pain Intensity: 4 Notes Mental Status: alert / awake / arousable Patient Amnestic to Procedure: Yes Nausea / Vomiting: adequately controlled Pain: adequately controlled Airway Patency, RR, SpO2: stable & adequate BP & HR: stable & adequate Hydration State: stable & adequate Anesthetic Complications: no major complications apparent and Pt Satisfied with anesthetic care
[2019-10-13] MEDS: DOCUSATE SODIUM/SENNA 50/8.6MG TAB PO SCH (20:37)
[2019-10-13] MEDS: AMITRIPTYLINE HCL 50 MG TAB PO SCH (20:37)
[2019-10-14] MEDS: OXYCODONE HCL IR 5 MG TAB (IMMEDIATE RELEASE) PO PRN ×4 (02:30→21:47)
[2019-10-14 05:44] LABS: Hematocrit (blood only) 29.7 % (42-52); Hemoglobin 9.8 g/dL (14.0-18.0); Mean Corpuscular Hemoglobin 31.2 pg (25-34); Mean Corpuscular Volume 94.6 fL (80-100); Mean Platelet Volume 10.3 fL (7.4-10.4); Platelet Count 125 K/uL (130-400); RDW Coefficient of Variation 14.1 % (11.5-14.5); RDW Standard Deviation 48.5 fL (36.4-46.3); Red Blood Count 3.14 M/uL (4.7-6.1); White Blood Count 8.08 K/uL (4.8-10.8)
[2019-10-14] MEDS: TRAMADOL HCL 50 MG TABLET PO PRN (06:15)
[2019-10-14] MEDS: POLYETHYLENE (MIRALAX) 17 GM PACK PO SCH ×4 (06:15→23:54)
[2019-10-14 06:16] LABS: INR 1.1 (0.9-1.1); Prothrombin Time 11.2 Seconds (9.0-12.0)
[2019-10-14] MEDS: LORazepam 0.5 MG TAB PO PRN (08:23)
--- NOTE | 2019-10-14 08:37 | Orthopedic Progress Note ---
Date of Service October 14, 2019 Assessment & Plan (1) Neurogenic claudication due to lumbar spinal stenosis: We will continue with physical therapy. Continue with pain control. Continue with aggressive bowel regimen. Hospitalist service has recommended KUB if no bowel movement today. I concur with this. Obviously modest narcotic use is ideal in light of his recent abdominal surgery. maintain LAUREN drain. Anticipate discharge home within the next 24 to 48 hours. May start anticoagul ation therapy today. Supervising Physician Co-Signing Physician Notes Dr. Lalo Austin Subjective Patient is postoperative day 2 lumbar decompression fusion. Patient has noticed yesterday an episode of left lower extremity pain mostly along the thigh and knee when in the restroom. Back pain is controlled. LAUREN drain intact. Last output was 70 cc. H&H is morning are 9.8 and 27 respectively. He reports he is passing flatus but no bowel movement yet. He has had recent volvulus with subsequent bowel resection in her she roughly 1 month ago. Currently on MiraLAX and Colace. Denies nausea, distention, abdominal pain. He is up and ambulatory several hundred feet in physical therapy. Review of Systems Review of Systems: All systems reviewed & are unremarkable except as noted in HPI & below Physical Exam Constitutional: WD/WN, vitals as above well developed Eyes: normal visual curry by confrontation ENMT: external ear and nose normal, oropharynx normal Neck: normal visual inspection Respiratory: normal respiratory effort Cardiovascular: Extremities: normal capillary refill Gastrointestinal (Abdomen): Inspection/Auscultation: abdomen normal to inspection Musculoskeletal: no cyanosis or clubbing, extremities motor strength 5/5 Extremities: extremities normal to inspection Skin: no rashes, warm and dry Neurologic: patellar DTR's 2+ bilat, sensation intact moves all extremities Psychiatric: Speech: normal rate/rhythm/volume of speech Results & Data Vital Signs (Past 12 Hours) Vital Signs Temp Pulse Resp BP Pulse Ox 10/13/19 22:50 36.8 C 89 18 113/68 91
--- NOTE | 2019-10-14 11:37 | Hospitalist Progress Note ---
Date of Service October 14, 2019 Assessment & Plan (1) Neurogenic claudication due to lumbar spinal stenosis: - S/p lumbar decompression on 10/12, POD#2. - Pain management per primary team. - PT/OT evaluation. - Monitor CBC - trending down as expected post op. - DVT ppx -- resumed Coumadin per ortho (see below) (2) Presence of IVC filter: - S/p IVC filter placement by Dr. Savage on 10/12. - Has required 2 IVC filter placements in the past due to h/o PE/DVT. (3) History of pulmonary embolism: - H/o saddle PE in 2015 and DVT in 2013. - S/p IVC filter placemen on 10/12. - Received Lovenox pre-op, last dose on 10/11 in the AM. - Evaluated by Dr. Carvajal during pre-op period. - Restart Coumadin 5 mg daily x 2 days then resume home dosing at discharge (ok'ed per ortho note, recs based on outpatient note from 09/27/19) (4) Colonic volvulus: - H/o volvulus, diagnosed in July. Discharged home on 08/08, followed up with CRS at [facility] and had a bowel resection. - No BM during post op period - received MOM this morning followed by Dulcolax suppository. - Recommend KUB this afternoon if no improvement in bowel function. - Senokot S qhs, Miralax q6hr scheduled. (5) Bladder cancer: - H/o, ~8 years ago -- required radiation therapy and chemotherapy. (6) Chronic venous insufficiency of lower extremity: - Has required intermittent doses of Lasix -- no LE edema noted on exam. (7) Hypertension: - Not currently on BP meds. - BP is mildly elevated, possibly related to pain. (8) Sleep apnea: - Has CPAP machine from home. (9) Peripheral neuropathy: - From previous chemotherapy. (10) Depression: - Depression and anxiety. - Continue Elavil 50 mg qhs. - Ativan prn anxiety. (11) DVT prophylaxis: - Restarted home Coumadin per Dr. Austin; SCDs & TEDs. Dispo: Med/surg; will continue to follow, please call with questions. Subjective Pt. is doing well overall. Pain is controlled. Is passing gas but has not had a BM yet. Had MOM this morning, will also receive a Dulcolax suppository. Keller removed, is voiding without difficulty. He is ambulating in halls. Review of Systems Review of Systems: All systems reviewed & are unremarkable except as noted in HPI & below Constitutional: no fever, no chills, no fatigue and no weakness Respiratory: no cough, no dyspnea, no dyspnea on exertion and no wheezing Cardiovascular: no chest pain, no palpitations and no edema Gastrointestinal: + constipation; no abdominal pain, no nausea and no vomiting Genitourinary: no difficulty urinating Musculoskeletal: + back pain; no joint pain Integumentary: no non-healing lesions Physical Exam Physical Exam: General: Resting comfortably, no acute distress. HEENT: NC/AT; PERRLA with EOMI; [place] conjunctiva, MMM. No erythema of posterior pharynx Neck: Supple and nontender Cardiac: RRR Lungs: CTA throughout Abdomen: Bowel normoactive X 4; Nontender to palpation Extremities: Warm. No edema noted. Neuro: No focal weakness Skin: no rash Results & Data Vital Signs (Past 12 Hours) Vital Signs Temp Pulse Resp BP Pulse Ox 10/14/19 11:11 36.7 C 99 H 18 144/87 H 94 Laboratory Results 10/14/19 10/14/19 Range/Units 04:41 04:41 WBC 8.08 (4.8-10.8) K/uL RBC 3.14 L (4.7-6.1) M/uL Hgb 9.8 L (14.0-18.0) g/dL Hct 29.7 L (42-52) % MCV 94.6 (80-100) fL MCH 31.2 (25-34) pg MCHC 33.0 (32-36) g/dL RDW Std Deviation 48.5 H (36.4-46.3) fL RDW Coeff of Jazz 14.1 (11.5-14.5) % Plt Count 125 L (130-400) K/uL MPV 10.3 (7.4-10.4) fL PT 11.2 (9.0-12.0) Seconds INR 1.1 (0.9-1.1) PG Care Time/CCT Total # of Minutes Spent Total Time Spent with Patient: Total time spent is greater than 50% in coordination of care (as documented) at patient's floor/unit and/or counseling patient:
[2019-10-14] MEDS: ACETAMINOPHEN 500 MG TAB PO PRN ×2 (14:12→23:58)
[2019-10-14] MEDS ORDERED: WARFARIN SOD 5 MG TAB PO SCH (16:00)
[2019-10-14] MEDS: AMITRIPTYLINE HCL 50 MG TAB PO SCH (20:17)
[2019-10-14] MEDS: DOCUSATE SODIUM/SENNA 50/8.6MG TAB PO SCH (20:17)
[2019-10-15] MEDS: OXYCODONE HCL IR 5 MG TAB (IMMEDIATE RELEASE) PO PRN ×2 (04:12→08:17)
[2019-10-15 05:09] LABS: Hematocrit (blood only) 29.6 % (42-52); Hemoglobin 10.1 g/dL (14.0-18.0); Mean Corpuscular Hgb Conc 34.1 g/dL (32-36); Mean Corpuscular Volume 93.7 fL (80-100); Mean Platelet Volume 9.4 fL (7.4-10.4); Platelet Count 119 K/uL (130-400); RDW Coefficient of Variation 13.6 % (11.5-14.5); Red Blood Count 3.16 M/uL (4.7-6.1)
[2019-10-15 05:21] LABS: INR 1.3 (0.9-1.1); Prothrombin Time 12.8 Seconds (9.0-12.0)
[2019-10-15] MEDS: POLYETHYLENE (MIRALAX) 17 GM PACK PO SCH ×2 (05:45→11:30)
[2019-10-15] MEDS: TRAMADOL HCL 50 MG TABLET PO PRN ×2 (06:57→11:27)
--- NOTE | 2019-10-15 12:55 | Discharge Summary ---
Date of Service October 15, 2019 Admission HPI Per Admitting Provider This is a 60-year-old male presents with chronic persistent back and leg pain after failing course of nonoperative care is here for surgical intervention. Principal Diagnosis Lumbar spinal stenosis with neurogenic claudication Discharge Data Allergies Allergy/AdvReac Type Severity Reaction Status Date / Time gabapentin AdvReac Intermediate body Verified 09/27/19 16:12 aches, "foggy" feeling amoxicillin AdvReac Mild N/V Verified 09/27/19 16:12 clavulanic acid AdvReac Mild N/V Verified 09/27/19 16:12 propoxyphene AdvReac Mild Nausea Verified 09/27/19 16:12 Consultations 10/12/19 16:39 Consult Case Management - Discharge Planning Routine Consult Hospitalist Routine Procedures Performed Operation Date: 10/12/19 08:00 Actual Procedures p Insertion Of Inferior Vena Cava Filter, Right Jugular Approach, Ultrasound Localization Of Right Internal Jugular Vein, Fluoroscopy For Positioning, Moder ate Concious Sedation 0841 to 0857(Right) - Jamel Savage MD Operation Date: 10/12/19 10:25 Actual Procedures p L3-L5 Decompression and Fusion with Spinal Cord Monitoring, Interbody L3-L4 and L4-L5(Not Applicable) - Lalo Austin DO Ordered Studies 10/12/19 07:14 EV IVC filter placement Routine 10/12/19 10:25 FL fluoroscopy <1hr Routine FL lumbar spine 2-3V Routine Hospital Course (1) Neurogenic claudication due to lumbar spinal stenosis: Patient underwent multilevel lumbar decompression fusion tolerated as well as taken the orthopedic for postoperative. Postop day 1 he was up and ambulating with therapy progress the postop day #2. Postop day #3 his LAUREN drain decreased probably pain was well controlled subsequently he was discharged home. Discharge orders instructions from the chart for further review. Total Time Total Time Spent Total Time Spent (In Minutes): 20 minutes Discharge Plan Discharge Items Patient Disposition: Home - Self-Care Reason For Visit: DVT, PE, LUMBAR SPINAL STENOSIS W/NEUROGENIC YASMANI Discharge Diagnosis: Lumbar spinal stenosis with neurogenic claudication Activity: As commented below Non-emergency contact: Primary Care Provider Call non-emergency contact if: you have any medication questions Follow-up/Referrals: Andre Patel MD [Primary Care Provider] - Diet: Regular Addtl Attending Provider Instructions: ACTIVITY RECOMMENDATIONS: SELF CARE INSTRUCTIONS AFTER THORACIC/LUMBAR FUSIONS 1. You may walk to your tolerance. It is good exercise for your legs and back. Expect some back and intermittent leg aches and pains. 2. You may perform "counter-top" level activities (make a sandwich, hudson with a project, etc.). 3. No bending or lifting of more than 10 pounds or back twisting of any nature (roll like a log when turning in bed). 4. You may ride in a car for 20-30 minutes at a time. No driving until after your first visit with your doctor. 5. Frequent changes of position and restricting sitting to 30 minutes at a time will help limit the amount of back spasms and stiffness you may experience. 6. You may discontinue the use of ambulatory aids (cane, crutches, etc.) once your strength and confidence allow. 7. You may automotive maintenance technician the shower and let water strike your incision when you arrive home at least once daily. Do not take a tub bath, sit in a hot tub or go into a swimming pool until after your first recheck in the office. SPECIAL CARE INSTRUCTIONS: VERY IMPORTANT TO READ AND REVIEW A. Your surgical incision has been closed with a cosmetic suture under the skin that will dissolve in about 6 weeks. In 14 days, you can use a pair of clean scissors and cut the suture that is left outside of the skin at the ends of your incision. 1. The small skin tapes can be removed 7 days after surgery if they have not fallen off by that point. 2. You may keep the wound open to air as much as possible to promote healing after post-op day number 5 unless told otherwise by your doctor. 3. If you think the wound looks like it is becoming infected (redness or worsening drainage) and/or you are experiencing fever, chill or worsening back pain and muscle spasms, contact the office so that we may evaluate you as soon as possible. B. Complications are uncommon, but please contact us if you have any signs or symptoms of: 1. wound infection (fever higher than 102.5 degrees F, redness, separation of wound, drainage, or increasing pain from the incision) 2. blood clots in legs (pain, swelling, redness and warmth in legs) 3. urinary tract infection (fever higher than 102.5 degrees F, burning upon urination or increased frequency of urination) 4. nerve problems (inability to walk on your toes or heels, numbness, loss of bowel or bladder control) 5. any other symptoms that concern you C. Please call the office at if you have any concerns or questions about your operation or recovery. D. No smoking! Smoking drastically decreases the chance of a solid fusion. E. Do not take any anti-inflammatory medications (Indocin, Advil, Motrin, Aspirin, Naprosyn, etc.) as these may inhibit the chance of a solid fusion. Tylenol is okay to take for pain. MANAGING PAIN AFTER SPINAL SURGERY 1. Narcotic medication is intended for short-term use and will be provided for surgical pain. Surgical pain usually lasts for a period of 4-6 weeks. Narcotic medication includes Percocet, Vicodin, Darvocet, Tylenol #3 or Lortab. 2. Longer-term pain is more appropriately treated with non-narcotic medication such as Tylenol ES. 3. Muscle spasm is not appropriately treated with narcotics. Muscle relaxers such as Soma, Flexeril or Skelaxin can be used along with Tylenol ES. 4. Remember that we all live with some "aches and pains". This is not unusual or uncommon after an injury or as we get older. a. Back pain is expected and may include muscle spasms for 4 to 6 weeks after surgery. The pain should gradually improve. If the pain worsens for no apparent reason, please contact the office. b. Intermittent leg pain may also be experienced and should not be concerned about unless it worsens for no apparent reason. If so, please contact the office. 5. We will provide appropriate medication within the normal guidelines of their prescribed use. We will also be very cautious and aware of potential abuse and extended duration of patients' medication needs. a. Pain medications are for your comfort and to assist with sleep and rest so that the tissue can heal. They are not provided in order to return to normal activity and should not be used through the day. To do so or worsening pain at night can result from ongoing tissue damage and development of tolerance to the prescribed medicine. 6. Please allow 2-3 days to process refills. Prescriptions will not be mailed but must be picked up at the office. FOLLOW UP VISIT: Keep your scheduled follow-up appointment. Any questions, please call the office at . Pending Studies at Discharge: No Stand-Alone Forms: My [facility], Opioid Pain Management Medications and DC Order Prescriptions: New hydrocodone-acetaminophen 5-325 mg tablet See Rx Instructions .ROUTE .COMPLEX PRN (Reason: pain) Qty: 30 RF: 0 Continued amitriptyline 50 mg Tablet 50 mg PO HS RF: 0 acetaminophen [Tylenol Extra Strength] 500 mg tablet 1,000 mg PO Q8H PRN (Reason: Pain) RF: 0 furosemide 20 mg tablet 20 mg PO QAM RF: 0 warfarin [Coumadin] 3 mg tablet See Rx Instructions PO UD RF: 0 lorazepam 1 mg Tablet 1 mg PO TID PRN (Reason: Anxiety) RF: 0 polyethylene glycol 3350 [Miralax] 17 gram Powder In Packet 17 g PO DAILY PRN (Reason: Constipation) RF: 0 docusate sodium [Stool Softener] 100 mg Capsule 100 mg PO DAILY PRN (Reason: Constipation) RF: 0 enoxaparin [Lovenox] 40 mg/0.4 mL Syringe 40 mg subcut DAILY RF: 0 hydrocodone-acetaminophen 7.5-325 mg Tablet 1 tab PO Q8H PRN (Reason: Pain) RF: 0 Medical Marijuana 1 dose inhalation UD PRN (Reason: Pain) RF: 0 Discharge Orders: Discharge Order (Routine); Ordered 10/15/19 Ordered By: Lalo Jaffe/Other Patient Handouts: DVT Prevent Admission Data Admit Date/Time: 10/12/19 14:27 Attending Provider: Lalo Austin Admit Provider: Lalo Austin Primary Care Provider: Andre Patel Other Providers: Jamel Savage ; [facility] ; Pedro Campbell Other Interventions: Discharge Summary Assessment (RN) Last Done: 10/15/19 11:42
--- NOTE | 2019-10-15 13:28 | Hospitalist Progress Note ---
Date of Service October 15, 2019 Assessment & Plan (1) Neurogenic claudication due to lumbar spinal stenosis: - S/P Lumbar Decompression on 10/12 - Surgical management per primary team; PT/OT - Hgb slightly increased on labs today - no indication for transfusion - DVT prophylaxis - Coumadin - INR currently at 1.3 (2) History of pulmonary embolism: - H/O Saddle PE (2015) and DVT (2013); S/P IVC placement on 10/12 - Was on Lovenox preoperatively; Planning for Coumadin 5 mg daily x 2 doses then resume home dosing at D/C with F/U monitoring of INR for further adjustments (3) Colonic volvulus: - H/O Volvulus (Jul 2019) and S/P Bowel Resection - Had multiple BMs overnight; maintain good bowel regimen/ambulation (4) Bladder cancer: - Approx. 8 years ago - treated with radiation/chemotherapy (5) Chronic venous insufficiency of lower extremity: - Has required intermittent doses of Lasix -- no LE edema noted on exam (6) Hypertension: - Not currently on BP meds - BP is mildly elevated, possibly related to pain; can be monitored as outpatient (7) Sleep apnea: - Has CPAP machine from home (8) Peripheral neuropathy: - From previous chemotherapy - Amitriptyline 50 mg HS (9) Depression: - Depression and anxiety - Continue Elavil 50 mg HS and Ativan PRN (10) DVT prophylaxis: - Coumadin Dispo: Planning on D/C today Subjective Reports feeling well today. States his pain is under control and is improving with walking around. He moved his bowels overnight. Tolerating a diet. Denies any new complaints. Review of Systems Constitutional: no fever and no chills Respiratory: no cough and no dyspnea Cardiovascular: no chest pain and no edema Gastrointestinal: no abdominal pain, no nausea, no vomiting, no constipation and no diarrhea/loose stools Genitourinary: no dysuria Musculoskeletal: + back pain (Controlled with medication) Integumentary: no rash Physical Exam Constitutional: WD/WN, vitals as above Eyes: + anicteric sclerae ENMT: Ears: no hearing impairment Mouth: oral mucous membranes not dry Neck: trachea midline Respiratory: normal respiratory effort, lungs clear to auscultation Cardiovascular: RRR, no murmur, no edema Gastrointestinal (Abdomen): Inspection/Auscultation: normal bowel sounds Percussion/Palpation: abdomen soft; abdomen nontender Musculoskeletal: Head/Neck/Chest: normocephalic and head atraumatic Extremities: no cyanosis and no clubbing LAUREN drain present with serosang fluid Skin: no rashes, warm and dry Neurologic: moves all extremities Psychiatric: A+Ox3, euthymic affect Results & Data Vital Signs (Past 12 Hours) Vital Signs Temp Pulse Pulse Resp BP BP Pulse Ox 10/15/19 12:22 36.6 C 105 H 14 146/96 H 94 10/15/19 11:42 36.9 C 68 93 H 16 142/89 H 92 10/15/19 06:07 36.9 C 93 H 16 142/89 H 92 PG Care Time/CCT Total # of Minutes Spent Total Time Spent with Patient: Total time spent is greater than 50% in coordination of care (as documented) at patient's floor/unit and/or counseling patient:
== END 2019-10-15 13:36 | disposition home or self-care (01) | DRG 455 ==
LOC: ASU 06:27 → 3E 14:27

== ENCOUNTER 2022-12-12 09:44 | Inpatient (IN) ==
--- NOTE | 2022-12-12 10:12 | Emergency Department Note ---
Impression & Plan Ambulatory dysfunction ADMIT ED Provider Note HPI: The patient is a 72-year-old male with history of DVT, on chronic anticoagulation with Coumadin, presents to the emergency department with a chief complaint of right ankle pain, left knee pain, and acute on chronic lower back pain after a fall yesterday. Patient states he has bilateral lower extremity weakness that began yesterday morning when he was standing near his dresser and his legs "gave out". He states he had weakness in both of his legs when he fell. He states he was unable to ambulate since. Patient states this did not improve over the past 24 hours and therefore he came to the emergency department today for assessment. Patient denies any bowel or bladder incontinence or retention, denies any saddle anesthesia, denies any new back pain states he does have chronic back pain, denies any recent fevers. ROS: - Per HPI *Outpatient medications and allergy history reviewed. *Pertinent external medical records reviewed. PE: General: Alert HEENT: Normocephalic, trachea midline Eyes: Extraocular eye movement is intact, no scleral erythema Pulmonary: Clear to auscultation bilaterally, no wheezing Cardio: Regular rate and rhythm GI: Abdomen is soft, nontender : No suprapubic tenderness MSK: Moderate swelling of the right ankle without any discoloration, no evidence of any open wounds, limited range of motion secondary to pain Skin: No evidence of rash Neuro: Alert, no focal deficits, patient maintains flexion at the hips bilaterally with some limitation in the right hip secondary to chronic pain, sensation is intact with light touch, patient is able to dorsiflex and plantarflex the left foot without issue, some limitation in the right lower extremity with dorsiflexion plantarflexion secondary to pain in the right ankle Psychiatric: Cooperative manager monitoring: - An order was placed for continuous cardiac monitoring - Patient was noted to be in sinus rhythm with a rate of 90 EKG: (As interpreted by myself): Rate: 94 Rhythm: Sinus rhythm Intervals: Within normal limits ST changes: No ST elevation Time: 0950 Interventions provided in ED: -Cyclobenzaprine, IV fluid bolus Medical Decision Making: Patient presented to the emergency department with ongoing ambulatory dysfunction and lower extremity weakness that has been present for several weeks. He states he has had multiple falls at home. Patient states he fell yesterday (about 24 hours ago) and had an injury to his right ankle and also has some left knee pain that is acute on chronic in nature. Patient states he has had difficulty with ambulation since this fall. He states that his legs "gave out". On arrival here to the ED the patient appears to be in no acute distress, he does have motor and sensory function intact distally in the lower extremities on my examination, denies any red flag findings for cauda equina syndrome recently, specifically denies any urinary incontinence or retention, denies any bowel incontinence or retention, denies any saddle anesthesia, sensory function is intact distally in the lower extremities, he states his legs do feel weak but on my examination he does maintain flexion at the hips bilaterally and does have dorsiflexion and plantarflexion intact with some limitation in the right lower extremity secondary to ankle injury. X-ray imaging does show evidence of a bimalleolar fracture in the right ankle, x-ray imaging of the left knee shows osteoarthritis, no fracture. CT imaging of the head does not show any evidence of any acute intracranial bleeding as the patient is noted to be on Coumadin. CT imaging of the lumbar spine without contrast does not show any evidence of fracture. Case was discussed with on-call orthopedics, Dr. Swift, who did review x-ray imaging of the patient's right ankle, recommends cam boot and weightbearing as tolerated. Given the patient's ambulatory dysfunction I did discuss options with the patient and his , I did recommend MRI imaging for his lower extremity weakness however patient states that he gets muscle spasms in his legs and he absolutely could not tolerate an MRI today despite my offering me dications to help him through the process. At this time, given the patient's ambulatory dysfunction I feel that he would benefit from inpatient admission. He is not a candidate for direct placement to rehabilitation facility and I feel that he would benefit from inpatient admission with PT/OT consultation and possibly orthopedic consultation. Patient is in agreement to this. Case was discussed with the on-call hospitalist, Dr. Allen, and the patient was placed for admission in stable condition for further care. Disposition discussion held by myself with: Patient and at bedside Diagnosis: 1. Ambulatory dysfunction, acute on chronic 2. Right ankle fracture, bimalleolar 3. Muscle spasms, bilateral lower extremities 4. Osteoarthritis of the left knee, acute on chronic pain 5. Chronic lower back pain 6. 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 Sleep apnea CPAP Surgical History History of bilateral cataract extraction History of biopsy of bladder multiple History of bowel resection X2 History of cardiac cath 2009= no stents History of colonoscopy History of cystoscopy multiple History of esophagogastroduodenoscopy (EGD) History of prostate biopsy "benign" History of repair of hiatal hernia History of right knee surgery ACL repair History of tonsillectomy and adenoidectomy History of tooth extraction History of total right knee replacement (TKR) x2 History of umbilical hernia repair x3 History of uvulopalatopharyngoplasty S/P IVC filter x3 Family History Grandmother (Paternal) Family history of diabetes mellitus Mother Family hx of colon cancer Brother Bladder cancer Father Accidental Other No family history of adverse response to anesthesia Social History Smoking Status: Former smoker Tobacco Type: Cigarettes Second Hand Exposure: No; Hx Alcohol Use: Yes Alcohol type: beer Hx Substance Use: No Preferred Language: Bolivian Communication Ability: Effective Visual Impairment: No Limitations Hearing Ability: Normal 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: No Beliefs That Will Affect Care: None marital status: Current Living Situation: Spouse Feels Safe at Home: Yes Assistive Devices: Cane and CPAP Allergies Allergies Allergy/AdvReac Type Severity Reaction Status Date / Time ragweed pollen Allergy Mild Sneezing Verified 07/14/20 15:43 gabapentin AdvReac Intermediate body Verified 07/14/20 15:43 aches, "foggy" feeling amoxicillin AdvReac Mild N/V Verified 07/14/20 15:43 clavulanic acid AdvReac Mild N/V Verified 07/14/20 15:43 propoxyphene AdvReac Mild Nausea Verified 07/14/20 15:43 Home Meds Home Medications Medication Instructions Recorded Confirmed lorazepam 1 mg tablet 1 mg PO TID PRN Anxiety 03/08/19 11/10/22 Medical Marijuana 1 dose inhalation UD PRN Pain 07/26/19 11/10/22 polyethylene glycol 3350 17 gram 17 g PO DAILY PRN constipation 05/27/2010/22 oral powder packet (Miralax) amitriptyline 50 mg tablet 75 mg PO HS 09/02/20 11/10/22 ascorbate calcium (vitamin C) 500 500 mg PO DAILY 10/09/20 11/10/22 mg tablet cholecalciferol (vitamin D3) 25 1,000 unit PO DAILY 10/09/20 11/10/22 mcg (1,000 unit) capsule multivitamin 1 tab PO DAILY 07/14/22 11/10/22 turmeric root extract 500 mg tablet 500 mg PO DAILY 09/27/22 11/10/22 tramadol 50 mg tablet 50 mg PO DAILY PRN pain 11/10/22 11/10/22 Previous Rx's Medication Instructions Recorded CPAP Machine #1 ea 01/17/20 CPAP Supplies #1 ea 01/17/20 warfarin 3 mg tablet See Rx Instructions PO UD #90 tabs 03/05/21 Results & Data (ED) Vital Signs Vital Signs - 24 hr 12/12/22 09:56 12/12/22 10:14 Temperature 37.2 C Temperature Source Temporal Artery Scan Pulse Rate 86 Pulse Rhythm Regular Pulse Strength Normal Respiratory Rate 20 Respiratory Effort / Characteristics Non-Labored Spontaneous Respiratory Depth Normal Respiratory Pattern Regular Blood Pressure 205/114 H Blood Pressure Mean 144 Blood Pressure Position Sitting Pulse Oximetry 96 96 Oxygen Delivery Method Room Air Room Air Sepsis Recent Fever Within 48 Hours No Sepsis New/Unexplained Change in Mental Status N/A Sepsis Action Taken by Nursing No Action Required Laboratory Data 12/12/22 10:00 12/12/22 10:00 Lab Results 12/12/22 12/12/22 12/12/22 Range/Units 10:00 10:00 10:00 WBC 8.81 (4.8-10.8) K/ul RBC 4.73 (4.63-6.08) M/uL Hgb 15.1 (14.0-18.0) g/dl Hct 42.8 (40.1-51.0) % MCV 90.5 (80.0-100.0) fL MCH 31.9 (25.0-34.0) pg MCHC 35.3 (32.0-36.0) g/dL RDW Std Deviation 43.0 (36.4-46.3) fL RDW Coeff of Jazz 13.0 (11.5-14.5) % Plt Count 216 (130-400) K/uL MPV 9.8 (9.4-12.4) fL Immature Gran % (Auto) 0.3 % Neut % (Auto) 75.8 % Lymph % (Auto) 15.3 % [place] % (Auto) 7.5 % Eos % (Auto) 0.8 % Baso % (Auto) 0.3 % Neut # (Auto) 6.67 H (1.4-6.5) K/uL Lymph # (Auto) 1.35 (1.2-3.4) K/uL [place] # (Auto) 0.66 (0.24-0.82) K/uL Eos # (Auto) 0.07 (0-0.50) K/uL Baso # (Auto) 0.03 (0-0.2) K/uL Immature Gran # (Auto) 0.03 H (0.00-0.02) K/uL PT 30.7 H (9.0-12.0) Seconds INR 3.1 H (0.9-1.1) Sodium 139 (136-145) mmol/L Potassium 4.0 (3.5-5.1) mmol/L Chloride 102 (98-107) mmol/L Carbon Dioxide 26 (21-32) mmol/L Anion Gap 11 (3-11) BUN 15 (6-23) mg/dl Creatinine 0.92 (0.6-1.4) mg/dl Est Cr Clr Drug Dosing 106.1 ml/min Est GFR ( Amer) 96.0 ml/min Est GFR (Non-Af Amer) 82.8 ml/min BUN/Creatinine Ratio 16.3 (10-20) Glucose 124 H (70-99(Fasting)) mg/dl Calcium 9.5 (8.5-10.1) mg/dl Magnesium (1.7-2.4) mg/dl Total Bilirubin 1.8 H (0.2-1.0) mg/dl AST 19 (13-39) U/L ALT 13 (7-52) U/L Alkaline Phosphatase 71 (34-104) U/L Total Protein 7.6 (6.0-8.3) gm/dl Albumin 4.2 (3.4-5.0) gm/dl Globulin 3.4 (2.5-4.0) gm/dl Albumin/Globulin Ratio 1.2 (0.9-2) SARS-CoV-2, RNA, NAAT (NEGATIVE) 12/12/22 12/12/22 Range/Units 10:00 12:56 WBC (4.8-10.8) K/ul RBC (4.63-6.08) M/uL Hgb (14.0-18.0) g/dl Hct (40.1-51.0) % MCV (80.0-100.0) fL MCH (25.0-34.0) pg MCHC (32.0-36.0) g/dL RDW Std Deviation (36.4-46.3) fL RDW Coeff of Jazz (11.5-14.5) % Plt Count (130-400) K/uL MPV (9.4-12.4) fL Immature Gran % (Auto) % Neut % (Auto) % Lymph % (Auto) % [place] % (Auto) % Eos % (Auto) % Baso % (Auto) % Neut # (Auto) (1.4-6.5) K/uL Lymph # (Auto) (1.2-3.4) K/uL [place] # (Auto) (0.24-0.82) K/uL Eos # (Auto) (0-0.50) K/uL Baso # (Auto) (0-0.2) K/uL Immature Gran # (Auto) (0.00-0.02) K/uL PT (9.0-12.0) Seconds INR (0.9-1.1) Sodium (136-145) mmol/L Potassium (3.5-5.1) mmol/L Chloride (98-107) mmol/L Carbon Dioxide (21-32) mmol/L Anion Gap (3-11) BUN (6-23) mg/dl Creatinine (0.6-1.4) mg/dl Est Cr Clr Drug Dosing ml/min Est GFR ( Amer) ml/min Est GFR (Non-Af Amer) ml/min BUN/Creatinine Ratio (10-20) Glucose (70-99(Fasting)) mg/dl Calcium (8.5-10.1) mg/dl Magnesium 1.7 (1.7-2.4) mg/dl Total Bilirubin (0.2-1.0) mg/dl AST (13-39) U/L ALT (7-52) U/L Alkaline Phosphatase (34-104) U/L Total Protein (6.0-8.3) gm/dl Albumin (3.4-5.0) gm/dl Globulin (2.5-4.0) gm/dl Albumin/Globulin Ratio (0.9-2) SARS-CoV-2, RNA, NAAT NEGATIVE (NEGATIVE) Administered Medications Discontinued Medications Cyclobenzaprine HCl (Cyclobenzaprine Hcl 10 Mg Tab) 10 mg PO NOW STA Stop: 12/12/22 11:44 Last Admin: 12/12/22 11:53 Dose: 10 mg Documented By: MEDHAT Sodium Chloride (Nss 1000ml) 1,000 mls @ 999 mls/hr IV .Q1H1M ONE Stop: 12/12/22 12:53 Last Infusion: 12/12/22 13:07 Dose: 0 mls/hr Documented By: Admin: 12/12/22 12:06 Dose: 999 mls/hr Documented By: MEDHAT Imaging Data Radiologist's Impression: Ankle X-Ray 12/12/22 10:09 XR ankle RT min 3V routine HISTORY: 72 years-old Male fall, R ankle pain acute right ankle pain status post fall COMPARISON: 01/27/2018 TECHNIQUE: 3 views of the right ankle FINDINGS: There is an acute obliquely oriented fracture of the distal fibular metaphysis with 3 mm lateral displacement. Fracture extends to the level of the talar dome. Moderate circumferential soft tissue swelling. Mild osteoarthritis. Subtle acute nondisplaced posterior malleolar fracture. IMPRESSION: Acute minimally displaced distal fibular fracture with subtle acute nondisplaced posterior malleolar fracture ACT 112: Negative or not required by law. The above report was generated using voice recognition software. It may contain grammatical, syntax or spelling errors. Electronically signed by: Álvaro Waller M.D. 12/12/2022 11:[address] 12/12/22 10:09 CT head/brain wo con CLINICAL HISTORY: 72 years-old Male with fall, On coumadin. Acute head injury status post fall TECHNIQUE: Multiple axial CT images of the head were obtained without contrast. A dose lowering technique was utilized adhering to the principles of ALARA. CT DOSE: 1894.46 mGy.cm COMPARISON: None. FINDINGS: No acute intracranial hemorrhage, midline shift, intracranial mass, hydrocephalus, territorial ischemia or abnormal extra-axial collection. Motion degraded exam. Involutional changes with chronic microvascular ischemic disease. Cerebral vascular calcifications. Subcentimeter likely chronic lacunar infarcts of the cerebellum. The calvarium is intact. Mild mucosal thickening of the maxillary sinuses. Mastoid air cells are clear. Prior bilateral lens repair. IMPRESSION: Motion degraded exam. No acute intracranial abnormality or calvarial fracture identified. ACT 112: Negative or not required by law. The above report was generated using voice recognition software. It may contain grammatical, syntax or spelling errors. Electronically signed by: Álvaro Waller M.D. 12/12/2022 11:21 AM Knee X-Ray 12/12/22 10:09 XR knee LT 3V HISTORY: 72 years-old Male fall, L knee pain . Pain and swelling of the left knee status post COMPARISON: 07/15/2016 TECHNIQUE: 3 views of the left knee FINDINGS: Mild anteromedial soft tissue swelling. Trace joint effusion. No acute fracture or dislocation identified. Mild lateral with mild to moderate medial and moderate patellofemoral compartment osteoarthritis. IMPRESSION: 1. Mild soft tissue swelling without acute fracture or dislocation. 2. Tricompartmental osteoarthritis, moderate within the patellofemoral compartment. ACT 112: Negative or not required by law. The above report was generated using voice recognition software. It may contain grammatical, syntax or spelling errors. Electronically signed by: Álvaro Waller M.D. 12/12/2022 10:[address] 12/12/22 10:09 CT lumbar spine wo con HISTORY: 72 years-old Male fall, lower back pain lower back pain status post fall COMPARISON: CT abdomen and pelvis 08/06/2019 TECHNIQUE: Multiple axial CT images of the lumbar spine were obtained without the use of IV contrast. A dose lowering technique was used consistent with the principals of JULIA. FINDINGS: Gaseous distention of the large bowel. Partially imaged bilateral renal cysts. Atherosclerosis of the aorta. Partially imaged mild T12 compression deformity is similar to the prior study. No retropulsion. Fracture or subluxation of the lumbar spine identified. Mild levoscoliosis. Mild to moderate degeneration of the SI joints. L3-L4 laminectomy. Posterior interbody cindy and screw fusion hardware with discectomy changes at L3-L5. The hardware appears intact. Suboptimal violation of the central canal and neuroforamina by CT technique. Multilevel neural foraminal and central canal stenosis again noted. Mostly mild multilevel intervertebral disc space narrowing with moderate facet arthrosis. IMPRESSION: 1. No acute fracture or subluxation of the lumbar spine identified. 2. Mild chronic appearing T12 compression deformity. 3. Levoscoliosis. 4. Degenerative and postoperative changes as above. ACT 112: Negative or not required by law. The above report was generated using voice recognition software. It may contain grammatical, syntax or spelling errors. Electronically signed by: Álvaro Waller M.D. 12/12/2022 11:28 AM Discharge Plan Visit Data Chief Complaint: Leg Weakness, Bilateral Stated Complaint: LEG WEAKNESS, FALL, L KNEE & R ANKLE PAIN ED Provider: Richard Boyd Discharge Problem: Ambulatory dysfunction Forms Stand Alone Forms: Pheed Prescriptions Prescriptions: No Action amitriptyline 50 mg tablet 75 mg PO HS warfarin 3 mg tablet See Rx Instructions PO UD Qty: 90 1RF Rx Instructions: 3 mg daily per [facility] PO use as directed; multivitamin Tablet 1 tab PO DAILY turmeric root extract 500 mg tablet 500 mg PO DAILY ascorbate calcium (vitamin C) 500 mg tablet 500 mg PO DAILY cholecalciferol (vitamin D3) 25 mcg (1,000 unit) capsule 1,000 unit PO DAILY tramadol 50 mg tablet 50 mg PO DAILY PRN (Reason: pain) (DME) CPAP Machine Misc See Rx Instructions .ROUTE .MEDSUPPLY Qty: 1 0RF Rx Instructions: INCREASE CPAP TO 7CM. [facility] (DME) CPAP Supplies Misc See Rx Instructions .ROUTE .MEDSUPPLY Qty: 1 0RF Rx Instructions: CPAP MASK OF CHOICE. [facility] lorazepam 1 mg Tablet 1 mg PO TID PRN (Reason: Anxiety) Rx Instructions: TAKES PRIOR TO DENTAL PROCEDURES polyethylene glycol 3350 [Miralax] 17 gram powder in packet 17 g PO DAILY PRN (Reason: constipation) Medical Marijuana 1 dose inhalation UD PRN (Reason: Pain) Referrals Referrals: Andre Patel MD [Primary Care Provider] -
[2022-12-12 10:19] LABS: Basophils # (auto) 0.03 K/uL (0-0.2); Basophils % (auto) 0.3 %; Eosinophils # (auto) 0.07 K/uL (0-0.50); Eosinophils % (auto) 0.8 %; Hematocrit (blood only) 42.8 % (40.1-51.0); Hemoglobin 15.1 g/dl (14.0-18.0); Immature Granulocytes # (auto) 0.03 K/uL (0.00-0.02); Immature Granulocytes % (auto) 0.3 %; Lymphocytes # (auto) 1.35 K/uL (1.2-3.4); Lymphocytes % (auto) 15.3 %; Mean Corpuscular Hemoglobin 31.9 pg (25.0-34.0); Mean Corpuscular Hgb Conc 35.3 g/dL (32.0-36.0); Mean Corpuscular Volume 90.5 fL (80.0-100.0); Mean Platelet Volume 9.8 fL (9.4-12.4); Monocytes # (auto) 0.66 K/uL (0.24-0.82); Monocytes % (auto) 7.5 %; Neutrophils # (auto) 6.67 K/uL (1.4-6.5); Neutrophils % (auto) 75.8 %; Platelet Count 216 K/uL (130-400); Red Blood Count 4.73 M/uL (4.63-6.08); White Blood Count 8.81 K/ul (4.8-10.8)
[2022-12-12 10:26] LABS: INR 3.1 (0.9-1.1); Prothrombin Time 30.7 Seconds (9.0-12.0)
[2022-12-12 10:34] LABS: Albumin Globulin Ratio 1.2 (0.9-2); Albumin Level 4.2 gm/dl (3.4-5.0); BUN Creatinine Ratio 16.3 (10-20); Bilirubin,Total 1.8 mg/dl (0.2-1.0); Calcium 9.5 mg/dl (8.5-10.1); Creatinine Clr Calc Pharmacy 106.1 ml/min; Est GFR (Non-African American) 82.8 ml/min; Globulin 3.4 gm/dl (2.5-4.0); Total Protein 7.6 gm/dl (6.0-8.3)
--- NOTE | 2022-12-12 10:55 | XRay Report ---
XR knee LT 3V HISTORY: 72 years-old Male fall, L knee pain . Pain and swelling of the left knee status post COMPARISON: 07/15/2016 TECHNIQUE: 3 views of the left knee FINDINGS: Mild anteromedial soft tissue swelling. Trace joint effusion. No acute fracture or dislocation identi fied. Mild lateral with mild to moderate medial and moderate patellofemoral compartment osteoarthriti s. IMPRESSION: 1. Mild soft tissue swelling without acute fracture or dislocation. 2. Tricompartmental osteoarthritis, moderate within the patellofemoral compartment. ACT 112: Negative or not required by law. The above report was generated using voice recognition software. It may contain grammatical, syntax o r spelling errors. Electronically signed by: Álvaro Waller M.D. 12/12/2022 10:53 AM
--- NOTE | 2022-12-12 11:10 | XRay Report ---
XR ankle RT min 3V routine HISTORY: 72 years-old Male fall, R ankle pain acute right ankle pain status post fall COMPARISON: 01/27/2018 TECHNIQUE: 3 views of the right ankle FINDINGS: There is an acute obliquely oriented fracture of the distal fibular metaphysis with 3 mm lateral disp lacement. Fracture extends to the level of the talar dome. Moderate circumferential soft tissue swell ing. Mild osteoarthritis. Subtle acute nondisplaced posterior malleolar fracture. IMPRESSION: Acute minimally displaced distal fibular fracture with subtle acute nondisplaced posterio r malleolar fracture ACT 112: Negative or not required by law. The above report was generated using voice recognition software. It may contain grammatical, syntax o r spelling errors. Electronically signed by: Álvaro Waller M.D. 12/12/2022 11:07 AM
--- NOTE | 2022-12-12 11:24 | CT Scan Report ---
CT head/brain wo con CLINICAL HISTORY: 72 years-old Male with fall, On coumadin. Acute head injury status post fall TECHNIQUE: Multiple axial CT images of the head were obtained without contrast. A dose lowering tech nique was utilized adhering to the principles of ALARA. CT DOSE: 1894.46 mGy.cm COMPARISON: None. FINDINGS: No acute intracranial hemorrhage, midline shift, intracranial mass, hydrocephalus, territorial ischem ia or abnormal extra-axial collection. Motion degraded exam. Involutional changes with chronic microv ascular ischemic disease. Cerebral vascular calcifications. Subcentimeter likely chronic lacunar infa rcts of the cerebellum. The calvarium is intact. Mild mucosal thickening of the maxillary sinuses. Mastoid air cells are justus ar. Prior bilateral lens repair. IMPRESSION: Motion degraded exam. No acute intracranial abnormality or calvarial fracture identified . ACT 112: Negative or not required by law. The above report was generated using voice recognition software. It may contain grammatical, syntax o r spelling errors. Electronically signed by: Álvaro Waller M.D. 12/12/2022 11:21 AM
--- NOTE | 2022-12-12 11:30 | CT Scan Report ---
CT lumbar spine wo con HISTORY: 72 years-old Male fall, lower back pain lower back pain status post fall COMPARISON: CT abdomen and pelvis 08/06/2019 TECHNIQUE: Multiple axial CT images of the lumbar spine were obtained without the use of IV contrast. A dose lowering technique was used consistent with the principals of JULIA. FINDINGS: Gaseous distention of the large bowel. Partially imaged bilateral renal cysts. Atherosclerosis of the aorta. Partially imaged mild T12 compression deformity is similar to the prior study. No retropulsio n. Fracture or subluxation of the lumbar spine identified. Mild levoscoliosis. Mild to moderate degen eration of the SI joints. L3-L4 laminectomy. Posterior interbody cindy and screw fusion hardware with d iscectomy changes at L3-L5. The hardware appears intact. Suboptimal violation of the central canal an d neuroforamina by CT technique. Multilevel neural foraminal and central canal stenosis again noted. Mostly mild multilevel intervertebral disc space narrowing with moderate facet arthrosis. IMPRESSION: 1. No acute fracture or subluxation of the lumbar spine identified. 2. Mild chronic appearing T12 compression deformity. 3. Levoscoliosis. 4. Degenerative and postoperative changes as above. ACT 112: Negative or not required by law. The above report was generated using voice recognition software. It may contain grammatical, syntax o r spelling errors. Electronically signed by: Álvaro Waller M.D. 12/12/2022 11:28 AM
[2022-12-12] MEDS ORDERED: CYCLOBENZAPRINE HCL 10 MG TAB PO STA (11:43)
[2022-12-12] MEDS ORDERED: SODIUM CHLORIDE 0.9% 1000ML 1,000 ML IV ONE (11:53)
--- NOTE | 2022-12-12 13:01 | History & Physical Report ---
Date of Service December 12, 2022 Assessment & Plan (1) Weakness: Plan: Weakness/falls, legs giving out Patient with a fall yesterday morning when he was standing or stress there and his legs gave out, bilateral weakness and has not been able to ambulate since. Patient's does note he has had several episodes like this in the preceding few weeks with trace -CTlumbar spine: No acute fracture/subluxation of lumbar spine. Mild chronic T12 compression deformity. Levoscoliosis. Degenerative and postoperative changes. Patient with history of L3-L4 laminectomy, L3-L5 interbody cindy and screw fusion with discectomy. Multilevel neural for aminal and canal stenosis noted. Knee x-ray: Arthritis appreciated, no fracture/dislocation CThead: No acute findings Ankle x-ray: Acute minimally displaced fibular fracture with subtle acute nondisplaced posterior malleolus fracture On physical exam distal extremity strength and sensation is intact without saddle anesthesia and without signs of emergent lumbar compression/cauda equina. Patient is unable to tolerate an MRI at this time due to discomfort when laying flat. Suspect his symptoms are due to worsened deconditioning and chronic difficulties with right knee replacement and chronic back pain. 2/2 Episodes proceeding over the prior few weeks, history of pneumonectomy, and multilevel stenosis noted on CT evaluation from orthospine and attempt to obtain MRI when patient is able to tolerate Medical marijuana Uses a vaporized formulation of capsules at home, may bring it in self administer if desired Ankle fracture Minimally displaced fibular fracture with subtle acute nondisplaced posterior malleolar fracture Case was reviewed by Dr. Swift orthopedics. Okay to use to cam boot, however patient's leg is too large for this so will maintain splint for now. Would lean towards nonoperative measurement given patient's comorbidities; however lateral plate would not be unreasonable. Recommended obtaining a stress/weighted plate and Ortho will continue to follow for further re commendations. History of DVT/PE Saddle PE 2015, DVT 2013. Had temporary IVC filter in until warfarin was able to be resumed On chronic warfarin 3 mg daily 7 days a week, continued with daily INR INR 3.1 No signs of bleeding from fall, continue anticoagulation. 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 Patient is no longer on benzodiazepines, med list updated SAHIL Continue CPAP nightly DVT prophylaxis: Anticoagulated Diet: Regular CODE STATUS: DNR/DNI Disposition: PCU for hypertension potentially requiring IV agents, if patient has adequate blood pressure control with oral agents/pain control can downgrade to medical surgical at that time (2) SAHIL (obstructive sleep apnea): (3) Bladder cancer: (4) Pulmonary embolism: (5) Intractable back pain: (6) Hypertension: History of Present Illness Primary Care Provider: Andre Patel MD Shailesh is a 72yo M who presents for R ankle pain. Patient presents after he had a fall at home. Reports for several weeks his legs intermittently seem to give out. He has full strength and sensation at bedside Shailesh is seen at the bedside with his . Yesterday morning he was getting into bed on the second floor an dhis legs 'just gave out' and he fell. Landed on his ankle. His back and hamstrins both 'feel tight, I could hardly stand laying down for the CT scan.' Pain is worsened laying flat on his back. His was in bed at the time and pt crawled into an uprigh position and tried to make it down the stairs to not wake his . While he was trying to get to the door and balance his legs gave out again because of a combination of pain and sudden weakness. He reports it was weakness and pain, but that he doesn't really feel weak in general just that his hamstrings have a sharp/tight quality which made them drop. Is in the front and back. Pain has a burnin quality and inermittent quality. Is not present at rest, is worsened/incited by movement. Befor yesteday has had chronic lumbar pain and hx of laminectomy 4 years ago. Bakc has always ached since then. 1 month ago had bad low back pain. Is not able to take ibuprofen while on coumadin. Did not want to try opioids so tried tramadol instead. has helped with the pain both in his back and thigh. He has chronic neuropathy worst in his feet bilaterally and which generally does not travel past the knee. His curent pain is above the knee, and does not seem to radiate past the knee. Medical History: Reviewed Medications: Reviewed Surgical History: Reviewed Allergies: Reviewed Social History: Code Status: DNR/DNI, discussed with patient reviewed Allergies Allergy/AdvReac Type Severity Reaction Status Date / Time ragweed pollen Allergy Mild Sneezing Verified 07/14/20 15:43 gabapentin AdvReac Intermediate body Verified 07/14/20 15:43 aches, "foggy" feeling amoxicillin AdvReac Mild N/V Verified 07/14/20 15:43 clavulanic acid AdvReac Mild N/V Verified 07/14/20 15:43 propoxyphene AdvReac Mild Nausea Verified 07/14/20 15:43 Home Medications Medication Instructions Recorded Confirmed Type Medical Marijuana 1 dose inhalation UD PRN Pain 07/26/19 12/12/22 History CPAP Machine #1 ea 01/17/20 12/12/22 Rx CPAP Supplies #1 ea 01/17/20 12/12/22 Rx polyethylene glycol 3350 17 gram 17 g PO DAILY PRN constipation 05/27/20 12/12/22 History oral powder packet (Miralax) amitriptyline 50 mg tablet 50 mg PO HS 09/02/20 12/12/22 History ascorbate calcium (vitamin C) 500 500 mg PO DAILY 10/09/20 12/12/22 History mg tablet cholecalciferol (vitamin D3) 25 1,000 unit PO DAILY 10/09/20 12/12/22 History mcg (1,000 unit) capsule warfarin 3 mg tablet See Rx Instructions PO UD #90 tabs 03/05/21 12/12/22 Rx multivitamin 1 tab PO DAILY 07/14/22 12/12/22 History turmeric root extract 500 mg tablet 500 mg PO DAILY 09/27/22 12/12/22 History tramadol 50 mg tablet 50 mg PO DAILY PRN pain 11/10/22 12/12/22 History Past Med/Surg History Medical History Chronic back pain Chronic venous insufficiency hx venous ulcer Fibromyalgia Fusion of spine C2-C3, C3-C4 Hemorrhoids 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 Sleep apnea CPAP Surgical History History of bilateral cataract extraction History of biopsy of bladder multiple History of bowel resection X2 History of cardiac cath 2009= no stents History of colonoscopy History of cystoscopy multiple History of esophagogastroduodenoscopy (EGD) History of prostate biopsy "benign" History of repair of hiatal hernia History of right knee surgery ACL repair History of tonsillectomy and adenoidectomy History of tooth extraction History of total right knee replacement (TKR) x2 History of umbilical hernia repair x3 History of uvulopalatopharyngoplasty S/P IVC filter x3 Family History Grandmother (Paternal) Family history of diabetes mellitus Mother Family hx of colon cancer Brother Bladder cancer Father Accidental Other No family history of adverse response to anesthesia Social History Smoking Status: Former smoker Tobacco Type: Cigarettes Second Hand Exposure: No; Hx Alcohol Use: Yes Alcohol type: beer Hx Substance Use: No Preferred Language: Macedonian Communication Ability: Effective Visual Impairment: No Limitations Hearing Ability: Normal Language Specialist Required: No Beliefs That Will Affect Care: None marital status: Current Living Situation: Spouse Feels Safe at Home: Yes Assistive Devices: Cane and CPAP Review of Systems Review of Systems: All systems reviewed & are unremarkable except as noted in HPI & below Physical Exam Physical Exam: General: A&Ox3. NAD. Cooperative. HEENT: Atraumatic, normocephalic. Pupils equal and reactive to light, vision/hearing intact Pulm: CTAB A&P. -wheezes, -rales, -rhonchi. Symmetrical chest rise. No increased work of breathing. No respiratory distress. Cardiac: RRR, -mrg. Radial pulses intact and symmetrical. Abdominal: Nontender, nondistended, soft. BS present. Extremities: Right knee with post LCL surgical incision well-healed, s/p total knee replacement with well-healed surgical incisions. Patient does endorse ch ronic intermittent neuropathy in his feet radiating up to the legs due to chemotherapy in the past, at time of assessment sensation of soft touch is intact in dorsal/plantar foot, lower leg, and thighs bilaterally without asymmetry. Able to wiggle toes on the right side, cap refill brisk. Ankle dorsiflexion/plantarflexion intact on the left, hip flexion is with normal strength bilaterally. There is no saddle anesthesia. Results & Data Results & Data ([facility]) Vital Signs (Past 12 Hours) Vital Signs Temp Pulse Resp BP Pulse Ox O2 Del Method 12/12/22 10:14 96 Room Air 12/12/22 09:56 37.2 C 86 20 205/114 H 96 Room Air PG Care Time/CCT Total # of Minutes Spent Total Time Spent with Patient: Total time spent is greater than 50% in coordination of care (as documented) at patient's floor/unit and/or counseling patient: Coding Level of Care Code 91846 INT INP/OBS CARE 2/55MIN Diagnoses Weakness R53.1 SAHIL (obstructive sleep apnea) G47.33 Bladder cancer C67.9 Pulmonary embolism I26.99 Intractable back pain M54.9 Hypertension I10
[2022-12-12] MEDS ORDERED: amLODIPine BESYLATE 5 MG TAB PO ONE (14:35)
[2022-12-12] MEDS ORDERED: ACETAMINOPHEN 325 MG TAB PO STA (14:55)
[2022-12-12] MEDS ORDERED: ACETAMINOPHEN 325 MG TAB PO PRN (15:55)
[2022-12-12] MEDS: MoRPHine SULFATE 4 MG/ML 1 ML CARP\\VIAL IV PRN ×2 (16:16→20:16)
[2022-12-12] MEDS: AMITRIPTYLINE HCL 50 MG TAB PO SCH (20:08)
[2022-12-12] MEDS: CYCLOBENZAPRINE HCL 5 MG TAB PO SCH (20:08)
[2022-12-12] MEDS: MoRPHine SULFATE 2 MG/ML CARP IV PRN (20:16)
[2022-12-13] MEDS: MoRPHine SULFATE 2 MG/ML CARP IV PRN ×5 (02:30→21:35)
[2022-12-13 06:06] LABS: Basophils # (auto) 0.04 K/uL (0-0.2); Basophils % (auto) 0.4 %; Eosinophils # (auto) 0.14 K/uL (0-0.50); Eosinophils % (auto) 1.3 %; Hematocrit (blood only) 39.7 % (40.1-51.0); Hemoglobin 13.8 g/dl (14.0-18.0); Immature Granulocytes # (auto) 0.03 K/uL (0.00-0.02); Immature Granulocytes % (auto) 0.3 %; Lymphocytes # (auto) 1.72 K/uL (1.2-3.4); Lymphocytes % (auto) 16.2 %; Mean Corpuscular Hemoglobin 31.6 pg (25.0-34.0); Mean Corpuscular Hgb Conc 34.8 g/dL (32.0-36.0); Mean Corpuscular Volume 90.8 fL (80.0-100.0); Mean Platelet Volume 9.4 fL (9.4-12.4); Monocytes % (auto) 8.5 %; Neutrophils # (auto) 7.76 K/uL (1.4-6.5); Neutrophils % (auto) 73.3 %; Platelet Count 195 K/uL (130-400); RDW Standard Deviation 43.1 fL (36.4-46.3); Red Blood Count 4.37 M/uL (4.63-6.08); White Blood Count 10.59 K/ul (4.8-10.8)
[2022-12-13 06:27] LABS: Prothrombin Time 39.2 Seconds (9.0-12.0)
[2022-12-13 06:41] LABS: BUN Creatinine Ratio 17.1 (10-20); Calcium 8.9 mg/dl (8.5-10.1); Creatinine Clr Calc Pharmacy 127.1 ml/min; Est GFR (African American) 105.6 ml/min; Est GFR (Non-African American) 91.1 ml/min; Potassium 3.8 mmol/L (3.5-5.1)
[2022-12-13] MEDS: CYCLOBENZAPRINE HCL 5 MG TAB PO SCH ×3 (08:08→20:36)
[2022-12-13] MEDS: CHOLECALCIFEROL 1,000 UNITS 25 MCG TAB PO SCH (08:08)
--- NOTE | 2022-12-13 09:53 | Electrocardiogram Report ---
Test Reason : Blood Pressure : / mmHG Vent. Rate : 094 BPM Atrial Rate : 094 BPM P-R Int : 148 ms QRS Dur : 112 ms QT Int : 370 ms P-R-T Axes : 069 062 041 degrees QTc Int : 462 ms Normal sinus rhythm Incomplete right bundle branch block Borderline ECG When compared with ECG of 27-JUL-2019 09:15, Incomplete right bundle branch block is now Present Nonspecific T wave abnormality now evident in Inferior leads Confirmed by Danyel Sanz ([id number]) on 12/13/2022 9:53:01 AM Referred By: REFERRED SELF Confirmed By:Abimael Sanz
[2022-12-13] MEDS ORDERED: LORazepam 2 MG/1 ML VIAL IV STA (10:39)
--- NOTE | 2022-12-13 13:14 | Orthopedic Consultation ---
Date of Consultation December 13, 2022 Assessment & Plan (1) Fracture of right ankle, lateral malleolus: The x-rays were reviewed with the patient and his . He is to continue the posterior splint and remain nonweightbearing on the right lower extremity. We discussed that the best treatment option would probably be to fix the lateral malleolus fracture and evaluate the syndesmosis within the procedure and possibly repair a syndesmotic disruption. The posterior malleolus fracture can be treated closed. The patient feels that his bigger issue is his lower back pain and he is currently being worked up by Dr. Austin to evaluate any spine issue. I will discussed the x-rays with Dr. Swift and if the patient is going to be inpatient for a number of days, we may need to consider ORIF during this inpatient stay. History of Present Illness Reason for Consultation: Right ankle pain Attending Physician: Nicolasa Bonilla MD History of Present Illness This is a patient who sustained a fall 2 days ago. He feels that his legs gave out secondary to a lower back issue. He fell 1 time and was trying to get up then fell a second time. During one of the falls, he injured her right ankle. He was brought to [facility] ER for x-rays were performed of his right ankle. He was noted to have a mildly displaced lateral malleolus fracture. He was placed into a posterior ankle splint. Orthopedics was consulted for definitive treatment of the ankle fracture. Allergies Allergy/AdvReac Type Severity Reaction Status Date / Time ragweed pollen Allergy Mild Sneezing Verified 07/14/20 15:43 gabapentin AdvReac Intermediate body Verified 07/14/20 15:43 aches, "foggy" feeling amoxicillin AdvReac Mild N/V Verified 07/14/20 15:43 clavulanic acid AdvReac Mild N/V Verified 07/14/20 15:43 propoxyphene AdvReac Mild Nausea Verified 07/14/20 15:43 Home Medications Medication Instructions Recorded Confirmed Type Medical Marijuana 1 dose inhalation UD PRN Pain 07/26/19 12/12/22 History CPAP Machine #1 ea 01/17/20 12/12/22 Rx CPAP Supplies #1 ea 01/17/20 12/12/22 Rx polyethylene glycol 3350 17 gram 17 g PO DAILY PRN constipation 05/27/20 12/12/22 History oral powder packet (Miralax) amitriptyline 50 mg tablet 50 mg PO HS 09/02/20 12/12/22 History ascorbate calcium (vitamin C) 500 500 mg PO DAILY 10/09/20 12/12/22 History mg tablet cholecalciferol (vitamin D3) 25 1,000 unit PO DAILY 10/09/20 12/12/22 History mcg (1,000 unit) capsule warfarin 3 mg tablet See Rx Instructions PO UD #90 tabs 03/05/21 12/12/22 Rx multivitamin 1 tab PO DAILY 07/14/22 12/12/22 History turmeric root extract 500 mg tablet 500 mg PO DAILY 09/27/22 12/12/22 History tramadol 50 mg tablet 50 mg PO DAILY PRN pain 11/10/22 12/12/22 History Patient History Medical History Chronic back pain Chronic venous insufficiency hx venous ulcer Fibromyalgia Fusion of spine C2-C3, C3-C4 Hemorrhoids 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 Sleep apnea CPAP Surgical History History of bilateral cataract extraction History of biopsy of bladder multiple History of bowel resection X2 History of cardiac cath 2008= no stents History of colonoscopy History of cystoscopy multiple History of esophagogastroduodenoscopy (EGD) History of prostate biopsy "benign" History of repair of hiatal hernia History of right knee surgery ACL repair History of tonsillectomy and adenoidectomy History of tooth extraction History of total right knee replacement (TKR) x2 History of umbilical hernia repair x3 History of uvulopalatopharyngoplasty S/P IVC filter x3 Family History Grandmother (Paternal) Family history of diabetes mellitus Mother Family hx of colon cancer Brother Bladder cancer Father Accidental Other No family history of adverse response to anesthesia Social History Smoking Status: Former smoker Tobacco Type: Cigarettes Second Hand Exposure: No; Hx Alcohol Use: Yes Alcohol type: beer Hx Substance Use: No Preferred Language: Montenegrin Communication Ability: Effective Visual Impairment: No Limitations Hearing Ability: Normal Crystal Lapper Required: No Beliefs That Will Affect Care: None marital status: Current Living Situation: Spouse Other Information That Helps Us Care for You: No Feels Safe at Home: Yes Safety Concerns: Feels Safe At This Time Assistive Devices: BiPap and Cane Physical Exam Constitutional: WD/WN, vitals as above no acute distress Neck: trachea midline Musculoskeletal: Ankle: + limited ROM of ankle (Right ankle in a short leg splint. Toes are mobile.) and + joint line tenderness (ankle) (Right lateral malleolus, medial ankle.) Neurologic: normal touch/pain/proprioception Psychiatric: A+Ox3, euthymic affect Speech: normal rate/rhythm/volume of speech Results & Data ([facility]) Vital Signs (Past 12 Hours) Vital Signs Temp Pulse Pulse Resp BP Pulse Ox O2 Del Method 12/13/22 11:11 36.9 C 20 146/98 H 97 Room Air 12/13/22 07:15 90 12/13/22 06:43 36.9 C 91 H 17 158/105 H 94 CPAP 12/13/22 03:58 36.8 C 83 19 153/93 H 95 CPAP Diagnostic Findings 3 views of the right ankle reviewed. There is a mildly displaced lateral malleo verónica fracture. The medial aspect of the ankle mortise appears widened. On lateral view, there appears to be a nondisplaced posterior malleolus fracture.
--- NOTE | 2022-12-13 13:28 | Magnetic Resonance Report ---
MR lumbar spine wo con CLINICAL HISTORY: leg weakness TECHNIQUE: Multiplanar sequences through the lumbar spine were obtained, without intravenous contrast . Comparison: Comparison is made to lumbar spine MRI 07/12/[address] lumbar spine 12/12/2022 FINDINGS: Patient is status post posterior fixation hardware placement at L3-L5. There is a chronic appearing T 12 compression deformity. T12-L1: There is a broad-based disc bulge with focal disc extrusion resulting in moderate to severe c anal stenosis, AP diameter 6 mm. L1-L2: There is mild bilateral neuroforaminal stenosis. L2-L3: Facet arthropathy results in mild canal stenosis. There is severe bilateral neuroforaminal darin nosis. L3-L4: No significant abnormality. L4-L5: There is mild bilateral neuroforaminal stenosis. L5-S1: There is mild bilateral neural foraminal stenosis. The spinal ligaments are intact, without evidence of disruption or abnormal signal intensity. The spi nal cord is normal in signal intensity and there is no evidence of cord contusion. There is no eviden ce of an extradural, intradural, extramedullary or intramedullary lesion. Visualized soft tissues are normal. IMPRESSION: Interval development of a broad base posterior disc bulge with focal disc extrusion at T12-L1 resulti ng in moderate to severe canal stenosis with AP diameter 6 mm. Multilevel up to severe neuroforaminal stenosis is seen as above. Patient is status post laminectomy. ACT 112: Negative or not required by law. Electronically signed by: Pedro Carrera M.D. 12/13/2022 1:26 PM
--- NOTE | 2022-12-13 14:38 | Orthopedic Consultation ---
Date of Consultation December 13, 2022 Assessment & Plan (1) Lumbar disc herniation with radiculopathy: Assessment T12-L1 disc herniation with severe stenosis. Plan at this time he did undergo an MRI of the lumbar spine. While I have been concerned about some adjacent level L2 neuroforaminal stenosis I believe this is secondary to the massive disc condition at T12-L1. This is causing severe canal compromise and would be more consistent with his clinical presentation is the etiology. May need to consider decompression with possible fusion. He is currently anticoagulated with an INR of 4. I see that his Coumadin is held. Review the case with medicine the patient determine appropriate treatment plan. History of Present Illness Reason for Consultation: Bilateral leg weakness Attending Physician: Nicolasa Bonilla MD History of Present Illness This is a 72-year-old male known to me the presents with marked kind status over the past week. Said several falls secondary to leg weakness pain is described as waiting in the back and anterior thighs. Does not extend below the knees. There is numbness and weakness associated with this. He denies any specific trauma fall or event precipitating these issues. Allergies Allergy/AdvReac Type Severity Reaction Status Date / Time ragweed pollen Allergy Mild Sneezing Verified 07/14/20 15:43 gabapentin AdvReac Intermediate body Verified 07/14/20 15:43 aches, "foggy" feeling amoxicillin AdvReac Mild N/V Verified 07/14/20 15:43 clavulanic acid AdvReac Mild N/V Verified 07/14/20 15:43 propoxyphene AdvReac Mild Nausea Verified 07/14/20 15:43 Home Medications Medication Instructions Recorded Confirmed Type Medical Marijuana 1 dose inhalation UD PRN Pain 07/26/19 12/12/22 History CPAP Machine #1 ea 01/17/20 12/12/22 Rx CPAP Supplies #1 ea 01/17/20 12/12/22 Rx polyethylene glycol 3350 17 gram 17 g PO DAILY PRN constipation 05/27/20 12/12/22 History oral powder packet (Miralax) amitriptyline 50 mg tablet 50 mg PO HS 09/02/20 12/12/22 History ascorbate calcium (vitamin C) 500 500 mg PO DAILY 10/09/20 12/12/22 History mg tablet cholecalciferol (vitamin D3) 25 1,000 unit PO DAILY 10/09/20 12/12/22 History mcg (1,000 unit) capsule warfarin 3 mg tablet See Rx Instructions PO UD #90 tabs 03/05/21 12/12/22 Rx multivitamin 1 tab PO DAILY 07/14/22 12/12/22 History turmeric root extract 500 mg tablet 500 mg PO DAILY 09/27/22 12/12/22 History tramadol 50 mg tablet 50 mg PO DAILY PRN pain 11/10/22 12/12/22 History Patient History Medical History Chronic back pain Chronic venous insufficiency hx venous ulcer Fibromyalgia Fusion of spine C2-C3, C3-C4 Hemorrhoids 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 History of embolism vandana (2015) Hx of bladder cancer s/p XRT/chemo (8 years ago) Hx of deep venous thrombosis Hx of hepatitis C "25 years ago" Hypertension Liver lesion SAHIL (obstructive sleep apnea) Peripheral neuropathy B/L arms, legs and feet Presence of IVC filter Per patient this was removed. Sleep apnea CPAP Surgical History History of bilateral cataract extraction History of biopsy of bladder multiple History of bowel resection X2 History of cardiac cath 2008= no stents History of colonoscopy History of cystoscopy multiple History of esophagogastroduodenoscopy (EGD) History of prostate biopsy "benign" History of repair of hiatal hernia History of right knee surgery ACL repair History of tonsillectomy and adenoidectomy History of tooth extraction History of total right knee replacement (TKR) x2 History of umbilical hernia repair x3 History of uvulopalatopharyngoplasty S/P IVC filter x3 Family History Grandmother (Paternal) Family history of diabetes mellitus Mother Family hx of colon cancer Brother Bladder cancer Father Accidental Other No family history of adverse response to anesthesia Social History Smoking Status: Former smoker Tobacco Type: Cigarettes Second Hand Exposure: No; Hx Alcohol Use: Yes Alcohol type: beer Hx Substance Use: No Preferred Language: Chilean Communication Ability: Effective Visual Impairment: No Limitations Hearing Ability: Normal Medical Aide Required: No Beliefs That Will Affect Care: None marital status: Current Living Situation: Spouse Other Information That Helps Us Care for You: No Feels Safe at Home: Yes Safety Concerns: Feels Safe At This Time Assistive Devices: BiPap and Cane Physical Exam Physical Exam: On exam he prefers to be sitting up in bed. Lying supine is very uncomfortable and reproduces pain down his legs. He does have reasonable plantar flexion dorsiflexion on the right. He has a splint on the right ankle secondary to fracture. He does have reasonable hip flexion bilaterally. There is no significant pain to the palpation of the back or trochanteric region. Results & Data ([facility]) Vital Signs (Past 12 Hours) Vital Signs Temp Pulse Pulse Resp BP Pulse Ox O2 Del Method 12/13/22 11:11 36.9 C 20 146/98 H 97 Room Air 12/13/22 07:15 90 12/13/22 06:43 36.9 C 91 H 17 158/105 H 94 CPAP 12/13/22 03:58 36.8 C 83 19 153/93 H 95 CPAP
[2022-12-13] MEDS: POLYETHYLENE (MIRALAX) 17 GM PACK PO PRN (15:10)
--- NOTE | 2022-12-13 15:13 | Hospitalist Progress Note ---
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 Patient's does note he has had several episodes like this in the preceding few weeks -CTlumbar spine: No acute fracture/subluxation of lumbar spine. Mild chronic T12 compression deformity. Levoscoliosis. Degenerative and postoperative changes. Patient with history of L3-L4 laminectomy, L3-L5 interbody cindy and screw fusion with discectomy. Multilevel neuroforaminal and canal stenosis noted. Knee x-ray: Arthritis appreciated, no fracture/dislocation CThead: No acute findings Ankle x-ray: Acute minimally displaced fibular fracture with subtle acute nondisplaced posterior malleolus fracture -Lumbar spine MRI with significant HNP T12-L1 causing severe stenosis Appreciate ortho spine consult--> needs lumbar decompression and fusion-plan for this -discussed AC with Dr. Carvajal--> no IVC filter needed preop (had done previously)--> plan to give po vit K 5mg x 1 now, follow daily INR, can give IV vit K day of surgery if needed. Hold coumadin. Plan to bridge with Lovenox 40mg SQ bid after surgery for bridging when ok with Ortho Spine Medical marijuana hold while inpatient Ankle fracture Minimally displaced fibular fracture with subtle acute nondisplaced posterior malleolar fracture Case was reviewed by Dr. Swift orthopedics. Splint for now, plan for ORIF likely in a few weeks after recovery from back surgery and once edema down -pain control prn History of DVT/PE Saddle PE 2015, DVT 2013. 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 Patient is no longer on benzodiazepines, med list updated SAHIL Continue CPAP nightly DVT prophylaxis: Anticoagulated Diet: Regular CODE STATUS: DNR/DNI Disposition: continued stay PCU for now but can likely downgrade to med/surg t omorrow (2) SAHIL (obstructive sleep apnea): (3) Bladder cancer: (4) Pulmonary embolism: (5) Intractable back pain: (6) Hypertension: (7) Lumbar disc herniation with radiculopathy: (8) Fracture of right ankle, lateral malleolus: Admission and Anticipated Discharge Date Admission Date: December 12, 2022 Subjective Pt having pain in back, great difficulty with ambulation. Pain in hamstrings. No trouble voiding but is feeling constipated. Tele with NSR, ST 80-110s Review of Systems Review of Systems: All systems reviewed & are unremarkable except as noted in HPI & below Physical Exam Constitutional: WD/WN, vitals as above Eyes: + anicteric sclerae Neck: trachea midline, no thyromegaly Respiratory: normal respiratory effort, lungs clear to auscultation Cardiovascular: RRR, no murmur, no edema Chest (Breasts): Chest: normal inspection of chest Gastrointestinal (Abdomen): normal bowel sounds, soft, nontender, no hepatosplenomegaly Musculoskeletal: Extremities: + extremities abnormal to inspection (right ankle in splint), no cyanosis and no clubbing Skin: no rashes, warm and dry Neurologic: strength diminished in proximal LEs bilat Psychiatric: A+Ox3, euthymic affect Lymphatic: no lymphedema Results & Data Results & Data ([facility]) Vital Signs (Past 12 Hours) Vital Signs Temp Pulse Pulse Resp BP Pulse Ox O2 Del Method 12/13/22 15:01 36.9 C 107 H 18 156/101 H 91 Room Air 12/13/22 11:11 36.9 C 20 146/98 H 97 Room Air 12/13/22 07:15 90 12/13/22 06:43 36.9 C 91 H 17 158/105 H 94 CPAP 12/13/22 03:58 36.8 C 83 19 153/93 H 95 CPAP Laboratory Results 12/13/22 12/13/22 12/13/22 Range/Units 05:48 05:48 05:48 WBC 10.59 (4.8-10.8) K/ul RBC 4.37 L (4.63-6.08) M/uL Hgb 13.8 L (14.0-18.0) g/dl Hct 39.7 L (40.1-51.0) % MCV 90.8 (80.0-100.0) fL MCH 31.6 (25.0-34.0) pg MCHC 34.8 (32.0-36.0) g/dL RDW Std Deviation 43.1 (36.4-46.3) fL RDW Coeff of Jazz 13.0 (11.5-14.5) % Plt Count 195 (130-400) K/uL MPV 9.4 (9.4-12.4) fL Immature Gran % (Auto) 0.3 % Neut % (Auto) 73.3 % Lymph % (Auto) 16.2 % [place] % (Auto) 8.5 % Eos % (Auto) 1.3 % Baso % (Auto) 0.4 % Neut # (Auto) 7.76 H (1.4-6.5) K/uL Lymph # (Auto) 1.72 (1.2-3.4) K/uL [place] # (Auto) 0.90 H (0.24-0.82) K/uL Eos # (Auto) 0.14 (0-0.50) K/uL Baso # (Auto) 0.04 (0-0.2) K/uL Immature Gran # (Auto) 0.03 H (0.00-0.02) K/uL PT 39.2 H (9.0-12.0) Seconds INR 4.0 H (0.9-1.1) Sodium 137 (136-145) mmol/L Potassium 3.8 (3.5-5.1) mmol/L Chloride 101 (98-107) mmol/L Carbon Dioxide 27 (21-32) mmol/L Anion Gap 9 (3-11) BUN 13 (6-23) mg/dl Creatinine 0.76 (0.6-1.4) mg/dl Est Cr Clr Drug Dosing 127.1 ml/min Est GFR ( Amer) 105.6 ml/min Est GFR (Non-Af Amer) 91.1 ml/min BUN/Creatinine Ratio 17.1 (10-20) Glucose 105 H (70-99(Fasting)) mg/dl Calcium 8.9 (8.5-10.1) mg/dl PG Care Time/CCT Total # of Minutes Spent Total Time Spent with Patient: Total time spent is greater than 50% in coordination of care (as documented) at patient's floor/unit and/or counseling patient: Coding Level of Care Code 00528 SUB INP/OBS CARE 2/35MIN Diagnoses Weakness R53.1 SAHIL (obstructive sleep apnea) G47.33 Bladder cancer C67.9 Pulmonary embolism I26.99 Intractable back pain M54.9 Hypertension I10 Lumbar disc herniation with radiculopathy M51.16 Fracture of right ankle, lateral malleolus S82.61XA
[2022-12-13] MEDS ORDERED: PHYTONADIONE 5 MG TAB PO STA (15:32)
[2022-12-13] MEDS ORDERED: WARFARIN SOD 3 MG TAB PO SCH (16:00)
[2022-12-13] MEDS: AMITRIPTYLINE HCL 50 MG TAB PO SCH (20:36)
[2022-12-14] MEDS: CYCLOBENZAPRINE HCL 5 MG TAB PO SCH ×3 (08:53→21:00)
[2022-12-14] MEDS: CHOLECALCIFEROL 1,000 UNITS 25 MCG TAB PO SCH (08:53)
[2022-12-14 09:43] LABS: Basophils # (auto) 0.04 K/uL (0-0.2); Basophils % (auto) 0.3 %; Eosinophils % (auto) 0.8 %; Hematocrit (blood only) 39.5 % (40.1-51.0); Immature Granulocytes # (auto) 0.05 K/uL (0.00-0.02); Immature Granulocytes % (auto) 0.4 %; Mean Corpuscular Hemoglobin 31.8 pg (25.0-34.0); Mean Corpuscular Hgb Conc 35.4 g/dL (32.0-36.0); Mean Corpuscular Volume 89.8 fL (80.0-100.0); Mean Platelet Volume 9.6 fL (9.4-12.4); Monocytes # (auto) 0.93 K/uL (0.24-0.82); Monocytes % (auto) 7.5 %; Neutrophils # (auto) 9.84 K/uL (1.4-6.5); Platelet Count 228 K/uL (130-400); RDW Coefficient of Variation 13.3 % (11.5-14.5); RDW Standard Deviation 43.9 fL (36.4-46.3); White Blood Count 12.46 K/ul (4.8-10.8)
[2022-12-14 09:57] LABS: Calcium 9.2 mg/dl (8.5-10.1); Creatinine Clr Calc Pharmacy 96.4 ml/min; Est GFR (African American) 86.8 ml/min; Est GFR (Non-African American) 74.9 ml/min; Potassium 3.9 mmol/L (3.5-5.1)
[2022-12-14 10:07] LABS: Prothrombin Time 20.6 Seconds (9.0-12.0)
[2022-12-14 10:23] LABS: Partial Thromboplastin Ratio 1.8
[2022-12-14 10:40] LABS: Partial Thromboplastin Time 50.2 Seconds (21.0-31.0)
[2022-12-14] MEDS: MoRPHine SULFATE 4 MG/ML 1 ML CARP\\VIAL IV PRN (10:51)
--- NOTE | 2022-12-14 11:59 | Anesthesiology Consultation ---
Date of Service December 14, 2022 Assessment & Plan (1) Encounter for pre-operative examination: Chart Review Chart Review: Acceptable Risk for Surgery and Patient NOT seen in Pre Admission Testing Consults Requested none History Surgery Operation Date: 12/15/22 12:00 Proposed Procedures p T12-L1 Decompression and Fusion, Spinal Cord Monitoring - Lalo Austin DO Height/Weight Height: 6 ft 2 in Weight: 132 kg Allergies Allergy/AdvReac Type Severity Reaction Status Date / Time ragweed pollen Allergy Mild Sneezing Verified 07/14/20 15:43 gabapentin AdvReac Intermediate body Verified 07/14/20 15:43 aches, "foggy" feeling amoxicillin AdvReac Mild N/V Verified 07/14/20 15:43 clavulanic acid AdvReac Mild N/V Verified 07/14/20 15:43 propoxyphene AdvReac Mild Nausea Verified 07/14/20 15:43 Medications Home Medications Medication Instructions Recorded Confirmed Last Taken Medical Marijuana 1 dose inhalation UD PRN Pain 07/26/19 12/12/22 12/11/22 CPAP Machine #1 ea 01/17/20 12/12/22 Unknown CPAP Supplies #1 ea 01/17/20 12/12/22 Unknown polyethylene glycol 3350 17 gram 17 g PO DAILY PRN constipation 05/27/20 12/12/22 Unknown oral powder packet (Miralax) amitriptyline 50 mg tablet 50 mg PO HS 09/02/20 12/12/22 12/11/22 ascorbate calcium (vitamin C) 500 500 mg PO DAILY 10/09/20 12/12/22 12/11/22 mg tablet cholecalciferol (vitamin D3) 25 1,000 unit PO DAILY 10/09/20 12/12/22 12/11/22 mcg (1,000 unit) capsule warfarin 3 mg tablet See Rx Instructions PO UD #90 tabs 03/05/21 12/12/22 12/12/22 multivitamin 1 tab PO DAILY 07/14/22 12/12/22 12/11/22 turmeric root extract 500 mg tablet 500 mg PO DAILY 09/27/22 12/12/22 12/11/22 tramadol 50 mg tablet 50 mg PO DAILY PRN pain 11/10/22 12/12/22 12/12/22 Active Medications Generic Name Dose Route Start Last Admin Trade Name Freq PRN Reason Stop Dose Admin Amitriptyline HCl 50 mg 12/12/22 21:00 12/13/22 20:36 Amitriptyline Hcl 50 Mg Tab PO 01/11/23 20:59 50 mg HS HENRRY Administration Cyclobenzaprine HCl 5 mg 12/12/22 21:00 12/14/22 08:53 Cyclobenzaprine Hcl 5 Mg Tab PO 01/11/23 20:59 5 mg TID HENRRY Administration Morphine Sulfate 1 mg 12/12/22 15:55 12/13/22 21:35 Morphine Sulfate 2 Mg/Ml Carp IV 12/26/22 15:54 1 mg Q4H PRN Administration Moderate Pain NRS. 3rd line Morphine Sulfate 2 mg 12/12/22 15:55 12/14/22 10:51 Morphine Sulfate 4 Mg/Ml 1 Ml Carp\\Vial IV 12/26/22 15:54 2 mg Q4H PRN Administration Severe Pain on NRS, 3rd line Polyethylene Glycol 17 gm 12/12/22 15:55 12/13/22 15:10 Polyethylene (Miralax) 17 Gm Pack PO 01/11/23 15:54 17 gm DAILY PRN Administration constipation Vitamin D 1,000 units 12/13/22 09:00 12/14/22 08:53 Cholecalciferol 1,000 Units 25 Mcg Tab PO 01/12/23 08:59 1,000 units DAILY HENRRY Administration Past Medical History Medical History Chronic back pain Chronic venous insufficiency hx venous ulcer Fibromyalgia Fusion of spine C2-C3, C3-C4 Hemorrhoids 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 Patient's does note he has had several episodes like this in the preceding few weeks -CTlumbar spine: No acute fracture/subluxation of lumbar spine. Mild chronic T12 compression deformity. Levoscoliosis. Degenerative and postoperative changes. Patient with history of L3-L4 laminectomy, L3-L5 interbody cindy and screw fusion with discectomy. Multilevel neuroforaminal and canal stenosis noted. Knee x-ray: Arthritis appreciated, no fracture/dislocation CThead: No acute findings Ankle x-ray: Acute minimally displaced fibular fracture with subtle acute nondisplaced posterior malleolus fracture -Lumbar spine MRI with significant HNP T12-L1 causing severe stenosis Appreciate ortho spine consult--> needs lumbar decompression and fusion-plan for this -discussed AC with Dr. Carvajal--> no IVC filter needed preop (had done previously)--> plan to give po vit K 5mg x 1 now, follow daily INR, can give IV vit K day of surgery if needed. Hold coumadin. Plan to bridge with Lovenox 40mg SQ bid after surgery for bridging when ok with Ortho Spine Ankle fracture Minimally displaced fibular fracture with subtle acute nondisplaced posterior malleolar fracture Case was reviewed by Dr. Swift orthopedics. Splint for now, plan for ORIF likely in a few weeks after recovery from back surgery and once edema down History of DVT/PE Saddle PE 2015, DVT 2013. Had temporary IVC filter in until warfarin was able to be resumed On chronic warfarin 3 mg daily 7 days a week,HOLD for supratherapeutic INR and for upcoming back surgery follow INR -bridge as above Past Family History Family History Grandmother (Paternal) Family history of diabetes mellitus Mother Family hx of colon cancer Brother Bladder cancer Father Accidental Other No family history of adverse response to anesthesia Past Surgical History Surgical History History of bilateral cataract extraction History of biopsy of bladder multiple History of bowel resection X2 History of cardiac cath 2008= no stents History of colonoscopy History of cystoscopy multiple History of esophagogastroduodenoscopy (EGD) History of prostate biopsy "benign" History of repair of hiatal hernia History of right knee surgery ACL repair History of tonsillectomy and adenoidectomy History of tooth extraction History of total right knee replacement (TKR) x2 History of umbilical hernia repair x3 History of uvulopalatopharyngoplasty S/P IVC filter x3 Lumbar fusion: MAC 4. 8.0 ETT. Social History Smoking Status: Former smoker tobacco type: pipe Hx Alcohol Use: Yes Alcohol type: beer alcohol intake frequency: holidays/special occasions only Hx Substance Use: No substance use type: does not use Substance Use Type Other:: medical marijuana Last Used Substance Other:: PRN Physical Exam Vital Signs Last Vital Signs Temp 37.2 C 12/14/22 10:56 Pulse 104 H 12/14/22 10:56 Resp 17 12/14/22 10:56 BP 145/82 H 12/14/22 10:56 Pulse Ox 94 12/14/22 10:56 O2 Del Method 12/14/22 10:56 Testing Laboratory Results 12/14/22 09:01 12/14/22 09:01 PT 20.6 Seconds (9.0-12.0) H 12/14/22 09:01 INR 2.0 (0.9-1.1) H 12/14/22 09:01 APTT 50.2 Seconds (21.0-31.0) H* 12/14/22 09:01 Electrocardiogram Date: 12/12/22 DICTATED BY:Danyel Sanz MD Test Reason : Blood Pressure : / mmHG Vent. Rate : 094 BPM Atrial Rate : 094 BPM P-R Int : 148 ms QRS Dur : 112 ms QT Int : 370 ms P-R-T Axes : 069 062 041 degrees QTc Int : 462 ms Normal sinus rhythm Incomplete right bundle branch block Borderline ECG When compared with ECG of 27-JUL-2019 09:15, Incomplete right bundle branch block is now Present Nonspecific T wave abnormality now evident in Inferior leads Confirmed by Danyel Sanz ([id number]) on 12/13/2022 9:53:01 AM Other Testing 12/12/22: CT head/brain wo con CLINICAL HISTORY: 72 years-old Male with fall, On coumadin. Acute head injury status post fall TECHNIQUE: Multiple axial CT images of the head were obtained without contrast. A dose lowering technique was utilized adhering to the principles of ALARA. CT DOSE: 1894.46 mGy.cm COMPARISON: None. FINDINGS: No acute intracranial hemorrhage, midline shift, intracranial mass, hydrocep halus, territorial ischemia or abnormal extra-axial collection. Motion degraded exam. Involutional changes with chronic microvascular ischemic disease. Cerebral vascular calcifications. Subcentimeter likely chronic lacunar infarcts of the cerebellum. The calvarium is intact. Mild mucosal thickening of the maxillary sinuses. Mastoid air cells are clear. Prior bilateral lens repair. IMPRESSION: Motion degraded exam. No acute intracranial abnormality or calvarial fracture identified
--- NOTE | 2022-12-14 13:38 | Orthopedic Progress Note ---
Date of Service December 14, 2022 Assessment & Plan (1) Lumbar disc herniation with radiculopathy: Plan: At this time we will make him n.p.o. after midnight plan for possible decompression fusion T12-L1 tomorrow. All questions were addressed. Admission and Anticipated Discharge Date Admission Date: December 13, 2022 Subjective Patient continues complain of bilateral leg pain. Markedly worse with any coughing or sneezing. Physical Exam Physical Exam: Patient is sitting up in bed. He has a splint to the right ankle and is neurologically intact Results & Data ([facility]) Vital Signs (Past 12 Hours) Vital Signs Temp Pulse Pulse Resp BP Pulse Ox O2 Del Method 12/14/22 10:56 37.2 C 104 H 17 145/82 H 94 Room Air 12/14/22 07:00 88 12/14/22 07:33 36.6 C 110 H 19 128/92 93 CPAP 12/14/22 04:07 36.8 C 96 H 134/91 92 CPAP
[2022-12-14] MEDS ORDERED: PHYTONADIONE 2 MG in DEXTROSE 5% 50 ML IV ONE (15:00)
--- NOTE | 2022-12-14 15:17 | Communication Note ---
Date of Service: December 14, 2022 Pt currently on the surgical schedule tomorrow, 12/15/22, for Lumbar decompression T12-L1, possible fusion. Pt also currently with a right lateral malleolus fracture. I have spoken to Dr. Austin and Dr. Swift. Plans will be to try to coordinate both surgeries during one OR time. Dr. Austin to due the Lumbar decompression first, and then Dr Swift to do the ORIF right lateral malleolus fx after. This has been discussed with the patient who is in agreement with this plan. Will plan for OR tomorrow.
--- NOTE | 2022-12-14 15:57 | Hospitalist Progress Note ---
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 Patient's does note he has had several episodes like this in the preceding few weeks -CTlumbar spine: No acute fracture/subluxation of lumbar spine. Mild chronic T12 compression deformity. Levoscoliosis. Degenerative and postoperative changes. Patient with history of L3-L4 laminectomy, L3-L5 interbody cindy and screw fusion with discectomy. Multilevel neuroforaminal and canal stenosis noted. Knee x-ray: Arthritis appreciated, no fracture/dislocation CThead: No acute findings Ankle x-ray: Acute minimally displaced fibular fracture with subtle acute nondisplaced posterior malleolus fracture -Lumbar spine MRI with significant HNP T12-L1 causing severe stenosis Appreciate ortho spine consult--> needs lumbar decompression and fusion-plan for this Wed -discussed AC with Dr. Carvajal--> no IVC filter needed preop (had done previously)--> gave po vit K 5mg x 1 on 12/13--> INR now 2.0--> give IV vit K 2 mg x 1 now, follow daily INR, can give IV vit K day of surgery if needed. -continue to hold coumadin. Plan to bridge with Lovenox 40mg SQ bid after surgery for bridging when ok with Ortho Spine -flexeril tid, prn pain meds -NPO after midnight (2) Fracture of right ankle, lateral malleolus: Plan: Minimally displaced fibular fracture with subtle acute nondisplaced posterior malleolar fracture plan for ORIF with Ortho tomorrow at time of back surgery in splint for now pain control prn (3) Intractable back pain: Plan: continue flexeril tid morphine and tramadol prn (4) Situational anxiety: Plan: holding med marijuana as not permissible to vape in hospital start lorazepam as needed anxious about upcoming surgery no h/o EtOH abuse (5) Pulmonary embolism: Plan: History of DVT/PE Saddle PE 2015, DVT 2013. Had temporary IVC filter in until warfarin was able to be resumed On chronic warfarin 3 mg daily 7 days a week,HOLD for supratherapeutic INR and for upcoming back surgery follow INR -bridge as above (6) Hypertension: Plan: not on meds, elevated BPs here due to pain, anxiety monitor for now (7) SAHIL (obstructive sleep apnea): Plan: continue CPAP qhs (8) Chronic venous insufficiency of lower extremity: Plan: Is on intermittent Lasix Plan DVT proph-add SCDs, reversing coumadin plan to start Lovenox 40mg bid 2 days post-op from back surgery as bridge to coumadin Dispo-continued stay on tele until post-op as high risk for DVT/PE Admission and Anticipated Discharge Date Admission Date: December 13, 2022 Subjective Pt feeling anxious about the upcoming surgery and requesting something for anxiety. Pain is controlled today in back. Still with requiring a lot of assistance to get OOB to bedside commode but did have a BM. Denies CP. Has chronic dyspnea but no worse than his usual. Review of Systems Review of Systems: All systems reviewed & are unremarkable except as noted in HPI & below Physical Exam Constitutional: WD/WN, vitals as above Eyes: + anicteric sclerae Neck: trachea midline, no thyromegaly Respiratory: normal respiratory effort, lungs clear to auscultation Cardiovascular: RRR, no murmur, no edema Chest (Breasts): Chest: normal inspection of chest Gastrointestinal (Abdomen): normal bowel sounds, soft, nontender, no hepatosplenomegaly Musculoskeletal: Extremities: + extremities abnormal to inspection (right ankle in splint), no cyanosis and no clubbing Skin: no rashes, warm and dry Psychiatric: A+Ox3, euthymic affect Lymphatic: no lymphedema Results & Data Results & Data ([facility]) Vital Signs (Past 12 Hours) Vital Signs Temp Pulse Pulse Resp BP Pulse Ox O2 Del Method 12/14/22 10:56 37.2 C 104 H 17 145/82 H 94 Room Air 12/14/22 07:00 88 12/14/22 07:33 36.6 C 110 H 19 128/92 93 CPAP 12/14/22 04:07 36.8 C 96 H 134/91 92 CPAP Laboratory Results 12/14/22 12/14/22 12/14/22 Range/Units 09:01 09:01 09:01 WBC (4.8-10.8) K/ul RBC (4.63-6.08) M/uL Hgb (14.0-18.0) g/dl Hct (40.1-51.0) % MCV (80.0-100.0) fL MCH (25.0-34.0) pg MCHC (32.0-36.0) g/dL RDW Std Deviation (36.4-46.3) fL RDW Coeff of Jazz (11.5-14.5) % Plt Count (130-400) K/uL MPV (9.4-12.4) fL Immature Gran % (Auto) % Neut % (Auto) % Lymph % (Auto) % [place] % (Auto) % Eos % (Auto) % Baso % (Auto) % Neut # (Auto) (1.4-6.5) K/uL Lymph # (Auto) (1.2-3.4) K/uL [place] # (Auto) (0.24-0.82) K/uL Eos # (Auto) (0-0.50) K/uL Baso # (Auto) (0-0.2) K/uL Immature Gran # (Auto) (0.00-0.02) K/uL PT (9.0-12.0) Seconds INR (0.9-1.1) APTT 50.2 H* (21.0-31.0) Seconds PTT Ratio 1.8 Sodium 137 (136-145) mmol/L Potassium 3.9 (3.5-5.1) mmol/L Chloride 102 (98-107) mmol/L Carbon Dioxide 27 (21-32) mmol/L Anion Gap 8 (3-11) BUN 20 (6-23) mg/dl Creatinine 1.00 (0.6-1.4) mg/dl Est Cr Clr Drug Dosing 96.4 ml/min Est GFR ( Amer) 86.8 ml/min Est GFR (Non-Af Amer) 74.9 ml/min BUN/Creatinine Ratio 20.0 (10-20) Glucose 126 H (70-99(Fasting)) mg/dl Calcium 9.2 (8.5-10.1) mg/dl Blood Type Pending Antibody Screen Pending 12/14/22 12/14/22 Range/Units 09:01 09:01 WBC 12.46 H (4.8-10.8) K/ul RBC 4.40 L (4.63-6.08) M/uL Hgb 14.0 (14.0-18.0) g/dl Hct 39.5 L (40.1-51.0) % MCV 89.8 (80.0-100.0) fL MCH 31.8 (25.0-34.0) pg MCHC 35.4 (32.0-36.0) g/dL RDW Std Deviation 43.9 (36.4-46.3) fL RDW Coeff of Jazz 13.3 (11.5-14.5) % Plt Count 228 (130-400) K/uL MPV 9.6 (9.4-12.4) fL Immature Gran % (Auto) 0.4 % Neut % (Auto) 79.0 % Lymph % (Auto) 12.0 % [place] % (Auto) 7.5 % Eos % (Auto) 0.8 % Baso % (Auto) 0.3 % Neut # (Auto) 9.84 H (1.4-6.5) K/uL Lymph # (Auto) 1.50 (1.2-3.4) K/uL [place] # (Auto) 0.93 H (0.24-0.82) K/uL Eos # (Auto) 0.10 (0-0.50) K/uL Baso # (Auto) 0.04 (0-0.2) K/uL Immature Gran # (Auto) 0.05 H (0.00-0.02) K/uL PT 20.6 H (9.0-12.0) Seconds INR 2.0 H (0.9-1.1) APTT (21.0-31.0) Seconds PTT Ratio Sodium (136-145) mmol/L Potassium (3.5-5.1) mmol/L Chloride (98-107) mmol/L Carbon Dioxide (21-32) mmol/L Anion Gap (3-11) BUN (6-23) mg/dl Creatinine (0.6-1.4) mg/dl Est Cr Clr Drug Dosing ml/min Est GFR ( Amer) ml/min Est GFR (Non-Af Amer) ml/min BUN/Creatinine Ratio (10-20) Glucose (70-99(Fasting)) mg/dl Calcium (8.5-10.1) mg/dl Blood Type Antibody Screen PG Care Time/CCT Total # of Minutes Spent Total Time Spent with Patient: Total time spent is greater than 50% in coordination of care (as documented) at patient's floor/unit and/or counseling patient: Coding Level of Care Code 88264 SUB INP/OBS CARE 3/50MIN Diagnoses Lumbar disc herniation with radiculopathy M51.16 Fracture of right ankle, lateral malleolus S82.61XA Intractable back pain M54.9 Situational anxiety F41.8 Pulmonary embolism I26.99 Hypertension I10 SAHIL (obstructive sleep apnea) G47.33 Chronic venous insufficiency of lower extremity I87.2
[2022-12-14] MEDS: AMITRIPTYLINE HCL 50 MG TAB PO SCH (21:00)
[2022-12-14] MEDS: LORazepam 0.5 MG TAB PO PRN (22:01)
[2022-12-15 06:49] LABS: Basophils # (auto) 0.04 K/uL (0-0.2); Basophils % (auto) 0.3 %; Eosinophils # (auto) 0.25 K/uL (0-0.50); Eosinophils % (auto) 2.1 %; Hemoglobin 12.5 g/dl (14.0-18.0); Immature Granulocytes # (auto) 0.04 K/uL (0.00-0.02); Immature Granulocytes % (auto) 0.3 %; Lymphocytes # (auto) 1.61 K/uL (1.2-3.4); Lymphocytes % (auto) 13.2 %; Mean Corpuscular Hemoglobin 31.7 pg (25.0-34.0); Mean Corpuscular Hgb Conc 34.7 g/dL (32.0-36.0); Mean Corpuscular Volume 91.4 fL (80.0-100.0); Mean Platelet Volume 9.4 fL (9.4-12.4); Monocytes # (auto) 1.07 K/uL (0.24-0.82); Monocytes % (auto) 8.8 %; Neutrophils # (auto) 9.16 K/uL (1.4-6.5); Neutrophils % (auto) 75.3 %; Platelet Count 228 K/uL (130-400); RDW Standard Deviation 43.3 fL (36.4-46.3); Red Blood Count 3.94 M/uL (4.63-6.08); White Blood Count 12.17 K/ul (4.8-10.8)
[2022-12-15 06:53] LABS: BUN Creatinine Ratio 23.1 (10-20); Calcium 8.9 mg/dl (8.5-10.1); Creatinine Clr Calc Pharmacy 105.2 ml/min; Est GFR (African American) 97.2 ml/min; Est GFR (Non-African American) 83.9 ml/min; Potassium 3.8 mmol/L (3.5-5.1)
[2022-12-15 07:37] LABS: INR 1.3 (0.9-1.1); Prothrombin Time 13.5 Seconds (9.0-12.0)
[2022-12-15] MEDS ORDERED: DEXAMETHASONE SOD INJ 4 MG/ML VIAL ONE (10:45)
[2022-12-15] MEDS ORDERED: MIDAZOLAM HCL 1 MG/ML 2ML VIAL ONE (10:45)
[2022-12-15] MEDS ORDERED: fentaNYL citrate 100 MCG/2 ML VIAL ONE (10:45)
[2022-12-15] MEDS ORDERED: ONDANSETRON INJ 2 MG/ML 2 ML VIAL ONE (10:45)
[2022-12-15] MEDS ORDERED: PROPOFOL IV EMULSION 10 MG/ML 20 ML VIAL IV ONE (10:45)
[2022-12-15] MEDS ORDERED: GLYCOPYRROLATE 0.2 MG/ML VIAL ONE (10:45)
[2022-12-15] MEDS ORDERED: NEOSTIGMINE METHYLSULFATE 1 MG/ML 10ML VIAL ONE (10:45)
[2022-12-15] MEDS: CYCLOBENZAPRINE HCL 5 MG TAB PO SCH ×3 (10:50→21:00)
[2022-12-15] MEDS: CHOLECALCIFEROL 1,000 UNITS 25 MCG TAB PO SCH (10:50)
[2022-12-15] MEDS: LORazepam 0.5 MG TAB PO PRN (10:50)
[2022-12-15] MEDS ORDERED: CLINDAMYCIN 900 MG/D5W 50 ML BAG IV ONE (12:05)
[2022-12-15] MEDS ORDERED: ceFAZolin 330 MG/ML 1 GM VIAL ONE (12:19)
[2022-12-15] MEDS ORDERED: BUPIVACAINE/EPINEPHRINE 0.25% 1:200,000 30 ML VIAL ONE (12:19)
--- NOTE | 2022-12-15 12:34 | Hospitalist Progress Note ---
Date of Service December 15, 2022 Assessment & Plan (1) Lumbar disc herniation with radiculopathy: Plan: Presented with Weakness/falls, legs giving out Patient with a fall [employer] when he was standing or stress there and his legs gave out, bilateral weakness and has not been able to ambulate since. Patient's does note he has had several episodes like this in the preceding few weeks -CTlumbar spine: No acute fracture/subluxation of lumbar spine. Mild chronic T12 compression deformity. Levoscoliosis. Degenerative and postoperative changes. Patient with history of L3-L4 laminectomy, L3-L5 interbody cindy and screw fusion with discectomy. Multilevel neuroforaminal and canal stenosis noted. Knee x-ray: Arthritis appreciated, no fracture/dislocation CThead: No acute findings Ankle x-ray: Acute minimally displaced fibular fracture with subtle acute nondisplaced posterior malleolus fracture -Lumbar spine MRI with significant HNP T12-L1 causing severe stenosis Appreciate ortho spine consult--> needs lumbar decompression and fusion-plan for 12/15 -discussed AC with Dr. Carvajal--> no IVC filter needed preop (had done previously)--> gave po vit K 5mg x 1 on 12/13-->then IV vit K 2 mg x 1 on 12/14, INR now down to 1.3 -continue to hold coumadin. Plan to bridge with Lovenox 40mg SQ bid after surgery for bridging when ok with Ortho Spine -flexeril tid, prn pain meds (2) Fracture of right ankle, lateral malleolus: Plan: Minimally displaced fibular fracture with subtle acute nondisplaced posterior malleolar fracture plan for ORIF with Ortho 12/15 pain control prn (3) Intractable back pain: Plan: continue flexeril tid morphine and tramadol prn (4) Situational anxiety: Plan: holding med marijuana as not permissible to vape in hospital start lorazepam as needed anxious about upcoming surgery-improved no h/o EtOH abuse (5) Pulmonary embolism: Plan: History of DVT/PE Saddle PE 2015, DVT 2013. Had temporary IVC filter in until warfarin was able to be resumed On chronic warfarin 3 mg daily 7 days a week,HOLD for supratherapeutic INR and for upcoming back surgery follow INR -bridge as above (6) Hypertension: Plan: not on meds, elevated BPs here due to pain, anxiety monitor for now-improved (7) SAHIL (obstructive sleep apnea): Plan: continue CPAP qhs (8) Chronic venous insufficiency of lower extremity: Plan: Is on intermittent Lasix Plan DVT proph-SCDs, reversed coumadin plan to start Lovenox 40mg bid 2 days post-op from back surgery as bridge to coumadin Dispo-continued stay on tele until post-op as high risk for DVT/PE Admission and Anticipated Discharge Date Admission Date: December 13, 2022 Subjective No complaints except pain in legs. Feelin gless anxious today. No CP, SOB, nausea. Moved bowels today Tele with NSR normal rates, 90-100 Review of Systems Review of Systems: All systems reviewed & are unremarkable except as noted in HPI & below Physical Exam Constitutional: WD/WN, vitals as above Eyes: + anicteric sclerae Neck: trachea midline, no thyromegaly Respiratory: normal respiratory effort, lungs clear to auscultation Cardiovascular: RRR, no murmur, no edema Chest (Breasts): Chest: normal inspection of chest Gastrointestinal (Abdomen): normal bowel sounds, soft, nontender, no hepatosplenomegaly Musculoskeletal: Extremities: + extremities abnormal to inspection (right ankle in splint), no cyanosis and no clubbing Skin: no rashes, warm and dry Psychiatric: A+Ox3, euthymic affect Lymphatic: no lymphedema Results & Data Results & Data ([facility]) Vital Signs (Past 12 Hours) Vital Signs Temp Pulse Pulse Resp BP Pulse Ox O2 Del Method 12/15/22 07:00 95 H 12/15/22 07:00 36.6 C 96 H 17 133/87 91 Room Air 12/15/22 02:35 36.6 C 97 H 16 138/87 91 CPAP 12/15/22 01:57 106 H Laboratory Results 12/15/22 12/15/22 12/15/22 Range/Units 06:04 06:04 06:04 WBC 12.17 H (4.8-10.8) K/ul RBC 3.94 L (4.63-6.08) M/uL Hgb 12.5 L (14.0-18.0) g/dl Hct 36.0 L (40.1-51.0) % MCV 91.4 (80.0-100.0) fL MCH 31.7 (25.0-34.0) pg MCHC 34.7 (32.0-36.0) g/dL RDW Std Deviation 43.3 (36.4-46.3) fL RDW Coeff of Jazz 13.0 (11.5-14.5) % Plt Count 228 (130-400) K/uL MPV 9.4 (9.4-12.4) fL Immature Gran % (Auto) 0.3 % Neut % (Auto) 75.3 % Lymph % (Auto) 13.2 % Kershaw % (Auto) 8.8 % Eos % (Auto) 2.1 % Baso % (Auto) 0.3 % Neut # (Auto) 9.16 H (1.4-6.5) K/uL Lymph # (Auto) 1.61 (1.2-3.4) K/uL Kershaw # (Auto) 1.07 H (0.24-0.82) K/uL Eos # (Auto) 0.25 (0-0.50) K/uL Baso # (Auto) 0.04 (0-0.2) K/uL Immature Gran # (Auto) 0.04 H (0.00-0.02) K/uL PT 13.5 H (9.0-12.0) Seconds INR 1.3 H (0.9-1.1) Sodium 138 (136-145) mmol/L Potassium 3.8 (3.5-5.1) mmol/L Chloride 102 (98-107) mmol/L Carbon Dioxide 29 (21-32) mmol/L Anion Gap 7 (3-11) BUN 21 (6-23) mg/dl Creatinine 0.91 (0.6-1.4) mg/dl Est Cr Clr Drug Dosing 105.2 ml/min Est GFR ( Amer) 97.2 ml/min Est GFR (Non-Af Amer) 83.9 ml/min BUN/Creatinine Ratio 23.1 H (10-20) Glucose 118 H (70-99(Fasting)) mg/dl Calcium 8.9 (8.5-10.1) mg/dl Blood Type Antibody Screen 12/14/22 Range/Units 09:01 WBC (4.8-10.8) K/ul RBC (4.63-6.08) M/uL Hgb (14.0-18.0) g/dl Hct (40.1-51.0) % MCV (80.0-100.0) fL MCH (25.0-34.0) pg MCHC (32.0-36.0) g/dL RDW Std Deviation (36.4-46.3) fL RDW Coeff of Jazz (11.5-14.5) % Plt Count (130-400) K/uL MPV (9.4-12.4) fL Immature Gran % (Auto) % Neut % (Auto) % Lymph % (Auto) % Kershaw % (Auto) % Eos % (Auto) % Baso % (Auto) % Neut # (Auto) (1.4-6.5) K/uL Lymph # (Auto) (1.2-3.4) K/uL Kershaw # (Auto) (0.24-0.82) K/uL Eos # (Auto) (0-0.50) K/uL Baso # (Auto) (0-0.2) K/uL Immature Gran # (Auto) (0.00-0.02) K/uL PT (9.0-12.0) Seconds INR (0.9-1.1) Sodium (136-145) mmol/L Potassium (3.5-5.1) mmol/L Chloride (98-107) mmol/L Carbon Dioxide (21-32) mmol/L Anion Gap (3-11) BUN (6-23) mg/dl Creatinine (0.6-1.4) mg/dl Est Cr Clr Drug Dosing ml/min Est GFR ( Amer) ml/min Est GFR (Non-Af Amer) ml/min BUN/Creatinine Ratio (10-20) Glucose (70-99(Fasting)) mg/dl Calcium (8.5-10.1) mg/dl Blood Type A Positive Antibody Screen NEGATIVE PG Care Time/CCT Total # of Minutes Spent Total Time Spent with Patient: Total time spent is greater than 50% in coordination of care (as documented) at patient's floor/unit and/or counseling patient: Coding Level of Care Code 76286 SUB INP/OBS CARE 2/35MIN Diagnoses Lumbar disc herniation with radiculopathy M51.16 Fracture of right ankle, lateral malleolus S82.61XA Intractable back pain M54.9 Situational anxiety F41.8 Pulmonary embolism I26.99 Hypertension I10 SAHIL (obstructive sleep apnea) G47.33 Chronic venous insufficiency of lower extremity I87.2
--- NOTE | 2022-12-15 12:39 | History & Physical Bridge Note ---
Date of Service December 15, 2022 History & Physical Bridge Note I have examined the patient, reviewed the History & Physical and in the interval since the performance of the History & Physical I have noted the following changes of clinical significance: no changes noted Decompression possible fusion T12-L1
--- NOTE | 2022-12-15 12:44 | History & Physical Bridge Note ---
Date of Service December 15, 2022 History & Physical Bridge Note I have examined the patient, reviewed the History & Physical and in the interval since the performance of the History & Physical I have noted the following changes of clinical significance: no changes noted Decompression possible fusion T12-L1. This is a clinical emergency in light of his severe stenosis and neural deficit.
--- NOTE | 2022-12-15 12:45 | History & Physical Bridge Note ---
Date of Service December 15, 2022 History & Physical Bridge Note I have examined the patient, reviewed the History & Physical and in the interval since the performance of the History & Physical I have noted the following changes of clinical significance: no changes noted. Discussed risks and benefits ofRight ankle ORIF, written consent obtained.
[2022-12-15] MEDS ORDERED: PROMETHAZINE HCL 12.5 MG in SODIUM CHLORIDE 0.9% 50 ML IV PRN (12:48)
[2022-12-15] MEDS ORDERED: ePHEDrine sulfate 50 MG/ML AMP IV PRN (12:48)
[2022-12-15] MEDS ORDERED: HYDROmorphone INJ 2 MG/ML SYR/VIAL IV PRN (12:48)
[2022-12-15] MEDS ORDERED: fentaNYL citrate 100 MCG/2 ML VIAL IV PRN (12:48)
[2022-12-15] MEDS ORDERED: ONDANSETRON INJ 2 MG/ML 2 ML VIAL IV PRN (12:48)
[2022-12-15] MEDS ORDERED: ATROPINE SULFATE 0.1 MG/ML 10ML SYR IV PRN (12:48)
[2022-12-15] MEDS ORDERED: CLINDAMYCIN/D5W 900 MG/50 ML BAG IV ONE (13:00)
--- NOTE | 2022-12-15 13:00 | History & Physical Bridge Note ---
Date of Service December 15, 2022 History & Physical Bridge Note I have examined the patient, reviewed the History & Physical and in the interval since the performance of the History & Physical I have noted the following changes of clinical significance: no changes noted. Pt going to OR for emergent spine procedure, will plan to fix right ankle fracture under same anesthesia event after spine procedure is complete.
[2022-12-15] MEDS ORDERED: FLOSEAL HEMOSTATIC MATRIX 10ML TOP ONE (13:43)
[2022-12-15] MEDS ORDERED: ROCURONIUM BROMIDE 10 MG/ML 5 ML VIAL IV ONE (13:43)
[2022-12-15] MEDS ORDERED: SURGICEL ABSORB HEMOSTAT 2IN X 14IN TOP ONE (14:00)
[2022-12-15] MEDS ORDERED: HYDROmorphone INJ 2 MG/ML SYR/VIAL ONE (14:10)
--- NOTE | 2022-12-15 14:47 | Operative Report ---
Post Operative Report Pre & Post Diagnosis Operation Date: 12/15/22 12:00 Pre-Op Diagnosis: Lumbar Disc Herniation with Radiculopathy Fracture of Right Ankle, Lateral Malleolus Post-Op Diagnosis: Lumbar Disc Herniation with Radiculopathy Fracture of Right Ankle, Lateral Malleolus I identified the patient and participated in the time-out.: Yes Procedure Operation Date: 12/15/22 12:00 Actual Procedures #1 lumbar decompression with bilateral medial facetectomies T12-L1. #2 posterior spinal fusion T12-L1. #3 placement posterior instrumentation T12-L1. #4 interbody fusion T12-L1. #5 placement of Spira 12 x 26 mm at T12-L1. #6 placement locally harvested morselized autograft in the posterior gutters. #7 placement of I factor model V toss interbody space and posterior gutters. Surgeon Lalo Austin, Student Life Dean None Estimated Blood Loss 100 Findings See Below The patient is 6 foot 2 inches tall weighing over 130 kg with a BMI in excess of 36. Patient's body habitus did contribute to significant technical difficulty with positioning and exposure adding at least 50% increased operative time. Specimens None Indications This is a 72-year-old male who presents with marked clinical status and ability to ambulate. In fact his symptoms troponin he cannot lie supine without extreme pain shooting down his legs. In light of his decline recommending emergent decompression fusion now that his INR is within operative range. Description of Procedure Patient was met with identified informed consent obtained. Patient was then taken to the operative suite underwent a patient placed in a prone position the Franklin table top Matthias frame. All bony prominences well-padded eyes inspected to ensure no external pressure placed upon the. This point the thoracolumbar spine was prepped and draped no sterile fashion. Sharp dissection with the assistance pericardial form down to and exposing the T12-L1 level. Self- retaining tractors placed. Then performed a midline decompression and attempted to access the disc safely with minimal retraction. Unable to do so I elected to remove the entire facet at T12-L1 on the left so I did remove the disc laterally and avoid dural retraction. Massive fragment was removed. In light of the iatrogenic instability I therefore move forward with a fusion at the T12-L1 level. Pedicle screws were placed in T12-L1 bilaterally with assistance of fluoroscopy the proper sized cindy placed. By way of a transforaminal approach on the left complete discectomy of T12-L1 was performed endplates curetted to subcortical bleeding bone and a 12 x 26 mm spiral cage with I factor tapped in position. The rods then locked in final position bilaterally. The transverse processes of T12-L1 burred to subcortical bleeding bone. I factor model V toss and locally harvested morselized autograft was placed in the posterior gutters. 15 round LAUREN inserted. Incision was then closed with 1 Vicryl fascia 2-0 Vicryl subcutaneously and 4 Monocryl for final skin closure. Steri-Strips dressings placed. Patient was then prepared for his second procedure of the ankle. I attest to the content of the Intraoperative Record and any orders documented therein. Any exceptions are noted below.
--- NOTE | 2022-12-15 15:00 | Fluoroscopy Report ---
FL lumbar spine 2-3V CLINICAL HISTORY: T12-L1 DECOMPRESSION AND FUSION TECHNIQUE: 2 views were obtained with the C-arm in the OR with the above procedure. Total fluoroscopy time was 24.3 seconds. Radiation dose was 15.74 mGy. Comparison: Comparison is made to MRI lumbar spine 12/13/2022 FINDINGS/IMPRESSION: Intraoperative images were obtained of T12-L1 decompression and fusion. Please correlate with intraoperative fluoroscopy and operative report. ACT 112: Negative or not required by law. Electronically signed by: Pedro Carrera M.D. 12/15/2022 2:59 PM
--- NOTE | 2022-12-15 16:27 | Fluoroscopy Report ---
FL ankle RT min 3V RTN CLINICAL HISTORY: RT ORIF AFTER SPINE TECHNIQUE: 3 views were obtained with the C-arm in the OR with the above procedure. Total fluoroscopy time was 10.7 seconds. Radiation dose was 0.34 mGy. Comparison: Comparison is made to right ankle radiographs 12/12/2022 FINDINGS/IMPRESSION: Intraoperative images were obtained of open reduction and internal fixation of p reviously noted ankle fractures. Please correlate with intraoperative fluoroscopy and operative report. ACT 112: Negative or not required by law. Electronically signed by: Pedro Carrera M.D. 12/15/2022 4:25 PM
--- NOTE | 2022-12-15 16:36 | Post Operative Brief Note ---
Immediate Post Op Note v1 Date of Surgery December 15, 2022 Pre & Post Diagnosis Operation Date: 12/15/22 12:00 Pre-Op Diagnosis: Lumbar Disc Herniation with Radiculopathy Fracture of Right Ankle, Lateral Malleolus Post-Op Diagnosis: Lumbar Disc Herniation with Radiculopathy Fracture of Right Ankle, Lateral Malleolus I identified the patient and participated in the time-out.: Yes Procedure Operation Date: 12/15/22 12:00 Actual Procedures p T12-L1 Decompression and Fusion, Spinal Cord Monitoring(Not Applicable) - Lalo Austin DO s Right Open Reduction Internal Right Ankle - Álvaro Swift DO Surgeon Álvaro Swift DO Truck Assembler None Estimated Blood Loss 100 Findings Consistent with Post-Op Diagnosis See dictation Drains Keller Catheter and Alejandro-Martinez Drain Complications None
[2022-12-15] MEDS ORDERED: NALOXONE HCL 0.4 MG/1 ML VIAL/CARP IV PRN (16:38)
--- NOTE | 2022-12-15 16:48 | Operative Report ---
Post Operative Report Pre & Post Diagnosis Operation Date: 12/15/22 12:00 Pre-Op Diagnosis: Lumbar Disc Herniation with Radiculopathy Fracture of Right Ankle, Lateral Malleolus Post-Op Diagnosis: Lumbar Disc Herniation with Radiculopathy Fracture of Right Ankle, Lateral Malleolus I identified the patient and participated in the time-out.: Yes Procedure Operation Date: 12/15/22 12:00 Actual Procedures p T12-L1 Decompression and Fusion, Spinal Cord Monitoring(Not Applicable) - DO dulce maria Barrow Right Open Reduction Internal Right Ankle - Álvaro Swift DO Surgeon Álvaro Swift DO Platform Builder None Estimated Blood Loss 100 Findings Consistent with Post-Op Diagnosis See dictation Specimens None Complications None Indications 72-year-old male who fell sustaining a ground-level fall nearly a week ago resulting in a right distal fibula fracture. Patient also had an associated spine injury. Patient was admitted medical service and orthopedics was consulted. Preoperatively I met with the patient we lengthy discussion regarding risk benefits potential complications of right ankle open reduction internal fixation. Risk include but are not limited to: Infection, neurovascular injury, DVT, nonunion, malunion, hardware failure and need for future surgery. After reviewing these he elected to proceed with surgical intervention and written consent was obtained. Description of Procedure Implants: Synthes one third tubular plate 8 hole 3.5 locking, 4- 3.5 mm cortical screws, one 3.5 mm cortical locking screw, 2- 4.0 mm cancellous screws, one Arthrex tight rope Procedure: After patient's spinal procedure was performed he was then flipped over to the supine position. Nonsterile thigh tourniquet was placed. He was then prepped and draped in the standard orthopedic fashion and timeout was performed. A 8 cm incision overlying the distal fibula laterally was then made. Scissors were used to dissect through the subcutaneous tissue down to the distal fibula. And oblique fracture was noted. Using a dental pick and curette the fracture hematoma was then removed and a pointed tenaculum was used to reduce the fracture to an anatomic position. A 3.5 mm lag screw was then placed and provided anatomic reduction and had good cortical fixation. At this point a 8 hole one third tubular plate was then selected. The plate was positioned using fluoroscopy and 3- 3.5mm bicortical screws were placed in the proximal aspect. Attention was then turned to the distal aspect of plate and 2- 4.0mm cancellous screws were then placed followed by 1- 3.5mm cortical locking screw. This provided excellent reduction of the fracture and good positioning of plate. At this point stress radiograph was obtained which demonstrated widening of the medial clear space. Decision was then made to place an Arthrex tight rope. Drill was used to drill bicortically through the fourth hole of the one third tubular plate. The Arthrex tight rope was then inserted and the Endobutton was then flipped and the tight rope was then sequentially tightened down to the lateral aspect of the plate. This provided good reduction of the syndesmosis and final radiographs were then obtained demonstrating anatomic reduction of the fracture and good placement of the implants. At this point the wound was then copiously irrigated using normal saline solution. Tourniquet was then deflated and any bleeding areas were cauterized using electrocautery. Subcutaneous tissues were then closed using 3-0 Vicryl in an interrupted fashion followed by 3-0 nylon for the skin in an interrupted fashion. Sterile dressing of Xeroform 4 x 4 gauze web roll and ABD was then applied. Bulky Delgado cotton was then applied and the patient was placed in a well molded 3 sided splint. Patient tolerated procedure well and was taken the recovery room in hemodynamically stable condition. I attest to the content of the Intraoperative Record and any orders documented therein. Any exceptions are noted below.
[2022-12-15] MEDS ORDERED: METOPROLOL TARTRATE 1 MG/ML VIAL IV ONE (17:15)
[2022-12-15] MEDS: METOPROLOL TARTRATE 1 MG/ML VIAL IV STA ×2 (17:21→17:50)
--- NOTE | 2022-12-15 17:50 | Anesthesiology Progress Note ---
Date of Service December 15, 2022 Anesthesia Post Procedure Vital Signs Vital Signs: Temp Pulse Pulse Pulse Resp BP BP 12/15/22 17:40 80 12 132/89 12/15/22 17:30 94 H 16 142/92 H 12/15/22 17:20 100 H 16 144/91 H 12/15/22 17:10 100 H 18 150/95 H 12/15/22 17:00 100 H 18 159/96 H 12/15/22 16:50 102 H 10 L 156/102 H 12/15/22 16:40 36.8 C 98 H 16 169/117 H 12/15/22 12:13 103 H 20 153/90 H 12/15/22 11:26 36.6 C 89 20 146/97 H 12/15/22 07:00 95 H 12/15/22 07:00 36.6 C 96 H 17 133/87 12/15/22 02:35 36.6 C 97 H 16 138/87 12/15/22 01:57 106 H 12/14/22 22:30 36.9 C 106 H 16 130/84 12/14/22 19:49 37.1 C 102 H 18 158/86 H Pulse Ox O2 Del Method O2 Flow Rate 12/15/22 17:40 96 Nasal Cannula 3 12/15/22 17:30 95 Oxymask 5 12/15/22 17:20 92 Oxymask 5 12/15/22 17:10 97 Oxymask 6 12/15/22 17:00 96 Oxymask 6 12/15/22 16:50 94 Oxymask 6 12/15/22 16:40 100 Oxymask 6 12/15/22 12:13 93 Room Air 12/15/22 11:26 92 Room Air 12/15/22 07:00 12/15/22 07:00 91 Room Air 12/15/22 02:35 91 CPAP 12/15/22 01:57 12/14/22 22:30 92 Room Air 12/14/22 19:49 94 CPAP Pain Intensity Back: Pain Intensity: 0 Transfer of Care Handoff Completed per policy Notes Mental Status: alert / awake / arousable Patient Amnestic to Procedure: Yes Nausea / Vomiting: adequately controlled Pain: adequately controlled Airway Patency, RR, SpO2: stable & adequate BP & HR: stable & adequate Hydration State: stable & adequate Anesthetic Complications: no major complications apparent and Pt Satisfied with anesthetic care Notes: The patient is awake and comfortable. His vital signs are stable.
[2022-12-15] MEDS: LACTATED RINGER'S 1,000 ML IV SCH ×2 (18:42→20:58)
[2022-12-15] MEDS: AMITRIPTYLINE HCL 50 MG TAB PO SCH (21:00)
[2022-12-15] MEDS: ceFAZolin 2000MG 2,000 MG/15 ML SYR IV SCH (22:41)
[2022-12-15] MEDS: traMADol HCL 50 MG TABLET PO PRN (22:41)
[2022-12-16] MEDS: MoRPHine SULFATE 4 MG/ML 1 ML CARP\\VIAL IV PRN ×4 (00:31→15:07)
[2022-12-16] MEDS: traMADol HCL 50 MG TABLET PO PRN ×3 (06:14→23:00)
[2022-12-16] MEDS: ceFAZolin 2000MG 2,000 MG/15 ML SYR IV SCH (06:15)
[2022-12-16] MEDS: LACTATED RINGER'S 1,000 ML IV SCH ×2 (06:15→16:58)
[2022-12-16 08:12] LABS: INR 1.2 (0.9-1.1); Prothrombin Time 12.4 Seconds (9.0-12.0)
[2022-12-16 08:16] LABS: Albumin Level 3.5 gm/dl (3.4-5.0); BUN Creatinine Ratio 25.3 (10-20); Bilirubin,Total 2.2 mg/dl (0.2-1.0); Calcium 8.9 mg/dl (8.5-10.1); Creatinine Clr Calc Pharmacy 110.2 ml/min; Est GFR (African American) 99.9 ml/min; Est GFR (Non-African American) 86.2 ml/min; Potassium 4.1 mmol/L (3.5-5.1); Total Protein 6.4 gm/dl (6.0-8.3)
[2022-12-16] MEDS: CYCLOBENZAPRINE HCL 5 MG TAB PO SCH ×2 (08:26→15:04)
[2022-12-16] MEDS: CHOLECALCIFEROL 1,000 UNITS 25 MCG TAB PO SCH (08:26)
--- NOTE | 2022-12-16 08:39 | Orthopedic Progress Note ---
Date of Service December 16, 2022 Assessment & Plan (1) Lumbar disc herniation with radiculopathy: Plan: sp emergent decompression and fusion. begin Pt Ot today Admission and Anticipated Discharge Date Admission Date: December 13, 2022 Subjective Patient's back and leg pain are improved. Physical Exam Physical Exam: Patient is comfortable. Is good strength testing to the left lower extremity. Splint to the right lower extremity. Results & Data ([facility]) Vital Signs (Past 12 Hours) Vital Signs Temp Pulse Pulse Resp BP Pulse Ox O2 Del Method 12/16/22 07:19 36.7 C 84 17 143/86 H 94 BiPAP 12/16/22 03:45 36.9 C 80 18 150/88 H 96 Nasal Cannula 12/16/22 03:16 79 12/15/22 22:57 36.8 C 86 14 129/82 96 Nasal Cannula O2 Flow Rate 12/16/22 07:19 12/16/22 03:45 2 12/16/22 03:16 12/15/22 22:57 3
[2022-12-16 09:28] LABS: Basophils # (auto) 0.02 K/uL (0-0.2); Basophils % (auto) 0.1 %; Eosinophils # (auto) 0.03 K/uL (0-0.50); Eosinophils % (auto) 0.2 %; Hematocrit (blood only) 33.1 % (42.0-52.0); Hemoglobin 11.4 g/dl (14.0-18.0); Immature Granulocytes # (auto) 0.12 K/uL (0.01-0.20); Immature Granulocytes % (auto) 0.7 %; Lymphocytes % (auto) 7.1 %; Mean Corpuscular Hemoglobin 31.8 pg (25.0-34.0); Mean Corpuscular Hgb Conc 34.4 g/dL (32.0-36.0); Mean Corpuscular Volume 92.2 fL (80.0-100.0); Mean Platelet Volume 9.6 fL (9.4-12.4); Monocytes # (auto) 1.29 K/uL (0.11-0.59); Monocytes % (auto) 7.1 %; Neutrophils # (auto) 15.51 K/uL (1.40-6.50); Neutrophils % (auto) 84.8 %; Platelet Count 250 K/uL (130-400); RDW Standard Deviation 43.4 fL (36.4-46.3); Red Blood Count 3.59 M/uL (4.70-6.10); White Blood Count 18.27 K/ul (4.8-10.8)
--- NOTE | 2022-12-16 17:42 | Hospitalist Progress Note ---
Date of Service December 16, 2022 Assessment & Plan (1) Lumbar disc herniation with radiculopathy: Plan: Presented with Weakness/falls, legs giving out Patient with a fall [employer] when he was standing or stress there and his legs gave out, bilateral weakness and has not been able to ambulate since. Patient's does note he has had several episodes like this in the preceding few weeks -CTlumbar spine: No acute fracture/subluxation of lumbar spine. Mild chronic T12 compression deformity. Levoscoliosis. Degenerative and postoperative changes. Patient with history of L3-L4 laminectomy, L3-L5 interbody cindy and screw fusion with discectomy. Multilevel neuroforaminal and canal stenosis noted. Knee x-ray: Arthritis appreciated, no fracture/dislocation CThead: No acute findings Ankle x-ray: Acute minimally displaced fibular fracture with subtle acute nondisplaced posterior malleolus fracture -Lumbar spine MRI with significant HNP T12-L1 causing severe stenosis Appreciate ortho spine consult--> now s/p lumbar decompression and fusion T12-L1 on 12/15 -discussed AC with Dr. Carvajal--> no IVC filter needed preop (had done previously)--> gave po vit K 5mg x 1 on 12/13-->then IV vit K 2 mg x 1 on 12/14, INR down to 1.3 preop -still awaiting to hear back from Ortho on when ok to resume coumadin-possibly tonight or tomorrow? Anticoag specialist, Dr. Carvajal, recommends 6mg daily x 2 days and then resume home dosing -Plan to bridge with Lovenox 40mg SQ bid after surgery for bridging when ok with Ortho Spine-typically 2 days post-op -follow INR -change flexeril to prn -dc IV morphine as not effective and start IV dilaudid 0.5mg IV q6h prn; continue tramadol prn, tylenol prn -LAUREN drain maangement as per Ortho Spine -bowel regimen prn (2) Fracture of right ankle, lateral malleolus: Plan: Minimally displaced fibular fracture with subtle acute nondisplaced posterior malleolar fracture now s/p ORIF with Ortho 12/15 pain control prn splint in place post-op management as per Ortho (3) Pulmonary embolism: Plan: History of DVT/PE Saddle PE 2015, DVT 2013. Had temporary IVC filter in until warfarin was able to be resumed On chronic warfarin 3 mg daily 7 days a week on hold as above follow INR -bridge as above when ok with Surgery -restart coumadin as above when ok with Surgery (4) Hypertension: Plan: not on meds, elevated BPs here due to pain, anxiety monitor for now-improved (5) SAHIL (obstructive sleep apnea): Plan: continue CPAP qhs (6) Situational anxiety: Plan: holding med marijuana as not permissible to vape in hospital started lorazepam as needed no h/o EtOH abuse (7) Chronic venous insufficiency of lower extremity: Plan: Is on intermittent Lasix -dc IVFs (8) Elevated bilirubin: Plan: TBili mildly elevated on admission at 1.8, now 2.2, DBili 1.0 No abdominal pain. Other LFTs normal Suspect Gilbert's. Will follow LFTs Plan DVT proph-SCDs, reversed coumadin plan to start Lovenox 40mg bid 2 days post-op from back surgery as bridge to coumadin Dispo-continued stay on tele until post-op as high risk for DVT/PE Admission and Anticipated Discharge Date Admission Date: December 13, 2022 Subjective Pt having a lot of burning type pain in the lower back and some pain in right ankle. No further radicular pain down backs of thighs. Denies CP, nausea, no SOB over his usual. He is voiding on own and had a BM yesterday. Eating and drinking here. Tele with NSR normal rates Review of Systems Review of Systems: All systems reviewed & are unremarkable except as noted in HPI & below Physical Exam Constitutional: WD/WN, vitals as above Eyes: + anicteric sclerae Neck: trachea midline, no thyromegaly Respiratory: normal respiratory effort, lungs clear to auscultation Cardiovascular: RRR, no murmur, no edema Chest (Breasts): Chest: normal inspection of chest Gastrointestinal (Abdomen): normal bowel sounds, soft, nontender, no hepatosplenomegaly Musculoskeletal: Extremities: + extremities abnormal to inspection (right ankle in splint), no cyanosis and no clubbing Skin: no rashes, warm and dry Neurologic: sensation intact to light touch in right toes Psychiatric: A+Ox3, euthymic affect Lymphatic: no lymphedema Results & Data Results & Data ([facility]) Vital Signs (Past 12 Hours) Vital Signs Temp Pulse Pulse Resp BP Pulse Ox Pulse Ox 12/16/22 15:47 109 H 12/16/22 15:24 36.7 C 113 H 18 139/89 94 12/16/22 12:45 96 12/16/22 12:08 36.7 C 112 H 17 161/90 H 94 12/16/22 11:35 94 12/16/22 10:09 84 12/16/22 07:19 36.7 C 84 17 143/86 H 94 O2 Del Method O2 Flow Rate 12/16/22 15:47 12/16/22 15:24 Room Air 12/16/22 12:45 2 12/16/22 12:08 Room Air 12/16/22 11:35 Room Air 12/16/22 10:09 12/16/22 07:19 BiPAP Laboratory Results 12/16/22 12/16/22 12/16/22 Range/Units 07:17 07:17 07:17 WBC 18.27 H (4.8-10.8) K/ul RBC 3.59 L (4.70-6.10) M/uL Hgb 11.4 L (14.0-18.0) g/dl Hct 33.1 L (42.0-52.0) % MCV 92.2 (80.0-100.0) fL MCH 31.8 (25.0-34.0) pg MCHC 34.4 (32.0-36.0) g/dL RDW Std Deviation 43.4 (36.4-46.3) fL RDW Coeff of Jazz 13.0 (11.5-14.5) % Plt Count 250 (130-400) K/uL MPV 9.6 (9.4-12.4) fL Immature Gran % (Auto) 0.7 % Neut % (Auto) 84.8 % Lymph % (Auto) 7.1 % [place] % (Auto) 7.1 % Eos % (Auto) 0.2 % Baso % (Auto) 0.1 % Neut # (Auto) 15.51 H (1.40-6.50) K/uL Lymph # (Auto) 1.30 (1.2-3.4) K/uL [place] # (Auto) 1.29 H (0.11-0.59) K/uL Eos # (Auto) 0.03 (0-0.50) K/uL Baso # (Auto) 0.02 (0-0.2) K/uL Immature Gran # (Auto) 0.12 (0.01-0.20) K/uL PT 12.4 H (9.0-12.0) Seconds INR 1.2 H (0.9-1.1) Sodium 137 (136-145) mmol/L Potassium 4.1 (3.5-5.1) mmol/L Chloride 101 (98-107) mmol/L Carbon Dioxide 29 (21-32) mmol/L Anion Gap 7 (3-11) BUN 22 (6-23) mg/dl Creatinine 0.87 (0.6-1.4) mg/dl Est Cr Clr Drug Dosing 110.2 ml/min Est GFR ( Amer) 99.9 ml/min Est GFR (Non-Af Amer) 86.2 ml/min BUN/Creatinine Ratio 25.3 H (10-20) Glucose 136 H (70-99(Fasting)) mg/dl Calcium 8.9 (8.5-10.1) mg/dl Total Bilirubin 2.2 H (0.2-1.0) mg/dl Direct Bilirubin 1.0 H (0-0.2) mg/dl AST 20 (13-39) U/L ALT 13 (7-52) U/L Alkaline Phosphatase 53 (34-104) U/L Total Protein 6.4 (6.0-8.3) gm/dl Albumin 3.5 (3.4-5.0) gm/dl PG Care Time/CCT Total # of Minutes Spent Total Time Spent with Patient: Total time spent is greater than 50% in coordination of care (as documented) at patient's floor/unit and/or counseling patient: Coding Level of Care Code 65999 SUB INP/OBS CARE 2/35MIN Diagnoses Lumbar disc herniation with radiculopathy M51.16 Fracture of right ankle, lateral malleolus S82.61XA Pulmonary embolism I26.99 Hypertension I10 SAHIL (obstructive sleep apnea) G47.33 Situational anxiety F41.8 Chronic venous insufficiency of lower extremity I87.2 Elevated bilirubin R17
[2022-12-16] MEDS ORDERED: WARFARIN SOD 6 MG TAB PO ONE (19:17)
[2022-12-16] MEDS: HYDROmorphone INJ 0.5 MG/0.5 ML SYR IV PRN (20:24)
[2022-12-16] MEDS: AMITRIPTYLINE HCL 50 MG TAB PO SCH ×2 (20:29→21:00)
[2022-12-17] MEDS: CYCLOBENZAPRINE HCL 5 MG TAB PO PRN (00:11)
[2022-12-17] MEDS: HYDROmorphone INJ 0.5 MG/0.5 ML SYR IV PRN ×4 (02:28→23:57)
[2022-12-17] MEDS: traMADol HCL 50 MG TABLET PO PRN ×3 (05:07→19:27)
[2022-12-17 06:07] LABS: Basophils # (auto) 0.03 K/uL (0-0.2); Basophils % (auto) 0.2 %; Eosinophils # (auto) 0.18 K/uL (0-0.50); Eosinophils % (auto) 1.5 %; Hematocrit (blood only) 32.5 % (42.0-52.0); Hemoglobin 11.2 g/dl (14.0-18.0); Immature Granulocytes # (auto) 0.08 K/uL (0.01-0.20); Immature Granulocytes % (auto) 0.7 %; Lymphocytes % (auto) 12.4 %; Mean Corpuscular Hemoglobin 31.9 pg (25.0-34.0); Mean Corpuscular Hgb Conc 34.5 g/dL (32.0-36.0); Mean Corpuscular Volume 92.6 fL (80.0-100.0); Mean Platelet Volume 9.4 fL (9.4-12.4); Monocytes # (auto) 0.99 K/uL (0.11-0.59); Monocytes % (auto) 8.2 %; Neutrophils # (auto) 9.34 K/uL (1.40-6.50); Platelet Count 245 K/uL (130-400); RDW Coefficient of Variation 13.2 % (11.5-14.5); RDW Standard Deviation 44.2 fL (36.4-46.3); Red Blood Count 3.51 M/uL (4.70-6.10); White Blood Count 12.12 K/ul (4.8-10.8)
[2022-12-17 06:18] LABS: INR 1.3 (0.9-1.1); Prothrombin Time 13.7 Seconds (9.0-12.0)
[2022-12-17 06:29] LABS: Albumin Level 3.2 gm/dl (3.4-5.0); Bilirubin,Total 2.6 mg/dl (0.2-1.0); Calcium 8.4 mg/dl (8.5-10.1); Potassium 3.6 mmol/L (3.5-5.1)
[2022-12-17 06:35] LABS: Albumin Globulin Ratio 1.1 (0.9-2); BUN Creatinine Ratio 20.3 (10-20); Creatinine Clr Calc Pharmacy 124.8 ml/min; Est GFR (Non-African American) 89.7 ml/min; Globulin 2.9 gm/dl (2.5-4.0); Total Protein 6.1 gm/dl (6.0-8.3)
[2022-12-17] MEDS: CHOLECALCIFEROL 1,000 UNITS 25 MCG TAB PO SCH (08:52)
[2022-12-17] MEDS ORDERED: ENOXAPARIN 150 MG/ML SYR SC SCH (09:45)
[2022-12-17] MEDS: POLYETHYLENE (MIRALAX) 17 GM PACK PO PRN (10:18)
--- NOTE | 2022-12-17 10:49 | Orthopedic Progress Note ---
Date of Service December 17, 2022 Assessment & Plan (1) Lumbar disc herniation with radiculopathy: Plan: This time we will continue physical therapy occupational therapy including transfers to his chair. Hopefully he will be ready for rehab next week. Admission and Anticipated Discharge Date Admission Date: December 13, 2022 Subjective Patient's back pain is controlled leg symptoms markedly improved Physical Exam Physical Exam: On exam appears comfortable. Skin strength testing to the left lower extremity. Still splint in place to the right lower extremity. Results & Data ([facility]) Vital Signs (Past 12 Hours) Vital Signs Temp Pulse Pulse Resp BP Pulse Ox O2 Del Method 12/17/22 06:36 36.5 C 79 18 135/88 96 Room Air 12/17/22 03:00 36.7 C 98 H 18 131/92 90 CPAP 12/17/22 01:46 109 H 12/16/22 23:19 37.1 C 106 H 18 140/85 93 CPAP
--- NOTE | 2022-12-17 11:55 | Orthopedic Progress Note ---
Date of Service December 17, 2022 Assessment & Plan (1) Fracture of right ankle, lateral malleolus: Plan: Postop day 2 status post ORIF right lateral malleolus. Nonweightbearing right lower extremity. Elevation at all times while in bed of the right lower extremity. Continue ice. Pain management as written. DVT prophylaxis as per medicine service-currently on enoxaparin and warfarin Orthopedics will sign off for the right lower extremity at this time. Instruc tions placed in discharge section. Please call with any questions. Admission and Anticipated Discharge Date Admission Date: December 13, 2022 Subjective Postop day 2 Patient lying in bed sleeping. Easily awoken. Patient states that today is a much better day as far as pain control. He states that yesterday was kind of rough with both his back and his ankle. However today he feels he has turned the corner and pain control is much better. No other complaints at this time. Physical Exam Physical Exam: Splint/dressing is clean, dry, and intact. Neurovascular is intact. Toes are mobile. Results & Data ([facility]) Vital Signs (Past 12 Hours) Vital Signs Temp Pulse Pulse Resp BP Pulse Ox O2 Del Method 12/17/22 11:43 37.0 C 110 H 20 138/77 94 Room Air 12/17/22 08:00 93 H 12/17/22 08:00 Room Air, CPAP 12/17/22 06:36 36.5 C 79 18 135/88 96 Room Air 12/17/22 03:00 36.7 C 98 H 18 131/92 90 CPAP 12/17/22 01:46 109 H
--- NOTE | 2022-12-17 15:52 | Hospitalist Progress Note ---
Date of Service December 17, 2022 Assessment & Plan (1) Lumbar disc herniation with radiculopathy: Plan: Presented with Weakness/falls, legs giving out. Status post T12-L1 decompression and fusion on December 15. Case discussed with orthopedics. We will treat with low-dose subcu Lovenox until INR is therapeutic. CTlumbar spine: No acute fracture/subluxation of lumbar spine. Mild chronic T12 compression deformity. Levoscoliosis. Degenerative and postoperative changes. Patient with history of L3-L4 laminectomy, L3-L5 interbody cindy and screw fusion with discectomy. Multilevel neuroforaminal and canal stenosis noted. Lumbar spine MRI with significant HNP T12-L1 causing severe stenosis. Coumadin was reversed with po vit K 5mg x 1 on 12/13-->then IV vit K 2 mg x 1 on 12/14, INR down to 1.3 preop. Will monitor INR daily. Low-dose Lovenox daily until INR therapeutic. (2) Fracture of right ankle, lateral malleolus: Plan: Status post open reduction internal fixation completed December 15. Now on a hard cast. Orthopedic management. (3) Pulmonary embolism: Plan: History of DVT/PE. Saddle PE 2015, DVT 2013. Had temporary IVC filter in at that time. Warfarin was reversed preoperatively and now has been restarted. Low-dose Lovenox until INR is therapeutic. (4) Hypertension: Plan: not on medications. Elevated BPs here due to pain, anxiety. Now improved (5) SAHIL (obstructive sleep apnea): Plan: continue CPAP qhs. Stable (6) Situational anxiety: Plan: holding med marijuana as not permissible to vape in hospital. Continue lorazepam as needed. (7) Chronic venous insufficiency of lower extremity: Plan: Takes intermittent Lasix . Stable (8) Elevated bilirubin: Plan: TBili mildly elevated on admission at 1.8. Asymptomatic. We will follow. Suspect Gilbert's syndrome Plan DVT proph-SCDs, Lovenox subcu Dispo-it appears he will need SNF placement for a while Admission and Anticipated Discharge Date Admission Date: December 13, 2022 Subjective Alert and oriented. No new problems. Lovenox bridge was ordered earlier this morning but after further discussion with orthopedic surgery it was discontinued. INR 1.3. Continue Coumadin therapy for now. He is stable after open reduction internal fixation of the right ankle fracture and T12-11 1 decompression and fusion both completed on December 15. Review of Systems Review of Systems: Constitutional-no fever or chills ENT-no blurred vision, no double vision, no epistaxis, no sore throat Respiratory-no cough, no wheezing, no shortness of breath Cardiac-no palpitations, no chest pain, no syncope GI-no nausea, vomiting, diarrhea, melena, hematochezia -no urinary retention, no urinary incontinence, no dysuria, no hematuria Musculoskeletal-right ankle is in a cast and immobilized Skin-no bruising, no rashes, no pruritus Neuro-no isolated weakness, no paresthesia, no weakness Psych-no depression, no anxiety Physical Exam Physical Exam: General-alert and oriented x3, no fevers, no chills HEENT-head atraumatic and normocephalic, pupils equal and reactive to light, extraocular muscles intact Neck-no lymphadenopathy or thyromegaly, trachea midline Chest-clear to auscultation percussion. No rales wheezing or rhonchi Cardiac-regular rate and rhythm, normal S1 and S2 Abdomen-normal bowel sounds, nontender, no hepatosplenomegaly Extremities-right ankle is in a hard cast and immobilized. No left lower extremity edema Neuro-cranial nerves II through XII intact, motor and sensory function within normal limits, strength symmetrical, no focal deficits Psych-normal affect, normal mood Results & Data Results & Data ([facility]) Vital Signs (Past 12 Hours) Vital Signs Temp Pulse Pulse Pulse Resp BP Pulse Ox 12/17/22 15:02 36.8 C 94 H 14 167/83 H 91 12/17/22 11:43 37.0 C 110 H 20 138/77 94 12/17/22 08:00 93 H 12/17/22 08:00 12/17/22 06:36 36.5 C 79 18 135/88 96 O2 Del Method 12/17/22 15:02 Room Air 12/17/22 11:43 Room Air 12/17/22 08:00 12/17/22 08:00 Room Air, CPAP 12/17/22 06:36 Room Air Laboratory Results 12/17/22 05:36 12/17/22 05:36 PG Care Time/CCT Total # of Minutes Spent Total Time Spent with Patient: Total time spent is greater than 50% in coordination of care (as documented) at patient's floor/unit and/or counseling patient: Coding Level of Care Code 39743 SUB INP/OBS CARE 50MIN Diagnoses Lumbar disc herniation with radiculopathy M51.16 Fracture of right ankle, lateral malleolus S82.61XA Pulmonary embolism I26.99 Hypertension I10 SAHIL (obstructive sleep apnea) G47.33 Situational anxiety F41.8 Chronic venous insufficiency of lower extremity I87.2 Elevated bilirubin R17
[2022-12-17] MEDS ORDERED: WARFARIN SOD 6 MG TAB PO SCH (16:00)
[2022-12-17] MEDS: AMITRIPTYLINE HCL 50 MG TAB PO SCH (20:03)
[2022-12-18] MEDS: CHOLECALCIFEROL 1,000 UNITS 25 MCG TAB PO SCH (08:21)
--- NOTE | 2022-12-18 08:33 | Orthopedic Progress Note ---
Date of Service December 18, 2022 Assessment & Plan (1) Lumbar disc herniation with radiculopathy: Plan: Patient is tolerating therapy. We will maintain his drain until tomorrow. Plan for rehab next week. Admission and Anticipated Discharge Date Admission Date: December 13, 2022 Subjective Leg pain markedly improved back pain controlled Physical Exam Physical Exam: Patient appears quite comfortable. Has reasonable strength testing Results & Data ([facility]) Vital Signs (Past 12 Hours) Vital Signs Temp Pulse Pulse Resp BP Pulse Ox O2 Del Method 12/18/22 07:28 36.9 C 92 H 18 147/81 H 91 Room Air 12/17/22 22:02 107 H 12/18/22 03:05 36.9 C 90 18 123/73 90 Room Air 12/17/22 23:19 36.8 C 81 18 134/71 90 Room Air
[2022-12-18 08:46] LABS: Basophils # (auto) 0.07 K/uL (0-0.2); Basophils % (auto) 0.5 %; Eosinophils # (auto) 0.18 K/uL (0-0.50); Eosinophils % (auto) 1.2 %; Hematocrit (blood only) 32.9 % (42.0-52.0); Hemoglobin 11.4 g/dl (14.0-18.0); Immature Granulocytes # (auto) 0.13 K/uL (0.01-0.20); Immature Granulocytes % (auto) 0.9 %; Lymphocytes % (auto) 15.7 %; Mean Corpuscular Hemoglobin 31.2 pg (25.0-34.0); Mean Corpuscular Hgb Conc 34.7 g/dL (32.0-36.0); Mean Corpuscular Volume 90.1 fL (80.0-100.0); Mean Platelet Volume 9.5 fL (9.4-12.4); Monocytes # (auto) 1.11 K/uL (0.11-0.59); Monocytes % (auto) 7.3 %; Neutrophils # (auto) 11.36 K/uL (1.40-6.50); Neutrophils % (auto) 74.4 %; Platelet Count 294 K/uL (130-400); RDW Coefficient of Variation 13.5 % (11.5-14.5); RDW Standard Deviation 44.2 fL (36.4-46.3); Red Blood Count 3.65 M/uL (4.70-6.10); White Blood Count 15.25 K/ul (4.8-10.8)
[2022-12-18 08:57] LABS: INR 2.3 (0.9-1.1); Prothrombin Time 23.2 Seconds (9.0-12.0)
[2022-12-18] MEDS ORDERED: ENOXAPARIN INJ 40 MG/0.4 ML SYR SQ SCH (09:00)
[2022-12-18 09:22] LABS: Calcium 8.8 mg/dl (8.5-10.1); Potassium 3.4 mmol/L (3.5-5.1)
[2022-12-18 09:28] LABS: BUN Creatinine Ratio 19.3 (10-20); Creatinine Clr Calc Pharmacy 117.2 ml/min; Est GFR (African American) 101.9 ml/min; Est GFR (Non-African American) 87.9 ml/min
[2022-12-18] MEDS: traMADol HCL 50 MG TABLET PO PRN ×2 (09:30→20:38)
[2022-12-18] MEDS ORDERED: POTASSIUM CHLORIDE CRTAB 20 MEQ TABCR PO STA (10:12)
[2022-12-18] MEDS: ONDANSETRON INJ 2 MG/ML 2 ML VIAL IV PRN (10:27)
[2022-12-18] MEDS: POLYETHYLENE (MIRALAX) 17 GM PACK PO SCH (12:04)
--- NOTE | 2022-12-18 12:50 | Hospitalist Progress Note ---
Date of Service December 18, 2022 Assessment & Plan (1) Lumbar disc herniation with radiculopathy: Plan: Presented with Weakness/falls, legs giving out. Status post T12-L1 decompression and fusion on December 15. Case discussed with orthopedics. INR is now therapeutic and Lovenox has been discontinued. CTlumbar spine: No acute fracture/subluxation of lumbar spine. Mild chronic T12 compression deformity. Levoscoliosis. Degenerative and postoperative changes. Patient with history of L3-L4 laminectomy, L3-L5 interbody cindy and screw fusion with discectomy. M ultilevel neuroforaminal and canal stenosis noted. Lumbar spine MRI with significant HNP T12-L1 causing severe stenosis. Coumadin was reversed with po vit K 5mg x 1 on 12/13-->then IV vit K 2 mg x 1 on 12/14, INR down to 1.3 preop. Coumadin INR is now therapeutic and Lovenox has been discontinued. (2) Fracture of right ankle, lateral malleolus: Plan: Status post open reduction internal fixation completed December 15. Now on a hard cast. Orthopedic management. (3) Pulmonary embolism: Plan: History of DVT/PE. Saddle PE 2015, DVT 2013. Had temporary IVC filter in at that time. Warfarin was reversed preoperatively and now has been restarted. INR 2.3 today. Lovenox discontinued (4) Hypertension: Plan: not on medications. Elevated BPs here due to pain, anxiety. Now improved (5) SAHIL (obstructive sleep apnea): Plan: continue CPAP qhs. Stable (6) Situational anxiety: Plan: holding med marijuana as not permissible to vape in hospital. Continue lorazepam as needed. (7) Chronic venous insufficiency of lower extremity: Plan: Takes intermittent Lasix . Stable (8) Elevated bilirubin: Plan: TBili mildly elevated on admission at 1.8. Asymptomatic. We will follow. Suspect Gilbert's syndrome Plan DVT proph-SCDs, Lovenox subcu Dispo-it appears he will need SNF placement for a while . He is medically stable for discharge Admission and Anticipated Discharge Date Admission Date: December 13, 2022 Subjective Alert and oriented. No new problems. He was informed his INR is now therapeutic and Lovenox is no longer necessary. Continue oral potassium replacement for mild hypokalemia. We will schedule MiraLAX daily for his constipation Review of Systems Review of Systems: Constitutional-no fever or chills ENT-no blurred vision, no double vision, no epistaxis, no sore throat Respiratory-no cough, no wheezing, no shortness of breath Cardiac-no palpitations, no chest pain, no syncope GI-no nausea, vomiting, diarrhea, melena, hematochezia -no urinary retention, no urinary incontinence, no dysuria, no hematuria Musculoskeletal-right ankle is in a cast and immobilized Skin-no bruising, no rashes, no pruritus Neuro-no isolated weakness, no paresthesia, no weakness Psych-no depression, no anxiety Physical Exam Physical Exam: General-alert and oriented x3, no fevers, no chills HEENT-head atraumatic and normocephalic, pupils equal and reactive to light, extraocular muscles intact Neck-no lymphadenopathy or thyromegaly, trachea midline Chest-clear to auscultation percussion. No rales wheezing or rhonchi Cardiac-regular rate and rhythm, normal S1 and S2 Abdomen-normal bowel sounds, nontender, no hepatosplenomegaly Extremities-right ankle is in a hard cast and immobilized. No left lower extremity edema Neuro-cranial nerves II through XII intact, motor and sensory function within normal limits, strength symmetrical, no focal deficits Psych-normal affect, normal mood Results & Data Results & Data ([facility]) Vital Signs (Past 12 Hours) Vital Signs Temp Pulse Pulse Resp BP Pulse Ox O2 Del Method 12/18/22 07:45 95 H 12/18/22 07:45 CPAP 12/18/22 11:13 36.9 C 94 H 14 134/84 92 Room Air 12/18/22 07:28 36.9 C 92 H 18 147/81 H 91 Room Air 12/18/22 03:05 36.9 C 90 18 123/73 90 Room Air Laboratory Results 12/18/22 08:20 12/18/22 08:20 PG Care Time/CCT Total # of Minutes Spent Total Time Spent with Patient: Total time spent is greater than 50% in coordination of care (as documented) at patient's floor/unit and/or counseling patient: Coding Level of Care Code 53853 SUB INP/OBS CARE 3/50MIN Diagnoses Lumbar disc herniation with radiculopathy M51.16 Fracture of right ankle, lateral malleolus S82.61XA Pulmonary embolism I26.99 Hypertension I10 SAHIL (obstructive sleep apnea) G47.33 Situational anxiety F41.8 Chronic venous insufficiency of lower extremity I87.2 Elevated bilirubin R17
[2022-12-18] MEDS ORDERED: WARFARIN SOD 3 MG TAB PO SCH (16:00)
[2022-12-18] MEDS ORDERED: WARFARIN SOD 6 MG TAB PO SCH (16:00)
[2022-12-18] MEDS: AMITRIPTYLINE HCL 50 MG TAB PO SCH (20:38)
[2022-12-19] MEDS: traMADol HCL 50 MG TABLET PO PRN ×2 (05:21→19:27)
[2022-12-19] MEDS: POLYETHYLENE (MIRALAX) 17 GM PACK PO SCH (07:58)
[2022-12-19] MEDS: CHOLECALCIFEROL 1,000 UNITS 25 MCG TAB PO SCH (07:59)
[2022-12-19 08:08] LABS: Basophils # (auto) 0.03 K/uL (0-0.2); Basophils % (auto) 0.2 %; Eosinophils # (auto) 0.08 K/uL (0-0.50); Eosinophils % (auto) 0.6 %; Hematocrit (blood only) 29.9 % (42.0-52.0); Hemoglobin 10.3 g/dl (14.0-18.0); Immature Granulocytes # (auto) 0.13 K/uL (0.01-0.20); Immature Granulocytes % (auto) 0.9 %; Lymphocytes # (auto) 1.23 K/uL (1.2-3.4); Lymphocytes % (auto) 8.8 %; Mean Corpuscular Hemoglobin 31.7 pg (25.0-34.0); Mean Corpuscular Hgb Conc 34.4 g/dL (32.0-36.0); Mean Platelet Volume 9.2 fL (9.4-12.4); Monocytes # (auto) 0.96 K/uL (0.11-0.59); Monocytes % (auto) 6.9 %; Neutrophils # (auto) 11.51 K/uL (1.40-6.50); Neutrophils % (auto) 82.6 %; Platelet Count 251 K/uL (130-400); RDW Coefficient of Variation 13.3 % (11.5-14.5); RDW Standard Deviation 44.2 fL (36.4-46.3); Red Blood Count 3.25 M/uL (4.70-6.10); White Blood Count 13.94 K/ul (4.8-10.8)
[2022-12-19 08:18] LABS: INR 3.3 (0.9-1.1); Prothrombin Time 32.9 Seconds (9.0-12.0)
--- NOTE | 2022-12-19 11:16 | Orthopedic Progress Note ---
Date of Service December 19, 2022 Assessment & Plan (1) Lumbar disc herniation with radiculopathy: Plan: At this time continue physical therapy discontinue his drain today hopefully discharge to rehab this week. Admission and Anticipated Discharge Date Admission Date: December 13, 2022 Subjective Back pain controlled leg symptoms improved Physical Exam Physical Exam: Patient is seen with bedside. He is strength testing of her extremity. Results & Data ([facility]) Vital Signs (Past 12 Hours) Vital Signs Temp Pulse Pulse Pulse Resp BP Pulse Ox 12/19/22 07:50 106 H 12/19/22 07:50 12/19/22 07:38 36.5 C 102 H 18 126/72 97 12/19/22 03:27 36.6 C 93 H 18 122/82 95 12/18/22 23:21 36.5 C 96 H 18 124/84 95 O2 Del Method 12/19/22 07:50 12/19/22 07:50 Room Air 12/19/22 07:38 CPAP 12/19/22 03:27 CPAP 12/18/22 23:21 CPAP
[2022-12-19 11:17] LABS: BUN Creatinine Ratio 20.7 (10-20); Calcium 8.5 mg/dl (8.5-10.1); Creatinine Clr Calc Pharmacy 118.4 ml/min; Est GFR (African American) 102.4 ml/min; Est GFR (Non-African American) 88.3 ml/min; Potassium 3.5 mmol/L (3.5-5.1)
[2022-12-19] MEDS ORDERED: POTASSIUM CHLORIDE CRTAB 20 MEQ TABCR PO STA (12:12)
--- NOTE | 2022-12-19 15:22 | Hospitalist Progress Note ---
Date of Service December 19, 2022 Assessment & Plan (1) Lumbar disc herniation with radiculopathy: Plan: Presented with Weakness/falls, legs giving out. Status post T12-L1 decompression and fusion on December 15. Case discussed with orthopedics. INR is now therapeutic and Lovenox has been discontinued. CTlumbar spine: No acute fracture/subluxation of lumbar spine. Mild chronic T12 compression deformity. Levoscoliosis. Degenerative and postoperative changes. Patient with history of L3-L4 laminectomy, L3-L5 interbody cindy and screw fusion with discectomy. M ultilevel neuroforaminal and canal stenosis noted. Lumbar spine MRI with significant HNP T12-L1 causing severe stenosis. Coumadin was reversed with po vit K 5mg x 1 on 12/13-->then IV vit K 2 mg x 1 on 12/14, INR down to 1.3 preop. Coumadin INR is now therapeutic and Lovenox has been discontinued. (2) Fracture of right ankle, lateral malleolus: Plan: Status post open reduction internal fixation completed December 15. Now on a hard cast. Orthopedic management. (3) Pulmonary embolism: Plan: History of DVT/PE. Saddle PE 2015, DVT 2013. Had temporary IVC filter in at that time. Warfarin was reversed preoperatively and now has been restarted. INR 3.3 today. Hold Coumadin today, December 19. Lovenox has been discontinued (4) Hypertension: Plan: not on medications. Elevated BPs here due to pain, anxiety. Now improved (5) SAHIL (obstructive sleep apnea): Plan: continue CPAP qhs. Stable (6) Situational anxiety: Plan: holding med marijuana as not permissible to vape in hospital. Continue lorazepam as needed. (7) Chronic venous insufficiency of lower extremity: Plan: Takes intermittent Lasix . Stable (8) Elevated bilirubin: Plan: TBili mildly elevated on admission at 1.8. Asymptomatic. We will follow. Suspect Gilbert's syndrome Plan DVT proph-SCDs, Lovenox subcu Dispo-it appears he will need SNF placement for a while . He is medically stable for discharge when arrangements are finalized Admission and Anticipated Discharge Date Admission Date: December 13, 2022 Subjective Alert and oriented. No new problems. INR is 3.3 today. Coumadin will be held. Potassium still low at 3.5. Continue oral potassium replacement today Review of Systems Review of Systems: Constitutional-no fever or chills ENT-no blurred vision, no double vision, no epistaxis, no sore throat Respiratory-no cough, no wheezing, no shortness of breath Cardiac-no palpitations, no chest pain, no syncope GI-no nausea, vomiting, diarrhea, melena, hematochezia -no urinary retention, no urinary incontinence, no dysuria, no hematuria Musculoskeletal-right ankle is in a cast and immobilized Skin-no bruising, no rashes, no pruritus Neuro-no isolated weakness, no paresthesia, no weakness Psych-no depression, no anxiety Physical Exam Physical Exam: General-alert and oriented x3, no fevers, no chills HEENT-head atraumatic and normocephalic, pupils equal and reactive to light, extraocular muscles intact Neck-no lymphadenopathy or thyromegaly, trachea midline Chest-clear to auscultation percussion. No rales wheezing or rhonchi Cardiac-regular rate and rhythm, normal S1 and S2 Abdomen-normal bowel sounds, nontender, no hepatosplenomegaly Extremities-right ankle is in a hard cast and immobilized. No left lower extremity edema Neuro-cranial nerves II through XII intact, motor and sensory function within normal limits, strength symmetrical, no focal deficits Psych-normal affect, normal mood Results & Data Results & Data ([facility]) Vital Signs (Past 12 Hours) Vital Signs Temp Pulse Pulse Pulse Resp BP Pulse Ox 12/19/22 11:35 36.7 C 105 H 18 124/81 92 12/19/22 07:50 106 H 12/19/22 07:50 12/19/22 07:38 36.5 C 102 H 18 126/72 97 12/19/22 03:27 36.6 C 93 H 18 122/82 95 O2 Del Method 12/19/22 11:35 Room Air 12/19/22 07:50 12/19/22 07:50 Room Air 12/19/22 07:38 CPAP 12/19/22 03:27 CPAP Laboratory Results 12/19/22 07:38 12/19/22 07:38 PG Care Time/CCT Total # of Minutes Spent Total Time Spent with Patient: Total time spent is greater than 50% in coordination of care (as documented) at patient's floor/unit and/or counseling patient: Coding Level of Care Code 82247 SUB INP/OBS CARE 50MIN Diagnoses Lumbar disc herniation with radiculopathy M51.16 Fracture of right ankle, lateral malleolus S82.61XA Pulmonary embolism I26.99 Hypertension I10 SAHIL (obstructive sleep apnea) G47.33 Situational anxiety F41.8 Chronic venous insufficiency of lower extremity I87.2 Elevated bilirubin R17
[2022-12-19] MEDS: CYCLOBENZAPRINE HCL 5 MG TAB PO PRN (20:24)
[2022-12-19] MEDS: AMITRIPTYLINE HCL 50 MG TAB PO SCH (20:28)
[2022-12-20 07:39] LABS: Basophils # (auto) 0.03 K/uL (0-0.2); Basophils % (auto) 0.3 %; Eosinophils # (auto) 0.23 K/uL (0-0.50); Hematocrit (blood only) 30.5 % (42.0-52.0); Hemoglobin 10.6 g/dl (14.0-18.0); Immature Granulocytes # (auto) 0.08 K/uL (0.01-0.20); Immature Granulocytes % (auto) 0.7 %; Lymphocytes # (auto) 1.08 K/uL (1.2-3.4); Lymphocytes % (auto) 9.4 %; Mean Corpuscular Hemoglobin 31.5 pg (25.0-34.0); Mean Corpuscular Hgb Conc 34.8 g/dL (32.0-36.0); Mean Corpuscular Volume 90.8 fL (80.0-100.0); Mean Platelet Volume 9.1 fL (9.4-12.4); Monocytes # (auto) 1.03 K/uL (0.11-0.59); Monocytes % (auto) 8.9 %; Neutrophils # (auto) 9.08 K/uL (1.40-6.50); Neutrophils % (auto) 78.7 %; Platelet Count 271 K/uL (130-400); RDW Coefficient of Variation 13.5 % (11.5-14.5); RDW Standard Deviation 44.4 fL (36.4-46.3); Red Blood Count 3.36 M/uL (4.70-6.10); White Blood Count 11.53 K/ul (4.8-10.8)
[2022-12-20] MEDS: traMADol HCL 50 MG TABLET PO PRN ×2 (07:59→14:14)
[2022-12-20] MEDS: CHOLECALCIFEROL 1,000 UNITS 25 MCG TAB PO SCH (07:59)
[2022-12-20] MEDS ORDERED: SIMETHICONE 80 MG CHEW PO PRN (08:16)
[2022-12-20 08:20] LABS: Calcium 8.5 mg/dl (8.5-10.1); Potassium 3.5 mmol/L (3.5-5.1)
[2022-12-20 08:25] LABS: Prothrombin Time 39.8 Seconds (9.0-12.0)
[2022-12-20 08:26] LABS: Creatinine Clr Calc Pharmacy 131.9 ml/min; Est GFR (African American) 106.8 ml/min; Est GFR (Non-African American) 92.2 ml/min
[2022-12-20] MEDS: POLYETHYLENE (MIRALAX) 17 GM PACK PO SCH (09:06)
[2022-12-20] MEDS ORDERED: POTASSIUM CHLORIDE CRTAB 20 MEQ TABCR PO STA (09:41)
--- NOTE | 2022-12-20 10:00 | Orthopedic Progress Note ---
Date of Service December 20, 2022 Assessment & Plan (1) Lumbar disc herniation with radiculopathy: Plan: Patient is comfortable. He has no radicular complaints. He is ready for rehab once a bed is available. Admission and Anticipated Discharge Date Admission Date: December 13, 2022 Subjective Back pain controlled leg symptoms improved Physical Exam Physical Exam: On exam patient is in bed. Is constricted testing to the left lower extremity. Results & Data ([facility]) Vital Signs (Past 12 Hours) Vital Signs Temp Pulse Pulse Pulse Pulse Resp BP 12/20/22 08:15 12/20/22 08:00 37.1 C 83 16 139/79 12/20/22 07:10 93 H 12/20/22 03:25 37.1 C 88 20 129/80 12/19/22 23:00 91 H 12/19/22 23:16 36.9 C 86 18 130/79 12/19/22 23:05 36.8 C 90 18 126/80 Pulse Ox O2 Del Method 12/20/22 08:15 Room Air, CPAP 12/20/22 08:00 97 Nasal CPAP 12/20/22 07:10 12/20/22 03:25 94 Nasal CPAP 12/19/22 23:00 12/19/22 23:16 95 CPAP 12/19/22 23:05 97 Nasal CPAP
--- NOTE | 2022-12-20 15:15 | Hospitalist Progress Note ---
Date of Service December 20, 2022 Assessment & Plan (1) Lumbar disc herniation with radiculopathy: Plan: Presented with Weakness/falls, legs giving out. Status post T12-L1 decompression and fusion on December 15. Case discussed with orthopedics. INR is now therapeutic and Lovenox has been discontinued. CTlumbar spine: No acute fracture/subluxation of lumbar spine. Mild chronic T12 compression deformity. Levoscoliosis. Degenerative and postoperative changes. Patient with history of L3-L4 laminectomy, L3-L5 interbody cindy and screw fusion with discectomy. M ultilevel neuroforaminal and canal stenosis noted. Lumbar spine MRI with significant HNP T12-L1 causing severe stenosis. Coumadin was reversed with po vit K 5mg x 1 on 12/13-->then IV vit K 2 mg x 1 on 12/14, INR down to 1.3 preop. Coumadin INR is now therapeutic and Lovenox has been discontinued. (2) Fracture of right ankle, lateral malleolus: Plan: Status post open reduction internal fixation completed December 15. Now on a hard cast. Orthopedic management. (3) Pulmonary embolism: Plan: History of DVT/PE. Saddle PE 2015, DVT 2013. Had temporary IVC filter in at that time. Warfarin was reversed preoperatively and now has been restarted. INR 3.3 today. Hold Coumadin today, December 19. Lovenox has been discontinued (4) Hypertension: Plan: not on medications. Elevated BPs here due to pain, anxiety. Now improved (5) SAHIL (obstructive sleep apnea): Plan: continue CPAP qhs. Stable (6) Situational anxiety: Plan: holding med marijuana as not permissible to vape in hospital. Continue lorazepam as needed. (7) Chronic venous insufficiency of lower extremity: Plan: Takes intermittent Lasix . Stable (8) Elevated bilirubin: Plan: TBili mildly elevated on admission at 1.8. Asymptomatic. We will follow. Suspect Gilbert's syndrome (9) Coumadin toxicity: Plan: INR is 4.0 today. Coumadin remains on hold. Will monitor daily INR. No active bleeding at this time Plan DVT proph-SCDs, Lovenox subcu Dispo-it appears he will need SNF placement for a while . He is medically stable for discharge when arrangements are finalized Admission and Anticipated Discharge Date Admission Date: December 13, 2022 Subjective Alert and oriented. No distress. His is at the bedside. SNF or IPR placement pending. INR has risen further to 4.0. Coumadin remains on hold. Potassium remains at 3.5 and will give additional potassium replacement orally today. Review of Systems Review of Systems: Constitutional-no fever or chills ENT-no blurred vision, no double vision, no epistaxis, no sore throat Respiratory-no cough, no wheezing, no shortness of breath Cardiac-no palpitations, no chest pain, no syncope GI-no nausea, vomiting, diarrhea, melena, hematochezia -no urinary retention, no urinary incontinence, no dysuria, no hematuria Musculoskeletal-right ankle is in a cast and immobilized Skin-no bruising, no rashes, no pruritus Neuro-no isolated weakness, no paresthesia, no weakness Psych-no depression, no anxiety Physical Exam Physical Exam: General-alert and oriented x3, no fevers, no chills HEENT-head atraumatic and normocephalic, pupils equal and reactive to light, extraocular muscles intact Neck-no lymphadenopathy or thyromegaly, trachea midline Chest-clear to auscultation percussion. No rales wheezing or rhonchi Cardiac-regular rate and rhythm, normal S1 and S2 Abdomen-normal bowel sounds, nontender, no hepatosplenomegaly Extremities-right ankle is in a hard cast and immobilized. No left lower extremity edema Neuro-cranial nerves II through XII intact, motor and sensory function within normal limits, strength symmetrical, no focal deficits Psych-normal affect, normal mood Results & Data Results & Data ([facility]) Vital Signs (Past 12 Hours) Vital Signs Temp Pulse Pulse Pulse Resp BP Pulse Ox 12/20/22 11:47 36.4 C L 97 H 16 155/94 H 95 12/20/22 08:15 12/20/22 08:00 37.1 C 83 16 139/79 97 12/20/22 07:10 93 H 12/20/22 03:25 37.1 C 88 20 129/80 94 O2 Del Method 12/20/22 11:47 Room Air 12/20/22 08:15 Room Air, CPAP 12/20/22 08:00 Nasal CPAP 12/20/22 07:10 12/20/22 03:25 Nasal CPAP Laboratory Results 12/20/22 07:24 12/20/22 07:24 PG Care Time/CCT Total # of Minutes Spent Total Time Spent with Patient: Total time spent is greater than 50% in coordination of care (as documented) at patient's floor/unit and/or counseling patient: Coding Level of Care Code 32539 SUB INP/OBS CARE 3/50MIN Diagnoses Lumbar disc herniation with radiculopathy M51.16 Fracture of right ankle, lateral malleolus S82.61XA Pulmonary embolism I26.99 Hypertension I10 SAHIL (obstructive sleep apnea) G47.33 Situational anxiety F41.8 Chronic venous insufficiency of lower extremity I87.2 Elevated bilirubin R17 Coumadin toxicity T45.511A
[2022-12-20] MEDS: ACETAMINOPHEN 1,000 MG/100 ML VIAL IV PRN (17:59)
[2022-12-20] MEDS: AMITRIPTYLINE HCL 50 MG TAB PO SCH (20:28)
[2022-12-21] MEDS: ACETAMINOPHEN 1,000 MG/100 ML VIAL IV PRN ×2 (02:32→10:08)
[2022-12-21] MEDS: CYCLOBENZAPRINE HCL 5 MG TAB PO PRN (08:03)
[2022-12-21] MEDS: CHOLECALCIFEROL 1,000 UNITS 25 MCG TAB PO SCH (08:04)
[2022-12-21] MEDS: POLYETHYLENE (MIRALAX) 17 GM PACK PO SCH (08:04)
[2022-12-21 09:31] LABS: Hematocrit (blood only) 31.6 % (42.0-52.0); Hemoglobin 10.9 g/dl (14.0-18.0); Mean Corpuscular Hemoglobin 31.2 pg (25.0-34.0); Mean Corpuscular Hgb Conc 34.5 g/dL (32.0-36.0); Mean Corpuscular Volume 90.5 fL (80.0-100.0); Mean Platelet Volume 9.3 fL (9.4-12.4); Platelet Count 299 K/uL (130-400); RDW Coefficient of Variation 13.6 % (11.5-14.5); RDW Standard Deviation 44.1 fL (36.4-46.3); Red Blood Count 3.49 M/uL (4.70-6.10); White Blood Count 14.87 K/ul (4.8-10.8)
[2022-12-21 09:44] LABS: BUN Creatinine Ratio 24.3 (10-20); Calcium 8.9 mg/dl (8.5-10.1); Creatinine Clr Calc Pharmacy 130.9 ml/min; Est GFR (African American) 106.8 ml/min; Est GFR (Non-African American) 92.2 ml/min; Magnesium 1.8 mg/dl (1.7-2.4); Potassium 3.2 mmol/L (3.5-5.1)
[2022-12-21 10:00] LABS: INR 3.8 (0.9-1.1); Prothrombin Time 37.7 Seconds (9.0-12.0)
[2022-12-21] MEDS ORDERED: POTASSIUM CHLORIDE CRTAB 20 MEQ TABCR PO STA (11:27)
[2022-12-21] MEDS: traMADol HCL 50 MG TABLET PO PRN ×2 (13:37→22:47)
[2022-12-21 14:04] LABS: Appearance Urine Cloudy (Clear); Bacteria Urine Automated 4+ (Negative); Blood Urine 3+ (Negative); Cast Urine Automated 0 /lpf (0-5); Color Urine Orange; Epithelial Cell Urine Auto 0-5 /lpf (0-5); Glucose Urine UA Negative (Negative); Ketones Urine Negative (Negative); Leukocyte Esterase Urine 1+ (Negative); Nitrite Urine Positive (Negative); Protein Urine 1+ (Negative); Specific Gravity Urine 1.021 (1.000-1.030); Urobilinogen Urine Negative (Negative); pH Urine 5.5 (4.5-7.5)
[2022-12-21 14:17] LABS: Bilirubin Urine 1+ (Negative)
--- NOTE | 2022-12-21 14:32 | Hospitalist Progress Note ---
Date of Service December 21, 2022 Assessment & Plan (1) Lumbar disc herniation with radiculopathy: Plan: POD #6 - Status post T12-L1 decompression and fusion on December [address] Austin for severe spinal stenosis at T12-L1. Previous history of L3-L4 laminectomy, L3-L5 interbody cindy and screw fusion with discectomy. Still with significant pain. Plan - * schedule tylenol 1gm TID * cont tramadol 25mg prn * if tramadol not effective then lower the tylenol to 650mg TID, and add in norco 5's prn * unfortunately cannot use NSAIDs due to coumadin usage (2) Fracture of right ankle, lateral malleolus: Plan: POD #6 - Status post open reduction internal fixation completed December 15 - by Dr Swift. Now in a hard cast. Appreciate ortho assistance. Vit D level today = 42.9 Cont vit D supplement 1000 IU daily. See #1 Re: pain control. NONWB status to RLE. (3) Pulmonary embolism: Plan: History of DVT/PE. Saddle PE 2015, DVT 2013. Had temporary IVC filter in at that time. Warfarin was reversed preoperatively and now has been restarted. INR 3.8 today. Hold Coumadin again today. Repeat INR am. (4) Hypertension: Plan: Occasional high readings perhaps due to pain. Addition of flomax will help with BP control. (5) SAHIL (obstructive sleep apnea): Plan: continue CPAP qhs. (6) Situational anxiety: Plan: holding med marijuana as not permissible to vape in hospital. Continue lorazepam as needed. (7) Chronic venous insufficiency of lower extremity: Plan: Takes intermittent Lasix; no edema issues at this time. (8) Elevated bilirubin: Plan: multiple total bilirubin levels elevated over the years. some direct levels also mildly high. repeat T & D bili in am. consider Gilbert's if the t.bili remains high but d bili is normal. (9) UTI (urinary tract infection): Plan: likely cause of leukocytosis, urinary retention, and other LUTS. shah placed. start rocephin 2gm IV daily and follow urine cx. (10) Urinary retention: Plan: s/p shah placement. start flomax 0.4mg daily. likely keep shah 1-[address] Celestin, [facility] [place] [facility], for h/o bladder ca. send back to him post-d/c due to urinary tract issues. (11) Hematuria: Plan: 2nd to UTI? shah trauma in setting of high INR? prostatitis? recurrent bladder ca? shah placed. allow urine to clear. check PSA in am. send urine cytology. (12) Hx of bladder cancer: Plan: noted follows with Dr Celestin see above refer back to him after d/c last office visit 2019?? check psa send urine cytology (13) Hypokalemia: Plan: replace repeat level am (14) Supratherapeutic INR: Plan: hold coumadin INR am Plan updated extensively no d/c today due to pain issues, UTI, LUTS, etc ultimate discharge dispo - [facility] Admission and Anticipated Discharge Date Admission Date: December 13, 2022 Subjective tele stable overnight continues with back pain and R ankle pain, with back pain being much more severe he is reluctant to take narcotics due to worry about dependency as well causing confusion/lethargy he is willing to continue on tramadol having urinary incontinence, frequency, and difficulty voiding today his PVR was >400cc shah placed; hematuria noted following insertion 800cc of urine within 1 hour of placement pt's at bedside and questions answered he is anxious to get to [facility] for rehab Review of Systems Review of Systems: gen - no fevers or chills; appetite fair cv - no cp, no orthopnea pulm - no dyspnea GI - no abd pain; did have bowel movement today Physical Exam Physical Exam: gen - NAD, pleasant mouth - MMM neck - no JVD heart - RRR, s1 s2 lungs - CTA b/l abd - soft NT ND BS+ ext - right ankle/foot in splint; toes exposed, cap refill brisk; left foot w/o edema; pulses 2+ b/l - shah now in place; hematuria noted psych - a/o x 3 Results & Data Results & Data ([facility]) Vital Signs (Past 12 Hours) Vital Signs Temp Pulse Pulse Pulse Resp BP Pulse Ox 12/21/22 11:40 36.9 C 97 H 20 153/78 H 93 12/21/22 07:30 91 H 12/21/22 07:30 12/21/22 07:33 36.5 C 92 H 17 164/84 H 92 12/21/22 04:12 36.7 C 80 18 130/87 97 O2 Del Method 12/21/22 11:40 Room Air 12/21/22 07:30 12/21/22 07:30 Room Air 12/21/22 07:33 Room Air 12/21/22 04:12 Nasal CPAP Laboratory Results Laboratory Results - last 24 hr 12/21/22 12/21/22 12/21/22 09:11 09:11 09:11 WBC 14.87 H RBC 3.49 L Hgb 10.9 L Hct 31.6 L MCV 90.5 MCH 31.2 MCHC 34.5 RDW Std Deviation 44.1 RDW Coeff of Jazz 13.6 Plt Count 299 MPV 9.3 L PT 37.7 H INR 3.8 H Sodium 135 L Potassium 3.2 L Chloride 97 L Carbon Dioxide 30 Anion Gap 8 BUN 18 Creatinine 0.74 Est Cr Clr Drug Dosing 130.9 Est GFR ( Amer) 106.8 Est GFR (Non-Af Amer) 92.2 BUN/Creatinine Ratio 24.3 H Glucose 142 H Calcium 8.9 Magnesium 1.8 25-OH Vitamin D Total Urine Color Urine Appearance Urine pH Ur Specific Gordon Urine Protein Urine Glucose (UA) Urine Ketones Urine Blood Urine Nitrite Urine Bilirubin Urine Urobilinogen Ur Leukocyte Esterase Urine WBC (Auto) Urine RBC (Auto) U Hyaline Cast (Auto) U Epithel Cells (Auto) Urine Bacteria (Auto) 12/21/22 12/21/22 12:21 Unknown WBC RBC Hgb Hct MCV MCH MCHC RDW Std Deviation RDW Coeff of Jazz Plt Count MPV PT INR Sodium Potassium Chloride Carbon Dioxide Anion Gap BUN Creatinine Est Cr Clr Drug Dosing Est GFR ( Amer) Est GFR (Non-Af Amer) BUN/Creatinine Ratio Glucose Calcium Magnesium 25-OH Vitamin D Total 42.9 Urine Color Ciales Urine Appearance Cloudy A Urine pH 5.5 Ur Specific Gordon 1.021 Urine Protein 1+ H Urine Glucose (UA) Negative Urine Ketones Negative Urine Blood 3+ H Urine Nitrite Positive A Urine Bilirubin 1+ H Urine Urobilinogen Negative Ur Leukocyte Esterase 1+ H Urine WBC (Auto) 10-30 H Urine RBC (Auto) 10-30 H U Hyaline Cast (Auto) 0 U Epithel Cells (Auto) 0-5 Urine Bacteria (Auto) 4+ H PG Care Time/CCT Total # of Minutes Spent Total Time Spent with Patient: Total time spent is greater than 50% in coordination of care (as documented) at patient's floor/unit and/or counseling patient: Coding Level of Care Code 46612 SUB INP/OBS CARE 3/50MIN Diagnoses Lumbar disc herniation with radiculopathy M51.16 Fracture of right ankle, lateral malleolus S82.61XA Pulmonary embolism I26.99 Hypertension I10 SAHIL (obstructive sleep apnea) G47.33 Situational anxiety F41.8 Chronic venous insufficiency of lower extremity I87.2 Elevated bilirubin R17 UTI (urinary tract infection) N39.0 Urinary retention R33.9 Hematuria R31.9 Hx of bladder cancer Z85.51 Hypokalemia E87.6 Supratherapeutic INR R79.1
[2022-12-21] MEDS: cefTRIAXone SODIUM 2,000 MG in DEXTROSE 5% 50 ML IV SCH (15:08)
[2022-12-21] MEDS ORDERED: TAMSULOSIN HCL 0.4 MG CAP PO ONE (15:30)
[2022-12-21] MEDS: ACETAMINOPHEN 500 MG TAB PO SCH (17:58)
[2022-12-21] MEDS: AMITRIPTYLINE HCL 50 MG TAB PO SCH (20:03)
[2022-12-22] MEDS: ACETAMINOPHEN 500 MG TAB PO SCH ×3 (02:14→18:25)
[2022-12-22] MEDS: traMADol HCL 50 MG TABLET PO PRN ×2 (05:36→12:10)
[2022-12-22 07:48] LABS: Hematocrit (blood only) 29.5 % (42.0-52.0); Hemoglobin 10.2 g/dl (14.0-18.0); Mean Corpuscular Hemoglobin 31.7 pg (25.0-34.0); Mean Corpuscular Hgb Conc 34.6 g/dL (32.0-36.0); Mean Corpuscular Volume 91.6 fL (80.0-100.0); Mean Platelet Volume 9.2 fL (9.4-12.4); Platelet Count 287 K/uL (130-400); RDW Coefficient of Variation 13.8 % (11.5-14.5); RDW Standard Deviation 45.8 fL (36.4-46.3); Red Blood Count 3.22 M/uL (4.70-6.10); White Blood Count 14.17 K/ul (4.8-10.8)
[2022-12-22 07:50] LABS: BUN Creatinine Ratio 16.7 (10-20); Calcium 8.6 mg/dl (8.5-10.1); Creatinine Clr Calc Pharmacy 115.5 ml/min; Est GFR (African American) 101.4 ml/min; Est GFR (Non-African American) 87.5 ml/min; Potassium 3.4 mmol/L (3.5-5.1)
[2022-12-22] MEDS: SENNA 8.6 MG TAB PO SCH (08:09)
[2022-12-22] MEDS: POLYETHYLENE (MIRALAX) 17 GM PACK PO SCH ×2 (08:09→08:19)
[2022-12-22 08:11] LABS: INR 4.1 (0.9-1.1); Prothrombin Time 40.8 Seconds (9.0-12.0)
[2022-12-22] MEDS: CHOLECALCIFEROL 1,000 UNITS 25 MCG TAB PO SCH (08:20)
[2022-12-22] MEDS: TAMSULOSIN HCL 0.4 MG CAP PO SCH (08:20)
[2022-12-22 09:55] LABS: Bilirubin Direct 0.6 mg/dl (0-0.2); Bilirubin,Total 1.8 mg/dl (0.2-1.0)
[2022-12-22] MEDS ORDERED: POTASSIUM CHLORIDE CRTAB 20 MEQ TABCR PO STA (10:05)
[2022-12-22] MEDS: CYCLOBENZAPRINE HCL 5 MG TAB PO PRN (11:09)
[2022-12-22] MEDS ORDERED: PHYTONADIONE 5 MG TAB PO STA ×2 (13:10→14:07)
[2022-12-22] MEDS: cefTRIAXone SODIUM 2,000 MG in DEXTROSE 5% 50 ML IV SCH (15:07)
[2022-12-22] MEDS: LORazepam 0.5 MG TAB PO PRN (19:17)
[2022-12-22] MEDS: AMITRIPTYLINE HCL 50 MG TAB PO SCH (20:32)
--- NOTE | 2022-12-22 20:47 | Hospitalist Progress Note ---
Date of Service December 22, 2022 Assessment & Plan (1) Lumbar disc herniation with radiculopathy: Plan: POD #7 - Status post T12-L1 decompression and fusion on December [address] Austin for severe spinal stenosis at T12-L1. Previous history of L3-L4 laminectomy, L3-L5 interbody cindy and screw fusion with discectomy. Pain improved with scheduled tylenol 1gm TID and tramadol 25mg prn Unfortunately cannot use NSAIDs due to coumadin usage - but pain is better today (2) Fracture of right ankle, lateral malleolus: Plan: POD #7 - Status post open reduction internal fixation completed December 15 - by Dr Swift. Appreciate ortho assistance. Vit D level = 42.9 Cont vit D supplement 1000 IU daily. See #1 Re: pain control. NONWB status to RLE. (3) Pulmonary embolism: Plan: History of DVT/PE. Saddle PE 2015, DVT 2013. Had temporary IVC filter in at that time. Warfarin was reversed preoperatively and now has been restarted. INR 4.1 today. Hold Coumadin again today. I spoke with his coumadin provider, Dr Carvajal - will provide vitamin K 2.5mg po x 1. (4) Hypertension: Plan: BPs improved with addition of flomax for urinary issues. (5) SAHIL (obstructive sleep apnea): Plan: continue CPAP qhs. (6) Situational anxiety: Plan: holding med marijuana as not permissible to vape in hospital. Continue lorazepam as needed. (7) Chronic venous insufficiency of lower extremity: Plan: Takes intermittent Lasix; no edema issues at this time. (8) Elevated bilirubin: Plan: multiple total bilirubin levels elevated over the years. some direct levels also mildly high. repeat T & D bili noted today. suspect Gilbert's syndrome. (9) UTI (urinary tract infection): Plan: likely cause of leukocytosis, urinary retention, and other LUTS. shah placed. day #2 rocephin 2gm IV daily and follow urine cx. Prelim - GNR. CBC in am. PSA is elevated - may have component of prostatitis - thus may need longer cours e (up to 4 weeks). (10) Urinary retention: Plan: s/p shah placement. started flomax 0.4mg daily. likely keep shah 1-[address] Celestin, [facility], for h/o bladder ca. send back to him post-d/c due to urinary tract issues. PSA noted. (11) Hematuria: Plan: 2nd to UTI? shah trauma in setting of high INR? prostatitis? recurrent bladder ca? shah placed. allow urine to clear. PSA 9 noted. sent urine cytology. hopefully if INR comes down bleeding will improved. either way he needs [facility] f/u post-discharge in light of bladder ca history. (12) Hx of bladder cancer: Plan: noted follows with Dr Celestin see above refer back to him after d/c last office visit 2019 PSA 9 - see above urine cytology pending (13) Hypokalemia: Plan: replaced resolved (14) Supratherapeutic INR: Plan: hold coumadin INR am vit k 2.5mg po x 1 today Plan updated extensively at bedside ultimate discharge dispo - [facility] - tomorrow on 12/23? Admission and Anticipated Discharge Date Admission Date: December 13, 2022 Subjective patient feeling much better today pain in back/R ankle relatively controlled eating is better today had bowel movement urine in shah still with gross hematuria but no clots he admitted today that he has had intermittent gross hematuria for some time at home - hadn't mentioned it to his hasn't seen urology in 3 years tele overnight NSR Review of Systems Review of Systems: gen - no fevers/chills cv - no cp pulm - no cough or dyspnea GI - no abd pain or diarrhea Physical Exam Physical Exam: gen - NAD, pleasant, looks good today mouth - MMM neck - no JVD heart - RRR, s1 s2, no murmur lungs - CTA b/l abd - soft NT ND BS+ ext - right ankle/foot in splint; toes exposed, cap refill brisk; left foot w/o edema; pulses 2+ b/l - shah with gross hematuria - no worse than prior psych - a/o x 3 Results & Data Results & Data ([facility]) Vital Signs (Past 12 Hours) Vital Signs Temp Pulse Pulse Resp BP Pulse Ox O2 Del Method 12/22/22 14:00 92 H 12/22/22 15:41 36.6 C 96 H 20 133/84 96 Room Air 12/22/22 11:50 36.5 C 87 18 133/84 90 Room Air Laboratory Results Laboratory Results - last 24 hr 12/22/22 12/22/22 12/22/22 07:08 07:08 07:08 WBC 14.17 H RBC 3.22 L Hgb 10.2 L Hct 29.5 L MCV 91.6 MCH 31.7 MCHC 34.6 RDW Std Deviation 45.8 RDW Coeff of Jazz 13.8 Plt Count 287 MPV 9.2 L PT 40.8 H INR 4.1 H Sodium 135 L Potassium 3.4 L Chloride 98 Carbon Dioxide 32 Anion Gap 5 BUN 14 Creatinine 0.84 Est Cr Clr Drug Dosing 115.5 Est GFR ( Amer) 101.4 Est GFR (Non-Af Amer) 87.5 BUN/Creatinine Ratio 16.7 Glucose 125 H Calcium 8.6 Total Bilirubin Direct Bilirubin Prostate Specific Ag 12/22/22 12/22/22 09:05 09:05 WBC RBC Hgb Hct MCV MCH MCHC RDW Std Deviation RDW Coeff of Jazz Plt Count MPV PT INR Sodium Potassium Chloride Carbon Dioxide Anion Gap BUN Creatinine Est Cr Clr Drug Dosing Est GFR ( Amer) Est GFR (Non-Af Amer) BUN/Creatinine Ratio Glucose Calcium Total Bilirubin 1.8 H Direct Bilirubin 0.6 H Prostate Specific Ag 9.732 H Diagnostic Findings Urine cx - gram negative cindy PG Care Time/CCT Total # of Minutes Spent Total Time Spent with Patient: Total time spent is greater than 50% in coordination of care (as documented) at patient's floor/unit and/or counseling patient: Coding Level of Care Code 03731 SUB INP/OBS CARE 3/50MIN Diagnoses Lumbar disc herniation with radiculopathy M51.16 Fracture of right ankle, lateral malleolus S82.61XA Pulmonary embolism I26.99 Hypertension I10 SAHIL (obstructive sleep apnea) G47.33 Situational anxiety F41.8 Chronic venous insufficiency of lower extremity I87.2 Elevated bilirubin R17 UTI (urinary tract infection) N39.0 Urinary retention R33.9 Hematuria R31.9 Hx of bladder cancer Z85.51 Hypokalemia E87.6 Supratherapeutic INR R79.1
[2022-12-23] MEDS: ACETAMINOPHEN 500 MG TAB PO SCH ×3 (02:59→17:35)
[2022-12-23 07:48] LABS: INR 1.7 (0.9-1.1); Prothrombin Time 17.5 Seconds (9.0-12.0)
[2022-12-23 07:53] LABS: Hematocrit (blood only) 30.8 % (42.0-52.0); Hemoglobin 10.4 g/dl (14.0-18.0); Mean Corpuscular Hemoglobin 31.1 pg (25.0-34.0); Mean Corpuscular Hgb Conc 33.8 g/dL (32.0-36.0); Mean Corpuscular Volume 92.2 fL (80.0-100.0); Mean Platelet Volume 9.4 fL (9.4-12.4); Platelet Count 329 K/uL (130-400); RDW Coefficient of Variation 13.4 % (11.5-14.5); RDW Standard Deviation 45.4 fL (36.4-46.3); Red Blood Count 3.34 M/uL (4.70-6.10); White Blood Count 11.57 K/ul (4.8-10.8)
[2022-12-23] MEDS: traMADol HCL 50 MG TABLET PO PRN (08:02)
[2022-12-23] MEDS: CHOLECALCIFEROL 1,000 UNITS 25 MCG TAB PO SCH (08:07)
[2022-12-23] MEDS: POLYETHYLENE (MIRALAX) 17 GM PACK PO SCH (08:07)
[2022-12-23] MEDS: SENNA 8.6 MG TAB PO SCH (08:07)
[2022-12-23] MEDS: TAMSULOSIN HCL 0.4 MG CAP PO SCH (08:08)
[2022-12-23 09:01] LABS: Calcium 8.8 mg/dl (8.5-10.1); Potassium 3.2 mmol/L (3.5-5.1)
[2022-12-23 09:07] LABS: BUN Creatinine Ratio 17.9 (10-20); Creatinine Clr Calc Pharmacy 123.8 ml/min; Est GFR (African American) 104.5 ml/min; Est GFR (Non-African American) 90.2 ml/min
[2022-12-23] MEDS: ADVANCED PROBIOTIC 1250 MG CAPSULE PO SCH (09:41)
[2022-12-23] MEDS: CEFDINIR 300 MG CAP PO SCH ×2 (09:41→20:21)
[2022-12-23] MEDS: POTASSIUM CHLORIDE CRTAB 20 MEQ TABCR PO SCH ×3 (10:19→20:22)
--- NOTE | 2022-12-23 15:14 | XRay Report ---
RIGHT ANKLE 2 VIEWS CLINICAL HISTORY: Postoperative examination. FINDINGS: AP and lateral views of the right ankle are compared to study dated 12/12/2022. The examinat ion is performed for a cast, obscuring fine bony detail. The skeletal structures are osteopenic. A bu ttress plate has been placed along the lateral cortex of the distal fibula, transfixing a fibular fra cture. The orthopedic hardware appears intact. Near anatomic alignment has been restored. No addition al fracture is seen. The posterior malleolar fracture suggested previously is not identified. A small plate is noted along the medial tibial cortex. The ankle mortise is intact. Soft tissue edema is pre sent on the ankle. IMPRESSION: 1. The patient is status post open reduction and internal fixation of a distal right fibular fracture with amish of near-anatomic alignment. 2. No new fracture is seen. Dictated: 12/23/2022 2:53 PM Transcribed: 12/23/2022 3:08 PM Tavo [id number] [email or web address] Electronically signed by: Philip Malhotra M.D. 12/23/2022 3:13 PM
[2022-12-23] MEDS ORDERED: Heparin IV Adult Wt-Based Standard *NO* Bolus Protocol IV ONE (18:39)
[2022-12-23] MEDS ORDERED: WARFARIN SOD 3 MG TAB PO ONE (19:00)
[2022-12-23] MEDS: HEPARIN SODIUM/DEXTROSE 25,000 UNITS/500 ML BAG IV SCH (20:10)
[2022-12-23] MEDS: AMITRIPTYLINE HCL 50 MG TAB PO SCH (20:22)
[2022-12-23 20:36] LABS: Partial Thromboplastin Ratio 1.5
--- NOTE | 2022-12-23 22:06 | Hospitalist Progress Note ---
Date of Service December 23, 2022 Assessment & Plan (1) Lumbar disc herniation with radiculopathy: Plan: POD #8 - Status post T12-L1 decompression and fusion on December [address] Austin for severe spinal stenosis at T12-L1. Previous history of L3-L4 laminectomy, L3-L5 interbody cindy and screw fusion with discectomy. Pain controlled with scheduled tylenol 1gm TID and tramadol 25mg prn Patient now c/o buttock paresthesias and perineal paresthesias. I alerted Dr Austin about this. I reassessed the patient later in the day and he reported a "50%" reduction in the amount of the paresthesias. Again no motor weakness. I called & spoke with Dr Austin again re: this new complaint. Dr Austin to see patient in am. (2) Fracture of right ankle, lateral malleolus: Plan: POD #8 - Status post open reduction internal fixation completed December 15 - by Dr Swift. Appreciate ortho assistance. Vit D level = 42.9 Cont vit D supplement 1000 IU daily. NONWB status to RLE. Patient c/o worsening pain in ankle - I alerted the orthopedics team about this. They checked x-rays of ankle - unchanged. Appreciate ortho assistance. (3) Pulmonary embolism: Plan: History of DVT/PE. Saddle PE 2015, DVT 2013. Had temporary IVC filter in at that time. Warfarin was reversed preoperatively and now has been restarted. INR had been as high as 4.1. s/p vit K 2.5mg po x 1 yesterday. INR now 1.7. Will start standard heparin infusion - no bolus - due to high risk of VTE. Give coumadin 3mg po x 1 and recheck INR in am. Will speak with his coumadin provider, Dr Carvajal, in the am. (4) Hypertension: Plan: BPs improved with addition of flomax for urinary issues. (5) SAHIL (obstructive sleep apnea): Plan: continue CPAP qhs. (6) Situational anxiety: Plan: holding med marijuana as not permissible to vape in hospital. Continue lorazepam as needed. (7) Chronic venous insufficiency of lower extremity: Plan: Takes intermittent Lasix; no edema issues at this time. (8) Elevated bilirubin: Plan: multiple total bilirubin levels elevated over the years. some direct levels also mildly high. repeat T & D bili noted today. suspect Gilbert's syndrome. (9) UTI (urinary tract infection): Plan: 2nd citrobacter. likely cause of leukocytosis, urinary retention, and other LUTS. shah placed. s/p 2 days of rocephin. convert to PO cefdinir 300mg PO BID. PSA is elevated - may have component of prostatitis - thus may need longer course (up to 4 weeks). (10) Urinary retention: Plan: s/p shah placement. started flomax 0.4mg daily. likely keep shah 1-[address] Celestin, [facility], for h/o bladder ca. send back to him post-d/c due to urinary tract issues. PSA noted. (11) Hematuria: Plan: 2nd to UTI? shah trauma in setting of high INR? prostatitis? recurrent bladder ca? shah placed. urine cleared overnight. PSA 9 noted. sent urine cytology - several atypical cells seen. either way he needs [facility] f/u post-discharge in light of bladder ca history. (12) Hx of bladder cancer: Plan: noted follows with Dr Celestin see above refer back to him after d/c last office visit 2019 PSA 9 - see above urine cytology noted (13) Hypokalemia: Plan: replaced still low give additional replacement today repeat labs am (14) Supratherapeutic INR: Plan: resolved s/p vit K 2.5mg yesterday now subtherapeutic -- see above re: anticoagulation Plan updated extensively at bedside yesterday no discharge today ultimately will d/c to [facility] Admission and Anticipated Discharge Date Admission Date: December 13, 2022 Subjective patient states he feels tired today also, about 0500 this am, he developed paresthesias (not painful) over both buttocks the numbness extends into the scrotal/perineal area his chronic neuropathy in his legs is UNCHANGED denies any motor weakness in legs he did work with PT and felt he did about the same as yesterday or slightly worse mentions some mild stomach upset (gas) but no vomiting and was able to eat good breakfast urine in shah bag has cleared; no further hematuria tele overnight wnl Review of Systems Review of Systems: gen - no fevers cv - no cp, no orthopnea pulm - no cough or dyspnea GI - no nausea/vomiting; no diarrhea musculo - c/o worsening pain in right ankle Physical Exam Physical Exam: gen - NAD, pleasant, looks same as yesterday mouth - MMM neck - no JVD heart - RRR, s1 s2, no murmur lungs - CTA b/l abd - soft NT ND BS+ ext - right ankle/foot in splint; toes exposed, cap refill brisk; no changes; pulses b/l feet 2+ l - shah with purulent appearing urine; no hematuria today psych - a/o x 3 neuro - strength 5/5 b/l LEs Results & Data Results & Data ([facility]) Vital Signs (Past 12 Hours) Vital Signs Temp Pulse Pulse Resp BP Pulse Ox O2 Del Method 12/23/22 20:10 36.7 C 92 H 20 136/83 93 Room Air 12/23/22 17:03 36.7 C 91 H 21 130/85 97 Room Air 12/23/22 12:10 36.8 C 91 H 20 123/75 93 Room Air Laboratory Results Laboratory Results - last 24 hr 12/23/22 12/23/22 12/23/22 06:42 06:42 06:42 WBC 11.57 H RBC 3.34 L Hgb 10.4 L Hct 30.8 L MCV 92.2 MCH 31.1 MCHC 33.8 RDW Std Deviation 45.4 RDW Coeff of Jazz 13.4 Plt Count 329 MPV 9.4 PT 17.5 H INR 1.7 H APTT PTT Ratio Sodium 137 Potassium 3.2 L Chloride 98 Carbon Dioxide 29 Anion Gap 10 BUN 14 Creatinine 0.78 Est Cr Clr Drug Dosing 123.8 Est GFR ( Amer) 104.5 Est GFR (Non-Af Amer) 90.2 BUN/Creatinine Ratio 17.9 Glucose 121 H Calcium 8.8 12/23/22 20:06 WBC RBC Hgb Hct MCV MCH MCHC RDW Std Deviation RDW Coeff of Jazz Plt Count MPV PT INR APTT 41.0 H PTT Ratio 1.5 Sodium Potassium Chloride Carbon Dioxide Anion Gap BUN Creatinine Est Cr Clr Drug Dosing Est GFR ( Amer) Est GFR (Non-Af Amer) BUN/Creatinine Ratio Glucose Calcium Diagnostic Findings urine cx - citrobacter - pansensitive PG Care Time/CCT Total # of Minutes Spent Total Time Spent with Patient: Total time spent is greater than 50% in coordination of care (as documented) at patient's floor/unit and/or counseling patient: Coding Level of Care Code 44868 SUB INP/OBS CARE 3/50MIN Diagnoses Lumbar disc herniation with radiculopathy M51.16 Fracture of right ankle, lateral malleolus S82.61XA Pulmonary embolism I26.99 Hypertension I10 SAHIL (obstructive sleep apnea) G47.33 Situational anxiety F41.8 Chronic venous insufficiency of lower extremity I87.2 Elevated bilirubin R17 UTI (urinary tract infection) N39.0 Urinary retention R33.9 Hematuria R31.9 Hx of bladder cancer Z85.51 Hypokalemia E87.6 Supratherapeutic INR R79.1
[2022-12-24] MEDS: ACETAMINOPHEN 500 MG TAB PO SCH ×3 (02:37→18:31)
[2022-12-24 03:21] LABS: Partial Thromboplastin Ratio 2.3
[2022-12-24 03:22] LABS: Partial Thromboplastin Time 63.4 Seconds (21.0-31.0)
[2022-12-24 07:50] LABS: Hematocrit (blood only) 30.8 % (42.0-52.0); Hemoglobin 10.2 g/dl (14.0-18.0); Mean Corpuscular Hgb Conc 33.1 g/dL (32.0-36.0); Mean Corpuscular Volume 93.6 fL (80.0-100.0); Mean Platelet Volume 9.3 fL (9.4-12.4); Platelet Count 341 K/uL (130-400); RDW Coefficient of Variation 13.5 % (11.5-14.5); RDW Standard Deviation 45.8 fL (36.4-46.3); Red Blood Count 3.29 M/uL (4.70-6.10); White Blood Count 9.44 K/ul (4.8-10.8)
[2022-12-24 07:55] LABS: INR 1.3 (0.9-1.1); Prothrombin Time 13.5 Seconds (9.0-12.0)
[2022-12-24 08:29] LABS: BUN Creatinine Ratio 16.5 (10-20); Calcium 9.3 mg/dl (8.5-10.1); Creatinine Clr Calc Pharmacy 111.4 ml/min; Est GFR (African American) 100.9 ml/min; Est GFR (Non-African American) 87.1 ml/min
[2022-12-24] MEDS: CHOLECALCIFEROL 1,000 UNITS 25 MCG TAB PO SCH (08:46)
[2022-12-24] MEDS: CEFDINIR 300 MG CAP PO SCH ×2 (08:46→20:58)
[2022-12-24] MEDS: POTASSIUM CHLORIDE CRTAB 20 MEQ TABCR PO SCH ×2 (08:46→13:32)
[2022-12-24] MEDS: POLYETHYLENE (MIRALAX) 17 GM PACK PO SCH (08:47)
[2022-12-24] MEDS: TAMSULOSIN HCL 0.4 MG CAP PO SCH (08:48)
[2022-12-24] MEDS: SENNA 8.6 MG TAB PO SCH (08:48)
[2022-12-24] MEDS: ADVANCED PROBIOTIC 1250 MG CAPSULE PO SCH (08:48)
[2022-12-24] MEDS: HEPARIN SODIUM/DEXTROSE 25,000 UNITS/500 ML BAG IV SCH (08:56)
--- NOTE | 2022-12-24 11:23 | Orthopedic Progress Note ---
Date of Service December 24, 2022 Assessment & Plan (1) Lumbar disc herniation with radiculopathy: Plan: This time encourage him to continue with therapy as tolerated. He is stable for rehab when bed available. Admission and Anticipated Discharge Date Admission Date: December 13, 2022 Subjective Patient's pain is well controlled. He has some modest numbness in the buttock region but states it is markedly improved from a few days ago. He tolerated therapy well today. He voices no complaints. Physical Exam Physical Exam: Patient is in the chair at the bedside. He is full sensation to testing lower extremities to cold and light touch. He has good strength testing left lower extremity. Results & Data ([facility]) Vital Signs (Past 12 Hours) Vital Signs Temp Pulse Pulse Resp BP Pulse Ox O2 Del Method 12/24/22 08:16 36.7 C 87 19 134/80 92 Room Air 12/24/22 03:28 36.5 C 79 18 146/81 H 99 CPAP
[2022-12-24] MEDS ORDERED: ENOXAPARIN INJ 40 MG/0.4 ML SYR SQ ONE (12:30)
[2022-12-24] MEDS: traMADol HCL 50 MG TABLET PO PRN (13:35)
[2022-12-24] MEDS ORDERED: WARFARIN SOD 3 MG TAB PO ONE (16:00)
--- NOTE | 2022-12-24 20:53 | Hospitalist Progress Note ---
Date of Service December 24, 2022 Assessment & Plan (1) Lumbar disc herniation with radiculopathy: Plan: POD #9 - Status post T12-L1 decompression and fusion on December [address] Austin for severe spinal stenosis at T12-L1. Previous history of L3-L4 laminectomy, L3-L5 interbody cindy and screw fusion with discectomy. Pain controlled with scheduled tylenol 1gm TID and tramadol 25mg prn Patient had buttock paresthesias and perineal paresthesias yesterday. MUCH improved today. No motor weakness of either leg. Dr Austin has seen and is aware of this recent complaint. Appreciate Dr Austin's assistance. (2) Fracture of right ankle, lateral malleolus: Plan: POD #9 - Status post open reduction internal fixation completed December 15 - by Dr Swift. Appreciate ortho assistance. Vit D level = 42.9 Cont vit D supplement 1000 IU daily. NONWB status to RLE. Patient had c/o worsening pain in ankle yesterday - x-rays obtained, stable/unchanged. NO changes to the splint at this time (I confirmed such with ortho today). Appreciate ortho assistance. (3) Pulmonary embolism: Plan: History of DVT/PE. Saddle PE 2015, DVT 2013. Had temporary IVC filter in at that time. Warfarin was reversed preoperatively and now has been restarted. INR had been as high as 4.1. s/p vit K 2.5mg po x 1 on 12/23. INR now 1.3. Currently on heparin infusion due to subtherapeutic INR. I spoke with Dr Carvajal who manages Mr Jones's coumadin as outpatient. Plan - stop heparin drip start lovenox 40mg BID until INR >2 coumadin 3mg daily daily INR (4) Hypertension: Plan: BPs acceptable with addition of flomax for urinary issues. (5) SAHIL (obstructive sleep apnea): Plan: continue CPAP qhs. (6) Situational anxiety: Plan: holding med marijuana as not permissible to vape in hospital. Continue lorazepam as needed. (7) Chronic venous insufficiency of lower extremity: Plan: Takes intermittent Lasix; no edema issues at this time. (8) Elevated bilirubin: Plan: multiple total bilirubin levels elevated over the years. some direct levels also mildly high. suspect Gilbert's syndrome. (9) UTI (urinary tract infection): Plan: 2nd citrobacter. likely cause of leukocytosis, urinary retention, and other LUTS. shah placed. s/p 2 days of rocephin. converted to PO cefdinir 300mg PO BID. PSA is elevated - may have component of prostatitis - thus may need longer course (up to 4 weeks). urine is clearing. wbc count has normalized with Rx of UTI. (10) Urinary retention: Plan: s/p shah placement. started flomax 0.4mg daily. likely keep shah 1-[address] Celestin, [facility], for h/o bladder ca. PSA noted. will need f/u with urology post-d/c. patient wishes to switch practices. will send to Dr Chong Lozano at [facility] after d/c. (11) Hematuria: Plan: 2nd to UTI? shah trauma in setting of high INR? prostatitis? recurrent bladder ca? suspect combo of factors. shah placed. urine cleared. PSA 9 noted. sent urine cytology - several atypical cells seen. either way he needs [facility] f/u post-discharge in light of bladder ca history. (12) Hx of bladder cancer: Plan: noted previously followed with Dr Celestin but had not seen him in several years see above PSA 9 - see above urine cytology noted refer to Dr Lozano, [facility], [facility] post-discharge (13) Hypokalemia: Plan: replaced resolved stop supplementation (14) Supratherapeutic INR: Plan: resolved s/p vit K 2.5mg now subtherapeutic -- see above re: anticoagulation Plan updated extensively by phone today ultimately will d/c to [facility] - social work stating it will be Tuesday care d/w orthopedics, spine, and anticoagulation (Dr Carvajal) complex care coordination Admission and Anticipated Discharge Date Admission Date: December 13, 2022 Subjective overall pain in R ankle and L-spine are controlled numbness/paresthesias of buttocks MUCH improved today no weakness of either leg worked with therapy again shah remains - no gross hematuria appetite is normal he "feels like he has turned the corner" tele overnight wnl no new issues Review of Systems Review of Systems: gen - no fevers cv - no chest pain pulm - no dyspnea GI - no abd pain Physical Exam Physical Exam: gen - NAD, pleasant, looks great mouth - MMM neck - no JVD heart - RRR, s1 s2, no murmur lungs - CTA b/l abd - soft NT ND BS+ ext - right ankle/foot in splint; toes exposed, cap refill brisk; no changes; pulses b/l feet 2+ psych - a/o x 3 neuro - strength 5/5 b/l LEs Results & Data Results & Data ([facility]) Vital Signs (Past 12 Hours) Vital Signs Temp Pulse Pulse Resp BP Pulse Ox O2 Del Method 12/24/22 19:44 36.7 C 99 H 22 138/74 92 Room Air 12/24/22 14:58 36.8 C 84 18 127/75 97 Room Air 12/24/22 12:08 36.7 C 91 H 18 159/100 H 95 Room Air Laboratory Results Laboratory Results - last 24 hr 12/24/22 12/24/22 12/24/22 02:43 07:12 07:12 WBC 9.44 RBC 3.29 L Hgb 10.2 L Hct 30.8 L MCV 93.6 MCH 31.0 MCHC 33.1 RDW Std Deviation 45.8 RDW Coeff of Jazz 13.5 Plt Count 341 MPV 9.3 L PT 13.5 H INR 1.3 H APTT 63.4 H* PTT Ratio 2.3 Sodium Potassium Chloride Carbon Dioxide Anion Gap BUN Creatinine Est Cr Clr Drug Dosing Est GFR ( Amer) Est GFR (Non-Af Amer) BUN/Creatinine Ratio Glucose Calcium Magnesium 12/24/22 07:12 WBC RBC Hgb Hct MCV MCH MCHC RDW Std Deviation RDW Coeff of Jazz Plt Count MPV PT INR APTT PTT Ratio Sodium 138 Potassium 4.0 D Chloride 101 Carbon Dioxide 30 Anion Gap 7 BUN 14 Creatinine 0.85 Est Cr Clr Drug Dosing 111.4 Est GFR ( Amer) 100.9 Est GFR (Non-Af Amer) 87.1 BUN/Creatinine Ratio 16.5 Glucose 112 H Calcium 9.3 Magnesium 2.0 PG Care Time/CCT Total # of Minutes Spent Total Time Spent with Patient: Total time spent is greater than 50% in coordination of care (as documented) at patient's floor/unit and/or counseling patient: Coding Level of Care Code 58563 SUB INP/OBS CARE MIN Diagnoses Lumbar disc herniation with radiculopathy M51.16 Fracture of right ankle, lateral malleolus S82.61XA Pulmonary embolism I26.99 Hypertension I10 SAHIL (obstructive sleep apnea) G47.33 Situational anxiety F41.8 Chronic venous insufficiency of lower extremity I87.2 Elevated bilirubin R17 UTI (urinary tract infection) N39.0 Urinary retention R33.9 Hematuria R31.9 Hx of bladder cancer Z85.51 Hypokalemia E87.6 Supratherapeutic INR R79.1
[2022-12-24] MEDS: AMITRIPTYLINE HCL 50 MG TAB PO SCH (20:58)
[2022-12-24] MEDS: ENOXAPARIN INJ 40 MG/0.4 ML SYR SQ SCH (22:00)
[2022-12-25] MEDS: ACETAMINOPHEN 500 MG TAB PO SCH ×3 (02:41→17:46)
[2022-12-25] MEDS: traMADol HCL 50 MG TABLET PO PRN ×2 (05:59→16:19)
[2022-12-25 07:08] LABS: Hematocrit (blood only) 29.7 % (42.0-52.0); Hemoglobin 9.9 g/dl (14.0-18.0); Mean Corpuscular Hemoglobin 31.4 pg (25.0-34.0); Mean Corpuscular Hgb Conc 33.3 g/dL (32.0-36.0); Mean Corpuscular Volume 94.3 fL (80.0-100.0); Mean Platelet Volume 8.8 fL (9.4-12.4); Platelet Count 331 K/uL (130-400); RDW Coefficient of Variation 14.6 % (11.5-14.5); RDW Standard Deviation 49.1 fL (36.4-46.3); Red Blood Count 3.15 M/uL (4.70-6.10); White Blood Count 7.49 K/ul (4.8-10.8)
[2022-12-25 07:35] LABS: BUN Creatinine Ratio 20.3 (10-20); Calcium 9.1 mg/dl (8.5-10.1); Creatinine Clr Calc Pharmacy 118.4 ml/min; Est GFR (Non-African American) 89.7 ml/min; Potassium 3.9 mmol/L (3.5-5.1)
[2022-12-25 07:48] LABS: INR 1.7 (0.9-1.1); Prothrombin Time 17.9 Seconds (9.0-12.0)
[2022-12-25] MEDS: SENNA 8.6 MG TAB PO SCH (09:40)
[2022-12-25] MEDS: TAMSULOSIN HCL 0.4 MG CAP PO SCH (09:41)
[2022-12-25] MEDS: POLYETHYLENE (MIRALAX) 17 GM PACK PO SCH (09:41)
[2022-12-25] MEDS: ADVANCED PROBIOTIC 1250 MG CAPSULE PO SCH (09:42)
[2022-12-25] MEDS: CHOLECALCIFEROL 1,000 UNITS 25 MCG TAB PO SCH (09:42)
[2022-12-25] MEDS: CEFDINIR 300 MG CAP PO SCH ×2 (10:24→20:01)
[2022-12-25] MEDS: ENOXAPARIN INJ 40 MG/0.4 ML SYR SQ SCH ×2 (10:24→20:01)
--- NOTE | 2022-12-25 11:50 | Hospitalist Progress Note ---
Date of Service December 25, 2022 Assessment & Plan (1) Lumbar disc herniation with radiculopathy: Plan: POD #10 - Status post T12-L1 decompression and fusion on December [address] Austin for severe spinal stenosis at T12-L1. Previous history of L3-L4 laminectomy, L3-L5 interbody cindy and screw fusion with discectomy. Pain continues to be controlled with scheduled tylenol 1gm TID and tramadol 25mg prn. Patient had buttock paresthesias and perineal paresthesias 2 days ago. This is much improved/nearly resolved. No motor weakness of either leg; able to transfer to chair and work with PT. Dr Austin has seen and is aware of this recent complaint - he is pleased with Mr Karen's progress. Appreciate Dr Austin's assistance. (2) Fracture of right ankle, lateral malleolus: Plan: POD #10 - Status post open reduction internal fixation completed December 15 - by Dr Swift. Appreciate ortho assistance. Vit D level = 42.9 Cont vit D supplement 1000 IU daily. Cont NONWB status to RLE. Patient had c/o worsening pain in ankle 2 days ago - x-rays obtained, stable/unchanged. NO changes to the splint at this time. Appreciate ortho assistance. Patient will need to f/u with ortho late next week as outpatient. (3) Pulmonary embolism: Plan: History of DVT/PE. Saddle PE 2015, DVT 2013. Had temporary IVC filter in at that time. Warfarin was reversed preoperatively. Post-op INR had been as high as 4.1. s/p vit K 2.5mg po x 1 on 12/23 due to high INRs and hematuria. INR now 1.7. Nice gradual rise with usual coumadin dosing 3mg/day. Cont lovenox 40mg BID. Cont coumadin 3mg daily. Daily INR. (4) Hypertension: Plan: BPs acceptable with addition of flomax for urinary issues. (5) SAHIL (obstructive sleep apnea): Plan: continue CPAP qhs. (6) Situational anxiety: Plan: Continue lorazepam as needed. (7) Chronic venous insufficiency of lower extremity: Plan: Takes intermittent Lasix; no edema issues at this time. (8) Elevated bilirubin: Plan: multiple total bilirubin levels elevated over the years. some direct levels also mildly high. suspect Gilbert's syndrome. no Rx needed. (9) UTI (urinary tract infection): Plan: 2nd citrobacter. s/p 2 days of rocephin then converted to PO cefdinir 300mg PO BID. PSA is elevated - may have component of prostatitis - thus may need longer course (up to 4 weeks). urine is clearing. wbc count has normalized with Rx of UTI. (10) Urinary retention: Plan: s/p shah placement. cont flomax 0.4mg daily. likely keep shah 1-2 weeks. previously followed with Dr Celestin, [facility], for h/o bladder ca. will need f/u with urology post-d/c. patient wishes to switch practices. will send to Dr Chong Lozano at [facility] after d/c. (11) Hematuria: Plan: 2nd to UTI? shah trauma in setting of high INR? prostatitis? recurrent bladder ca? suspect combo of factors. shah placed. urine cleared. PSA 9 noted. sent urine cytology - several atypical cells seen. either way he needs [facility] f/u post-discharge in light of bladder ca history. (12) Hx of bladder cancer: Plan: noted previously followed with Dr Celestin but had not seen him in several years see above PSA 9 - see above urine cytology noted refer to Dr Lozano, [facility], [facility] post-discharge (13) Hypokalemia: Plan: replaced resolved (14) Supratherapeutic INR: Plan: resolved Plan updated extensively by phone yesterday ultimately will d/c to [facility] - social work stated it will be Tuesday care d/w orthopedics, spine, and anticoagulation (Dr Carvajal) d/c tele; move to med-surg unit Admission and Anticipated Discharge Date Admission Date: December 13, 2022 Subjective no issues overnight tele wnl he feels well pain in back/R ankle is controlled eating well drinking well feels more like himself denies abd pain, nausea does have loose stool Review of Systems Review of Systems: gen - no fever cv - no chest pain, no orthopnea pulm - no dyspnea neuro - paresthesias of b/l buttocks just about gone GI - no vomiting Physical Exam Physical Exam: gen - NAD, pleasant mouth - MMM neck - no JVD heart - RRR, s1 s2, no murmur lungs - CTA b/l abd - soft NT ND BS+ ext - right ankle/foot in splint; toes - cap refill brisk; pulses b/l feet 2+ psych - a/o x 3 skin - venous stasis changes b/l shins Results & Data Results & Data ([facility]) Vital Signs (Past 12 Hours) Vital Signs Temp Pulse Pulse Resp BP Pulse Ox O2 Del Method 12/25/22 10:56 36.8 C 87 20 130/68 94 Room Air 12/25/22 08:00 82 12/25/22 07:20 36.9 C 79 20 135/82 96 Room Air 12/25/22 02:38 36.7 C 83 18 133/82 95 Room Air Laboratory Results Laboratory Results - last 24 hr 12/25/22 12/25/22 12/25/22 06:44 06:57 06:57 WBC 7.49 RBC 3.15 L Hgb 9.9 L Hct 29.7 L MCV 94.3 MCH 31.4 MCHC 33.3 RDW Std Deviation 49.1 H RDW Coeff of Jazz 14.6 H Plt Count 331 MPV 8.8 L PT 17.9 H INR 1.7 H Sodium 137 Potassium 3.9 Chloride 104 Carbon Dioxide 27 Anion Gap 6 BUN 16 Creatinine 0.79 Est Cr Clr Drug Dosing 118.4 Est GFR ( Amer) 104.0 Est GFR (Non-Af Amer) 89.7 BUN/Creatinine Ratio 20.3 H Glucose 124 H POC Glucose Calcium 9.1 12/25/22 07:28 WBC RBC Hgb Hct MCV MCH MCHC RDW Std Deviation RDW Coeff of Jazz Plt Count MPV PT INR Sodium Potassium Chloride Carbon Dioxide Anion Gap BUN Creatinine Est Cr Clr Drug Dosing Est GFR ( Amer) Est GFR (Non-Af Amer) BUN/Creatinine Ratio Glucose POC Glucose 99 Calcium PG Care Time/CCT Total # of Minutes Spent Total Time Spent with Patient: Total time spent is greater than 50% in coordination of care (as documented) at patient's floor/unit and/or counseling patient: Coding Level of Care Code 22880 SUB INP/OBS CARE 2/35MIN Diagnoses Lumbar disc herniation with radiculopathy M51.16 Fracture of right ankle, lateral malleolus S82.61XA Pulmonary embolism I26.99 Hypertension I10 SAHIL (obstructive sleep apnea) G47.33 Situational anxiety F41.8 Chronic venous insufficiency of lower extremity I87.2 Elevated bilirubin R17 UTI (urinary tract infection) N39.0 Urinary retention R33.9 Hematuria R31.9 Hx of bladder cancer Z85.51 Hypokalemia E87.6 Supratherapeutic INR R79.1
[2022-12-25] MEDS: WARFARIN SOD 3 MG TAB PO SCH (15:40)
[2022-12-25] MEDS: AMITRIPTYLINE HCL 50 MG TAB PO SCH (20:01)
[2022-12-25] MEDS ORDERED: diphenhydrAMINE Capsule 25 MG CAP PO ONE (22:02)
[2022-12-25] MEDS: LORazepam 0.5 MG TAB PO PRN (23:31)
[2022-12-26] MEDS: ACETAMINOPHEN 500 MG TAB PO SCH ×3 (01:28→17:23)
[2022-12-26] MEDS: traMADol HCL 50 MG TABLET PO PRN ×2 (06:08→20:29)
[2022-12-26 07:10] LABS: Prothrombin Time 20.3 Seconds (9.0-12.0)
[2022-12-26] MEDS: ENOXAPARIN INJ 40 MG/0.4 ML SYR SQ SCH ×2 (08:00→20:24)
[2022-12-26] MEDS: CHOLECALCIFEROL 1,000 UNITS 25 MCG TAB PO SCH (08:00)
[2022-12-26] MEDS: CEFDINIR 300 MG CAP PO SCH ×2 (08:00→20:24)
[2022-12-26] MEDS: ADVANCED PROBIOTIC 1250 MG CAPSULE PO SCH (08:00)
[2022-12-26] MEDS: LORazepam 0.5 MG TAB PO PRN (08:01)
[2022-12-26] MEDS: POLYETHYLENE (MIRALAX) 17 GM PACK PO SCH (08:01)
[2022-12-26] MEDS: TAMSULOSIN HCL 0.4 MG CAP PO SCH (08:01)
[2022-12-26] MEDS: SENNA 8.6 MG TAB PO SCH (08:01)
--- NOTE | 2022-12-26 11:25 | Hospitalist Progress Note ---
Date of Service December 26, 2022 Assessment & Plan (1) Lumbar disc herniation with radiculopathy: Plan: POD #11 - Status post T12-L1 decompression and fusion on December [address] Austin for severe spinal stenosis at T12-L1. Previous history of L3-L4 laminectomy, L3-L5 interbody cindy and screw fusion with discectomy. Pain --> controlled with scheduled tylenol 1gm TID and tramadol 25mg prn. No changes today. Patient had buttock paresthesias and perineal paresthesias 3 days ago. NOW RESOLVED. No motor weakness of either leg; able to transfer to chair and work with PT. Dr Austin has seen and is aware of this recent complaint - he is pleased with Mr Jones's progress. No repeat imaging needed at this time. Appreciate Dr Austin's assistance. (2) Fracture of right ankle, lateral malleolus: Plan: POD #11 - Status post open reduction internal fixation completed December 15 - by Dr Swift. Appreciate ortho assistance. Vit D level = 42.9 Cont vit D supplement 1000 IU daily. Cont NONWB status to RLE. Patient had c/o worsening pain in ankle 2 days ago - x-rays obtained, stable/unchanged. NO changes to the splint at this time. Appreciate ortho assistance. Patient will need to f/u with ortho late this week as outpatient. (3) Pulmonary embolism: Plan: History of DVT/PE. Saddle PE 2015, DVT 2013. Had temporary IVC filter in at that time. Warfarin was reversed preoperatively. Post-op INR had been as high as 4.1. s/p vit K 2.5mg po x 1 on 12/23 due to high INRs and hematuria. INR now 2. Cont lovenox 40mg BID. Cont coumadin 3mg daily. Daily INR. (4) Hypertension: Plan: BPs acceptable with addition of flomax (for urinary retention). (5) SAHIL (obstructive sleep apnea): Plan: continue CPAP qhs. (6) Situational anxiety: Plan: Continue lorazepam as needed. (7) Chronic venous insufficiency of lower extremity: Plan: no issues at this time (8) Elevated bilirubin: Plan: multiple total bilirubin levels elevated over the years. some direct levels also mildly high but primarily the t bili. suspect Gilbert's syndrome. no Rx needed. (9) UTI (urinary tract infection): Plan: 2nd citrobacter. s/p 2 days of rocephin then converted to PO cefdinir 300mg PO BID. day #4 of latter. PSA is elevated - may have component of prostatitis - thus may need longer cou rse (up to 4 weeks). urine is clearing. wbc count has normalized with Rx of UTI. (10) Urinary retention: Plan: s/p shah placement. cont flomax 0.4mg daily. likely keep shah 1-2 weeks. previously followed with Dr Celestin, [facility], for h/o bladder ca. will need f/u with urology post-d/c. patient wishes to switch practices. will send to Dr Chong Lozano at [facility] after d/c. (11) Hematuria: Plan: RESOLVED suspect multifactorial - UTI, shah trauma in setting of high INR, acute prostatitis. cannot rule out bladder ca. cont shah. urine cleared. PSA 9 noted. sent urine cytology - several atypical cells seen. either way he needs [facility]rology f/u post-discharge in light of bladder ca history. (12) Hx of bladder cancer: Plan: noted previously followed with Dr Celestin but had not seen him in several years see above PSA 9 - see above urine cytology noted refer to Dr Lozano, [facility], [facility] post-discharge (13) Hypokalemia: Plan: replaced resolved (14) Supratherapeutic INR: Plan: resolved (15) Rash: Plan: likely irritant rash is only on back geoff 60mg BID for itching triamcinolone cream 0.1% prn, but if helpful then schedule it TID in thin amounts Plan updated extensively by phone 2 days ago [facility] tomorrow if insurance auth has gone through Admission and Anticipated Discharge Date Admission Date: December 13, 2022 Subjective no issues overnight feels good eating well back pain controlled right ankle pain controlled was transferred to 3rd floor without issue is complaining of itching on his back Review of Systems Review of Systems: gen - feels good overall cv - no chest pain pulm - no cough or dyspnea GI - no abd pain, n/v - shah still in place neuro - buttock paresthesias just about resolved Physical Exam Physical Exam: gen - NAD, pleasant; looks good tody mouth - MMM neck - no JVD heart - RRR, s1 s2, no murmur lungs - CTA b/l abd - soft NT ND BS+ ext - right ankle/foot/stout in splint; toes - cap refill <2 sec; pulses b/l feet 2+ psych - a/o x 3 skin - venous stasis changes on left stout; scattered erythematous rash - very mild - on upper portion of back; midline back incision c/d/i Results & Data [facility] Vital Signs (Past 12 Hours) Vital Signs Temp Pulse Resp BP Pulse Ox O2 Del Method 12/26/22 09:00 96 Room Air 12/26/22 07:09 36.6 C 87 18 110/69 92 Room Air Laboratory Results Laboratory Results - last 24 hr 12/26/22 05:30 PT 20.3 H INR 2.0 H PG Care Time/CCT Total # of Minutes Spent Total Time Spent with Patient: Total time spent is greater than 50% in coordination of care (as documented) at patient's floor/unit and/or counseling patient: Coding Level of Care Code 02320 SUB INP/OBS CARE 2/35MIN Diagnoses Lumbar disc herniation with radiculopathy M51.16 Fracture of right ankle, lateral malleolus S82.61XA Pulmonary embolism I26.99 Hypertension I10 SAHIL (obstructive sleep apnea) G47.33 Situational anxiety F41.8 Chronic venous insufficiency of lower extremity I87.2 Elevated bilirubin R17 UTI (urinary tract infection) N39.0 Urinary retention R33.9 Hematuria R31.9 Hx of bladder cancer Z85.51 Hypokalemia E87.6 Supratherapeutic INR R79.1 Rash R21
[2022-12-26] MEDS ORDERED: FEXOFENADINE 60 MG TAB PO ONE (13:33)
[2022-12-26] MEDS: CYCLOBENZAPRINE HCL 5 MG TAB PO PRN (14:12)
[2022-12-26] MEDS: TRIAMCINOLONE ACET 0.1% CR 15 GM TUBE EXT SCH ×2 (14:12→20:25)
[2022-12-26] MEDS: WARFARIN SOD 3 MG TAB PO SCH (15:40)
[2022-12-26] MEDS: AMITRIPTYLINE HCL 50 MG TAB PO SCH (20:25)
[2022-12-26] MEDS: FEXOFENADINE 60 MG TAB PO SCH (20:25)
[2022-12-26] MEDS ORDERED: COUGH DROP (SUGAR FREE) LOZ 24 LOZ/1 BOX BUCCAL PRN (22:51)
[2022-12-27] MEDS: ACETAMINOPHEN 500 MG TAB PO SCH ×3 (01:25→17:24)
[2022-12-27 06:25] LABS: Hemoglobin 10.6 g/dl (14.0-18.0); Mean Corpuscular Hemoglobin 31.4 pg (25.0-34.0); Mean Corpuscular Hgb Conc 33.1 g/dL (32.0-36.0); Mean Corpuscular Volume 94.7 fL (80.0-100.0); Mean Platelet Volume 8.9 fL (9.4-12.4); Platelet Count 376 K/uL (130-400); RDW Coefficient of Variation 14.8 % (11.5-14.5); RDW Standard Deviation 49.6 fL (36.4-46.3); Red Blood Count 3.38 M/uL (4.70-6.10); White Blood Count 9.61 K/ul (4.8-10.8)
[2022-12-27 06:39] LABS: INR 2.4 (0.9-1.1); Prothrombin Time 24.4 Seconds (9.0-12.0)
[2022-12-27 06:47] LABS: BUN Creatinine Ratio 16.3 (10-20); Calcium 8.8 mg/dl (8.5-10.1); Creatinine Clr Calc Pharmacy 101.6 ml/min; Est GFR (Non-African American) 82.8 ml/min; Potassium 3.9 mmol/L (3.5-5.1)
[2022-12-27] MEDS: ONDANSETRON INJ 2 MG/ML 2 ML VIAL IV PRN (08:23)
[2022-12-27] MEDS: CEFDINIR 300 MG CAP PO SCH ×2 (09:03→19:52)
[2022-12-27] MEDS: TAMSULOSIN HCL 0.4 MG CAP PO SCH (09:04)
[2022-12-27] MEDS: CHOLECALCIFEROL 1,000 UNITS 25 MCG TAB PO SCH (09:04)
[2022-12-27] MEDS: ENOXAPARIN INJ 40 MG/0.4 ML SYR SQ SCH ×2 (09:04→19:53)
[2022-12-27] MEDS: ADVANCED PROBIOTIC 1250 MG CAPSULE PO SCH (09:04)
[2022-12-27] MEDS: FEXOFENADINE 60 MG TAB PO SCH ×2 (09:04→19:51)
[2022-12-27] MEDS: TRIAMCINOLONE ACET 0.1% CR 15 GM TUBE EXT SCH ×3 (09:05→19:51)
[2022-12-27] MEDS: SENNA 8.6 MG TAB PO SCH (09:08)
[2022-12-27] MEDS: POLYETHYLENE (MIRALAX) 17 GM PACK PO SCH (09:09)
--- NOTE | 2022-12-27 10:06 | Orthopedic Progress Note ---
Date of Service December 27, 2022 Assessment & Plan (1) Lumbar disc herniation with radiculopathy: Plan: At this time he is progressed appropriately from orthopedic standpoint is good for therapy when bed available. Admission and Anticipated Discharge Date Admission Date: December 13, 2022 Subjective Patient's pain is well controlled. He is tolerating physical therapy. Physical Exam Physical Exam: Patient is comfortable. Is good strength testing of the left lower extremity. Results & Data ([facility]) Vital Signs (Past 12 Hours) Vital Signs Temp Pulse Resp BP Pulse Ox O2 Del Method 12/27/22 07:57 36.4 C L 18 153/85 H 94 Room Air 12/27/22 01:22 88 142/85 H 96 Room Air
[2022-12-27] MEDS: traMADol HCL 50 MG TABLET PO PRN (13:53)
[2022-12-27] MEDS: WARFARIN SOD 3 MG TAB PO SCH (17:23)
--- NOTE | 2022-12-27 19:46 | Hospitalist Progress Note ---
Date of Service December 27, 2022 Assessment & Plan (1) Lumbar disc herniation with radiculopathy: Plan: POD #12 - Status post T12-L1 decompression and fusion on December [address] Austin for severe spinal stenosis at T12-L1. Previous history of L3-L4 laminectomy, L3-L5 interbody cindy and screw fusion with discectomy. Pain --> controlled with scheduled tylenol 1gm TID and tramadol 25mg prn. . Patient had buttock paresthesias and perineal paresthesias several days ago - now resolved. Leg strength 5/5 b/l. Dr Austin has seen and is aware of this recent complaint - he is pleased with Mr Vanceevonnezaid's progress. No repeat imaging needed at this time. Appreciate Dr Austin's assistance. (2) Fracture of right ankle, lateral malleolus: Plan: POD #12 - Status post open reduction internal fixation completed December 15 - by Dr Swift. Appreciate ortho assistance. Vit D level = 42.9 Cont vit D supplement 1000 IU daily. Cont NONWB status to RLE. Will d/c from hospital with ankle in splint. Appreciate ortho assistance. Patient will need to f/u with ortho late this week as outpatient. (3) Pulmonary embolism: Plan: History of DVT/PE. Saddle PE 2015, DVT 2013. Had temporary IVC filter in at that time. Warfarin was reversed preoperatively. Post-op INR had been as high as 4.1. s/p vit K 2.5mg po x 1 on 12/23 due to high INRs and hematuria. INR now 2.4. Cont lovenox 40mg BID 1 more day then d/c. Cont coumadin 3mg daily. Daily INR. (4) Hypertension: Plan: BPs acceptable with addition of flomax (for urinary retention). (5) SAHIL (obstructive sleep apnea): Plan: continue CPAP qhs. (6) Situational anxiety: Plan: Continue lorazepam as needed. (7) Chronic venous insufficiency of lower extremity: Plan: no issues at this time (8) Elevated bilirubin: Plan: multiple total bilirubin levels elevated over the years. some direct levels also mildly high but primarily the t bili has been high by itself. likely Gilbert's syndrome. no Rx needed. (9) UTI (urinary tract infection): Plan: 2nd citrobacter. s/p 2 days of rocephin then converted to PO cefdinir 300mg PO BID. day #5 of latter. Thus, day #7 of abx. PSA is elevated - may have component of prostatitis - thus may need longer course (up to 4 weeks). PSA 9.7. (10) Urinary retention: Plan: s/p shah placement. cont flomax 0.4mg daily. likely keep shah at least another week then pull the shah and perform voiding trial. previously followed with Dr Celestin, [facility], for h/o bladder ca. will need f/u with urology post-d/c. patient wishes to switch practices. will send to Dr Chong Lozano at [facility] after d/c. I spoke with Dr Lozano today - his office will contact patient for f/u. (11) Hematuria: Plan: RESOLVED suspect multifactorial - UTI, shah trauma in setting of high INR, acute prostatitis. cannot rule out bladder ca. cont shah. PSA 9.7 noted. sent urine cytology - several atypical cells seen. either way he needs [facility] f/u post-discharge in light of bladder ca history. (12) Hx of bladder cancer: Plan: noted previously followed with Dr Celestin but had not seen him in several years see above PSA 9.7 - see above urine cytology noted refer to Dr Lozano, [facility], [facility] post-discharge (13) Hypokalemia: Plan: replaced resolved (14) Supratherapeutic INR: Plan: resolved (15) Rash: Plan: likely irritant rash is only on back improved cont geoff 60mg BID for itching cont triamcinolone cream 0.1% TID Plan updated extensively at bedside today awaiting insurance auth for [facility] again needs f/u with Dr Austin, Dr Swift, and Urology (either Dr Blake Cornejo, or the [facility] group) Admission and Anticipated Discharge Date Admission Date: December 13, 2022 Subjective no new issues overnight back pain controlled right ankle pain controlled paresthesias of buttocks nearly fully resolved no weakness of legs stools are soft but no meg liquid eating well drinking well anxious to get out of hospital I notified him that I spoke with Dr Chong Lozano [facility], re: h/o bladder ca, hematuria, shah, etc at bedside Review of Systems Review of Systems: gen - feels good, had good therapy session cv - no chest pain pulm - no dyspnea GI - no abd pain, nausea or emesis Physical Exam Physical Exam: gen - NAD, pleasant, resting comfortably in bed; at bedside mouth - MMM neck - no JVD heart - RRR, s1 s2, no murmur lungs - CTA b/l abd - soft NT ND BS+ ext - right ankle/foot in splint; toes - cap refill <2 sec; pulses b/l feet 2+ psych - a/o x 3 skin - venous stasis changes on left stout; scattered erythematous rash - very mild - on upper portion of back -- improved Results & Data Results & Data ([facility]) Vital Signs (Past 12 Hours) Vital Signs Temp Pulse Resp BP BP Pulse Ox O2 Del Method 12/27/22 14:57 36.8 C 90 18 138/72 93 Room Air 12/27/22 07:57 36.4 C L 18 153/85 H 94 Room Air Laboratory Results Laboratory Results - last 24 hr 12/27/22 12/27/22 12/27/22 05:26 05:26 05:26 WBC 9.61 RBC 3.38 L Hgb 10.6 L Hct 32.0 L MCV 94.7 MCH 31.4 MCHC 33.1 RDW Std Deviation 49.6 H RDW Coeff of Jazz 14.8 H Plt Count 376 MPV 8.9 L PT 24.4 H INR 2.4 H Sodium 137 Potassium 3.9 Chloride 104 Carbon Dioxide 27 Anion Gap 6 BUN 15 Creatinine 0.92 Est Cr Clr Drug Dosing 101.6 Est GFR ( Amer) 96.0 Est GFR (Non-Af Amer) 82.8 BUN/Creatinine Ratio 16.3 Glucose 102 H Calcium 8.8 PG Care Time/CCT Total # of Minutes Spent Total Time Spent with Patient: Total time spent is greater than 50% in coordination of care (as documented) at patient's floor/unit and/or counseling patient: Coding Level of Care Code 60036 SUB INP/OBS CARE 2/35MIN Diagnoses Lumbar disc herniation with radiculopathy M51.16 Fracture of right ankle, lateral malleolus S82.61XA Pulmonary embolism I26.99 Hypertension I10 SAHIL (obstructive sleep apnea) G47.33 Situational anxiety F41.8 Chronic venous insufficiency of lower extremity I87.2 Elevated bilirubin R17 UTI (urinary tract infection) N39.0 Urinary retention R33.9 Hematuria R31.9 Hx of bladder cancer Z85.51 Hypokalemia E87.6 Supratherapeutic INR R79.1 Rash R21
[2022-12-27] MEDS: AMITRIPTYLINE HCL 50 MG TAB PO SCH (19:53)
[2022-12-28] MEDS: ACETAMINOPHEN 500 MG TAB PO SCH ×2 (01:16→09:00)
[2022-12-28] MEDS: traMADol HCL 50 MG TABLET PO PRN ×2 (07:57→13:40)
[2022-12-28] MEDS: CYCLOBENZAPRINE HCL 5 MG TAB PO PRN (07:57)
[2022-12-28] MEDS: FEXOFENADINE 60 MG TAB PO SCH (08:51)
[2022-12-28] MEDS: ADVANCED PROBIOTIC 1250 MG CAPSULE PO SCH (08:51)
[2022-12-28] MEDS: CEFDINIR 300 MG CAP PO SCH (08:52)
[2022-12-28] MEDS: TAMSULOSIN HCL 0.4 MG CAP PO SCH (08:52)
[2022-12-28] MEDS: SENNA 8.6 MG TAB PO SCH (08:54)
[2022-12-28] MEDS: POLYETHYLENE (MIRALAX) 17 GM PACK PO SCH (08:56)
[2022-12-28] MEDS: CHOLECALCIFEROL 1,000 UNITS 25 MCG TAB PO SCH (08:57)
[2022-12-28] MEDS: ENOXAPARIN INJ 40 MG/0.4 ML SYR SQ SCH (08:58)
[2022-12-28] MEDS: TRIAMCINOLONE ACET 0.1% CR 15 GM TUBE EXT SCH ×2 (08:59→15:01)
[2022-12-28 09:10] LABS: INR 2.8 (0.9-1.1); Prothrombin Time 28.2 Seconds (9.0-12.0)
[2022-12-28] MEDS: HYDROmorphone INJ 0.5 MG/0.5 ML SYR IV PRN (10:52)
--- NOTE | 2022-12-28 14:56 | Discharge Summary ---
Date of Service December 28, 2022 Admission HPI Per Admitting Provider Shailesh is a 72yo M who presents for R ankle pain. Patient presents after he had a fall at home. Reports for several weeks his legs intermittently seem to give out. He has full strength and sensation at bedside Shailesh is seen at the bedside with his . Yesterday morning he was getting into bed on the second floor an dhis legs 'just gave out' and he fell. Landed on his ankle. His back and hamstrins both 'feel tight, I could hardly stand laying down for the CT scan.' Pain is worsened laying flat on his back. His was in bed at the time and pt crawled into an uprigh position and tried to make it down the stairs to not wake his . While he was trying to get to the door and balance his legs gave out again because of a combination of pain and sudden weakness. He reports it was weakness and pain, but that he doesn't really feel weak in general just that his hamstrings have a sharp/tight quality which made them drop. Is in the front and back. Pain has a burnin quality and inermittent quality. Is not present at rest, is worsened/incited by movement. Befor yesteday has had chronic lumbar pain and hx of laminectomy 4 years ago. Bakc has always ached since then. 1 month ago had bad low back pain. Is not able to take ibuprofen while on coumadin. Did not want to try opioids so tried tramadol instead. has helped with the pain both in his back and thigh. He has chronic neuropathy worst in his feet bilaterally and which generally does not travel past the knee. His curent pain is above the knee, and does not seem to radiate past the knee. Medical History: Reviewed Medications: Reviewed Surgical History: Reviewed Allergies: Reviewed Social History: Code Status: DNR/DNI, discussed with patient reviewed Principal Diagnosis Lumbar radiculopathy Right ankle fracture Gross hematuria Acute prostatitis Urinary retention Discharge Exam Constitutional WD/WN, vitals as above Eyes + anicteric sclerae Neck trachea midline, no thyromegaly Respiratory normal respiratory effort, lungs clear to auscultation Cardiovascular RRR, no murmur, no edema Chest (Breasts) Chest: normal inspection of chest Gastrointestinal (Abdomen) normal bowel sounds, soft, nontender, no hepatosplenomegaly Musculoskeletal Extremities: + extremities abnormal to inspection (right ankle in splint), no cyanosis and no clubbing Skin no rashes, warm and dry Psychiatric A+Ox3, euthymic affect Lymphatic no lymphedema Discharge Data Allergies Allergy/AdvReac Type Severity Reaction Status Date / Time ragweed pollen Allergy Mild Sneezing Verified 07/14/20 15:43 gabapentin AdvReac Intermediate body Verified 07/14/20 15:43 aches, "foggy" feeling amoxicillin AdvReac Mild N/V Verified 07/14/20 15:43 clavulanic acid AdvReac Mild N/V Verified 07/14/20 15:43 propoxyphene AdvReac Mild Nausea Verified 07/14/20 15:43 Consultations 12/12/22 12:57 ED Decision to Admit Stat 12/12/22 13:06 ED Decision to Admit Stat 12/12/22 15:55 Consult Orthopedic Surgery Routine 12/13/22 09:00 Consult Orthopedic Surgery Routine Procedures Performed Operation Date: 12/15/22 12:00 Actual Procedures p T12-L1 Decompression and Fusion, Spinal Cord Monitoring(Not Applicable) - Lalo Austin DO s Right Open Reduction Internal Right Ankle - Álvaro Swift DO Ordered Studies 12/12/22 10:09 CT head/brain wo con Stat CT lumbar spine wo con Stat 12/13/22 07:47 MR lumbar spine wo con Urgent 12/15/22 12:00 FL lumbar spine 2-3V Routine 12/15/22 14:30 FL ankle RT min 3V RTN Routine Hospital Course (1) Lumbar disc herniation with radiculopathy: Status post T12-L1 decompression and fusion on December [address] Austin for severe spinal stenosis at T12-L1. Previous history of L3-L4 laminectomy, L3-L5 interbody cindy and screw fusion with discectomy. Pain --> controlled with scheduled tylenol 1gm TID and tramadol 25mg prn. . Patient had buttock paresthesias and perineal paresthesias several days ago - now resolved. Leg strength 5/5 b/l. Dr Austin has seen and is aware of this recent complaint - he is pleased with Karen's progress. No repeat imaging needed at this time. Appreciate Dr Austin's assistance. f/u with Ortho post-op (2) Fracture of right ankle, lateral malleolus: - Status post open reduction internal fixation completed December 15 - by Dr Swift. Appreciate ortho assistance. Vit D level = 42.9 Cont vit D supplement 1000 IU daily. Cont NONWB status to RLE. Will d/c from hospital with ankle in splint. Appreciate ortho assistance. Patient will need to f/u with ortho late this week as outpatient. (3) Pulmonary embolism: History of DVT/PE. Saddle PE 2015, DVT 2013. Had temporary IVC filter in at that time. Warfarin was reversed preoperatively. Post-op INR had been as high as 4.1. s/p vit K 2.5mg po x 1 on 12/23 due to high INRs and hematuria. INR now 2.8 dc briding lovenox 40mg BID on day of dc Cont coumadin 3mg daily. check INR in 2-3 days at rehab (4) Hypertension: BPs acceptable with addition of flomax (for urinary retention). (5) SAHIL (obstructive sleep apnea): continue CPAP qhs. (6) Situational anxiety: Continue lorazepam as needed. (7) Chronic venous insufficiency of lower extremity: no issues at this time (8) Elevated bilirubin: multiple total bilirubin levels elevated over the years. some direct levels also mildly high but primarily the t bili has been high by itself. likely Gilbert's syndrome. no Rx needed. (9) UTI (urinary tract infection): 2nd citrobacter. s/p 2 days of rocephin then converted to PO cefdinir 300mg PO BID. day #5 of latter. Thus, day #7 of abx. PSA is elevated - may have component of prostatitis - thus may need longer course (up to 4 weeks). Will give 3 more weeks of po cefdinir after dsischarge PSA 9.7. (10) Urinary retention: s/p shah placement. cont flomax 0.4mg daily. likely keep shah at least another week then pull the shah and perform voiding trial at rehab or with Urology. previously followed with Dr Celestin, [facility], for h/o bladder ca. will need f/u with urology post-d/c. patient wishes to switch practices. will send to Dr Chong Lozano at [facility] after d/c. Previous hospitalist spoke with Dr Lozano - his office will contact patient for f/u. (11) Hematuria: RESOLVED suspect multifactorial - UTI, shah trauma in setting of high INR, acute prostatitis. cannot rule out bladder ca. cont shah. PSA 9.7 noted. sent urine cytology - several atypical cells seen. either way he needs [facility] f/u post-discharge in light of bladder ca history. (12) Hx of bladder cancer: noted previously followed with Dr Celestin but had not seen him in several years see above PSA 9.7 - see above urine cytology noted refer to Dr Lozano[facility], [facility] post-discharge (13) Rash: likely irritant rash is only on back improved cont geoff 60mg BID for itching cont triamcinolone cream 0.1% TID Plan Dispo-dc to rehab at [facility] needs f/u with Dr Austin, Dr Swift, and Urology Dr Lozano - [facility] Total Time Total Time Spent Total Time Spent (In Minutes): 35 min Discharge Plan Discharge Items Patient Disposition: Transfer Inpatient Rehab Fac Reason For Visit: LUMBAR RADICULOPATHY Discharge Diagnosis: Lumbar radiculopathy, right ankle fracture Urinary retention, acute prostatitis, Gross hematuria Activity: Per Instructions section Weightbearing: Right non-weightbearing Weightbearing Comment: Nonweightbearing right lower extremity with walker Non-emergency contact: Primary Care Provider and Surgeon Call non-emergency contact if: you have any medication questions, your pain is not controlled, your temperature is above 101.5, your wound has increased redness and your wound has increased drainage Follow-up/Referrals: Andre Patel MD [Primary Care Provider] - Álvaro Swift DO [Surgeon] - (Follow-up with Dr. Swift or Oren Ulloa PA-C in 2 weeks from the day of your surgery for your first postoperative visit) Diet: Heart Healthy Addtl Attending Provider Instructions: Please have your INR checked in 2-3 days and continue on your Coumadin as before. The Shah catheter should remain in place for now and you should follow up with Dr. Chong Lozano of [facility]. You also had abnormal cells in your urine concerning given your history of bladder cancer. Please finish out the prolonged course of oral antibiotics for your prostatitis infection. ACTIVITY RECOMMENDATIONS: SELF CARE INSTRUCTIONS AFTER THORACIC/LUMBAR FUSIONS 1. You may walk to your tolerance. It is good exercise for your legs and back. Expect some back and intermittent leg aches and pains. 2. You may perform "counter-top" level activities (make a sandwich, hudson with a project, etc.). 3. No bending or lifting of more than 10 pounds or back twisting of any nature (roll like a log when turning in bed). 4. You may ride in a car for 20-30 minutes at a time. No driving until after your first visit with your doctor. 5. Frequent changes of position and restricting sitting to 30 minutes at a time will help limit the amount of back spasms and stiffness you may experience. 6. You may discontinue the use of ambulatory aids (cane, crutches, etc.) once your strength and confidence allow. 7. You may line installer repairer the shower and let water strike your incision when you arrive home at least once daily. Do not take a tub bath, sit in a hot tub or go into a swimming pool until after your first recheck in the office. SPECIAL CARE INSTRUCTIONS: VERY IMPORTANT TO READ AND REVIEW A. Your surgical incision has been closed with a cosmetic suture under the skin that will dissolve in about 6 weeks. In 14 days, you can use a pair of clean scissors and cut the suture that is left outside of the skin at the ends of your incision. 1. The small skin tapes can be removed 7 days after surgery if they have not fallen off by that point. 2. You may keep the wound open to air as much as possible to promote healing after post-op day number 5 unless told otherwise by your doctor. 3. If you think the wound looks like it is becoming infected (redness or worsening drainage) and/or you are experiencing fever, chill or worsening back pain and muscle spasms, contact the office so that we may evaluate you as soon as possible. B. Complications are uncommon, but please contact us if you have any signs or symptoms of: 1. wound infection (fever higher than 102.5 degrees F, redness, separation of wound, drainage, or increasing pain from the incision) 2. blood clots in legs (pain, swelling, redness and warmth in legs) 3. urinary tract infection (fever higher than 102.5 degrees F, burning upon urination or increased frequency of urination) 4. nerve problems (inability to walk on your toes or heels, numbness, loss of bowel or bladder control) 5. any other symptoms that concern you C. Please call the office at if you have any concerns or questions about your operation or recovery. D. No smoking! Smoking drastically decreases the chance of a solid fusion. E. Do not take any anti-inflammatory medications (Indocin, Advil, Motrin, Aspirin, Naprosyn, etc.) as these may inhibit the chance of a solid fusion. Tylenol is okay to take for pain. MANAGING PAIN AFTER SPINAL SURGERY 1. Narcotic medication is intended for short-term use and will be provided for surgical pain. Surgical pain usually lasts for a period of 4-6 weeks. Narcotic medication includes Percocet, Vicodin, Darvocet, Tylenol #3 or Lortab. 2. Longer-term pain is more appropriately treated with non-narcotic medication such as Tylenol ES. 3. Muscle spasm is not appropriately treated with narcotics. Muscle relaxers such as Soma, Flexeril or Skelaxin can be used along with Tylenol ES. 4. Remember that we all live with some "aches and pains". This is not unusual or uncommon after an injury or as we get older. a. Back pain is expected and may include muscle spasms for 4 to 6 weeks after surgery. The pain should gradually improve. If the pain worsens for no apparent reason, please contact the office. b. Intermittent leg pain may also be experienced and should not be concerned about unless it worsens for no apparent reason. If so, please contact the office. 5. We will provide appropriate medication within the normal guidelines of their prescribed use. We will also be very cautious and aware of potential abuse and extended duration of patients' medication needs. a. Pain medications are for your comfort and to assist with sleep and rest so that the tissue can heal. They are not provided in order to return to normal activity and should not be used through the day. To do so or worsening pain at night can result from ongoing tissue damage and development of tolerance to the prescribed medicine. 6. Please allow 2-3 days to process refills. Prescriptions will not be mailed but must be picked up at the office. FOLLOW UP VISIT: Keep your scheduled follow-up appointment. Any questions, please call the office at . Addtl Financial Advocate Provider Instructions: ACTIVITY RECOMMENDATIONS: * NONWEIGHTBEARNG ON THE RIGHT LOWER EXTREMITY. SPECIAL CARE INSTRUCTIONS: * Some drainage onto the dressing is normal and is no cause for alarm. * Some swelling is natural especially after walking. When resting, keep your foot elevated above the level of your heart. * Call the doctor's office at if you notice increased drainage, fever over 101 degrees F. or severe constant pain. BANDAGE: * Leave bandage/cast in place unless otherwise directed. * Keep bandage/cast dry at all times. FOLLOW UP VISIT: If appointment is not already scheduled: Please call [facility] to make a follow-up appointment after your surgery at . Pending Studies at Discharge: No Stand-Alone Forms: My [facility] Skilled Items Patient informed of condition?: Yes DNR: Yes Discharge Level of Care: Acute rehab Communicable Disease: No Discharge Prognosis: Improving Lines: None Urinary Catheter: Yes Medications and DC Order Prescriptions: New cefdinir 300 mg Capsule 300 mg PO BID Qty: 42 0RF sennosides [Senokot] 8.6 mg Tablet 17.2 mg PO QAM Qty: 8.6 0RF fexofenadine [Wal-Fex Allergy] 60 mg Tablet 60 mg PO BID Qty: 60 0RF tramadol 50 mg Tablet 25 mg PO Q6H PRN (Reason: pain) Qty: 20 0RF acetaminophen [Tylenol Extra Strength] 500 mg Tablet 1,000 mg PO Q8H Qty: 60 0RF triamcinolone acetonide 0.1 % Cream 1 applic EXT TID Qty: 15 0RF cyclobenzaprine 5 mg Tablet 5 mg PO TID PRN (Reason: muscle spasm) Qty: 20 0RF Continued amitriptyline 50 mg tablet 50 mg PO HS warfarin 3 mg tablet See Rx Instructions PO UD Qty: 90 1RF Rx Instructions: 3 mg daily per [facility] PO use as directed; multivitamin Tablet 1 tab PO DAILY turmeric root extract 500 mg tablet 500 mg PO DAILY ascorbate calcium (vitamin C) 500 mg tablet 500 mg PO DAILY cholecalciferol (vitamin D3) 25 mcg (1,000 unit) capsule 1,000 unit PO DAILY (DME) CPAP Machine Misc See Rx Instructions .ROUTE .MEDSUPPLY Qty: 1 0RF Rx Instructions: INCREASE CPAP TO 7CM. [facility] (DME) CPAP Supplies Misc See Rx Instructions .ROUTE .MEDSUPPLY Qty: 1 0RF Rx Instructions: CPAP MASK OF CHOICE. [facility] Medical Marijuana 1 dose inhalation UD PRN (Reason: Pain) Changed polyethylene glycol 3350 [Miralax] 17 gram powder in packet 17 g PO DAILY Qty: 30 0RF Discontinued tramadol 50 mg tablet 50 mg PO DAILY PRN (Reason: pain) Discharge Orders: Discharge Order (Routine); Ordered 12/28/22 Ordered By: Nicolasa Bonilla Admission Data Admit Date/Time: 12/13/22 15:46 Attending Provider: Nicolasa Bonilla Admit Provider: Herbert Allen Primary Care Provider: Andre Patel Other Providers: Herbert Allen ; [facility] ; [place] ; [facility] ; Álvaro Swift ; Lalo Austin Coding Level of Care Code HOSP INP/OBS DISCH >30 MIN Diagnoses Lumbar disc herniation with radiculopathy M51.16 Fracture of right ankle, lateral malleolus S82.61XA Pulmonary embolism I26.99 Hypertension I10 SAHIL (obstructive sleep apnea) G47.33 Situational anxiety F41.8 Chronic venous insufficiency of lower extremity I87.2 Elevated bilirubin R17 UTI (urinary tract infection) N39.0 Urinary retention R33.9 Hematuria R31.9 Hx of bladder cancer Z85.51 Rash R21
== END 2022-12-28 15:49 | DRG 454 ==
LOC: ED 09:44 → 2S 09:44 → SUATTDRO 15:35 → 3N 12-25 16:34

== ENCOUNTER 2023-02-01 18:10 | Observation (INO) ==
--- NOTE | 2023-02-01 18:27 | Emergency Department Note ---
History of Present Illness General Chief complaint: Catheter Replacement Stated complaint: Catheter Issue Time Seen by Provider: 02/01/23 18:13 History of Present Illness Provider complaint: Keller catheter malfunction Onset (ago): week(s) 1 72-year-old male presents emergency department for Keller catheter malfunction. Patient states that his Keller catheter has not been draining properly and has been leaking around it for the last week. He states he has a lot of blood in his Keller bag. Patient is on Coumadin. Patient was recently discharged 1 week ago from [facility]. Patient reports no falls. Patient states he is concerned about an infection because his catheter has been leaking around and he has an ulcer on his sacrum. No fevers. Home Medications Medication Instructions Recorded Confirmed Type CPAP Machine #1 ea 01/17/20 12/12/22 Rx CPAP Supplies #1 ea 01/17/20 12/12/22 Rx amitriptyline 50 mg tablet 50 mg PO HS 09/02/20 02/01/23 History warfarin 3 mg tablet See Rx Instructions PO UD #90 tabs 03/05/21 02/01/23 Rx multivitamin 1 tab PO DAILY 07/14/22 02/01/23 History acetaminophen 500 mg tablet 1,000 mg PO TIDM 02/01/23 02/01/23 History (Tylenol Extra Strength) cholecalciferol (vitamin D3) 50 50 mcg PO DAILY 02/01/23 02/01/23 History mcg (2,000 unit) capsule (Vitamin D3) cyclobenzaprine 5 mg tablet 5 mg PO HS 02/01/23 02/01/23 History finasteride 5 mg tablet 5 mg PO DAILY 02/01/23 02/01/23 History oxybutynin chloride 5 mg 5 mg PO QAM 02/01/23 02/01/23 History tablet,extended release 24 hr tramadol 50 mg tablet 50 mg PO Q4H PRN pain 02/01/23 02/01/23 History Allergies Allergy/AdvReac Type Severity Reaction Status Date / Time ragweed pollen Allergy Mild Sneezing Verified 02/01/23 20:31 amoxicillin AdvReac Intermediate N/V Verified 02/01/23 20:31 clavulanic acid AdvReac Intermediate N/V Verified 02/01/23 20:31 gabapentin AdvReac Intermediate body Verified 02/01/23 20:31 aches, "foggy" feeling propoxyphene AdvReac Mild Nausea Verified 02/01/23 20:31 Past Med/Surg History Medical History Chronic back pain Chronic venous insufficiency hx venous ulcer Fibromyalgia Fusion of spine C2-C3, C3-C4 Hemorrhoids 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 Sleep apnea CPAP Surgical History History of bilateral cataract extraction History of biopsy of bladder multiple History of bowel resection X2 History of cardiac cath 2009= no stents History of colonoscopy History of cystoscopy multiple History of esophagogastroduodenoscopy (EGD) History of prostate biopsy "benign" History of repair of hiatal hernia History of right knee surgery ACL repair History of tonsillectomy and adenoidectomy History of tooth extraction History of total right knee replacement (TKR) x2 History of umbilical hernia repair x3 History of uvulopalatopharyngoplasty S/P IVC filter x3 Family History Grandmother (Paternal) Family history of diabetes mellitus Mother Family hx of colon cancer Brother Bladder cancer Father Accidental Other No family history of adverse response to anesthesia Social History Smoking Status: Former smoker Tobacco Type: Cigarettes Second Hand Exposure: No; Hx Alcohol Use: Yes Alcohol type: beer Hx Substance Use: No Preferred Language: Solomon Islander Communication Ability: Effective Visual Impairment: No Limitations Hearing Ability: Normal Parking Officer Required: No Beliefs That Will Affect Care: None marital status: Current Living Situation: Spouse Feels Safe at Home: Yes Assistive Devices: Cane and Walker Physical Exam Vital Signs Vital Signs - 24 hr 02/01/23 18:17 02/01/23 18:17 02/01/23 18:23 Temperature 36.5 C Temperature Source Oral Pulse Rate 98 H 103 H Pulse Rate [Apical] Respiratory Rate 18 Respiratory Depth Normal Blood Pressure 169/117 H Blood Pressure [Right Arm] Blood Pressure Mean 134 Blood Pressure Mean [Right Arm] Blood Pressure Position Sitting Pulse Oximetry 93 Oxygen Delivery Method Room Air Room Air Sepsis New/Unexplained Change in Mental Status No Sepsis Action Taken by Nursing No Action Required 02/01/23 22:07 02/01/23 22:48 Temperature Temperature Source Pulse Rate 112 H Pulse Rate [Apical] 110 H Respiratory Rate 19 Respiratory Depth Blood Pressure Blood Pressure [Right Arm] 173/96 H Blood Pressure Mean Blood Pressure Mean [Right Arm] 121 Blood Pressure Position Pulse Oximetry 94 Oxygen Delivery Method Room Air Sepsis New/Unexplained Change in Mental Status Sepsis Action Taken by Nursing Physical Exam HENT: Exam performed. - Head: Normocephalic and atraumatic. EYES: Conjunctivae and EOM are normal. Pupils are equal, round, and reactive to light. Right eye exhibits no discharge. Left eye exhibits no discharge. No scle ral icterus. NECK: Normal range of motion. Neck supple. No JVD present. CV: Normal rate, regular rhythm, normal heart sounds and intact distal pulses. There is no peripheral edema. Palpable radial pulses bue. PULM/CHEST: Effort normal and breath sounds normal. No respiratory distress. No stridor. He has no wheezes. He has no rales. ABD: The abdomen is soft. : Keller catheter in place. MUSC/SKEL: Right lower extremity in walking boot. LYMPH: No cervical adenopathy. NEURO: Motor and sensation grossly intact. SKIN: Stage IV decubitus ulcer over the sacrum. No surrounding erythema or warmth. Course Course 1812: The patient was evaluated in room A11. A complete history and physical exam was performed Cardiac monitoring: An order was placed for continuous cardiac monitoring. The monitor shows a rate of 90 with sinus rhythm interpreted by me 2030: Vital signs stable. Labs and imaging within normal limits. Keller catheter is able to be irrigated and draining properly. We will plan on discharging the patient home. 2129: and patient at bedside are very angry according to nurse. I went to go evaluate the patient and the patient is very upset about being discharged home. He states he keeps having urine leak out from around his Keller catheter. He states he just had the Keller catheter placed yesterday. Catheter is draining appropriately. Patient insisted on eating and drinking prior to discharge which he did do without any problems. Catheter is draining correctly as a catheter has urine in the bladder scan is 0. Patient is very upset about being discharged home. He states he cannot keep coming back to the hospital and feels "he has not gained anything" since coming to the hospital. Patient states he does not want to pay for another ER visit if he needs to be admitted later on or if he comes back. I explained to him that I do not handle any billing or payment options. I offered the patient evaluation by the hospitalist team or possible placement in another rehab facility if he does not want to go home. Patient states he requested be admitted to the hospital service. Spoke with Dr. Leong who will evaluate the patient for admission. Family and patient are very upset that there is no infection found. Administered Medications Discontinued Medications Tramadol HCl (Tramadol Hcl 50 Mg Tablet) 50 mg PO NOW STA Stop: 02/01/23 20:32 Last Admin: 02/01/23 20:34 Dose: 50 mg Documented By: YAS Tramadol HCl (Tramadol Hcl 50 Mg Tablet) Confirm Administered Dose 50 mg .ROUTE .STK-MED ONE Stop: 02/01/23 20:33 Last Admin: 02/01/23 20:35 Dose: Not Given Documented By: YAS Medical Decision Making Laboratory Data Attestation: I reviewed the patient's lab results. 02/01/23 18:31 02/01/23 18:31 Lab Results 02/01/23 02/01/23 02/01/23 Range/Units 18:31 18:31 18:31 WBC 10.76 (4.8-10.8) K/ul RBC 4.63 L (4.70-6.10) M/uL Hgb 13.6 L (14.0-18.0) g/dl Hct 41.5 L (42.0-52.0) % MCV 89.6 (80.0-100.0) fL MCH 29.4 (25.0-34.0) pg MCHC 32.8 (32.0-36.0) g/dL RDW Std Deviation 45.9 (36.4-46.3) fL RDW Coeff of Jazz 14.1 (11.5-14.5) % Plt Count 317 (130-400) K/uL MPV 9.4 (9.4-12.4) fL Immature Gran % (Auto) 0.4 % Neut % (Auto) 70.7 % Lymph % (Auto) 17.6 % Swain % (Auto) 6.9 % Eos % (Auto) 4.1 % Baso % (Auto) 0.3 % Neut # (Auto) 7.62 H (1.40-6.50) K/uL Lymph # (Auto) 1.89 (1.2-3.4) K/uL Swain # (Auto) 0.74 H (0.11-0.59) K/uL Eos # (Auto) 0.44 (0-0.50) K/uL Baso # (Auto) 0.03 (0-0.2) K/uL Immature Gran # (Auto) 0.04 (0.01-0.20) K/uL PT 27.5 H (9.0-12.0) Seconds INR 2.7 H (0.9-1.1) APTT 47.3 H* (21.0-31.0) Seconds PTT Ratio 1.7 Sodium 138 (136-145) mmol/L Potassium 4.0 (3.5-5.1) mmol/L Chloride 102 (98-107) mmol/L Carbon Dioxide 26 (21-32) mmol/L Anion Gap 10 (3-11) BUN 18 (6-23) mg/dl Creatinine 0.79 (0.6-1.4) mg/dl Est Cr Clr Drug Dosing 120.7 ml/min Est GFR ( Amer) 104.0 ml/min Est GFR (Non-Af Amer) 89.7 ml/min BUN/Creatinine Ratio 22.8 H (10-20) Glucose 104 H (70-99(Fasting)) mg/dl Calcium 9.5 (8.5-10.1) mg/dl Urine Color Urine Appearance (Clear) Urine pH (4.5-7.5) Ur Specific Wahoo (1.000-1.030) Urine Protein (Negative) Urine Glucose (UA) (Negative) Urine Ketones (Negative) Urine Blood (Negative) Urine Nitrite (Negative) Urine Bilirubin (Negative) Urine Urobilinogen (Negative) Ur Leukocyte Esterase (Negative) Urine RBC (0-4) /hpf Urine WBC (0-5) /hpf Ur Epithelial Cells (0-5) /lpf Calcium Oxalate Crystal (None Prsent) Amorphous Sediment (None Prsent) Urine Bacteria (Negative) SARS-CoV-2, RNA, NAAT (NEGATIVE) 02/01/23 02/01/23 Range/Units 18:31 23:30 WBC (4.8-10.8) K/ul RBC (4.70-6.10) M/uL Hgb (14.0-18.0) g/dl Hct (42.0-52.0) % MCV (80.0-100.0) fL MCH (25.0-34.0) pg MCHC (32.0-36.0) g/dL RDW Std Deviation (36.4-46.3) fL RDW Coeff of Jazz (11.5-14.5) % Plt Count (130-400) K/uL MPV (9.4-12.4) fL Immature Gran % (Auto) % Neut % (Auto) % Lymph % (Auto) % Swain % (Auto) % Eos % (Auto) % Baso % (Auto) % Neut # (Auto) (1.40-6.50) K/uL Lymph # (Auto) (1.2-3.4) K/uL Swain # (Auto) (0.11-0.59) K/uL Eos # (Auto) (0-0.50) K/uL Baso # (Auto) (0-0.2) K/uL Immature Gran # (Auto) (0.01-0.20) K/uL PT (9.0-12.0) Seconds INR (0.9-1.1) APTT (21.0-31.0) Seconds PTT Ratio Sodium (136-145) mmol/L Potassium (3.5-5.1) mmol/L Chloride (98-107) mmol/L Carbon Dioxide (21-32) mmol/L Anion Gap (3-11) BUN (6-23) mg/dl Creatinine (0.6-1.4) mg/dl Est Cr Clr Drug Dosing ml/min Est GFR ( Amer) ml/min Est GFR (Non-Af Amer) ml/min BUN/Creatinine Ratio (10-20) Glucose (70-99(Fasting)) mg/dl Calcium (8.5-10.1) mg/dl Urine Color Red Urine Appearance Turbid A (Clear) Urine pH 5.5 (4.5-7.5) Ur Specific Wahoo >= 1.030 (1.000-1.030) Urine Protein 3+ H (Negative) Urine Glucose (UA) Negative (Negative) Urine Ketones Negative (Negative) Urine Blood 3+ H (Negative) Urine Nitrite Negative (Negative) Urine Bilirubin Negative (Negative) Urine Urobilinogen Negative (Negative) Ur Leukocyte Esterase Trace H (Negative) Urine RBC >30 H (0-4) /hpf Urine WBC 10-30 H (0-5) /hpf Ur Epithelial Cells 0-5 (0-5) /lpf Calcium Oxalate Crystal Present A (None Prsent) Amorphous Sediment Present A (None Prsent) Urine Bacteria Negative (Negative) SARS-CoV-2, RNA, NAAT NEGATIVE (NEGATIVE) MDM Narrative 1812: The patient was evaluated in room A11. A complete history and physical exam was performed Cardiac monitoring: An order was placed for continuous cardiac monitoring. The monitor shows a rate of 90 with sinus rhythm interpreted by me 2030: Vital signs stable. Labs and imaging within normal limits. Keller catheter is able to be irrigated and draining properly. We will plan on discharging the patient home. 2129: and patient at bedside are very angry according to nurse. I went to go evaluate the patient and the patient is very upset about being discharged home. He states he keeps having urine leak out from around his Keller catheter. He states he just had the Keller catheter placed yesterday. Catheter is draining appropriately. Patient insisted on eating and drinking prior to discharge which he did do without any problems. Catheter is draining correctly as a catheter has urine in the bladder scan is 0. Patient is very upset about being discharged home. He states he cannot keep coming back to the hospital and feels "he has not gained anything" since coming to the hospital. Patient states he does not want to pay for another ER visit if he needs to be admitted later on or if he comes back. I explained to him that I do not handle any billing or payment options. I offered the patient evaluation by the hospitalist team or possible placement in another rehab facility if he does not want to go home. Patient states he requested be admitted to the hospital service. Spoke with Dr. Leong who will evaluate the patient for admission. Family and patient are very upset that there is no infection found. Impression & Plan Complication of Keller catheter Discharge Plan Visit Data Chief Complaint: Catheter Replacement Stated Complaint: Catheter Issue ED Provider: Yordy Diamond Discharge Problem: Complication of Keller catheter Patient Disposition: Being Evaluated by Hospitalist Discharge Instructions Alannah/Other Patient Handouts: ED Keller Catheter, Care Forms Stand Alone Forms: [facility], Virtual Emergency Department, Important Visit Information Prescriptions Prescriptions: No Action amitriptyline 50 mg tablet 50 mg PO HS warfarin 3 mg tablet See Rx Instructions PO UD Qty: 90 1RF Rx Instructions: 02/01/23--HOLD DOSE FOR TODAY ONLY---PER PT. TAKES 3 mg QAM per [facility] PO use as directed; multivitamin Tablet 1 tab PO DAILY finasteride 5 mg tablet 5 mg PO DAILY (DME) CPAP Machine Misc See Rx Instructions .ROUTE .MEDSUPPLY Qty: 1 0RF Rx Instructions: INCREASE CPAP TO 7CM. [facility] (DME) CPAP Supplies Misc See Rx Instructions .ROUTE .MEDSUPPLY Qty: 1 0RF Rx Instructions: CPAP MASK OF CHOICE. [facility] oxybutynin chloride 5 mg tablet extended release 24hr 5 mg PO QAM cholecalciferol (vitamin D3) [Vitamin D3] 50 mcg (2,000 unit) Capsule 50 mcg PO DAILY tramadol 50 mg tablet 50 mg PO Q4H PRN (Reason: pain) acetaminophen [Tylenol Extra Strength] 500 mg tablet 1,000 mg PO TIDM cyclobenzaprine 5 mg tablet 5 mg PO HS Referrals Referrals: Danyel Jackson MD [Physician] - (Follow-up in 1-7 days.) Andre Patel MD [Physician] - (Follow-up in 1-7 days.)
[2023-02-01 19:03] LABS: Basophils # (auto) 0.03 K/uL (0-0.2); Basophils % (auto) 0.3 %; Eosinophils # (auto) 0.44 K/uL (0-0.50); Eosinophils % (auto) 4.1 %; Hematocrit (blood only) 41.5 % (42.0-52.0); Hemoglobin 13.6 g/dl (14.0-18.0); Immature Granulocytes # (auto) 0.04 K/uL (0.01-0.20); Immature Granulocytes % (auto) 0.4 %; Lymphocytes # (auto) 1.89 K/uL (1.2-3.4); Lymphocytes % (auto) 17.6 %; Mean Corpuscular Hemoglobin 29.4 pg (25.0-34.0); Mean Corpuscular Hgb Conc 32.8 g/dL (32.0-36.0); Mean Corpuscular Volume 89.6 fL (80.0-100.0); Mean Platelet Volume 9.4 fL (9.4-12.4); Monocytes # (auto) 0.74 K/uL (0.11-0.59); Monocytes % (auto) 6.9 %; Neutrophils # (auto) 7.62 K/uL (1.40-6.50); Neutrophils % (auto) 70.7 %; Platelet Count 317 K/uL (130-400); RDW Coefficient of Variation 14.1 % (11.5-14.5); RDW Standard Deviation 45.9 fL (36.4-46.3); Red Blood Count 4.63 M/uL (4.70-6.10); White Blood Count 10.76 K/ul (4.8-10.8)
[2023-02-01 19:17] LABS: BUN Creatinine Ratio 22.8 (10-20); Calcium 9.5 mg/dl (8.5-10.1); Creatinine Clr Calc Pharmacy 120.7 ml/min; Est GFR (Non-African American) 89.7 ml/min
[2023-02-01 19:36] LABS: Appearance Urine Turbid (Clear); Bilirubin Urine Negative (Negative); Blood Urine 3+ (Negative); Color Urine Red; Glucose Urine UA Negative (Negative); Ketones Urine Negative (Negative); Leukocyte Esterase Urine Trace (Negative); Nitrite Urine Negative (Negative); Protein Urine 3+ (Negative); Specific Gravity Urine >= 1.030 (1.000-1.030); Urobilinogen Urine Negative (Negative); pH Urine 5.5 (4.5-7.5)
[2023-02-01 19:46] LABS: INR 2.7 (0.9-1.1); Partial Thromboplastin Ratio 1.7; Prothrombin Time 27.5 Seconds (9.0-12.0)
[2023-02-01 20:04] LABS: Partial Thromboplastin Time 47.3 Seconds (21.0-31.0)
[2023-02-01 20:09] LABS: RBC Urine >30 /hpf (0-4)
[2023-02-01 20:14] LABS: Calcium Oxalate Crystals Urine Present (None Prsent)
[2023-02-01 20:18] LABS: Amorphous Sediment Urine Present (None Prsent); Epithelial Cell Urine 0-5 /lpf (0-5)
[2023-02-01 20:19] LABS: Bacteria Urine Negative (Negative)
[2023-02-01] MEDS ORDERED: traMADol HCL 50 MG TABLET PO STA (20:31)
[2023-02-01] MEDS ORDERED: traMADol HCL 50 MG TABLET ONE (20:32)
--- NOTE | 2023-02-01 22:03 | History & Physical Report ---
Date of Service February 01, 2023 Assessment & Plan (1) Complication of Shah catheter: Plan: 72 y/o male w/ hx of bladder cancer in remission. 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 - shah irrigated and draining in ED - w/ the recurrent leakage problems despite multiple reported shah exchanges, will consult power house control room operator [facility] urology - it is possible that patient has clots from warfarin use and mild irritration from prolonged shah use - obtained [facility] urology records (will place in paper chart); recurrence of bladder malignancy also on differential. had planned for CT urogram and cystoscopy - will defer shah irrigation orders to urology. daily nursing shah management @8AM ordered. (2) Sacral decubitus ulcer, stage IV: Plan: - Patient saw Dr. Wong at wound clinic 01/18/23. "Aquacel Ag in the open area Anita in the tunnel area antifungal powder around the coccygeal area Calmoseptine and cover with ABD and change daily." There was mention of potential wound vac in future. - Patient's to bring in wound care instructions from home. - Will consult wound care nursing. - Consider contacting the above regarding mention of previous use of doxycycline and awaiting 01/18 wound culture results which later grew MRSA resistant to doxycycline. (3) Chronic anticoagulation: Plan: - Continue home warfarin w/ 02/01/23 skipped as instructed by anticoag clinic (4) SAHIL (obstructive sleep apnea): Plan: - qhs home cpap (5) Depression: Plan: - Continue home qhs amitriptyline Plan FEN/GI: NPO anticoag: home warfarin code: DNR/DNI dispo: med surg History of Present Illness Chief Complaint: shah catheter complaint Primary Care Provider: Goldy Lozano MD 72 y/o male w/ hx of bladder cancer in remission. 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 He was discharged from [facility] a week ago. Patient states he has had several weeks of shah leakage and hematuria. These persist despite multiple shah exchanges. His shah was last changed by home health nursing yesterday. He also complains of worsening generalized weakness. He denies fever or other illness symptoms. He is concerned that the shah leakages, described as large spills that soak his stage 4 sacral decubitus ulcer pose an infection risk. He has been following [facility] urology who had planned to order a CT urogram and cystoscopy to work up hematuria. Sinus arrhythmia ~100 on telementry w/ occasional pvc. INR 2.7. Cr 0.79. 01/18 sacral wound w/ MRSA. ED course: Shah was irrigated. Urology spoke to patient at bedside. Allergies Allergy/AdvReac Type Severity Reaction Status Date / Time ragweed pollen Allergy Mild Sneezing Verified 02/01/23 20:31 amoxicillin AdvReac Intermediate N/V Verified 02/01/23 20:31 clavulanic acid AdvReac Intermediate N/V Verified 02/01/23 20:31 gabapentin AdvReac Intermediate body Verified 02/01/23 20:31 aches, "foggy" feeling propoxyphene AdvReac Mild Nausea Verified 02/01/23 20:31 Home Medications Medication Instructions Recorded Confirmed Type CPAP Machine #1 ea 01/17/20 12/12/22 Rx CPAP Supplies #1 ea 01/17/20 12/12/22 Rx amitriptyline 50 mg tablet 50 mg PO HS 09/02/20 02/01/23 History warfarin 3 mg tablet See Rx Instructions PO UD #90 tabs 03/05/21 02/01/23 Rx multivitamin 1 tab PO DAILY 07/14/22 02/01/23 History acetaminophen 500 mg tablet 1,000 mg PO TIDM 02/01/23 02/01/23 History (Tylenol Extra Strength) cholecalciferol (vitamin D3) 50 50 mcg PO DAILY 02/01/23 02/01/23 History mcg (2,000 unit) capsule (Vitamin D3) cyclobenzaprine 5 mg tablet 5 mg PO HS 02/01/23 02/01/23 History finasteride 5 mg tablet 5 mg PO DAILY 02/01/23 02/01/23 History oxybutynin chloride 5 mg 5 mg PO QAM 02/01/23 02/01/23 History tablet,extended release 24 hr tramadol 50 mg tablet 50 mg PO Q4H PRN pain 02/01/23 02/01/23 History Past Med/Surg History Medical History Chronic back pain Chronic venous insufficiency hx venous ulcer Fibromyalgia Fusion of spine C2-C3, C3-C4 Hemorrhoids 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 Sleep apnea CPAP Surgical History History of bilateral cataract extraction History of biopsy of bladder multiple History of bowel resection X2 History of cardiac cath 2009= no stents History of colonoscopy History of cystoscopy multiple History of esophagogastroduodenoscopy (EGD) History of prostate biopsy "benign" History of repair of hiatal hernia History of right knee surgery ACL repair History of tonsillectomy and adenoidectomy History of tooth extraction History of total right knee replacement (TKR) x2 History of umbilical hernia repair x3 History of uvulopalatopharyngoplasty S/P IVC filter x3 Family History Grandmother (Paternal) Family history of diabetes mellitus Mother Family hx of colon cancer Brother Bladder cancer Father Accidental Other No family history of adverse response to anesthesia Social History Smoking Status: Former smoker Tobacco Type: Cigarettes Second Hand Exposure: No; Hx Alcohol Use: Yes Alcohol type: beer Hx Substance Use: No Preferred Language: Malaysian Communication Ability: Effective Visual Impairment: No Limitations Hearing Ability: Normal Engineer Second Assistant Required: No Beliefs That Will Affect Care: None marital status: Current Living Situation: Spouse Other Information That Helps Us Care for You: No Feels Safe at Home: Yes Safety Concerns: Feels Safe At This Time Assistive Devices: CPAP, Walker and Wheelchair Review of Systems Review of Systems: All systems reviewed & are unremarkable except as noted in HPI & below Physical Exam Physical Exam: General: Grossly A&O. NAD. Cooperative. HEENT: Atraumatic, normocephalic. EOMI Pulm: CTAB anteriorly. -wheezes, -rales, -rhonchi. No respiratory distress. Cardiac: RRR, -mrg. Abdominal: Nontender, nondistended, soft. Integ: Sacral decubitus ulcer stage IV. ~dime sized diameter. Has small piece of gauze covering. Full depth of wound not examined. Results & Data Results & Data ([facility]) Vital Signs (Past 12 Hours) Vital Signs Temp Pulse Resp BP Pulse Ox O2 Del Method 02/01/23 18:23 Room Air 02/01/23 18:17 103 H 02/01/23 18:17 36.5 C 98 H 18 169/117 H 93 Room Air Laboratory Results Coagulation 02/01/23 Range/Units 18:31 PT 27.5 H (9.0-12.0) Seconds APTT 47.3 H* (21.0-31.0) Seconds CBC 02/01/23 Range/Units 18:31 WBC 10.76 (4.8-10.8) K/ul RBC 4.63 L (4.70-6.10) M/uL Hgb 13.6 L (14.0-18.0) g/dl Hct 41.5 L (42.0-52.0) % Plt Count 317 (130-400) K/uL Neut # (Auto) 7.62 H (1.40-6.50) K/uL Lymph # (Auto) 1.89 (1.2-3.4) K/uL Jones # (Auto) 0.74 H (0.11-0.59) K/uL Eos # (Auto) 0.44 (0-0.50) K/uL Baso # (Auto) 0.03 (0-0.2) K/uL Comprehensive Metabolic Panel 02/01/23 Range/Units 18:31 Sodium 138 (136-145) mmol/L Potassium 4.0 (3.5-5.1) mmol/L Chloride 102 (98-107) mmol/L Carbon Dioxide 26 (21-32) mmol/L BUN 18 (6-23) mg/dl Creatinine 0.79 (0.6-1.4) mg/dl Glucose 104 H (70-99(Fasting)) mg/dl Calcium 9.5 (8.5-10.1) mg/dl Intake and Output 02/01/23 02/01/23 02/01/23 06:59 14:59 22:59 Other: Weight 125.7 kg Weight Measurement Method Built in Bedscale Patient Weight 02/02/23 06:59 Weight 125.7 kg Code Status & VTE Plan Code Status DNR/DNI VTE Prophylaxis Plan VTE Prophylaxis will be ordered: Yes Supervising Physician Co-Signing Physician Notes Attending addendum: I have physically seen this patient, have supervised the medical residents activities, and agree with the H&P unless as otherwise noted. Assessment and Plan: Complication of Shah catheter- Patient and family noted issues with recurrent leakage in spite of having shah changed and irrigated Admit and consult urology. Follow urine culture and sensitivity Sacral decubitus ulcer stage IV- Following with Dr. Blake and wound clinic, last seen on 01/18/2023 Continue dressings as noted Consult wound care while in hospital History of PE/DVT- Continue warfarin INR 2.7 on admission Obstructive sleep apnea- Continue home CPAP Depression- Continue amitriptyline at bedtime Remaining orders and notations as noted Resident Activity Tracking Resident Involvement: Resident Care Provided Care Provided: Adult Hospital Medicine
[2023-02-01] MEDS ORDERED: ACETAMINOPHEN 500 MG TAB PO PRN (23:46)
--- NOTE | 2023-02-01 23:53 | Urology Consultation ---
Date of Consultation February 01, 2023 Assessment & Plan (1) Complication of Keller catheter: The patient is being admitted on the hospitalist service. We recommend proceeding as follows: Recommend maintaining Keller catheter placement due to patient's recent urinary retention to prevent soilage of patient's sacral wound. If the patient's Keller catheter becomes clogged or begins to leak around the Keller manual irrigation attempts can be employed by the nursing staff. The patient does follow locally with Dr. Chong Lozano of [facility] u[facility]. The hospital service was able retrieve Dr. Lozano's most recent progress note and he was planning on performing a CT urogram and possible cystoscopy due to patient's repeated Keller catheter malfunction. We will discuss with our dayshift team if these efforts will be employed while the patient is hospitalized or if they will be deferred to when patient is discharged back to Dr. Lozano. A urine culture has been obtained we will follow for results of these to determine if antibiotics will need to be initiated I did discuss with the patient in detail as he was inquiring why his Keller catheter continues to malfunction. I discussed with him that having an indwelling Keller catheter could cause some bladder irritation also with the potential of having urinary tract infection. This coupled with anticoagulation use could lead to some hematuria resulting in blood clots clogging his Keller resulting in the noted leakage. I did discuss with him that manual irrigation attempts could be continued to be employed which should alleviate this problem while in the hospital. History of Present Illness Reason for Consultation: Keller catheter malfunction History of Present Illness This is a 72-year-old male who presented to the emergency department secondary to Keller catheter malfunction. The patient has had a Keller catheter in place since the hospitalization from 12/12/2022 through 12/28/2022. Patient was admitted to [facility] on 12/12/2022 secondary to suffering a fall while at home. During that admission patient was found to have a right ankle fracture as well as a disc herniation at the T12-L1 level. During this admission Dr. Sean Austin of [facility] and Dr. Swift of [facility] performed a lumbar decompression and an ORIF of the right ankle respectively on 12/15/2022. During patient's hospitalization he was maintained on anticoagulation secondary to history of a saddle pulmonary emboli. He did suffer urinary retention requiring Keller catheter placement. He did fail voiding trial requiring Keller catheter to be replaced and the patient was ultimately discharged to rehab facility with this in place. The patient was ultimately discharged to [facility]. While at [facility] the patient was found to have a sacral wound measuring approximately 6 x 3 cm. He is followed at the wound care center for this problem. He was most recently seen by Dr. Wong on 01/18/2023. During this visit the wound was cleansed and irrigated and recommendations for treatment with Aquacel were put in place. Patient was to follow-up with the wound care center in approximately 1 week from this date and determination be made if patient would be a candidate for a VAC system. The patient notes that he has been having difficulty at home secondary to his urinary retention as he has had a Keller catheter in place since the a for mentioned hospitalization. Patient says that he does have visiting nurses who check on his Keller catheter and he has had numerous episodes of Keller catheter malfunction where the catheter will stop draining appropriately and will leak urine around the catheter. He says that he has had the catheter changed multiple times and also attempts to have the catheter flushed and irrigated have been employed. He was told this evening by visiting nurses to report to the emergency department for further evaluation. Prior to my visit with the patient the treating emergency physician did have the Keller catheter flushed and irrigated and following this the catheter was draining appropriately. The patient was concerned about being discharged home as he was afraid his catheter would continue to malfunction and the leaking urine would contaminate his sacral wound. Since arrival to the emergency department today the patient did have labs which I independent reviewed. CBC with a white blood cell count platelet count were normal. His hemoglobin and hematocrit were 13.6 and 41.5. Patient's INR is noted to be 2.7. Chemistry profile showed sodium and potassium along with BUN and creatinine were normal. Urinalysis did show turbid urine with 3+ blood. There is trace leukocyte esterase and 10-30 white blood cells per high-power f ield with negative bacteria and negative nitrites. At the time of my interview the patient was resting comfortably in bed and he was in no distress. Allergies Allergy/AdvReac Type Severity Reaction Status Date / Time ragweed pollen Allergy Mild Sneezing Verified 02/01/23 20:31 amoxicillin AdvReac Intermediate N/V Verified 02/01/23 20:31 clavulanic acid AdvReac Intermediate N/V Verified 02/01/23 20:31 gabapentin AdvReac Intermediate body Verified 02/01/23 20:31 aches, "foggy" feeling propoxyphene AdvReac Mild Nausea Verified 02/01/23 20:31 Home Medications Medication Instructions Recorded Confirmed Type CPAP Machine #1 ea 01/17/20 12/12/22 Rx CPAP Supplies #1 ea 01/17/20 12/12/22 Rx amitriptyline 50 mg tablet 50 mg PO HS 09/02/20 02/01/23 History warfarin 3 mg tablet See Rx Instructions PO UD #90 tabs 03/05/21 02/01/23 Rx multivitamin 1 tab PO DAILY 07/14/22 02/01/23 History acetaminophen 500 mg tablet 1,000 mg PO TIDM 02/01/23 02/01/23 History (Tylenol Extra Strength) cholecalciferol (vitamin D3) 50 50 mcg PO DAILY 02/01/23 02/01/23 History mcg (2,000 unit) capsule (Vitamin D3) cyclobenzaprine 5 mg tablet 5 mg PO HS 02/01/23 02/01/23 History finasteride 5 mg tablet 5 mg PO DAILY 02/01/23 02/01/23 History oxybutynin chloride 5 mg 5 mg PO QAM 02/01/23 02/01/23 History tablet,extended release 24 hr tramadol 50 mg tablet 50 mg PO Q4H PRN pain 02/01/23 02/01/23 History Patient History Medical History Chronic back pain Chronic venous insufficiency hx venous ulcer Fibromyalgia Fusion of spine C2-C3, C3-C4 Hemorrhoids 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 Sleep apnea CPAP Surgical History History of bilateral cataract extraction History of biopsy of bladder multiple History of bowel resection X2 History of cardiac cath 2009= no stents History of colonoscopy History of cystoscopy multiple History of esophagogastroduodenoscopy (EGD) History of prostate biopsy "benign" History of repair of hiatal hernia History of right knee surgery ACL repair History of tonsillectomy and adenoidectomy History of tooth extraction History of total right knee replacement (TKR) x2 History of umbilical hernia repair x3 History of uvulopalatopharyngoplasty S/P IVC filter x3 Family History Grandmother (Paternal) Family history of diabetes mellitus Mother Family hx of colon cancer Brother Bladder cancer Father Accidental Other No family history of adverse response to anesthesia Social History Smoking Status: Former smoker Tobacco Type: Cigarettes Second Hand Exposure: No; Hx Alcohol Use: Yes Alcohol type: beer Hx Substance Use: No Preferred Language: Danish Communication Ability: Effective Visual Impairment: No Limitations Hearing Ability: Normal Jewel Stripper Required: No Beliefs That Will Affect Care: None marital status: Current Living Situation: Spouse Feels Safe at Home: Yes Assistive Devices: Cane and Walker Review of Systems Constitutional: no fever and no chills Gastrointestinal: no abdominal pain, no nausea and no vomiting Genitourinary: + as per Subjective / HPI Physical Exam Physical Exam: The patient's sacrum was examined. The patient did have approximately a 6 x 3 cm wound just above his coccyx. There is no crepitus noted in the soft tissue. There is no malodorous discharge. There was a small amount of purulence noted. Constitutional: WD/WN, vitals as above Eyes: no conjunctival abnormality ENMT: Ears: no hearing impairment and no external ear abnormality Mouth: no oropharynx abnormality Neck: trachea midline Respiratory: normal respiratory effort; no respiratory distress and no labored breathing Cardiovascular: Rate/Rhythm: regular rate and regular rhythm Gastrointestinal (Abdomen): Abdomen is rotund but soft. It is nonrigid and nondistended. There is no pain with palpation. Musculoskeletal: Patient had an orthopedic boot present on the right lower extremity Neurologic: moves all extremities Genitourinary: The patient did have a Keller catheter in place. At the time of my exam the Keller catheter appeared patent draining turbid urine with a few pieces of sediment and blood clot. There is no leakage from around the Keller catheter at the urethral meatus. Results & Data ([facility]) Vital Signs (Past 12 Hours) Vital Signs Temp Pulse Pulse Resp BP BP Pulse Ox 02/01/23 22:48 112 H 02/01/23 22:07 110 H 19 173/96 H 94 02/01/23 18:23 02/01/23 18:17 103 H 02/01/23 18:17 36.5 C 98 H 18 169/117 H 93 O2 Del Method 02/01/23 22:48 02/01/23 22:07 Room Air 02/01/23 18:23 Room Air 02/01/23 18:17 02/01/23 18:17 Room Air PG Care Time/CCT Total # of Minutes Spent Total Time Spent with Patient: Total time spent is greater than 50% in coordination of care (as documented) at patient's floor/unit and/or counseling patient: Coding Level of Care Code 93910 INT INP/OBS CARE 2/55MIN Diagnoses Complication of Keller catheter T83.9XXA
[2023-02-02] MEDS ORDERED: AMITRIPTYLINE HCL 50 MG TAB PO ONE (02:19)
[2023-02-02] MEDS: traMADol HCL 50 MG TABLET PO PRN ×4 (03:05→21:22)
--- NOTE | 2023-02-02 06:18 | Communication Note ---
Date of Service: February 02, 2023 Patient revisited at bedside this morning. His Keller catheter remains patent and is not leaking at the present time. Will discuss with dayshift team the patient's admission and determination will be made if patient will pursue any additional urologic work-up while hospitalized.
[2023-02-02 07:50] LABS: Basophils # (auto) 0.05 K/uL (0-0.2); Basophils % (auto) 0.6 %; Eosinophils # (auto) 0.38 K/uL (0-0.50); Eosinophils % (auto) 4.6 %; Hematocrit (blood only) 40.6 % (42.0-52.0); Hemoglobin 13.5 g/dl (14.0-18.0); Immature Granulocytes # (auto) 0.04 K/uL (0.01-0.20); Immature Granulocytes % (auto) 0.5 %; Lymphocytes # (auto) 2.12 K/uL (1.2-3.4); Lymphocytes % (auto) 25.9 %; Mean Corpuscular Hemoglobin 29.9 pg (25.0-34.0); Mean Corpuscular Hgb Conc 33.3 g/dL (32.0-36.0); Mean Corpuscular Volume 89.8 fL (80.0-100.0); Mean Platelet Volume 9.4 fL (9.4-12.4); Monocytes # (auto) 0.58 K/uL (0.11-0.59); Monocytes % (auto) 7.1 %; Neutrophils # (auto) 5.02 K/uL (1.40-6.50); Neutrophils % (auto) 61.3 %; Platelet Count 302 K/uL (130-400); RDW Coefficient of Variation 14.3 % (11.5-14.5); Red Blood Count 4.52 M/uL (4.70-6.10); White Blood Count 8.19 K/ul (4.8-10.8)
[2023-02-02] MEDS ORDERED: MICONAZOLE NITRATE POWDER 85 GM EXT PRN (07:53)
[2023-02-02 08:19] LABS: Albumin Globulin Ratio 1.2 (0.9-2); Albumin Level 3.7 gm/dl (3.4-5.0); BUN Creatinine Ratio 17.6 (10-20); Bilirubin,Total 0.8 mg/dl (0.2-1.0); Calcium 9.1 mg/dl (8.5-10.1); Creatinine Clr Calc Pharmacy 112.5 ml/min; Est GFR (African American) 100.9 ml/min; Est GFR (Non-African American) 87.1 ml/min; Potassium 3.6 mmol/L (3.5-5.1); Total Protein 6.7 gm/dl (6.0-8.3)
[2023-02-02 08:35] LABS: INR 2.3 (0.9-1.1); Partial Thromboplastin Ratio 1.6; Partial Thromboplastin Time 44.7 Seconds (21.0-31.0)
[2023-02-02] MEDS: FINASTERIDE 5 MG TAB PO SCH (09:00)
[2023-02-02] MEDS ORDERED: OXYBUTYNIN CHLORIDE XL 5 MG TABCR PO SCH (09:00)
[2023-02-02] MEDS ORDERED: VANCOMYCIN CONSULT ACTIVE PRN (09:32)
[2023-02-02] MEDS ORDERED: VANCOMYCIN HCL 2,750 MG in SODIUM CHLORIDE 0.9% 500 ML IV ONE (09:45)
--- NOTE | 2023-02-02 12:20 | Urology Progress Note ---
Date of Service February 02, 2023 Assessment & Plan (1) Hx of bladder cancer: (2) Urinary retention: (3) Hematuria: (4) Complication of Keller catheter: Plan Follow-up of Keller complication, hematuria and retention postoperatively; history of bladder cancer s/p chemotherapy and radiation. Patient afebrile, hemodynamically stable. Labs reviewedcreatinine 0.85, WBC 8.19, hemoglobin 13.5. Urine culture prelim showing Staph aureus, currently on IV Vanco. Blood cultures are pending. Keller patent and draining overnight without major leakage or issue. Personally irrigated catheter at bedside today. Catheter irrigated easily, urine was light ria at completion, small piece of mucus returned but no clots returned. We had a long discussion about his current issues. Urinary retention developed s/p ortho surgeries on 12/15 and is currently managed with Keller catheter. Hematuria has been ongoing postoperatively with occasional clearing. We discussed that he is susceptible to hematuria due to his history of radiation cystitis and anticoagulation. We also discussed need for further work-up with CT urogram and cystoscopy due to hematuria and his history of bladder cancer. Work-up is planned with his established urologist, Dr. Chong Lozano. Continue antibiotics for acute urinary tract infection. We also discussed that the catheter may be causing irritation/bleeding. Can consider voiding trial while inpatient if catheter issues continue, but better to do when he is ambulatory. Plan to maintain catheter for now. One of his biggest concerns is the catheter leaking given his sacral wound. Leaking around catheter may be due to bladder spasms and/or possible catheter obstruction at times. Will switch his antispasmodic to Oxybutynin 5 mg IR TID scheduled for bladder spasms. No indication for acute intervention at this time. Continue to manually irrigate catheter as needed for obstructed catheter, suprapubic discomfort, etc. Recommend outpatient follow-up with his established urologist for further work- up. He seems agreeable and understanding of the plan. Nursing contacted me after my visit with patient and reported large amount of leakage in the patient's diaper. Bladder scan was 0 mL. Nursing reports catheter is draining. Suspect leakage due to bladder spasms from irrigation. Ordered Antispasmodic as above. Continue to monitor. Continue supportive care, antibiotics, and management per hospital team. will follow. Admission and Anticipated Discharge Date Admission Date: February 01, 2023 Supervising Physician Co-Signing Physician Notes Saw patient personally. Discussed options including continued catheterization as he is not leaking on his wound versus Keller removal in the morning with void trial. Sounds like he has had difficult Keller exchanges before. Decided to keep Keller overnight and reevaluate in the morning. Subjective Patient seen and examined at bedside this morning. He is awake, alert and resting in bed. Denies abdominal or suprapubic pain at this time. Keller intact. He reports catheter has been draining. Denies leaking around catheter. He reports irrigation x 1 by nursing due to some bladder pressure. No fever or chills. Review of Systems Constitutional: as per Subjective / HPI Gastrointestinal: as per Subjective / HPI Genitourinary: + as per Subjective / HPI Physical Exam Constitutional: well developed and well nourished; no acute distress Respiratory: normal respiratory effort; no respiratory distress and no labored breathing Gastrointestinal (Abdomen): Inspection/Auscultation: abdomen normal to inspection; abdomen not distended Percussion/Palpation: abdomen soft; abdomen nontender Musculoskeletal: RLE in boot Psychiatric: Orientation: alert and oriented x 3 Genitourinary: Keller intact, small amount of light maroon urine was in tubing during exam. I irrigated catheter with about 100 mL of sterile irrigation. Catheter irrigated easily with return of light ria urine with small piece of stringy mucus, but no clots returned Results & Data Vital Signs (Past 12 Hours) Vital Signs Temp Pulse Resp BP Pulse Ox O2 Del Method O2 Flow Rate 02/02/23 10:04 Room Air 02/02/23 07:19 36.4 C L 88 16 104/80 95 Room Air 02/02/23 01:30 Nasal Cannula 2 02/02/23 01:30 36.4 C L 98 H 14 156/91 H 94 Nasal Cannula 2 02/02/23 01:30 Nasal Cannula 2 02/02/23 01:43 36.4 C L 98 H 14 156/91 H 94 Nasal Cannula 2 02/02/23 01:41 36.4 C L 98 H 14 156/91 H 94 Nasal Cannula 2 PG Care Time/CCT Total # of Minutes Spent Total Time Spent with Patient: Total time spent is greater than 50% in coordination of care (as documented) at patient's floor/unit and/or counseling patient: Coding Level of Care Code 18959 SUB INP/OBS CARE 50MIN Diagnoses Hx of bladder cancer Z85.51 Urinary retention R33.9 Hematuria R31.9 Complication of Keller catheter T83.9XXA Time Spent (min) 50
--- NOTE | 2023-02-02 13:47 | Pharmacy Report ---
Pharmacy PK ABX Note - Date of Service February 02, 2023 - Assessment and Plan Assessment 72 year old M receiving vancomycin for treatment of possible UTI/MRSA sacral wound. Pertinent microbiologic data includes: Blood cultures pending, urine culture growing staph aureus (sensitivities pending), sacrum culture from 01/18 with MRSA. Patient does have shah, urology following Plan Vancomycin * Loading dose: 2750 mg IV x 1 * Maintenance dose: 1500 mg IV every 12 hours * Regimen is predicted to achieve target AUC/YUDELKA of 400-600 mg/L.hr * Random level 317 AM Pharmacy will continue to follow and will adjust dose/frequency as necessary. Thank you. Pharmacy has transitioned to AUC monitoring for vancomycin. AUC/YUDELKA is the preferred PK/PD target and is associated with decreased risk of nephrotoxicity compared to traditional trough targets.
[2023-02-02] MEDS: OXYBUTYNIN CHLORIDE 5 MG TAB PO SCH ×2 (14:32→21:23)
[2023-02-02] MEDS: WARFARIN SOD 3 MG TAB PO SCH (16:22)
--- NOTE | 2023-02-02 20:01 | Hospitalist Progress Note ---
Date of Service February 02, 2023 Assessment & Plan (1) Catheter-associated urinary tract infection: Plan: has had a shah since 11/2022 hospitalization attempts at discontinuation have been unsuccessful since that time with urinary retention, etc. he is growing staph aureus this may account for recent weakness, feeling poorly, increased bladder symptoms over the last few days, etc. check 2 sets of blood cultures, then start IV vanco await final ID/sens (2) Complication of Shah catheter: Plan: leaking around catheter hematuria etc appreciate [facility] Urology consultation leakage is suspected to be from bladder spasm oxybutinin increased to 5mg TID follow response UTI likely contributing to increased bladder symptoms as well (3) Sacral decubitus ulcer, stage IV: Plan: records from [facility] indicate he had deep tissue injury at time of admission in early December which then progressed over time to stage 4 ulcer seen at [facility] on 01/18/23 culture taken (surface swab?) grew MRSA had a course of doxy around that time but the MRSA is tetracycline resistant CT pelvis in mid-December without signs of sacral osteomyelitis but may need repeat CT or MRI to exclude such since it has been nearly a month since last imaging wound care consultation pending IV vanco for #1 will cover his wound since it recently grew MRSA cont off-loading as much as possible await wound care nurse evaluation (4) Hx of bladder cancer: Plan: s/p radiation, etc 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 contributing to hematuria during 11/2022 stay urine cytology showed atypical cells high concern about bladder ca recurrence recently established care with Dr Chong Lozano, [facility] to have CT urogram and cystoscopy very soon for definitive diagnosis, etc [facility] Urology to follow while hospitalized (5) Hematuria: Plan: likely multifactorial - UTI, radiation cystitis, irritation from chronic shah, etc - all in the setting of chronic coumadin usage shah draining properly urology following H/H stable (6) Urinary retention: Plan: shah dependent since 11/2022 cont shah urology following treat UTI was on flomax 11/2022 but it appears he is no longer on such and now on finasteride - changed to finasteride while at [facility]? will need to check records (7) Fracture of right ankle, lateral malleolus: Plan: s/p ORIF by Dr Álvaro Swift 12/15/22 doing well by report with good healing remains NWB status to RLE cont PT/OT has f/u with Dr Swift next week (8) SAHIL (obstructive sleep apnea): Plan: CPAP HS (9) Depression: Plan: cont elavil 50mg HS (10) History of pulmonary embolism: Plan: cont chronic coumadin, INR goal 2-3 INR at goal today INR daily while hospitalized (11) History of deep venous thrombosis: Plan: cont chronic coumadin, INR goal 2-3 therapeutic today INR daily while here (12) Hypertension: Plan: History of such, but not on meds, and BPs controlled. (13) Lumbar disc herniation with radiculopathy: Plan: Status post T12-L1 decompression and fusion on December 15, 2022, by Dr Ausitn for severe spinal stenosis at T12-L1. Has made a nice recovery from this surgery; rehab had been going well at [facility] in December. Plan extensively updated at bedside care d/w Dr Pavon from Urology PT, OT while here complex care coordination with several high risk meds (vanco, coumadin, etc) change observation to full admission status Admission and Anticipated Discharge Date Admission Date: February 02, 2023 Subjective patient resting comfortably in bed during the visit at bedside they confirm that 1-2 days before presentation he felt poorly he has had increasing weakness despite 3-4 weeks at [facility] (was discharged early January to home with ) remains NWB to RLE - has f/u with Dr Swift next week for right ankle fracture was recently seen by [facility] for his spine - Dr Austin's team very pleased with his recovery from back surgery we had lengthy discussion about his stage 4 sacral wound he had a CT of the pelvis on 01/07/23 that did not show any bony involvement of his sacral wound (ie - no osteomyelitis) 01/18/23 - was seen in wound care clinic - wound culture grew MRSA (resistant to tetracycline) records indicate he had taken a course of PO doxy before/after this office visit continues with mild suprapubic discomfort and urethral pain/burning he continues to have gross hematuria continues to have leakage of large amounts of urine around his catheter the leakage is preceded by bladder spasm pt states he did see Dr Chong Lozano - [facility] - and CT urogram along with cystoscopy were being planned for the near-future Review of Systems Review of Systems: gen - no fevers or chills cv - no cp, no orthopnea pulm - no cough or dyspnea GI - no vomiting; normal stools Physical Exam Physical Exam: gen - pleasant, NAD, lying comfortably in bed mouth - MMM, no thrush neck - no JVD heart - RRR, s1 s2 lungs - CTA b/l abd - soft NT ND BS+ ext - right leg in walking boot, no edema left ankle/foot; pulses L foot 2+ vascular - right foot - toes, cap refill < 2 sec neuro - strength 5/5 both hips with flexion; strength b/l arms 5/5 Results & Data Results & Data Vital Signs (Past 12 Hours) Vital Signs Temp Pulse Resp BP Pulse Ox O2 Del Method 02/02/23 15:20 36.6 C 84 16 108/82 95 Room Air 02/02/23 10:04 Room Air Laboratory Results Laboratory Results - last 24 hr 02/01/23 02/01/23 02/01/23 18:31 18:31 23:30 WBC RBC Hgb Hct MCV MCH MCHC RDW Std Deviation RDW Coeff of Jazz Plt Count MPV Immature Gran % (Auto) Neut % (Auto) Lymph % (Auto) Mccracken % (Auto) Eos % (Auto) Baso % (Auto) Neut # (Auto) Lymph # (Auto) Mccracken # (Auto) Eos # (Auto) Baso # (Auto) Immature Gran # (Auto) PT 27.5 H INR 2.7 H APTT 47.3 H* PTT Ratio 1.7 Sodium Potassium Chloride Carbon Dioxide Anion Gap BUN Creatinine Est Cr Clr Drug Dosing Est GFR ( Amer) Est GFR (Non-Af Amer) BUN/Creatinine Ratio Glucose Calcium Total Bilirubin AST ALT Alkaline Phosphatase Total Protein Albumin Globulin Albumin/Globulin Ratio Urine Color Red Urine Appearance Turbid A Urine pH 5.5 Ur Specific Berlin >= 1.030 Urine Protein 3+ H Urine Glucose (UA) Negative Urine Ketones Negative Urine Blood 3+ H Urine Nitrite Negative Urine Bilirubin Negative Urine Urobilinogen Negative Ur Leukocyte Esterase Trace H Urine RBC >30 H Urine WBC 10-30 H Ur Epithelial Cells 0-5 Calcium Oxalate Crystal Present A Amorphous Sediment Present A Urine Bacteria Negative SARS-CoV-2, RNA, NAAT NEGATIVE 02/02/23 02/02/23 02/02/23 06:53 06:53 06:53 WBC 8.19 RBC 4.52 L Hgb 13.5 L Hct 40.6 L MCV 89.8 MCH 29.9 MCHC 33.3 RDW Std Deviation 46.0 RDW Coeff of Jazz 14.3 Plt Count 302 MPV 9.4 Immature Gran % (Auto) 0.5 Neut % (Auto) 61.3 Lymph % (Auto) 25.9 Mccracken % (Auto) 7.1 Eos % (Auto) 4.6 Baso % (Auto) 0.6 Neut # (Auto) 5.02 Lymph # (Auto) 2.12 Mccracken # (Auto) 0.58 Eos # (Auto) 0.38 Baso # (Auto) 0.05 Immature Gran # (Auto) 0.04 PT 23.0 H INR 2.3 H APTT 44.7 H PTT Ratio 1.6 Sodium 138 Potassium 3.6 Chloride 103 Carbon Dioxide 24 Anion Gap 11 BUN 15 Creatinine 0.85 Est Cr Clr Drug Dosing 112.5 Est GFR ( Amer) 100.9 Est GFR (Non-Af Amer) 87.1 BUN/Creatinine Ratio 17.6 Glucose 125 H Calcium 9.1 Total Bilirubin 0.8 AST 18 ALT 14 Alkaline Phosphatase 60 Total Protein 6.7 Albumin 3.7 Globulin 3.0 Albumin/Globulin Ratio 1.2 Urine Color Urine Appearance Urine pH Ur Specific Berlin Urine Protein Urine Glucose (UA) Urine Ketones Urine Blood Urine Nitrite Urine Bilirubin Urine Urobilinogen Ur Leukocyte Esterase Urine RBC Urine WBC Ur Epithelial Cells Calcium Oxalate Crystal Amorphous Sediment Urine Bacteria SARS-CoV-2, RNA, NAAT Diagnostic Findings urine culture - staph aureus, 25758 CFU PG Care Time/CCT Total # of Minutes Spent Total Time Spent with Patient: Total time spent is greater than 50% in coordination of care (as documented) at patient's floor/unit and/or counseling patient: Coding Level of Care Code 01794 SUB INP/OBS CARE 3/50MIN Diagnoses Catheter-associated urinary tract infection T83.511A; N39.0 Complication of Shah catheter T83.9XXA Sacral decubitus ulcer, stage IV L89.154 Hx of bladder cancer Z85.51 Hematuria R31.9 Urinary retention R33.9 Fracture of right ankle, lateral malleolus S82.61XA SAHIL (obstructive sleep apnea) G47.33 Depression F32.9 History of pulmonary embolism Z86.711 History of deep venous thrombosis Z86.718 Hypertension I10 Lumbar disc herniation with radiculopathy M51.16
--- NOTE | 2023-02-02 20:17 | Billing Data ---
Date of Service February 02, 2023 Coding Level of Care Code 71784 INT INP/OBS CARE
[2023-02-02] MEDS: VANCOMYCIN HCL 1,500 MG in SODIUM CHLORIDE 0.9% 500 ML IV SCH (21:22)
[2023-02-02] MEDS: AMITRIPTYLINE HCL 50 MG TAB PO SCH (21:23)
[2023-02-02] MEDS: CYCLOBENZAPRINE HCL 5 MG TAB PO SCH (21:24)
[2023-02-03 05:55] LABS: Hematocrit (blood only) 37.2 % (42.0-52.0); Hemoglobin 12.4 g/dl (14.0-18.0); Mean Corpuscular Hemoglobin 30.1 pg (25.0-34.0); Mean Corpuscular Hgb Conc 33.3 g/dL (32.0-36.0); Mean Corpuscular Volume 90.3 fL (80.0-100.0); Mean Platelet Volume 9.2 fL (9.4-12.4); Platelet Count 250 K/uL (130-400); RDW Coefficient of Variation 14.1 % (11.5-14.5); RDW Standard Deviation 46.5 fL (36.4-46.3); Red Blood Count 4.12 M/uL (4.70-6.10); White Blood Count 8.88 K/ul (4.8-10.8)
[2023-02-03 06:14] LABS: BUN Creatinine Ratio 18.8 (10-20); Calcium 8.7 mg/dl (8.5-10.1); Creatinine Clr Calc Pharmacy 119.5 ml/min; Est GFR (African American) 103.4 ml/min; Est GFR (Non-African American) 89.2 ml/min; Magnesium 1.7 mg/dl (1.7-2.4); Potassium 3.7 mmol/L (3.5-5.1)
[2023-02-03 06:25] LABS: INR 2.2 (0.9-1.1); Prothrombin Time 22.4 Seconds (9.0-12.0)
--- NOTE | 2023-02-03 08:48 | Urology Progress Note ---
Date of Service February 03, 2023 Assessment & Plan (1) Catheter-associated urinary tract infection: (2) Hx of bladder cancer: (3) Hematuria: (4) Urinary retention: Plan 72-year-old male with a history of bladder cancer status postchemotherapy and radiation 11 years ago. Recently had a fall with a back and right lower extremity injury and has been dealing with retention since that time. He has a sacral decubitus ulcer and has been leaking around his catheter. Leakage has resolved with immediate release oxybutynin. Recommend continued 5 mg every 8 hours scheduled This can cause constipation so unsure appropriate bowel regimen We will maintain Keller catheter. Patient for follow-up with primary urologist, Dr. Lozano upon discharge Urology to follow peripherally Admission and Anticipated Discharge Date Admission Date: February 02, 2023 Subjective No acute issues overnight. Patient reports no further leakage with oxybutynin immediate release. Agreed that leaving catheter in his best option. Review of Systems Review of Systems: 14 point review of systems negative outside of what is listed above in HPI Physical Exam Physical Exam: General: Alert and oriented, no acute distress HEENT: Normocephalic, mucous membranes moist Pulmonary: Nonlabored respirations Abdomen: Nondistended : Catheter draining light red urine. Extremities: Right lower extremity in cast Neuro: No gross deficits Skin: Warm, dry, no rashes noted Results & Data Vital Signs (Past 12 Hours) Vital Signs Temp Pulse Resp BP Pulse Ox O2 Del Method 02/03/23 08:38 36.6 C 94 H 18 127/72 95 Room Air PG Care Time/CCT Total # of Minutes Spent Total Time Spent with Patient: Total time spent is greater than 50% in coordination of care (as documented) at patient's floor/unit and/or counseling patient: Coding Level of Care Code 70619 SUB INP/OBS CARE 2/35MIN Diagnoses Catheter-associated urinary tract infection T83.511A; N39.0 Hx of bladder cancer Z85.51 Hematuria R31.9 Urinary retention R33.9
[2023-02-03] MEDS: OXYBUTYNIN CHLORIDE 5 MG TAB PO SCH ×3 (08:54→21:00)
[2023-02-03] MEDS: FINASTERIDE 5 MG TAB PO SCH (08:54)
[2023-02-03] MEDS: LIDOCAINE 2% JELLY 5 ML TUBE EXT SCH ×3 (09:46→22:04)
[2023-02-03] MEDS: VANCOMYCIN HCL 1,500 MG in SODIUM CHLORIDE 0.9% 500 ML IV SCH ×2 (09:46→22:01)
--- NOTE | 2023-02-03 10:11 | Pharmacy Report ---
Pharmacy [facility] Short Note - Date of Service February 03, 2023 - Assessment & Plan Assessment 72 year old M receiving vancomycin for treatment of possible UTI/MRSA sacral wound. Pertinent microbiologic data includes: Blood cultures pending, urine culture growing staph aureus (sensitivities pending), sacrum culture from 01/18 with MRSA. Patient does have shah, urology following. Plan Vancomycin * Loading dose: 2,750 mg IV x 1 * Maintenance dose: 1,500 mg IV every 12 hours * Regimen is predicted to achieve target AUC/YUDELKA of 400-600 mg/L.hr. Anticipated Ctrough of 17.8 with 14% probability of toxicity. * Random level on 02/03/23: 14.1 * Next random level scheduled: 02/05/23 with AM labs * Continue current regimen of vancomycin 1,500 mg IV q12h. Pharmacy will continue to follow and will adjust dose/frequency as necessary. Thank you.
--- NOTE | 2023-02-03 10:39 | Hospitalist Progress Note ---
Date of Service February 03, 2023 Assessment & Plan (1) Catheter-associated urinary tract infection: Plan: has had a shah since 11/2022 hospitalization attempts at discontinuation have been unsuccessful since that time with urinary retention, etc. he has grown MRSA this may account for recent weakness, feeling poorly, increased bladder symptoms over the last few days, etc. blood cultures neg x 24 hours remains on IV vanco due to complicated nature of his urinary issues and limited PO abx choices for Rx will consult ID today (2) Complication of Shah catheter: Plan: leaking around catheter hematuria etc appreciate [facility] Urology consultation leakage is suspected to be from bladder spasm IMPROVEd s/p increase in oxybutinin to 5mg TID (3) Sacral decubitus ulcer, stage IV: Plan: records from [facility] indicate he had deep tissue injury at time of admission in early December which then progressed over time to stage 4 ulcer seen at [facility] on 01/18/23 culture taken (surface swab?) grew MRSA - suspect colonization had a course of doxy around that time but the MRSA is tetracycline resistant CT pelvis in mid-December without signs of sacral osteomyelitis I examined the wound today with Carol Wing from wound care the wound is very clean and free of infection at this time appreciate Ms Wing's recommendations cont dressing changes, off-loading, etc (4) Hx of bladder cancer: Plan: s/p radiation, etc 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 contributing to hematuria during 11/2022 stay urine cytology showed atypical cells high concern about bladder ca recurrence recently established care with Dr Chong Lozano, [facility] I spoke with Dr Lozano by phone today Mr Jones was to have an outpatient CT urogram today - will order while here to gain more information about urinary tract (5) Hematuria: Plan: likely multifactorial - UTI, radiation cystitis, irritation from chronic shah, ?recurrent bladder ca, etc - all in the setting of chronic coumadin usage shah draining properly urology following H/H stable (6) Urinary retention: Plan: shah dependent since 11/2022 cont shah urology following treat UTI was on flomax 11/2022 but it appears he is no longer on such and now on finasteride - changed to finasteride while at [facility]? (7) Fracture of right ankle, lateral malleolus: Plan: s/p ORIF by Dr Álvaro Swift 12/15/22 doing well by report with good healing remains NWB status to RLE cont PT/OT has f/u with Dr Swift next week (8) SAHIL (obstructive sleep apnea): Plan: CPAP HS (9) Depression: Plan: cont elavil 50mg HS (10) History of pulmonary embolism: Plan: cont chronic coumadin, INR goal 2-3 INR again at goal today INR daily while hospitalized (11) History of deep venous thrombosis: Plan: cont chronic coumadin, INR goal 2-3 therapeutic again today INR daily while here (12) Hypertension: Plan: History of such, but not on meds, and BPs controlled. (13) Lumbar disc herniation with radiculopathy: Plan: Status post T12-L1 decompression and fusion on December 15, 2022, by Dr Austin for severe spinal stenosis at T12-L1. Has made a nice recovery from this surgery; rehab had been going well at [facility] in December. Plan extensively updated at bedside once again today care d/w Urology care d/w wound care, Carol Wing cont PT, OT ongoing complex care management with high risk drugs, multiple discussions w/ consultants (urology, ID, wound), etc Admission and Anticipated Discharge Date Admission Date: February 02, 2023 Subjective patient reports he overall had a good night leakage around catheter is much improved bladder spasm is better his appetite is good he denies any back pain or ankle pain denies abd pain moving bowels he does have mild soreness over his sacral decub as well as the distal right stout at bedside of note - I examined his sacral decub today with Carol Wing RN from wound care Review of Systems Review of Systems: gen - no fevers or chills cv - no cp, no orthopnea pulm - no dyspnea GI - no abd pain, vomiting, nausea or diarrhea - ongoing hematuria Physical Exam Physical Exam: gen - pleasant, NAD, lying comfortably in bed; looks good mouth - MMM, no thrush neck - no JVD heart - RRR, s1 s2, no murmur lungs - CTA b/l abd - soft NT ND BS+ ext - no edema b/l feet/ankles; pulses 2+ b/l skin - stage 4 sacral ulcer - CLEAN, no odor, no purulent drainage; clean border w/ sight granulation; no tunneling; no exposed bone; incision from prior back surgery well-healed; incision from prior R ankle surgery well-healed Results & Data Results & Data Vital Signs (Past 12 Hours) Vital Signs Temp Pulse Resp BP Pulse Ox O2 Del Method 02/03/23 08:38 36.6 C 94 H 18 127/72 95 Room Air Laboratory Results Laboratory Results - last 24 hr 02/03/23 02/03/23 02/03/23 05:40 05:40 05:40 WBC 8.88 RBC 4.12 L Hgb 12.4 L Hct 37.2 L MCV 90.3 MCH 30.1 MCHC 33.3 RDW Std Deviation 46.5 H RDW Coeff of Jazz 14.1 Plt Count 250 MPV 9.2 L PT 22.4 H INR 2.2 H Sodium Potassium Chloride Carbon Dioxide Anion Gap BUN Creatinine Est Cr Clr Drug Dosing Est GFR ( Amer) Est GFR (Non-Af Amer) BUN/Creatinine Ratio Glucose Calcium Magnesium Random Vancomycin 14.1 02/03/23 05:40 WBC RBC Hgb Hct MCV MCH MCHC RDW Std Deviation RDW Coeff of Jazz Plt Count MPV PT INR Sodium 139 Potassium 3.7 Chloride 106 Carbon Dioxide 26 Anion Gap 7 BUN 15 Creatinine 0.80 Est Cr Clr Drug Dosing 119.5 Est GFR ( Amer) 103.4 Est GFR (Non-Af Amer) 89.2 BUN/Creatinine Ratio 18.8 Glucose 105 H Calcium 8.7 Magnesium 1.7 Random Vancomycin Diagnostic Findings urine cx- 40,000 CFU MRSA PG Care Time/CCT Total # of Minutes Spent Total Time Spent with Patient: Total time spent is greater than 50% in coordination of care (as documented) at patient's floor/unit and/or counseling patient: Coding Level of Care Code 86245 SUB INP/OBS CARE 3/50MIN Diagnoses Catheter-associated urinary tract infection T83.511A; N39.0 Complication of Shah catheter T83.9XXA Sacral decubitus ulcer, stage IV L89.154 Hx of bladder cancer Z85.51 Hematuria R31.9 Urinary retention R33.9 Fracture of right ankle, lateral malleolus S82.61XA SAHIL (obstructive sleep apnea) G47.33 Depression F32.9 History of pulmonary embolism Z86.711 History of deep venous thrombosis Z86.718 Hypertension I10 Lumbar disc herniation with radiculopathy M51.16
[2023-02-03] MEDS: traMADol HCL 50 MG TABLET PO PRN ×3 (13:18→21:00)
[2023-02-03] MEDS: WARFARIN SOD 3 MG TAB PO SCH (16:35)
[2023-02-03] MEDS ORDERED: PHENAZOPYRIDINE HCL 200 MG TAB PO STA (16:52)
--- NOTE | 2023-02-03 17:00 | Infectious Disease Consult ---
Date of Consultation February 03, 2023 Assessment & Plan (1) Catheter-associated urinary tract infection: #MRSA positive urine culture #MRSA positive sacral ulcer #Bladder Ca 72 yo M with h/o Bladder cancer s/p chemotherapy and radiation 2011 in remission, stage IV sacral decubitus ulcer, Lumbar disc herniation h/o L3-L4 laminectomy and L3-L5 interbody cindy and screw fusion, recent T12-L1 fusion on 12/15, fracture of R ankle s/p ORIF on 12/15, Saddle PE 2015, DVT 2013 s/p IV filter, chronic shah since recent admission Recent hospitalization to [facility] in November 2022 through 12/28/22 after fall where he ultimately underwent T12-L1 decompression and fusion and R ankle ORIF, During this hospitalization he was started for Citrobacter UTI with ceftriaxone, shah catheter placed d/t retention and completed treatment with cefdinir. Regarding his sacral decubitus ulcer he is followed at wound clinic and most recent visit 01/18/23 there was discussion re wound vac. Cultures done grew MRSA (S Vanco, Bactrim, nitrofurantoin, daptomycin) Per EMR, he has had numerous episodes of Shah catheter malfunction where the catheter will stop draining appropriately and will leak urine around the catheter. He says that he has had the catheter changed multiple times and also attempts to have the catheter flushed and irrigated have been employed. He was readmitted on 02/01 with shah leakage complaints and weakness Labs were notable for normal WBC, creatinine. Urinalysis 3+ blood, trace leukocyte estera se and 10-30 white blood cells, Ucx grew 40, 000 cfu/mL MRSA (S Vanco, Bactrim, nitrofurantoin, daptomycin) Since admission, vitals have been stable and WBC has remained normal. On 02/02 patient was started on Vancomycin for coverage of stage IV ulcer. ID has been consulted. Discussion: Patient appears to be colonized with MRSA in wound and urine. There are no s/s of systemic infection. His sacral wound appear clean and dry from photo taken today. He is on Vancomycin currently and Blood cultures are ordered. With his shah manipulation he is certainly at risk for translocating some of the asymptomatic bacteruria so agree with Vancomycin .However once blood culutres are back negative would favor dc Vancomycin. I will d/w Dr Lenz regarding his wound which appear clean to me. If there is concern for wound infection can change to Bactrim to complete a 5-7 day course total otherwise (2) Complication of Shah catheter: (3) Sacral decubitus ulcer, stage IV: Plan -Suspect urine and wound are colonized with MRSA and not true pathogen -If blood cultures are negative tomorrow, would dc Vancomycin -If as outpatient cystoscopy is pursued then would repeat UA and UCX and treat accordingly I spoke with Primary team. Please call me if any additional concerns. ID will s/o at this time Mary Alice Santana MD Infectious Diseases [facility] ID Connect Consultation Information This patient recommendation is based on a telemedicine consult request which was completed asynchronously through chart review and information provided by the primary physician. The patient was not seen or examined today. The evaluation is consultative in nature and all patient care and treatment decisions can either be accepted or rejected by the patient's primary hospital-based treating physician using their own independent medical judgment for their patient. Hat Blocking Operator contact information: Please call ID Connect Call Center . (Phone Number For Physician Use Only) Time Spent Reviewing Chart: 31+ minutes History of Present Illness Reason for Consultation: MRSA wound Requesting Physician: Dr. Lenz Attending Physician: Miguel A Lenz Allergies Allergy/AdvReac Type Severity Reaction Status Date / Time ragweed pollen Allergy Mild Sneezing Verified 02/01/23 20:31 amoxicillin AdvReac Intermediate N/V Verified 02/01/23 20:31 clavulanic acid AdvReac Intermediate N/V Verified 02/01/23 20:31 gabapentin AdvReac Intermediate body Verified 02/01/23 20:31 aches, "foggy" feeling propoxyphene AdvReac Mild Nausea Verified 02/01/23 20:31 Home Medications Medication Instructions Recorded Confirmed Type CPAP Machine #1 ea 01/17/20 12/12/22 Rx CPAP Supplies #1 ea 01/17/20 12/12/22 Rx amitriptyline 50 mg tablet 50 mg PO HS 09/02/20 02/01/23 History warfarin 3 mg tablet See Rx Instructions PO UD #90 tabs 03/05/21 02/01/23 Rx multivitamin 1 tab PO DAILY 07/14/22 02/01/23 History acetaminophen 500 mg tablet 1,000 mg PO TIDM 02/01/23 02/01/23 History (Tylenol Extra Strength) cholecalciferol (vitamin D3) 50 50 mcg PO DAILY 02/01/23 02/01/23 History mcg (2,000 unit) capsule (Vitamin D3) cyclobenzaprine 5 mg tablet 5 mg PO HS 02/01/23 02/01/23 History finasteride 5 mg tablet 5 mg PO DAILY 02/01/23 02/01/23 History oxybutynin chloride 5 mg 5 mg PO QAM 02/01/23 02/01/23 History tablet,extended release 24 hr tramadol 50 mg tablet 50 mg PO Q4H PRN pain 02/01/23 02/01/23 History Patient History Medical History Chronic back pain Chronic venous insufficiency hx venous ulcer Fibromyalgia Fusion of spine C2-C3, C3-C4 Hemorrhoids 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 History of embolism vandana (2015) Hx of bladder cancer s/p XRT/chemo (8 years ago) Hx of deep venous thrombosis Hx of hepatitis C "25 years ago" Hypertension Liver lesion SAHIL (obstructive sleep apnea) Peripheral neuropathy B/L arms, legs and feet Presence of IVC filter Per patient this was removed. Sleep apnea CPAP Surgical History History of bilateral cataract extraction History of biopsy of bladder multiple History of bowel resection X2 History of cardiac cath 2008= no stents History of colonoscopy History of cystoscopy multiple History of esophagogastroduodenoscopy (EGD) History of prostate biopsy "benign" History of repair of hiatal hernia History of right knee surgery ACL repair History of tonsillectomy and adenoidectomy History of tooth extraction History of total right knee replacement (TKR) x2 History of umbilical hernia repair x3 History of uvulopalatopharyngoplasty S/P IVC filter x3 Family History Grandmother (Paternal) Family history of diabetes mellitus Mother Family hx of colon cancer Brother Bladder cancer Father Accidental Other No family history of adverse response to anesthesia Social History Smoking Status: Former smoker Tobacco Type: Cigarettes Second Hand Exposure: No; Hx Alcohol Use: Yes Alcohol type: beer Hx Substance Use: No Preferred Language: Croatian Communication Ability: Effective Visual Impairment: No Limitations Hearing Ability: Normal Shale Miner Required: No Beliefs That Will Affect Care: None marital status: Current Living Situation: Spouse Other Information That Helps Us Care for You: No Feels Safe at Home: Yes Safety Concerns: Feels Safe At This Time Assistive Devices: CPAP, Walker and Wheelchair Results & Data Vital Signs (Past 12 Hours) Vital Signs Temp Pulse Resp BP Pulse Ox O2 Del Method 02/03/23 16:12 36.8 C 83 18 148/90 H 94 Room Air 02/03/23 08:38 36.6 C 94 H 18 127/72 95 Room Air Laboratory Results Laboratory Results - last 48 hr 02/01/23 02/01/23 02/01/23 18:31 18:31 18:31 WBC 10.76 RBC 4.63 L Hgb 13.6 L Hct 41.5 L MCV 89.6 MCH 29.4 MCHC 32.8 RDW Std Deviation 45.9 RDW Coeff of Jazz 14.1 Plt Count 317 MPV 9.4 Immature Gran % (Auto) 0.4 Neut % (Auto) 70.7 Lymph % (Auto) 17.6 [place] % (Auto) 6.9 Eos % (Auto) 4.1 Baso % (Auto) 0.3 Neut # (Auto) 7.62 H Lymph # (Auto) 1.89 [place] # (Auto) 0.74 H Eos # (Auto) 0.44 Baso # (Auto) 0.03 Immature Gran # (Auto) 0.04 PT 27.5 H INR 2.7 H APTT 47.3 H* PTT Ratio 1.7 Sodium 138 Potassium 4.0 Chloride 102 Carbon Dioxide 26 Anion Gap 10 BUN 18 Creatinine 0.79 Est Cr Clr Drug Dosing 120.7 Est GFR ( Amer) 104.0 Est GFR (Non-Af Amer) 89.7 BUN/Creatinine Ratio 22.8 H Glucose 104 H Calcium 9.5 Magnesium Total Bilirubin AST ALT Alkaline Phosphatase Total Protein Albumin Globulin Albumin/Globulin Ratio Urine Color Urine Appearance Urine pH Ur Specific Pitcher Urine Protein Urine Glucose (UA) Urine Ketones Urine Blood Urine Nitrite Urine Bilirubin Urine Urobilinogen Ur Leukocyte Esterase Urine RBC Urine WBC Ur Epithelial Cells Calcium Oxalate Crystal Amorphous Sediment Urine Bacteria Random Vancomycin SARS-CoV-2, RNA, NAAT 02/01/23 02/01/23 02/02/23 18:31 23:30 06:53 WBC 8.19 RBC 4.52 L Hgb 13.5 L Hct 40.6 L MCV 89.8 MCH 29.9 MCHC 33.3 RDW Std Deviation 46.0 RDW Coeff of Jazz 14.3 Plt Count 302 MPV 9.4 Immature Gran % (Auto) 0.5 Neut % (Auto) 61.3 Lymph % (Auto) 25.9 [place] % (Auto) 7.1 Eos % (Auto) 4.6 Baso % (Auto) 0.6 Neut # (Auto) 5.02 Lymph # (Auto) 2.12 [place] # (Auto) 0.58 Eos # (Auto) 0.38 Baso # (Auto) 0.05 Immature Gran # (Auto) 0.04 PT INR APTT PTT Ratio Sodium Potassium Chloride Carbon Dioxide Anion Gap BUN Creatinine Est Cr Clr Drug Dosing Est GFR ( Amer) Est GFR (Non-Af Amer) BUN/Creatinine Ratio Glucose Calcium Magnesium Total Bilirubin AST ALT Alkaline Phosphatase Total Protein Albumin Globulin Albumin/Globulin Ratio Urine Color Red Urine Appearance Turbid A Urine pH 5.5 Ur Specific Pitcher >= 1.030 Urine Protein 3+ H Urine Glucose (UA) Negative Urine Ketones Negative Urine Blood 3+ H Urine Nitrite Negative Urine Bilirubin Negative Urine Urobilinogen Negative Ur Leukocyte Esterase Trace H Urine RBC >30 H Urine WBC 10-30 H Ur Epithelial Cells 0-5 Calcium Oxalate Crystal Present A Amorphous Sediment Present A Urine Bacteria Negative Random Vancomycin SARS-CoV-2, RNA, NAAT NEGATIVE 02/02/23 02/02/23 02/03/23 06:53 06:53 05:40 WBC RBC Hgb Hct MCV MCH MCHC RDW Std Deviation RDW Coeff of Jazz Plt Count MPV Immature Gran % (Auto) Neut % (Auto) Lymph % (Auto) [place] % (Auto) Eos % (Auto) Baso % (Auto) Neut # (Auto) Lymph # (Auto) [place] # (Auto) Eos # (Auto) Baso # (Auto) Immature Gran # (Auto) PT 23.0 H INR 2.3 H APTT 44.7 H PTT Ratio 1.6 Sodium 138 Potassium 3.6 Chloride 103 Carbon Dioxide 24 Anion Gap 11 BUN 15 Creatinine 0.85 Est Cr Clr Drug Dosing 112.5 Est GFR ( Amer) 100.9 Est GFR (Non-Af Amer) 87.1 BUN/Creatinine Ratio 17.6 Glucose 125 H Calcium 9.1 Magnesium Total Bilirubin 0.8 AST 18 ALT 14 Alkaline Phosphatase 60 Total Protein 6.7 Albumin 3.7 Globulin 3.0 Albumin/Globulin Ratio 1.2 Urine Color Urine Appearance Urine pH Ur Specific Pitcher Urine Protein Urine Glucose (UA) Urine Ketones Urine Blood Urine Nitrite Urine Bilirubin Urine Urobilinogen Ur Leukocyte Esterase Urine RBC Urine WBC Ur Epithelial Cells Calcium Oxalate Crystal Amorphous Sediment Urine Bacteria Random Vancomycin 14.1 SARS-CoV-2, RNA, NAAT 02/03/23 02/03/23 02/03/23 05:40 05:40 05:40 WBC 8.88 RBC 4.12 L Hgb 12.4 L Hct 37.2 L MCV 90.3 MCH 30.1 MCHC 33.3 RDW Std Deviation 46.5 H RDW Coeff of Jazz 14.1 Plt Count 250 MPV 9.2 L Immature Gran % (Auto) Neut % (Auto) Lymph % (Auto) [place] % (Auto) Eos % (Auto) Baso % (Auto) Neut # (Auto) Lymph # (Auto) [place] # (Auto) Eos # (Auto) Baso # (Auto) Immature Gran # (Auto) PT 22.4 H INR 2.2 H APTT PTT Ratio Sodium 139 Potassium 3.7 Chloride 106 Carbon Dioxide 26 Anion Gap 7 BUN 15 Creatinine 0.80 Est Cr Clr Drug Dosing 119.5 Est GFR ( Amer) 103.4 Est GFR (Non-Af Amer) 89.2 BUN/Creatinine Ratio 18.8 Glucose 105 H Calcium 8.7 Magnesium 1.7 Total Bilirubin AST ALT Alkaline Phosphatase Total Protein Albumin Globulin Albumin/Globulin Ratio Urine Color Urine Appearance Urine pH Ur Specific Pitcher Urine Protein Urine Glucose (UA) Urine Ketones Urine Blood Urine Nitrite Urine Bilirubin Urine Urobilinogen Ur Leukocyte Esterase Urine RBC Urine WBC Ur Epithelial Cells Calcium Oxalate Crystal Amorphous Sediment Urine Bacteria Random Vancomycin SARS-CoV-2, RNA, NAAT Microbiology 02/02/23 10:54 Blood Aerobic Blood Culture - Preliminary No growth in Aerobic bottle after 24 hours. 02/02/23 10:54 Blood Anaerobic Blood Culture - Preliminary No growth in Anaerobic bottle after 24 hours. 02/02/23 10:55 Blood Aerobic Blood Culture - Preliminary No growth in Aerobic bottle after 24 hours. 02/01/23 18:31 Urine,Clean Catch Urine Culture - Final Staph aureus MRSA
[2023-02-03] MEDS: AMITRIPTYLINE HCL 50 MG TAB PO SCH (20:58)
[2023-02-03] MEDS: CYCLOBENZAPRINE HCL 5 MG TAB PO SCH (21:00)
[2023-02-03] MEDS: PHENAZOPYRIDINE HCL 100 MG TAB PO PRN (22:14)
[2023-02-04] MEDS: traMADol HCL 50 MG TABLET PO PRN ×5 (01:29→23:59)
[2023-02-04 06:45] LABS: Creatinine Clr Calc Pharmacy 119.5 ml/min; Est GFR (African American) 103.4 ml/min; Est GFR (Non-African American) 89.2 ml/min
[2023-02-04 06:49] LABS: INR 2.2 (0.9-1.1); Prothrombin Time 22.8 Seconds (9.0-12.0)
[2023-02-04] MEDS: OXYBUTYNIN CHLORIDE 5 MG TAB PO SCH ×3 (08:02→20:31)
[2023-02-04] MEDS: PHENAZOPYRIDINE HCL 100 MG TAB PO PRN ×3 (08:02→23:59)
[2023-02-04] MEDS: FINASTERIDE 5 MG TAB PO SCH (08:02)
[2023-02-04] MEDS: LIDOCAINE 2% JELLY 5 ML TUBE EXT SCH ×2 (08:06→14:10)
[2023-02-04] MEDS ORDERED: OPTIRAY 350 100ml IV ONE (09:38)
[2023-02-04] MEDS: VANCOMYCIN HCL 1,500 MG in SODIUM CHLORIDE 0.9% 500 ML IV SCH (10:46)
--- NOTE | 2023-02-04 10:50 | CT Scan Report ---
CT abdomen pelvis wo/w con HISTORY: 72 years-old Male CT "urogram" please; h/o bladder ca, hematuria acute hematuria COMPARISON: CT pelvis 01/07/2023, CT abdomen and pelvis 08/06/2019 TECHNIQUE: Multiple axial CT images of the abdomen and pelvis were obtained both with and without the use of 88 mL Optiray 350. A dose lowering technique was used consistent with the principals of JULIA . FINDINGS: Mural fibrofatty changes of the left ventricle compatible with prior myocardial infarction. Coronary artery calcifications. Mild subsegmental bibasilar atelectasis versus scarring. There are a few scatt ered low suspicion stable solid pulmonary nodules in the lung bases measuring up to 5 mm. Mild emphys ham with bronchitis. No pneumatosis or pneumoperitoneum. The spleen, moderately atrophic pancreas, gallbladder and adrenal glands are unremarkable. Scattered hepatic cysts are again noted measuring up to 1.7 cm. Patent portal vein. 4 mm nonobstructing calculu s of the superior pole right kidney. There is a 3 mm calculus within the distal left ureter a few helio timeters proximal to the ureterovesicular junction on image [id number] without significant obstructive uropa thy. There are a few cysts within the kidneys bilaterally measuring up to 4 cm on the right. Cysts on the left measure up to 6.5 cm demonstrating a few peripheral and septal calcifications. No enhancing solid renal mass lesions or urothelial lesions identified. Areas of cortical scarring noted predomin antly within the right kidney. Decompressed urinary bladder with Keller catheter in place. Prostamegal y. Atherosclerosis of the aorta without aneurysm. No lymphadenopathy identified. Moderate sized hiatal hernia. Stable hypodense 4.4 cm structure within the upper abdomen adjacent to the proximal stomach. No bowel obstruction or bowel wall thickening. Chronic large bowel distention. Trace nonspecific perirectal stranding with trace free fluid. Mild rectal wall thickening is similar to prior. Moderate colonic fecal retention. Moderate sized bowel containing midline hernia without ob struction again noted. No CT evidence of acute appendicitis. Chronic sacral decubitus ulcer. No drain able fluid collection or evidence of acute osteomyelitis. Postoperative changes of the thoracolumbar spine. No evidence of hardware complication. Lumbar levoscoliosis. IMPRESSION: 1. 3 mm calculus of the distal left ureter a few centimeters proximal to the ureterovesicular junctio n. No associated obstructive uropathy. 2. 4 mm right renal calculus. 3. No urothelial or enhancing parenchymal renal mass lesions identified. 4. Chronic distention of the large bowel. 5. Moderate sized bowel containing midline abdominal wall hernia without obstruction. 6. Additional findings as above. ACT 112: Negative or not required by law. The above report was generated using voice recognition software. It may contain grammatical, syntax o r spelling errors. Electronically signed by: Álvaro Waller M.D. 02/04/2023 10:48 AM
[2023-02-04] MEDS: WARFARIN SOD 3 MG TAB PO SCH (15:56)
--- NOTE | 2023-02-04 18:33 | Hospitalist Progress Note ---
Date of Service February 04, 2023 Assessment & Plan (1) Catheter-associated urinary tract infection: Plan: has had a shah since 11/2022 hospitalization attempts at discontinuation have been unsuccessful since that time with urinary retention, etc. he has grown MRSA this admission on culture this may account for recent weakness, feeling poorly, increased bladder symptoms over the last few days, etc. blood cultures neg x 48 hours will stop IV vanco ID consultation appreciated plan was for no further abx moving forward however, with discovery of an actively moving left-sided kidney stone today on CT, I am concerned that there could be true infection thus - will elect to treat for another 5 days with PO zyvox (patient is on coumadin and bactrim would be challenging) will place flexeril on hold while on zyvox (change to baclofen) use elavil carefully (2) Complication of Shah catheter: Plan: leaking around catheter hematuria etc appreciate [facility] consultation leakage is suspected to be from bladder spasm had improved with increase in oxybutinin to 5mg TID I informed Dr Pavon about recurrent leakage today He will see Mr Jones tomorrow potentially we may d/c shah and give him a voiding trial will defer to Dr Pavon (3) Ureteral calculus, left: Plan: 3mm on left discovered on CT urogram today no obvious symptoms from this but certainly could be contributing to some of the spasm he is having, could be contributing to hematuria, is risk factor for infection, etc urology aware - no Rx, allow spontaneous passage strain urine (4) Sacral decubitus ulcer, stage IV: Plan: records from [facility] indicate he had deep tissue injury at time of admission in early December which then progressed over time to stage 4 ulcer seen at [facility] on 01/18/23 culture taken (surface swab?) grew MRSA - suspect colonization had a course of doxy around that time but the MRSA is tetracycline resistant CT pelvis in mid-December without signs of sacral osteomyelitis I examined the wound with Carol Wing from wound care on 02/03/23 the wound was very clean and free of any signs of infection appreciate Ms Wing's recommendations cont dressing changes, off-loading, etc (5) Hx of bladder cancer: Plan: s/p radiation, etc 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 contributing to hematuria during 11/2022 stay urine cytology showed atypical cells high concern about bladder ca recurrence recently established care with Dr Chong Lozano, [facility] I spoke with Dr Lozano by phone 02/03 Mr Jones was to have an outpatient CT urogram this week - thus, obtained such today no obvious bladder tumor, etc on the CT today [id number] he needs cystoscopy isabelle with Dr Lozano (6) Hematuria: Plan: likely multifactorial - UTI, radiation cystitis, irritation from chronic shah, ?recurrent bladder ca, left sided kidney stone, etc - all in the setting of chronic coumadin usage see above urology following H/H stable (7) Urinary retention: Plan: shah dependent since 11/2022 cont shah but ? voiding trial tomorrow --- see above urology following was on flomax 11/2022 but it appears he is no longer on such and now on finasteride - changed to finasteride while at [facility]? (8) Fracture of right ankle, lateral malleolus: Plan: s/p ORIF by Dr Álvaro Swift 12/15/22 doing well by report with good healing remains NWB status to RLE cont PT/OT has f/u with Dr Swift next week (9) SAHIL (obstructive sleep apnea): Plan: CPAP HS (10) Depression: Plan: cont elavil 50mg HS (11) History of pulmonary embolism: Plan: cont chronic coumadin, INR goal 2-3 INR again at goal today INR daily while hospitalized (12) History of deep venous thrombosis: Plan: cont chronic coumadin, INR goal 2-3 therapeutic again today INR daily while here (13) Hypertension: Plan: History of such, but not on meds, and BPs controlled. (14) Lumbar disc herniation with radiculopathy: Plan: Status post T12-L1 decompression and fusion on December 15, 2022, by Dr Austin for severe spinal stenosis at T12-L1. Has made a nice recovery from this surgery; rehab had been going well at [facility] in December. Plan extensively updated at bedside yesterday left phone message on her voicemail today care d/w Urology cont PT, OT ongoing complex care management with high risk drugs, etc. Admission and Anticipated Discharge Date Admission Date: February 02, 2023 Subjective patient states he had a good night, then woke up this AM feeling "really good" had good breakfast, went for CT urogram, then at lunch-time had no appetite about 2pm started to have significant urinary leakage around his catheter again this continue all afternoon nursing ensured his shah was in correct positioning no blood clots in the tubing per nursing staff he is frustrated by the leakage he did have some bladder spasms today despite the oxybutinin denies any flank pain or abd pain (except the bladder spasm pain) he asks if he will be able to go home that is his goal, but he recognizes that when his isn't home he does need "helpers" to assist him with ADLs he feels that his current strength is similar to when he was released from [facility] Review of Systems Review of Systems: gen - no fevers or chills; weak/fatigue this afternoon cv - no orthopnea or chest pain pulm - no dyspnea GI - no vomiting or diarrhea - see HPI musculo - no back pain Physical Exam Physical Exam: gen - pleasant, NAD, lying comfortably in bed; looks despondent today, anxious mouth - MMM, no thrush neck - no JVD heart - RRR, s1 s2, no murmur lungs - CTA b/l abd - soft NT ND BS+ ext - no edema b/l feet/ankles; pulses 2+ b/l - shah in place; with pushing on his bladder no leakage around the catheter noted Results & Data Results & Data Vital Signs (Past 12 Hours) Vital Signs Temp Pulse Pulse Resp BP BP Pulse Ox 02/04/23 14:31 36.5 C 75 18 135/86 93 02/04/23 08:19 02/04/23 07:48 36.9 C 79 16 127/77 93 O2 Del Method 02/04/23 14:31 Room Air 02/04/23 08:19 Room Air 02/04/23 07:48 Room Air Laboratory Results Laboratory Results - last 24 hr 02/04/23 02/04/23 05:45 05:45 PT 22.8 H INR 2.2 H Creatinine 0.80 Est Cr Clr Drug Dosing 119.5 Est GFR ( Amer) 103.4 Est GFR (Non-Af Amer) 89.2 Diagnostic Findings Abdomen/Pelvis CT 02/04/23 08:29 CT abdomen pelvis wo/w con HISTORY: 72 years-old Male CT "urogram" please; h/o bladder ca, hematuria acute hematuria COMPARISON: CT pelvis 01/07/2023, CT abdomen and pelvis 08/06/2019 TECHNIQUE: Multiple axial CT images of the abdomen and pelvis were obtained both with and without the use of 88 mL Optiray 350. A dose lowering technique was used consistent with the principals of JULIA. FINDINGS: Mural fibrofatty changes of the left ventricle compatible with prior myocardial infarction. Coronary artery calcifications. Mild subsegmental bibasilar ate lectasis versus scarring. There are a few scattered low suspicion stable solid pulmonary nodules in the lung bases measuring up to 5 mm. Mild emphysema with bronchitis. No pneumatosis or pneumoperitoneum. The spleen, moderately atrophic pancreas, gallbladder and adrenal glands are unremarkable. Scattered hepatic cysts are again noted measuring up to 1.7 cm. Patent portal vein. 4 mm nonobstructing calculus of the superior pole right kidney. There is a 3 mm calculus within the distal left ureter a few centimeters proximal to the ureterovesicular junction on image 389 without significant obstructive uropathy. There are a few cysts within the kidneys bilaterally measuring up to 4 cm on the right. Cysts on the left measure up to 6.5 cm demonstrating a few peripheral and septal calcifications. No enhancing solid renal mass lesions or urothelial lesions identified. Areas of cortical scarring noted predominantly within the right kidney. Decompressed urinary bladder with Shah catheter in place. Prostamegaly. Atherosclerosis of the aorta without aneurysm. No lymphadenopathy identified. Moderate sized hiatal hernia. Stable hypodense 4.4 cm structure within the upper abdomen adjacent to the proximal stomach. No bowel obstruction or bowel wall thickening. Chronic large bowel distention. Trace nonspecific perirectal stranding with trace free fluid. Mild rectal wall thickening is similar to prior. Moderate colonic fecal retention. Moderate sized bowel containing midline hernia without obstruction again noted. No CT evidence of acute appendicitis. Chronic sacral decubitus ulcer. No drainable fluid collection or evidence of acute osteomyelitis. Postoperative changes of the thoracolumbar spine. No evidence of hardware complication. Lumbar levoscoliosis. IMPRESSION: 1. 3 mm calculus of the distal left ureter a few centimeters proximal to the ureterovesicular junction. No associated obstructive uropathy. 2. 4 mm right renal calculus. 3. No urothelial or enhancing parenchymal renal mass lesions identified. 4. Chronic distention of the large bowel. 5. Moderate sized bowel containing midline abdominal wall hernia without obstruction. 6. Additional findings as above. ACT 112: Negative or not required by law. The above report was generated using voice recognition software. It may contain grammatical, syntax or spelling errors. Electronically signed by: Álvaro Waller M.D. 02/04/2023 10:48 AM blood cultures NEGATIVE to date PG Care Time/CCT Total # of Minutes Spent Total Time Spent with Patient: Total time spent is greater than 50% in coordination of care (as documented) at patient's floor/unit and/or counseling patient: Coding Level of Care Code 27119 SUB INP/OBS CARE 350MIN Diagnoses Catheter-associated urinary tract infection T83.511A; N39.0 Complication of Shah catheter T83.9XXA Ureteral calculus, left N20.1 Sacral decubitus ulcer, stage IV L89.154 Hx of bladder cancer Z85.51 Hematuria R31.9 Urinary retention R33.9 Fracture of right ankle, lateral malleolus S82.61XA SAHIL (obstructive sleep apnea) G47.33 Depression F32.9 History of pulmonary embolism Z86.711 History of deep venous thrombosis Z86.718 Hypertension I10 Lumbar disc herniation with radiculopathy M51.16
[2023-02-04] MEDS: AMITRIPTYLINE HCL 50 MG TAB PO SCH (20:30)
[2023-02-04] MEDS: LINEZOLID 600 MG TAB PO SCH (20:42)
[2023-02-04] MEDS: BACLOFEN 10 MG TAB PO SCH (20:43)
--- NOTE | 2023-02-04 23:22 | Electrocardiogram Report ---
Test Reason : Blood Pressure : / mmHG Vent. Rate : 090 BPM Atrial Rate : 090 BPM P-R Int : 150 ms QRS Dur : 096 ms QT Int : 394 ms P-R-T Axes : 049 021 032 degrees QTc Int : 481 ms Sinus rhythm with Premature atrial complexes Prolonged QT Abnormal ECG When compared with ECG of 12-DEC-2022 09:50, Premature atrial complexes are now Present Incomplete right bundle branch block is no longer Present Nonspecific T wave abnormality now evident in Lateral leads Confirmed by Omar Glaser [id number] on 02/04/2023 11:21:41 PM Referred By: REFERRED SELF Confirmed By:Omar Glaser
[2023-02-05 06:28] LABS: Hematocrit (blood only) 36.9 % (42.0-52.0); Hemoglobin 12.3 g/dl (14.0-18.0); Mean Corpuscular Hemoglobin 29.8 pg (25.0-34.0); Mean Corpuscular Hgb Conc 33.3 g/dL (32.0-36.0); Mean Corpuscular Volume 89.3 fL (80.0-100.0); Mean Platelet Volume 9.4 fL (9.4-12.4); Platelet Count 254 K/uL (130-400); RDW Coefficient of Variation 14.1 % (11.5-14.5); RDW Standard Deviation 45.7 fL (36.4-46.3); Red Blood Count 4.13 M/uL (4.70-6.10); White Blood Count 9.01 K/ul (4.8-10.8)
[2023-02-05 06:32] LABS: BUN Creatinine Ratio 16.3 (10-20); Creatinine Clr Calc Pharmacy 111.2 ml/min; Est GFR (African American) 100.4 ml/min; Est GFR (Non-African American) 86.6 ml/min; Potassium 4.3 mmol/L (3.5-5.1)
[2023-02-05 06:33] LABS: INR 2.2 (0.9-1.1); Prothrombin Time 22.3 Seconds (9.0-12.0)
[2023-02-05] MEDS: traMADol HCL 50 MG TABLET PO PRN ×3 (08:19→20:03)
[2023-02-05] MEDS: FINASTERIDE 5 MG TAB PO SCH (08:20)
[2023-02-05] MEDS: PHENAZOPYRIDINE HCL 100 MG TAB PO PRN ×2 (08:20→15:38)
[2023-02-05] MEDS: LINEZOLID 600 MG TAB PO SCH ×2 (08:20→20:03)
[2023-02-05] MEDS: OXYBUTYNIN CHLORIDE 5 MG TAB PO SCH ×3 (08:20→20:04)
--- NOTE | 2023-02-05 08:47 | Urology Progress Note ---
Date of Service February 05, 2023 Assessment & Plan (1) Ureteral calculus, left: (2) Urinary retention: (3) Hematuria: Plan 72-year-old male with a history of bladder cancer status postchemotherapy and radiation 11 years ago. Recently had a fall with a back and right lower extremity injury and has been dealing with retention since that time. He has a sacral decubitus ulcer and has been leaking around his catheter. Leakage returned yesterday despite oxybutynin therapy. Discussed options again with patient which would include continued catheterization versus void trial. He would like to attempt a void trial. I suspect he will not pass but is not unreasonable to give him a chance. Recommended to nursing to do a fill and pull after breakfast. If he voids, obtain PVRs. If he is unable to void, nursing can replace the catheter. Call with any issues. Patient was found on CT scan to have a nonobstructing 3 mm left distal ureteral calculus. No acute intervention as patient is asymptomatic and showing no signs of infection Patient can follow-up with primary urologist, Dr. Lozano upon discharge Unclear if patient has true UTI or colonization but agree with continuing antibiotics Urology to follow peripherally Admission and Anticipated Discharge Date Admission Date: February 02, 2023 Subjective Increased urinary leakage around catheter last night. Fortunately this did not get on his sacral decubitus ulcer. CT scan yesterday showed a 3 mm left distal nonobstructing ureteral calculus. Review of Systems Review of Systems: 14 point review of systems negative outside of what is listed above in HPI Physical Exam Physical Exam: General: Alert and oriented, no acute distress HEENT: Normocephalic, mucous membranes moist Pulmonary: Nonlabored respirations Abdomen: Nondistended : Catheter draining maroon urine. Extremities: Moves all 4 spontaneously Neuro: No gross deficits Skin: Warm, dry, no rashes noted Results & Data Vital Signs (Past 12 Hours) Vital Signs Temp Pulse Pulse Resp BP BP Pulse Ox 02/05/23 07:53 36.3 C L 76 16 117/76 92 02/04/23 21:52 36.8 C 71 17 124/70 94 O2 Del Method 02/05/23 07:53 Room Air 02/04/23 21:52 Room Air, CPAP PG Care Time/CCT Total # of Minutes Spent Total Time Spent with Patient: Total time spent is greater than 50% in coordination of care (as documented) at patient's floor/unit and/or counseling patient: Coding Level of Care Code 28765 SUB INP/OBS CARE 235MIN Diagnoses Ureteral calculus, left N20.1 Urinary retention R33.9 Hematuria R31.9
[2023-02-05] MEDS: LIDOCAINE 2% JELLY 5 ML TUBE EXT SCH ×4 (09:23→20:05)
[2023-02-05] MEDS: WARFARIN SOD 3 MG TAB PO SCH (15:39)
[2023-02-05] MEDS: BACLOFEN 10 MG TAB PO SCH (20:04)
[2023-02-05] MEDS: AMITRIPTYLINE HCL 50 MG TAB PO SCH (20:05)
--- NOTE | 2023-02-05 20:14 | Hospitalist Progress Note ---
Date of Service February 05, 2023 Assessment & Plan (1) Catheter-associated urinary tract infection: Plan: has had a shah since 11/2022 hospitalization urine culture with 40,000 CFU MRSA. this may account for recent weakness, feeling poorly, increased bladder symptoms over the last few days, poor appetite, etc. all of the above are now found out to be in the setting of a left-sided 3mm ureteral kidney stone. blood cultures neg x 72 hours ID consultation appreciated plan was for no further abx moving forward after IV vanco however, with discovery of an actively moving left-sided kidney stone on CT, I am concerned that there could be true infection thus - will elect to treat for another 5 days with PO zyvox (patient is on coumadin and bactrim would be challenging) will place flexeril on hold while on zyvox (change to baclofen) use elavil carefully will need to investigate wynn of zyvox if he goes home tomorrow (2) Complication of Shah catheter: Plan: leaking around catheter hematuria etc appreciate [facility] consultation leakage was suspected to be from bladder spasm remains on oxybutinin 5mg TID shah d/c today and thus far PVRs are acceptable continue to observe with shah out hopefully he will not need another catheter (3) Ureteral calculus, left: Plan: 3mm on left discovered on CT urogram 02/04/23 no obvious symptoms from this but certainly could have been contributing to some of the spasm he has been having, could be contributing to hematuria, is risk factor for infection, etc urology aware - no Rx, allow spontaneous passage strain urine (4) Sacral decubitus ulcer, stage IV: Plan: records from [facility] indicate he had deep tissue injury at time of admission in early December which then progressed over time to stage 4 ulcer seen at [facility] on 01/18/23 culture taken (surface swab?) grew MRSA - suspect colonization had a course of doxy around that time but the MRSA is tetracycline resistant CT pelvis in mid-December without signs of sacral osteomyelitis I examined the wound with Carol Wing from wound care on 02/03/23 the wound was very clean and free of any signs of infection appreciate Ms Wing's recommendations cont dressing changes, off-loading, etc (5) Hx of bladder cancer: Plan: s/p radiation, etc 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 contributing to hematuria during 11/2022 stay urine cytology showed atypical cells high concern about bladder ca recurrence recently established care with Dr Chong Lozano, [facility] I spoke with Dr Lozano by phone 02/03 CT urogram was obtained yesterday in preparation for next outpatient visit with Dr Lozano -- no obvious bladder tumor, etc on the CT [id number] he needs cystoscopy isabelle with Dr Lozano as outpatient (6) Hematuria: Plan: likely multifactorial - UTI, radiation cystitis, irritation from chronic shah, ?recurrent bladder ca, left sided kidney stone, etc - all in the setting of chronic coumadin usage see above urology following H/H stable (7) Urinary retention: Plan: shah dependent since 11/2022 s/p removal of shah today and he is thus far passing his voiding trial cont without shah appreciate urology assistance cont finasteride (8) Fracture of right ankle, lateral malleolus: Plan: s/p ORIF by Dr Álvaro Swift 12/15/22 doing well by report with good healing remains NWB status to RLE cont PT/OT has f/u with Dr Swift next week vit D level 11/2022 >40 (9) SAHIL (obstructive sleep apnea): Plan: CPAP HS (10) Depression: Plan: cont elavil 50mg HS (11) History of pulmonary embolism: Plan: cont chronic coumadin, INR goal 2-3 INR again at goal today (2.2) INR daily while hospitalized (12) History of deep venous thrombosis: Plan: cont chronic coumadin, INR goal 2-3 therapeutic again today at 2.2 INR daily while here (13) Hypertension: Plan: History of such, but not on meds, and BPs controlled. (14) Lumbar disc herniation with radiculopathy: Plan: Status post T12-L1 decompression and fusion on December 15, 2022, by Dr Austin for severe spinal stenosis at T12-L1. Has made a nice recovery from this surgery; rehab had been going well at [facility] in December. Plan left phone message on her voicemail 02/04 and again today care d/w Urology cont PT, OT home tomorrow ?? Admission and Anticipated Discharge Date Admission Date: February 02, 2023 Subjective patient in great spirits today his shah was removed by urology, and he has been able to spontaneously void through the day since discontinuation PVRs have been as long as <100cc, some as high as mid 200s all values thus far acceptable denies any significant bladder or abd pain eating robustly today no new complaints Review of Systems Review of Systems: gen - no fevers or chills cv - no chest pain pulm - no dyspnea GI - no nausea or emesis; + stools Physical Exam Physical Exam: gen - pleasant, NAD, best he has looked since admission mouth - MMM, no thrush neck - no JVD heart - RRR, s1 s2, no murmur lungs - CTA b/l abd - soft NT ND BS+ ext - no edema b/l feet/ankles; pulses 2+ b/l skin - stasis changes b/l shins; right ankle incision fully-healed Results & Data Results & Data Vital Signs (Past 12 Hours) Vital Signs Temp Pulse Resp BP Pulse Ox O2 Del Method 02/05/23 14:33 36.4 C L 82 16 135/86 94 Room Air 02/05/23 09:54 Room Air Laboratory Results Laboratory Results - last 24 hr 02/05/23 02/05/23 02/05/23 05:26 05:26 05:26 WBC 9.01 RBC 4.13 L Hgb 12.3 L Hct 36.9 L MCV 89.3 MCH 29.8 MCHC 33.3 RDW Std Deviation 45.7 RDW Coeff of Jazz 14.1 Plt Count 254 MPV 9.4 PT 22.3 H INR 2.2 H Sodium 138 Potassium 4.3 Chloride 104 Carbon Dioxide 28 Anion Gap 6 BUN 14 Creatinine 0.86 Est Cr Clr Drug Dosing 111.2 Est GFR ( Amer) 100.4 Est GFR (Non-Af Amer) 86.6 BUN/Creatinine Ratio 16.3 Glucose 94 Calcium 9.0 PG Care Time/CCT Total # of Minutes Spent Total Time Spent with Patient: Total time spent is greater than 50% in coordination of care (as documented) at patient's floor/unit and/or counseling patient: Coding Level of Care Code 06151 SUB INP/OBS CARE 2/35MIN Diagnoses Catheter-associated urinary tract infection T83.511A; N39.0 Complication of Shah catheter T83.9XXA Ureteral calculus, left N20.1 Sacral decubitus ulcer, stage IV L89.154 Hx of bladder cancer Z85.51 Hematuria R31.9 Urinary retention R33.9 Fracture of right ankle, lateral malleolus S82.61XA SAHIL (obstructive sleep apnea) G47.33 Depression F32.9 History of pulmonary embolism Z86.711 History of deep venous thrombosis Z86.718 Hypertension I10 Lumbar disc herniation with radiculopathy M51.16
[2023-02-06] MEDS: traMADol HCL 50 MG TABLET PO PRN ×2 (05:29→12:58)
[2023-02-06 06:18] LABS: Creatinine Clr Calc Pharmacy 119.5 ml/min; Est GFR (African American) 103.4 ml/min; Est GFR (Non-African American) 89.2 ml/min
[2023-02-06 06:36] LABS: INR 2.5 (0.9-1.1); Prothrombin Time 25.6 Seconds (9.0-12.0)
[2023-02-06] MEDS: OXYBUTYNIN CHLORIDE 5 MG TAB PO SCH (08:22)
[2023-02-06] MEDS: LINEZOLID 600 MG TAB PO SCH (08:22)
[2023-02-06] MEDS: PHENAZOPYRIDINE HCL 100 MG TAB PO PRN (08:23)
[2023-02-06] MEDS: FINASTERIDE 5 MG TAB PO SCH (08:23)
[2023-02-06] MEDS: LIDOCAINE 2% JELLY 5 ML TUBE EXT SCH (08:25)
--- NOTE | 2023-02-06 08:36 | Urology Progress Note ---
Date of Service February 06, 2023 Assessment & Plan (1) Ureteral calculus, left: (2) Urinary retention: (3) Hematuria: Plan 72-year-old male with a history of bladder cancer status postchemotherapy and radiation 11 years ago. Recently had a fall with a back and right lower extremity injury and has been dealing with retention since that time. He has a sacral decubitus ulcer and has been leaking around his catheter. Keller catheter was removed on 02/05/2023 and patient passed a void trial. He has been emptying 50% or greater of his bladder which I think is adequate. Denies any urinary symptoms. Very happy to have the catheter out Patient was found on CT scan to have a nonobstructing 3 mm left distal ureteral calculus. No acute intervention as patient is asymptomatic and showing no signs of infection Patient can follow-up with primary urologist, Dr. Lozano upon discharge Unclear if patient has true UTI or colonization but agree with continuing antibiotics Urology to sign off Admission and Anticipated Discharge Date Admission Date: February 02, 2023 Subjective No acute issues overnight. Patient passed void trial yesterday and has been emptying greater than 50% of his bladder. Denies any dysuria or incontinence. He reports his hematuria is clearing up and his urine is orange from the Pyridium. He is very happy did not have a catheter in place. Review of Systems Review of Systems: 14 point review of systems negative outside of what is listed above in HPI Physical Exam Physical Exam: General: Alert and oriented, no acute distress HEENT: Normocephalic, mucous membranes moist Pulmonary: Nonlabored respirations Abdomen: Nondistended Extremities: Moves all 4 spontaneously Neuro: No gross deficits Skin: Warm, dry, no rashes noted Results & Data Vital Signs (Past 12 Hours) Vital Signs Temp Pulse Resp BP Pulse Ox O2 Del Method 02/06/23 08:10 36.8 C 91 H 16 114/77 91 Room Air PG Care Time/CCT Total # of Minutes Spent Total Time Spent with Patient: Total time spent is greater than 50% in coordination of care (as documented) at patient's floor/unit and/or counseling patient: Coding Level of Care Code 24710 SUB INP/OBS CARE 2/35MIN Diagnoses Ureteral calculus, left N20.1 Urinary retention R33.9 Hematuria R31.9
--- NOTE | 2023-02-06 13:06 | Discharge Summary ---
Date of Service date of admission - February 01, 2023 date of discharge - February 06, 2023 Admission HPI Per Admitting Provider 72 y/o male w/ hx of bladder cancer in remission. 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 He was discharged from [facility] a week ago. Patient states he has had several weeks of segovia leakage and hematuria. These persist despite multiple segovia exchanges. His segovia was last changed by home health nursing yesterday. He also complains of worsening generalized weakness. He denies fever or other illness symptoms. He is concerned that the segovia leakages, described as large spills that soak his stage 4 sacral decubitus ulcer pose an infection risk. He has been following [facility] urology who had planned to order a CT urogram and cystoscopy to work up hematuria. Sinus arrhythmia ~100 on telementry w/ occasional pvc. INR 2.7. Cr 0.79. 01/18 sacral wound w/ MRSA. ED course: Segovia was irrigated. Urology spoke to patient at bedside. Principal Diagnosis 1. segovia catheter complications (leakage, etc) - resolved 2. gross hematuria - multifactorial - passage of a kidney stone, MRSA UTI, radiation cystitis, possible other factors 3. MRSA urinary tract infection 4. stage 4 sacral wound 5. history of right ankle fracture with repair - 11/2022 6. history of thoracic-lumbar spine surgery - 11/2022 7. non weight-bearing status to right leg 8. chronic coumadin use for prior history of pulmonary emboli and DVTs; discharge INR 2.5 9. obstructive sleep apnea 10. 3mm left-sided ureteral stone 11. prior h/o bladder cancer Discharge Exam gen - pleasant, NAD, looks very good mouth - MMM, no thrush neck - no JVD heart - RRR, s1 s2, no murmur lungs - CTA b/l abd - soft NT ND BS+; midline hernia - reducible ext - no edema b/l feet/ankles; pulses 2+ b/l skin - stasis changes b/l shins; right ankle incision fully-healed; sacral decubitus ulcer - clean, no purulence, no cellulitis, no odor, no tunneling; healthy tissue with granulation at periphery Discharge Data Allergies Allergy/AdvReac Type Severity Reaction Status Date / Time ragweed pollen Allergy Mild Sneezing Verified 02/01/23 20:31 amoxicillin AdvReac Intermediate N/V Verified 02/01/23 20:31 clavulanic acid AdvReac Intermediate N/V Verified 02/01/23 20:31 gabapentin AdvReac Intermediate body Verified 02/01/23 20:31 aches, "foggy" feeling propoxyphene AdvReac Mild Nausea Verified 02/01/23 20:31 Consultations [facility] [place] Infectious Diseases PT, OT Ordered Studies Abdomen/Pelvis CT 02/04/23 08:29 CT abdomen pelvis wo/w con HISTORY: 72 years-old Male CT "urogram" please; h/o bladder ca, hematuria acute hematuria COMPARISON: CT pelvis 01/07/2023, CT abdomen and pelvis 08/06/2019 TECHNIQUE: Multiple axial CT images of the abdomen and pelvis were obtained both with and without the use of 88 mL Optiray 350. A dose lowering technique was used consistent with the principals of JULIA. FINDINGS: Mural fibrofatty changes of the left ventricle compatible with prior myocardial infarction. Coronary artery calcifications. Mild subsegmental bibasilar atelectasis versus scarring. There are a few scattered low suspicion stable solid pulmonary nodules in the lung bases measuring up to 5 mm. Mild emphysema with bronchitis. No pneumatosis or pneumoperitoneum. The spleen, moderately atrophic pancreas, gallbladder and adrenal glands are unremarkable. Scattered hepatic cysts are again noted measuring up to 1.7 cm. Patent portal vein. 4 mm nonobstructing calculus of the superior pole right kidney. There is a 3 mm calculus within the distal left ureter a few centimeters proximal to the ureterovesicular junction on image [id number] without significant obstructive uropathy. There are a few cysts within the kidneys bilaterally measuring up to 4 cm on the right. Cysts on the left measure up to 6.5 cm demonstrating a few peripheral and septal calcifications. No enhancing solid renal mass lesions or urothelial lesions identified. Areas of cortical scarring noted predominantly within the right kidney. Decompressed urinary bladder with Segovia catheter in place. Prostamegaly. Atherosclerosis of the aorta without aneurysm. No lymphadenopathy identified. Moderate sized hiatal hernia. Stable hypodense 4.4 cm structure within the upper abdomen adjacent to the proximal stomach. No bowel obstruction or bowel wall thickening. Chronic large bowel distention. Trace nonspecific perirectal stranding with trace free fluid. Mild rectal wall thickening is similar to prior. Moderate colonic fecal retention. Moderate sized bowel containing midline hernia without obstruction again noted. No CT evidence of acute appendicitis. Chronic sacral decubitus ulcer. No drainable fluid collection or evidence of acute osteomyelitis. Postoperative changes of the thoracolumbar spine. No evidence of hardware complication. Lumbar levoscoliosis. IMPRESSION: 1. 3 mm calculus of the distal left ureter a few centimeters proximal to the ureterovesicular junction. No associated obstructive uropathy. 2. 4 mm right renal calculus. 3. No urothelial or enhancing parenchymal renal mass lesions identified. 4. Chronic distention of the large bowel. 5. Moderate sized bowel containing midline abdominal wall hernia without obstruction. 6. Additional findings as above. ACT 112: Negative or not required by law. The above report was generated using voice recognition software. It may contain grammatical, syntax or spelling errors. Electronically signed by: Álvaro Waller M.D. 02/04/2023 10:48 AM Hospital Course (1) Catheter-associated urinary tract infection: Patient had had a segovia since his 11/2022 hospitalization. Attempts at removal were previously unsuccessful. Urine culture grew 40,000 CFU MRSA. This may have accounted for his recent weakness, feeling poorly, increased bladder symptoms over the last few days prior to admission, poor appetite, etc. All of the above were found in the setting of a left-sided 3mm ureteral kidney stone. Blood cultures negative while here. Seen in consult by telehealth infectious diseases. Initially treated with IV vancomycin and the plan was for no further antibiotics moving forward after the IV vancomycin. However, with discovery of an actively moving left-sided kidney stone on CT, there was concern for true infection (as opposed to colonization). Thus elected to treat for another 5 days with PO zyvox 600mg BID. Flexeril was placed on hold while on zyvox (flexeril was changed to baclofen). Can continue cautious use of elavil. Fortunately the patient's segovia was able to be discontinued during this visit and he was spontaneously voiding without significant PVRs. (2) Complication of Segovia catheter: leaking around catheter hematuria etc leakage was suspected to be mainly from severe bladder spasms which responded nicely to oxybutinin 5mg TID as noted in #1 his segovia was successfully discontinued and PVRs were acceptable thereafter oxybutinin was discontinued prior to discharge since segovia was out (3) Ureteral calculus, left: 3mm - ureteral on left -- without hydronephrosis or hydroureter discovered on CT urogram 02/04/23 no obvious symptoms from this but certainly could have been contributing to some of the spasm he had been having, gross hematuria, is risk factor for infection, etc no surgical Rx advised - hoping for spontaneous passage strain urine at home f/u with [facility], Dr Chong Lozano, shortly after discharge (4) Sacral decubitus ulcer, stage IV: records from [facility] indicate he had deep tissue injury at time of admission in early December which then progressed over time to stage 4 ulcer seen at [facility] on 01/18/23 culture taken (surface swab) grew MRSA - suspect colonization had a course of doxy around that time but the MRSA is tetracycline resistant CT pelvis in mid-December without signs of sacral osteomyelitis repeat CT abd/pelvis this admission without bony involvement of ulcer, abscess, etc. Wound Care was consulted who provided aj recommendations for care of this ulcer [facility] with optifoam dressings advised along with off-loading, etc Of note - the wound was free of any gross purulence and the tissue was quite healthy in appearance He will f/u with the [facility] shortly after discharge At home his spouse will perform dressing changes (she previously was doing such without difficulty) (5) Hx of bladder cancer: s/p radiation, etc 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 contributing to hematuria during 11/2022 stay urine cytology showed atypical cells high concern about bladder ca recurrence recently established care with Dr Chong Lozano, [facility] I spoke with Dr Lozano by phone 02/03 CT urogram was obtained this admission in preparation for next outpatient visit with Dr Lozano -- no obvious bladder tumor, etc on the CT [id number] he needs cystoscopy isabelle with Dr Lozano as outpatient (6) Hematuria: likely multifactorial - UTI, radiation cystitis, irritation from chronic segovia, ?recurrent bladder ca, left sided kidney stone, etc - all in the setting of chronic coumadin usage see above H/H stable while here with discharge Hb of 12.3 f/u with Dr Chong Lozano - [facility] - shortly after discharge (7) Urinary retention: segovia dependent since 11/2022 s/p removal of segovia this admission - and fortunately he was able to spontaneously void without significant PVRs cont finasteride f/u with Dr Chong Lozano post-discharge (8) Fracture of right ankle, lateral malleolus: s/p ORIF by Dr Álvaro Swift 12/15/22 remains NWB status to RLE received PT/OT while here has f/u with Dr Swift within 1 week of this hospitalization no issues with the ankle during the hospital stay vit D level 11/2022 >40 (9) SAHIL (obstructive sleep apnea): CPAP HS (10) Depression: cont elavil 50mg HS (11) History of pulmonary embolism: cont chronic coumadin, INR goal 2-3 INR 2.5 on day of discharge (12) History of deep venous thrombosis: cont chronic coumadin, INR goal 2-3 INR 2.5 on day of discharge (13) Hypertension: History of such, but not on meds, and BPs controlled while hospitalized. 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 Has made a nice recovery from this surgery; rehab had been going well at [facility] in December 2022. Surgical incision is well-healed. He has previously scheduled follow-up with Dr Austin's office shortly after discharge. Plan cleared by PT/OT for home with his will have home health services Home Health Attestation I certify that this patient is under my care and that I, or a physicians clerical administrative assistant working with me, had a face to-face encounter that meets the home health [id number] encounter requirements with this patient. The encounter with the patient was in whole, or in part, for the following medical condition, which is the primary reason for home health care (list medical condition): I certify that, based on my findings, the following services are medically necessary home health services: My clinical findings support the need for the above services because: Further, I certify that my clinical findings support that this patient is homebound (i.e. absences from home require considerable and taxing effort and are for medical reasons or sabianism services or infrequently or of short duration when for other reasons) because: Certification for Home Health Services: Based on the above findings, I certify that this patient is confined to the home and needs intermittent correction care, physical therapy and/or speech therapy or continues to need occupational therapy. The patient is under my care, and I have initiated the establishment of the plan of care. This patient will be followed by a physician who will periodically review the plan of care. Total Time Total Time Spent Total Time Spent (In Minutes): 50 Discharge Plan Discharge Items Patient Disposition: Home - Home Health Services Reason For Visit: SEGOVIA CATHETER LEAKAGE AND HEMATURIA Discharge Diagnosis: 1. segovia catheter leakage & difficulties - resolved; catheter is out, voiding adequately 2. hematuria (blood in urine) - likely multiple reasons for such including passage of a kidney stone, possible infection/UTI, radiation cystitis, possible other factors 3. MRSA urinary tract infection 4. stage 4 sacral wound 5. history of right ankle fracture with repair - 11/2022 6. history of thoracic-lumbar spine surgery - 11/2022 7. non weight-bearing status to right leg 8. chronic coumadin use for prior history of pulmonary emboli and DVTs; discharge INR 2.5 9. sleep apnea on CPAP 10. 3mm left-sided kidney stone in the left ureter Activity: Per Instructions section Sexual Activity: Wait until after follow-up appointment Exercise/Sports: Wait until after follow-up appointment Weightbearing: Right non-weightbearing Non-emergency contact: Primary Care Provider, Surgeon and Urologist Call non-emergency contact if: you have any medication questions, your symptoms worsen, your pain is not controlled, your pain is worsening, your pain is unusual for you, your pain is concerning for you, you have a fever, your wound has increased redness, your wound has increased drainage and your wound pain has increased Follow-up/Referrals: Chong Lozano MD [Outside Practitioners] - (please see Dr Lozano from [facility] within the next 1-2 weeks for your multiple urinary tract problems; please bring the CD with you that contains your CT scan images to that appointment.) Mercy Byrnes CRNP [Nurse Practitioner] - (please see Ms Byrnes or any wound care clinic provider within the next week for your sacral wound) Soraida Carvajal MD, PhD [Pathologist] - (see Dr Carvajal in coumadin clinic within 4-5 days for repeat INR ) Lalo Austin DO [Surgeon] - (see Dr Austin or his clerical administrative assistant as scheduled for your back ) Álvaro Swift DO [Surgeon] - (see Dr Swift for your right ankle as previously scheduled ) Goldy Lozano MD [Primary Care Provider] - Diet: Regular Addtl Attending Provider Instructions: Mr Jones, You were hospitalized due to having difficulties with your segovia catheter. You had been having leakage of urine, bladder spasm and pain, hematuria, etc. The [facility] team saw you in consult. They ultimately removed the catheter on the AM of 02/05/23 and fortunately you are voiding adequately at this time. During your stay we also addressed the following problems - 1. MRSA (resistant staph aureus) urinary tract infection - you received IV antibiotics followed by oral antibiotics for this. 2. Left-sided kidney stone, 3mm in size, in the last portion of the left ureter. Nonoperative management recommended. We are hoping it will spontaneously pass on its own. 3. Sacral decubitus ulcer. Recommendations - 1. STOP your oxybutinin medication. 2. For MRSA Urinary tract infection - take Linezolid 600mg twice daily x 6 additional days (morning and evening). This is your antibiotic. 3. STOP your cyclobenzaprine. 4. TAKE baclofen 5mg at bedtime as needed for back pain/spasm. This takes the place of the cyclobenzaprine. 5. TAKE phenazopyridine (pyridium) 100mg every 8 hours as needed for urinary pain/burning. Note that this medication can turn your urine and your tears orange in color. 6. Continue your coumadin as previous - coumadin 3mg daily. Discharge INR = 2.5. 7. Please strain all urine. If you find the small kidney stone in your urine please place it in the specimen cup provided at the hospital. You can drop this off to Dr Lozano's office for processing. 8. Sacral decubitus ulcer wound care instructions - * cleanse the wound with sterile saline * use a full piece of Aquacel Ag to fill the cavity of the ulcer; be sure to overlap the Aquacel Ag onto the edges of the wound * secure with Optifoam Dressing * use a large Optifoam * place it on top of the wound in the shape of a sandy * change the dressings every day, and as needed if drainage covers more than 50% of the Optifoam 9. Additional instructions from the wound care team - * elevate the heels of your feet any time you are in bed - you can use pillows to accomplish this * use a chair cushion or Roho cushion when sitting in a chair * shift your weight every 15-30 minutes when sitting in a chair; try to limit chair sitting to meals only if possible * turn at least every 2 hours while in bed, paying close attention to shifting your weight off your buttocks/tailbone Follow-up - see separate section Return to [facility] if - * you have fevers over 100 degrees * you have worsening abdominal pain * you have inability to pass your urine * you have large amounts of blood in your urine * you have any concerns about infection of your sacral wound * you develop severe diarrhea * you have uncontrolled pain in your back or your right ankle * any other concerns It was our pleasure to care for you at [facility]! All the best on your road to recovery, Dr Lenz Pending Studies at Discharge: No Stand-Alone Forms: My [facility], Smoking Cessation Medications and DC Order Prescriptions: New phenazopyridine [Pyridium] 100 mg Tablet 100 mg PO TID PRN (Reason: urinary pain/burning) Qty: 14 0RF baclofen 10 mg Tablet 5 mg PO HS PRN (Reason: back pain/muscle spasm of back) Qty: 14 0RF Continued amitriptyline 50 mg tablet 50 mg PO HS multivitamin Tablet 1 tab PO DAILY finasteride 5 mg tablet 5 mg PO DAILY (DME) CPAP Machine [facility] [place] See Rx Instructions .ROUTE .MEDSUPPLY Qty: 1 0RF Rx Instructions: INCREASE CPAP TO 7CM. [facility] (DME) CPAP Supplies Mis See Rx Instructions .ROUTE .MEDSUPPLY Qty: 1 0RF Rx Instructions: CPAP MASK OF CHOICE. [facility] cholecalciferol (vitamin D3) [Vitamin D3] 50 mcg (2,000 unit) Capsule 50 mcg PO DAILY tramadol 50 mg tablet 50 mg PO Q4H PRN (Reason: pain) acetaminophen [Tylenol Extra Strength] 500 mg tablet 1,000 mg PO TIDM Changed warfarin 3 mg tablet 3 mg PO UD Qty: 90 1RF Rx Instructions: TAKES 3 mg by mouth QPM per [facility]; use as directed. Discontinued oxybutynin chloride 5 mg tablet extended release 24hr 5 mg PO QAM cyclobenzaprine 5 mg tablet 5 mg PO HS Krames/Other Patient Handouts: What to Know When TakingWarfarin, Understanding Kidney Stones Admission Data Admit Date/Time: 02/01/23 23:57 Attending Provider: Miguel A Lenz Admit Provider: Shawn Mohan Primary Care Provider: Goldy Lozano Other Providers: Mac Hoffmann ; Galileo Pavon ; [facility] ; Mary Alice Santana Other Interventions: Discharge Summary Assessment (RN) Last Done: 02/06/23 13:04 Coding Level of Care Code 81312 INP/OBS DISCH >30 MIN Diagnoses Catheter-associated urinary tract infection T83.511A; N39.0 Complication of Segovia catheter T83.9XXA Ureteral calculus, left N20.1 Sacral decubitus ulcer, stage IV L89.154 Hx of bladder cancer Z85.51 Hematuria R31.9 Urinary retention R33.9 Fracture of right ankle, lateral malleolus S82.61XA SAHIL (obstructive sleep apnea) G47.33 Depression F32.9 History of pulmonary embolism Z86.711 History of deep venous thrombosis Z86.718 Hypertension I10 Lumbar disc herniation with radiculopathy M51.16
== END 2023-02-06 13:35 | disposition home health service (06) | DRG 698 ==
LOC: 3E 18:10 → ED 18:10 → SUATTDRO 23:57 → 3E 02-02 01:05